=== PATIENT | male | born 1945 | race Caucasian/White ===

== ENCOUNTER 2017-04-01 07:36 | Emergency (ER) | payer MEDICARE, MEDICAID ==
[2017-04-01 07:54] VITALS: BP 70/50
--- NOTE | 2017-04-01 07:57 | UC ---
HPI Febrile Illness - HPI Summary HPI Summary: PT WITH DEVELOPMENTAL DELAY, SZ D/O, NON VERBAL LIVES AT [facility]. NOTICED TO HAVE FEVER TODAY 101.6. GIVEN TYLENOL 7:10AM (ABOUT 30 MIN BOTTOM FINISHER). IS COUGHING AND HAS GREEN NASAL DRAINAGE. NO RESPIRATORY DISTRESS. VITAL SIGNS NOTED HERE TO BE ABNORMAL - TACHYCARDIC, LOW O2, LOW BP, ELEVATED TEMP. PT REPORTED BY STAFF TO BE "QUIETER THAN USUAL." OF NOTE PT DID FALL 3 DAYS AGO SUSTAINED A SMALL LACERATION TO SCALP. HEALING WELL. NO SIGN OF INFECTION - History of Current Complaint Chief Complaint: UCRespiratory Time Seen by Provider: 04/01/17 07:42 Hx Obtained From: Family/Truck Hopper - STAFF AT [facility] Onset/Duration: Started Hours Ago, Still Present Timing: Constant Initial Severity: Moderate Current Severity: Moderate Pain Intensity: 0 Pain Scale Used: 0-10 Numeric Aggravating Factors: Nothing Alleviating Factors: Nothing Associated Signs and Symptoms: Cough - Additional Pertinent History Primary Care Physician: [id number] - Allergy/Home Medications Allergies/Adverse Reactions: Allergies Allergy/AdvReac Type Severity Reaction Status Date / Time Cephalexin [From Keflex] Allergy Unknown Unknown Verified 04/01/17 07:51 Reaction Details Valproic Acid [From Depakote] Allergy Unknown Unknown Verified 04/01/17 07:51 Reaction Details PMH/Surg Hx/FS Hx/Imm Hx Endocrine/Hematology History: Reports: Hx Thyroid Disease - HYPOTHYROID Denies: Hx Diabetes Cardiovascular History: Reports: Hx Hypertension Respiratory History: Denies: Hx Asthma, Hx Chronic Obstructive Pulmonary Disease (COPD) GI History: Reports: Other GI Disorders - EDENTULOUS, HEMORRHOIDS, CONSTIPATION , peritonitis Denies: Hx Ulcer Musculoskeletal History: Reports: Hx Arthritis, Hx Osteoporosis Sensory History: Reports: Hx Legally Blind Opthamlomology History: Reports: Hx Legally Blind Neurological History: Reports: Hx Developmental Delay - MR, Hx Seizures, Other Neuro Impairments/Disorders - AKITHESIA Psychiatric History: Reports: Hx Bipolar Disorder, Other Psychiatric Issues/ Disorders - ADJUSTMENT DISORDER WITH ANXIOUS MOOD Infectious Disease History: No Infectious Disease History: Denies: Hx Clostridium Difficile, Hx Hepatitis, Hx Human Immunodeficiency Virus (HIV), History Other Infectious Disease, Traveled Outside the US in Last 30 Days - Family History Known Family History: Positive: Unknown Family History: LEVEL 5 CAVEAT. Unobtainable due to profound MR. - Social History Alcohol Use: None Substance Use Type: Reports: None Smoking Status (MU): Never Smoked Tobacco Review of Systems Constitutional: Fever ENT: Nasal Discharge Respiratory: Cough Cardiovascular: Other - TACHYCARDIA Gastrointestinal: Negative All Other Systems Reviewed And Are Negative: Yes Physical Exam Triage Information Reviewed: Yes Appearance: No Pain Distress, Well-Nourished Vital Signs: Initial Vital Signs Temp 99.4 F 04/01/17 07:41 Pulse 121 04/01/17 07:41 Resp 16 04/01/17 07:41 BP 73/53 04/01/17 07:41 Pulse Ox 92 04/01/17 07:41 Vital Signs Reviewed: Yes Eyes: Positive: Conjunctiva Clear Neck: Positive: Supple Respiratory: Positive: No respiratory distress, No accessory muscle use, Crackles - LEFT MID/LOWER LUNG Cardiovascular: Positive: Tachycardia Abdomen Description: Positive: Nontender, Soft Musculoskeletal: Positive: No Edema Neurological: Positive: Alert Psychological: Positive: Other: - DEVELOPMENT DELAY Skin: Negative: rashes Course/Dx - Course Assessment/Plan: PT WITH LOW BP, TACHYCARDIA, FEVER, LOW OXYGEN SAT AND ABNORMAL LUNG SOUNDS. POSSIBLE PNEUMONIA/SEPSIS. TO ER FOR FURTHER EVAL. - Diagnoses Clinic Provider Diagnoses: SUSPECTED SEPSIS/PNEUMONIA - Provider Notifications Discussed Patient Care With: Zbigniew Murillo - TO [facility] [place] [facility] [place]BULANCE Time Discussed With Above Provider: 08:00 Instructed by Provider To: Will See In ED Discharge - Discharge Plan Condition: Fair Disposition: TRANS HIGHER LVL OF CARE FAC Referrals: Mark Belle MD [Primary Care Provider] -
[2017-04-01] MEDS ORDERED: NS 0.9% 1000 ML* 1,000 ML IV SCH (08:15)
== END 2017-04-01 08:14 | disposition short-term general hospital (02) ==
LOC: UCEAST 07:36
DX: R50.9 Fever, unspecified (principal); R05 Cough; R09.81 Nasal congestion; E03.9 Hypothyroidism, unspecified; I10 Essential (primary) hypertension; R62.50 Unspecified lack of expected normal physiological development in childhood; F31.9 Bipolar disorder, unspecified; R56.9 Unspecified convulsions; F43.21 Adjustment disorder with depressed mood; Z88.3 Allergy status to other anti-infective agents
CPT/HCPCS: 96360; 99213; G0463

== ENCOUNTER 2017-04-01 08:36 | Inpatient (IN) | payer MEDICARE, MEDICAID ==
[2017-04-01] MEDS ORDERED: NS 0.9% 1000 ML* 1,000 ML IV ONE ×6 (09:05→17:31)
[2017-04-01 09:22] LABS: Hematocrit 40 % (42-52); Hemoglobin 13.1 g/dl (14.0-18.0); Mean Corpuscular HGB Conc 33 g/dl (31-36); Mean Corpuscular Hemoglobin 33 pg (27-31); Mean Corpuscular Volume 99 fL (80-94); Mean Platelet Volume 9 um3 (7.4-10.4); Red Cell Distribution Width 14 % (10.5-15)
[2017-04-01 09:34] LABS: Albumin 3.5 g/dL (3.2-5.2); Calcium 9.7 mg/dL (8.6-10.3); EGFR African American 119.5 (>60); EGFR Non-African American 92.9 (>60); Globulin 3.3 g/dL (2-4); Total Bilirubin 0.4 mg/dL (0.2-1.0); Total Protein 6.8 g/dL (6.4-8.9)
[2017-04-01 09:40] LABS: Troponin I 0.05 ng/mL (<0.04)
--- NOTE | 2017-04-01 09:58 | RAD ---
HISTORY: Altered mental status COMPARISONS: None TECHNIQUE: Multiple contiguous axial CT scans were obtained of the head without intravenous contrast. FINDINGS: The study is limited by patient motion artifact. HEMORRHAGE/INFARCT: There is no hemorrhage or acute infarct. MASSES/SHIFT: There is no mass or shift. EXTRA-AXIAL SPACES: There are no extra-axial fluid collections. SULCI AND VENTRICLES: The sulci and ventricles are normal in size and position for the patient's stated age. CEREBRUM: There are no focal parenchymal abnormalities. BRAINSTEM: There are no focal parenchymal abnormalities. CEREBELLUM: There are no focal parenchymal abnormalities. VESSELS: The vessels are grossly normal. PARANASAL SINUSES: The paranasal sinuses are clear. 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 OTHER: None IMPRESSION: LIMITED STUDY. NO ACUTE INTRACRANIAL PATHOLOGY.
--- NOTE | 2017-04-01 09:59 | RAD ---
HISTORY: Fever, lethargy COMPARISONS: March 28, 2016 VIEWS:1: Single frontal portable view of the chest at 9:30 AM. The patient is obliqued to the left. FINDINGS: LINES AND TUBES: None. CARDIOMEDIASTINAL SILHOUETTE: The cardiomediastinal silhouette is normal for portable technique. PLEURA: The costophrenic angles are sharp. No pleural abnormalities are noted. LUNG PARENCHYMA: There is patchy alveolar opacification overlying the left midlung field, progressed from the previous examination ABDOMEN: Again noted is a large hiatal hernia BONES AND SOFT TISSUES: No bone or soft tissue abnormalities are noted. IMPRESSION: 1. LIMITED STUDY. 2. LEFT MIDLUNG CONSOLIDATION. 3. LARGE ALLAN HERNIA.
[2017-04-01] MEDS ORDERED: Levofloxacin 750 MG IVPREMIX(* 750 MG/150 ML BAG IVPB ONE (10:08)
[2017-04-01] MEDS: NS 0.9% 1000 ML* 1,000 ML IV ONE ×2 (10:13→12:41)
[2017-04-01] MEDS ORDERED: Acetaminophen TAB* 325 MG PO PRN (11:01)
[2017-04-01] MEDS ORDERED: Albuterol 2.5 MG/3 ML NEB.SOL* (0.083%) INH PRN (11:01)
[2017-04-01 11:20] LABS: Urine Bacteria Absent (Absent); Urine Bilirubin Negative (Negative); Urine Glucose Negative (Negative); Urine Nitrite Negative (Negative)
[2017-04-01] MEDS ORDERED: Al Hydrox/Mg Hydrox/Simet LIQ* 30 ML UDC PO PRN (11:37)
[2017-04-01] MEDS ORDERED: Enoxaparin(*) 40 MG/0.4 ML SYR SUBCUT SCH (12:00)
[2017-04-01] MEDS: NS 0.9% 1000 ML* 1,000 ML IV SCH ×3 (13:28→23:30)
--- NOTE | 2017-04-01 14:42 | HP ---
CC: Dr. Belle * ADMISSION HISTORY AND PHYSICAL: DATE OF ADMISSION: 04/01/17. PRIMARY CARE PROVIDER: Dr. Belle HEALTHCARE PROXY: Sister Richar Rushing, telephone [phone]. CODE STATUS: Full. SOURCE OF INFORMATION: The patient is a resident of [facility]. History obtained from interview with one of patient's caregiver, from [facility], review of past medical records. RELIABILITY: Good. CHIEF COMPLAINT: High fever and lethargy. HISTORY OF PRESENT ILLNESS: This is a 71-year-old man with past medical history of severe intellectual disability as well as bipolar disorder, whose baseline includes up walking around active. He is currently in a manic phase, which means he has been out of bed, more agitated and spitting until 3 days prior to presentation, had an unwitnessed fall with a cut to his head. He was placed on a head injury protocol which included increased vital signs monitoring. His vital signs were noted to be okay, although the actual values were not with with patient's caregiver where reported to be in the systolics of 90s to 100s. There is some report that he may have been using the bathroom more frequently, however this is not noted by the caregiver at the bedside. This morning the patient,"looked sick," and so his temperature was taken noted to be 101.6. He was given a bath and looked better; however, they decided to bring the patient to urgent care, where he was noted to be more lethargic and was transferred to [facility] for higher level of care. The patient's caregiver also reported a minimal cough. No shortness of breath. However previous caregiver did indicate cough, although for unclear duration of time. Patient was hospitalized in 2014 for left upper lobe pneumonia and sepsis, required IC stay. Of note during that time he continued to have fevers, status post treatment for his pneumonia on Zosyn. Those fevers are thought to represent drug fever which did eileen after discontinuation of Zosyn at that time. PAST MEDICAL HISTORY: 1. History of rectal bleeding. 2. Seizure disorder. 3. Malnutrition. 4. Hypothyroidism. 5. Anemia. 6. Bipolar disorder. 7. Thrombocytopenia. 8. Intellectual disability. 9. Blindness. ALLERGIES: To CEPHALEXIN, VALPROIC ACID. HOME MEDICATIONS: 1. Clonazepam 1 mg at bed time. 2. Phenobarbital 64.8 mg tabs 1 at bed time and one-half tab in the morning. 3. Allopurinol 5 mg 3 times a day. 4. Multivitamin 1 tablet daily. 5. Ensure plus one can 3 times a day as a supplement. 6. CeraVe moisturizing cream twice daily to dry skin, arms and legs, after bathing in the morning. 7. Vitamin A and B ointment small amounts to affected areas twice daily p.r.n. for minor skin irritation. 8. Mineral oil 3 drops in each ear 3 days has to flush after third day for wax buildup. 9. Maalox 2 teaspoons by mouth as needed with meals and a bed time for indigestion. 10. Mucinex ER 600 mg 2 times a day as need up to 10 days for congestion. 11. Dusting cream 13% apply to red or irritate areas 3 times a day as needed. 12. Benadryl 50 mg as needed if not sleep by 11 p.m. 13. Acetaminophen 650 mg every 4 hours as needed for headache, minor pain, or fever. 14. Milk of magnesia 2 tablespoons as needed on third day, if no bowel movement. 15. Dulcolax 10 mg suppository on day 4 if no bowel movement. 16. Omeprazole 20 mg daily. 17. Bacitracin 500 mg ointment applied to affected area twice daily for minor skin abrasions, open sores. 18. Motrin 400 mg every 4 hours as needed for muscle aches or discomfort. 19. Synthroid 100 mcg daily. 20. Valtrex 2 g every 12 hours as needed for 1 day for cold sore outbreak. 21. Nasonex 1 spray both nostrils daily. 22. MiraLAX 17 g as needed for constipation. 23. Lorazepam 1 mg as needed prior to medical appointments. FAMILY HISTORY: Unable to obtain, unknown. SOCIAL HISTORY: No tobacco. Previous resident of [place], now resident of [facility]. REVIEW OF SYSTEMS: Positive for cough, increased lethargy, potentially urinary frequency, otherwise unable to obtain per patient. PHYSICAL EXAMINATION GENERAL: Lying on a side, contracted, no apparent cardiopulmonary distress. Will not open his mouth to evaluate for evaluation. VITAL SIGNS: In the emergency room blood pressure 88/56, heart rate 90, respiratory rate was 25, T-max in the emergency room was 98.8. He is 98% on room air. NECK: He has no cervical or supraclavicular lymphadenopathy. LUNGS: Clear; however, does not cooperate with exam and take deep breaths. HEART: Regular rate and rhythm. No murmurs, rubs or gallops. ABDOMEN: Mildly distended, soft, nontender. Positive bowel sounds. EXTREMITIES: Warm and well perfused, less than 2 seconds capillary refill. NEUROLOGIC: He is alert and oriented x0, does not interact with exam. No apparent anxiety, agitation or depression. LABORATORY DATA: Labs reviewed white blood cell count is 18,000, with 88.5% neutrophils, hemoglobin 13.1, MCV of 99, platelets 140. BUN 23, creatinine 0.82 , lactic acid 1.6, ammonia is 38, troponin is 0.05. Urine is collected is pending. Chest x-ray, impression: Limited study, left mid lung consolidation, large hiatal hernia. EKG sinus tachycardia, ventricular rate 95. Normal axes and intervals. No ST or T- wave changes. ASSESSMENT AND PLAN: This is a 71-year-old man with past medical history of severe intellectual disability, bipolar disorder, blindness, presenting with fevers, found septic secondary to pneumonia. 1. Sepsis secondary to left sided pneumonia. Receiving Zosyn in the emergency room will continue q. 8 hours. He is status post 2 L bolus, with bolus of another liter to follow. Additionally boluses as needed; otherwise, 150 cc/hour for 2 additional liters. Check Streptococcus pneumoniae and legionella urine antigens. Check sputum culture if able to collect. Blood cultures obtained and urine obtained for urinalysis and culture. Admit to ICU given hypotension and tachycardia. Wilkinson in place, monitor urine output. 2. Elevated troponins by demand ischemia in the setting of sepsis, monitor troponins for 2 additional sets. EKG is nonischemic. 3. History of dysphagia continue unrestricted diet. Solids and pudding thick liquids. 4. History of seizures, continue phenobarbital. 5. History of malnutrition, continue Ensure 3 times a day if patient will tolerate p.o. 6. DVT prophylaxis with Lovenox. Please note, as indicated in HPI the patient did have low grade fevers after completion of therapy with Zosyn for pneumonia in 2014. [id number]/[facility] #: [id number] [facility]
--- NOTE | 2017-04-01 18:05 | ED ---
Opal Greenwood Alfonso, scribed for Zbigniew Murillo MD on 04/01/17 at 0918 . Complex/Multi-Sys Presentation - HPI Summary HPI Summary: LEVEL 5 CAVEAT DUE TO PATIENTS NONVERBAL STATUS. This patient is a 71 year old M BIBA from [facility] to [facility] accompanied by roof truss builder s/p fall three days ago. The fall was unwitnessed and he hit his head. Symptoms aggravated and alleviated by nothing. Security Intelligence Analyst reports febrile illness, he is going through a manic phase, and decreased activity. He was given Tylenol 650 mg at 0710. - History Of Current Complaint Chief Complaint: EDGeneral Time Seen by Provider: 04/01/17 09:05 Hx Obtained From: Family/Security Intelligence Analyst - Caregiver Onset/Duration: Sudden Onset, Lasting Days - 3, Resolved Timing: Constant Severity Currently: Moderate Severity Initially: Moderate Aggravating Factor(s): Nothing Alleviating Factor(s): Nothing Associated Signs And Symptoms: Positive: Recent Trauma - Unwitnessed fall 3 days ago with head trauma., Other - . Security Intelligence Analyst reports febrile illness, he is going through a manic phase, and decreased activity. - Allergies/Home Medications Allergies/Adverse Reactions: Allergies Allergy/AdvReac Type Severity Reaction Status Date / Time Cephalexin [From Keflex] Allergy Unknown Unknown Verified 04/01/17 07:51 Reaction Details Valproic Acid [From Depakote] Allergy Unknown Unknown Verified 04/01/17 07:51 Reaction Details Cephalosporins Allergy Unknown Verified 04/01/17 13:00 Reaction Details Prednisone Allergy Agitation Verified 04/01/17 13:00 Home Medications: Home Medications Emollient [Cerave] 1 cre TOPICAL BID 04/01/17 [History Confirmed 04/01/17] Haloperidol TAB* [Haldol TAB*] 5 mg PO TID MDD 15 mg 04/01/17 [History Confirmed 04/01/17] Magnesium Hydroxide LIQ* [Milk of Magnesia LIQ*] 30 ml PO Q3D PRN 04/01/17 [ History Confirmed 04/01/17] clonazePAM TAB(*) [KlonoPIN TAB(*)] 1 mg PO BEDTIME MDD 1 mg 04/01/17 [History Confirmed 04/01/17] PMH/Surg Hx/FS Hx/Imm Hx Endocrine/Hematology History: Reports: Hx Thyroid Disease - HYPOTHYROID Denies: Hx Diabetes Cardiovascular History: Reports: Hx Hypertension Respiratory History: Denies: Hx Asthma, Hx Chronic Obstructive Pulmonary Disease (COPD) GI History: Reports: Other GI Disorders - EDENTULOUS, HEMORRHOIDS, CONSTIPATION , peritonitis Denies: Hx Ulcer Musculoskeletal History: Reports: Hx Arthritis, Hx Osteoporosis Sensory History: Reports: Hx Legally Blind Opthamlomology History: Reports: Hx Legally Blind Neurological History: Reports: Hx Developmental Delay - MR, Hx Seizures, Other Neuro Impairments/Disorders - AKITHESIA Psychiatric History: Reports: Hx Bipolar Disorder, Other Psychiatric Issues/ Disorders - ADJUSTMENT DISORDER WITH ANXIOUS MOOD Infectious Disease History: Denies: Hx Clostridium Difficile, Hx Hepatitis, Hx Human Immunodeficiency Virus (HIV), History Other Infectious Disease, Traveled Outside the [place] in Last 30 Days - Family History Known Family History: Positive: Unknown Family History: LEVEL 5 CAVEAT. - Social History Lives: Long Term - [employer] home Alcohol Use: None Substance Use Type: Reports: None Smoking Status (MU): Never Smoked Tobacco Review of Systems - ROS Summary Review of Systems Summary: LEVEL 5 CAVEAT DUE TO PATIENTS NONVERBAL STATUS. Positive: Fever Musculoskeletal: Other - Positive unwitnessed fall and head trauma Neurological: Other - Positive he is going through a manic phase, and decreased activity. All Other Systems Reviewed And Are Negative: No Physical Exam - Summary Physical Exam Summary: LEVEL 5 CAVEAT DUE TO PATIENTS NONVERBAL STATUS. VITAL SIGNS: Reviewed. GENERAL: Patient is an elderly male who is lying in the stretcher. Patient is not in any acute respiratory distress. Patient appears ill. HEAD AND FACE: No ecchymosis, hematomas or skull depressions. No sinus tenderness. Small well healing abrasion at top of head secondary to fall three days ago. EYES: PERRLA, EOMI x 2, No injected conjunctiva, no nystagmus. EARS: Ear canals and tympanic membranes are within normal limits. MOUTH: Oropharynx within normal limits. NECK: Supple, trachea is midline, no adenopathy, no JVD, no carotid bruit, no c- spine tenderness, neck with full ROM. CHEST: Symmetric, no tenderness at palpation LUNGS: Crackles in bilateral bases of the lungs. CVS: Regular rate and rhythm, S1 and S2 present, no murmurs or gallops appreciated. ABDOMEN: Soft, non-tender. No signs of distention. No rebound no guarding, and no masses palpated. Bowel sounds are normal. EXTREMITIES: FROM in all major joints, no edema, no cyanosis or clubbing. NEURO: Patient is nonverbal. SKIN: Dry and warm. Triage Information Reviewed: Yes Vital Signs On Initial Exam: Initial Vitals Temp Pulse Resp BP Pulse Ox 98.8 F 96 16 88/56 96 04/01/17 08:56 04/01/17 08:56 04/01/17 08:56 04/01/17 08:56 04/01/17 08:56 Vital Signs Reviewed: Yes Completion Of Physical Exam Limited Due To: Level 5 Diagnostics - Vital Signs Vital Signs Temp Pulse Resp BP Pulse Ox 04/01/17 09:00 25 88/56 04/01/17 08:58 26 04/01/17 08:57 94/61 04/01/17 08:56 98.8 F 96 16 88/56 96 - Laboratory Lab Results: Lab Results 04/01/17 04/01/17 04/01/17 Range/Units 08:06 08:06 08:06 WBC 18.0 H (3.5-10.8) 10^3/ul RBC 4.00 (4.0-5.4) 10^6/ul Hgb 13.1 L (14.0-18.0) g/dl Hct 40 L (42-52) % MCV 99 H (80-94) fL MCH 33 H (27-31) pg MCHC 33 (31-36) g/dl RDW 14 (10.5-15) % Plt Count 140 L (150-450) 10^3/ul MPV 9 (7.4-10.4) um3 Neut % (Auto) 88.5 H (38-83) % Lymph % (Auto) 5.4 L (25-47) % [place] % (Auto) 5.6 (1-9) % Eos % (Auto) 0.2 (0-6) % Baso % (Auto) 0.3 (0-2) % Absolute Neuts (auto) 15.9 H (1.5-7.7) 10^3/ul Absolute Lymphs (auto) 1.0 (1.0-4.8) 10^3/ul Absolute Monos (auto) 1.0 H (0-0.8) 10^3/ul Absolute Eos (auto) 0 (0-0.6) 10^3/ul Absolute Basos (auto) 0.1 (0-0.2) 10^3/ul Absolute Nucleated RBC 0 10^3/ul Nucleated RBC % 0 Sodium 135 (133-145) mmol/L Potassium 4.0 (3.5-5.0) mmol/L Chloride 100 L (101-111) mmol/L Carbon Dioxide 28 (22-32) mmol/L Anion Gap 7 (2-11) mmol/L BUN 23 (6-24) mg/dL Creatinine 0.82 (0.67-1.17) mg/dL Est GFR ( Amer) 119.5 (>60) Est GFR (Non-Af Amer) 92.9 (>60) BUN/Creatinine Ratio 28.0 H (8-20) Glucose 132 H (70-100) mg/dL Lactic Acid (0.5-2.0) mmol/L Calcium 9.7 (8.6-10.3) mg/dL Total Bilirubin 0.40 (0.2-1.0) mg/dL AST 28 (13-39) U/L ALT 31 (7-52) U/L Alkaline Phosphatase 135 H (34-104) U/L Ammonia 38 (16-53) mol/L Total Creatine Kinase 45 (10-223) U/L Troponin I 0.05 H* (<0.04) ng/mL Total Protein 6.8 (6.4-8.9) g/dL Albumin 3.5 (3.2-5.2) g/dL Globulin 3.3 (2-4) g/dL Albumin/Globulin Ratio 1.1 (1-3) Urine Color Urine Appearance Urine pH (5-9) Ur Specific [place] (1.010-1.030) Urine Protein (Negative) Urine Ketones (Negative) Urine Blood (Negative) Urine Nitrate (Negative) Urine Bilirubin (Negative) Urine Urobilinogen (Negative) Ur Leukocyte Esterase (Negative) Urine WBC (Auto) (Absent) Urine RBC (Auto) (Absent) Calcium Oxalate Crystal (Absent) Urine Bacteria (Absent) Urine Glucose (Negative) Urine Ascorbic Acid (Negative) 04/01/17 04/01/17 Range/Units 09:30 11:00 WBC (3.5-10.8) 10^3/ul RBC (4.0-5.4) 10^6/ul Hgb (14.0-18.0) g/dl Hct (42-52) % MCV (80-94) fL MCH (27-31) pg MCHC (31-36) g/dl RDW (10.5-15) % Plt Count (150-450) 10^3/ul MPV (7.4-10.4) um3 Neut % (Auto) (38-83) % Lymph % (Auto) (25-47) % [place] % (Auto) (1-9) % Eos % (Auto) (0-6) % Baso % (Auto) (0-2) % Absolute Neuts (auto) (1.5-7.7) 10^3/ul Absolute Lymphs (auto) (1.0-4.8) 10^3/ul Absolute Monos (auto) (0-0.8) 10^3/ul Absolute Eos (auto) (0-0.6) 10^3/ul Absolute Basos (auto) (0-0.2) 10^3/ul Absolute Nucleated RBC 10^3/ul Nucleated RBC % Sodium (133-145) mmol/L Potassium (3.5-5.0) mmol/L Chloride (101-111) mmol/L Carbon Dioxide (22-32) mmol/L Anion Gap (2-11) mmol/L BUN (6-24) mg/dL Creatinine (0.67-1.17) mg/dL Est GFR ( Amer) (>60) Est GFR (Non-Af Amer) (>60) BUN/Creatinine Ratio (8-20) Glucose (70-100) mg/dL Lactic Acid 1.6 (0.5-2.0) mmol/L Calcium (8.6-10.3) mg/dL Total Bilirubin (0.2-1.0) mg/dL AST (13-39) U/L ALT (7-52) U/L Alkaline Phosphatase (34-104) U/L Ammonia (16-53) mol/L Total Creatine Kinase (10-223) U/L Troponin I (<0.04) ng/mL Total Protein (6.4-8.9) g/dL Albumin (3.2-5.2) g/dL Globulin (2-4) g/dL Albumin/Globulin Ratio (1-3) Urine Color Yellow Urine Appearance Cloudy Urine pH 7.0 (5-9) Ur Specific [place] 1.020 (1.010-1.030) Urine Protein Negative (Negative) Urine Ketones Negative (Negative) Urine Blood Negative (Negative) Urine Nitrate Negative (Negative) Urine Bilirubin Negative (Negative) Urine Urobilinogen Negative (Negative) Ur Leukocyte Esterase Trace H (Negative) Urine WBC (Auto) Trace(0-5/hpf) (Absent) Urine RBC (Auto) Trace(0-2/hpf) (Absent) Calcium Oxalate Crystal Present H (Absent) Urine Bacteria Absent (Absent) Urine Glucose Negative (Negative) Urine Ascorbic Acid * H (Negative) Result Diagrams: 04/01/17 08:06 04/01/17 08:06 Lab Statement: Any lab studies that have been ordered have been reviewed, and results considered in the medical decision making process. - Radiology CXR Radiology Interpretation Completed By: Radiologist - 1. LIMITED STUDY. 2. LEFT MIDLUNG CONSOLIDATION. 3. LARGE ALLAN HERNIA. - CT Brain CT Interpretation Completed By: Radiologist - LIMITED STUDY. NO ACUTE INTRACRANIAL PATHOLOGY. - EKG 0920 Cardiac Rate: NL - BPM 95 EKG Rhythm: Sinus Rhythm ST Segment: Normal Complex Multi-Symp Course/Dx Course Of Treatment: LEVEL 5 CAVEAT DUE TO PATIENTS NONVERBAL STATUS. This patient is a 71 year old M BIBA from [facility] to [facility] accompanied by roof truss builder s/p fall three days ago. The fall was unwitnessed and he hit his head. Symptoms aggravated and alleviated by nothing. Security Intelligence Analyst reports febrile illness, he is going through a manic phase, and decreased activity. He was given Tylenol 650 mg at 0710. Assessment/Plan: Test results show a WBC of 18 with slight chronic anemia. Troponin of 0.05. Urinalysis negative for UTI. CXR shows pneumonia. In the ED course the patient was given IV fluids for his hypotension and he was placed on Zosyn. As per Dr. Teague, he only wants Zosyn for community acquired pneumonia. The patient was admitted to Dr. Teague (hospitalist). The patient is alert. - Diagnoses Provider Diagnoses: Pneumonia, Head contusion - Physician Notifications Discussed Care Of Patient With: Tino Teague Time Discussed With Above Provider: 10:18 Instructed by Provider To: Other - Consulted Dr. Teague (hospitalist) who accepts the patient for admission. Discharge - Discharge Plan Condition: Guarded Disposition: ADMITTED TO [facility] documentation as recorded by the Opal flores Alfonso accurately reflects the service I personally performed and the decisions made by me, Zbigniew Murillo MD.
[2017-04-01] MEDS: Enoxaparin(*) 40 MG/0.4 ML SYR SUBCUT SCH (19:08)
[2017-04-01] MEDS: clonazePAM TAB(*) 1 MG PO SCH (21:26)
[2017-04-01] MEDS: PHENobarbital TAB(*) 30 MG PO SCH (21:26)
[2017-04-02 05:38] LABS: Calcium 7.4 mg/dL (8.6-10.3); EGFR African American 216.4 (>60); EGFR Non-African American 168.3 (>60); Potassium 3.4 mmol/L (3.5-5.0)
[2017-04-02 05:56] LABS: BUN/Creatinine Ratio 20.4 (8-20); Magnesium 1.3 mg/dL (1.9-2.7)
[2017-04-02] MEDS: Levothyroxine TAB* 100 MCG TAB PO SCH (06:05)
[2017-04-02] MEDS ORDERED: Potassium Chloride LIQUID* 20 MEQ PACKET PO ONE (06:14)
[2017-04-02] MEDS ORDERED: NS 0.9% 1000 ML* 1,000 ML IV SCH (07:45)
--- NOTE | 2017-04-02 07:45 | PN ---
Subjective Date of Service: 04/02/17 Interval History: Seen and examined with aid at bedside This morning "yelping" which is closer to baseline. Aid reports if he were at his baseline he would be ripping off all the telemetry wires Pt unable to relay concerns Objective Active Medications: Acetaminophen (Tylenol Tab*) 650 mg PO Q4H PRN PRN Reason: FEVER/PAIN Al Hydrox/Mg Hydrox/Simethicone (Maalox Plus*) 30 ml PO TID PC PRN PRN Reason: INDIGESTION Albuterol (Ventolin 2.5 Mg/3 Ml Neb.Anuja*) 2.5 mg INH [id number] AWAKE PRN PRN Reason: sob/wheezing Clonazepam (Klonopin Tab(*)) 1 mg PO BEDTIME [facility] Last Admin: 04/01/17 21:26 Dose: 1 mg Enoxaparin Sodium (Lovenox(*)) 40 mg SUBCUT 1830 [facility] Last Admin: 04/01/17 19:08 Dose: 40 mg Fluticasone Propionate (Flonase Nasal [place] 50mcg*) 1 spray BOTH NARES DAILY [facility] Piperacillin Sod/Tazobactam (Sod 3.375 gm/ Sodium Chloride) 100 mls @ 25 mls/ hr IVPB Q8H [facility] Last Admin: 04/02/17 02:06 Dose: 25 mls/hr Sodium Chloride (Ns 0.9% 1000 Ml*) 1,000 mls @ 150 mls/hr IV PER RATE [facility] Stop: 04/02/17 17:54 Last Admin: 04/01/17 23:30 Dose: 150 mls/hr Magnesium Sulfate 3 gm/ Sodium (Chloride) 106 mls @ 53 mls/hr IVPB ONCE ONE Stop: 04/02/17 08:29 Last Admin: 04/02/17 06:40 Dose: 53 mls/hr Sodium Chloride (Ns 0.9% 1000 Ml*) 1,000 mls @ 150 mls/hr IV PER RATE [facility] Stop: 04/02/17 14:24 Levothyroxine Sodium (Synthroid Tab*) 100 mcg PO 0600 [facility] Last Admin: 04/02/17 06:05 Dose: 100 mcg Magnesium Hydroxide (Milk Of Magnesia Liq*) 30 ml PO Q3D PRN PRN Reason: CONSTIPATION Omeprazole (Prilosec Cap*) 20 mg PO DAILY [facility] Phenobarbital (Phenobarbital Tab(*)) 60 mg PO BEDTIME [facility] Last Admin: 04/01/17 21:26 Dose: 60 mg Phenobarbital (Phenobarbital Tab(*)) 30 mg PO DAILY [facility] Polyethylene Glycol/Electrolytes (Miralax*) 17 gm PO DAILY [facility] Vital Signs 04/01/17 04/01/17 04/01/17 11:45 12:00 12:15 Temperature Pulse Rate 91 89 91 Respiratory 25 25 24 Rate Blood Pressure 95/54 98/60 104/60 (mmHg) O2 Sat by Pulse 95 95 94 Oximetry 04/01/17 04/01/17 04/01/17 12:30 12:45 13:00 Temperature 98.2 F Pulse Rate 88 89 87 Respiratory 24 25 19 Rate Blood Pressure 101/61 107/55 93/46 (mmHg) O2 Sat by Pulse 93 93 93 Oximetry 04/01/17 04/01/17 04/01/17 13:03 13:05 13:12 Temperature Pulse Rate 88 87 Respiratory 18 25 Rate Blood Pressure 88/48 (mmHg) O2 Sat by Pulse 93 94 Oximetry 04/01/17 04/01/17 04/01/17 13:20 13:30 13:31 Temperature Pulse Rate 85 83 80 Respiratory 23 26 25 Rate Blood Pressure 88/48 87/46 (mmHg) O2 Sat by Pulse 95 94 93 Oximetry 04/01/17 04/01/17 04/01/17 13:41 13:46 13:58 Temperature 99 F Pulse Rate 77 78 Respiratory 26 26 25 Rate Blood Pressure 87/46 72/45 (mmHg) O2 Sat by Pulse 94 95 Oximetry 04/01/17 04/01/17 04/01/17 14:00 14:01 14:02 Temperature Pulse Rate 74 79 79 Respiratory 26 18 26 Rate Blood Pressure 72/34 80/44 (mmHg) O2 Sat by Pulse 96 93 95 Oximetry 04/01/17 04/01/17 04/01/17 14:30 15:00 15:30 Temperature Pulse Rate 86 87 74 Respiratory 23 27 21 Rate Blood Pressure (mmHg) O2 Sat by Pulse 97 94 94 Oximetry 04/01/17 04/01/17 04/01/17 15:31 15:34 15:35 Temperature Pulse Rate 80 86 84 Respiratory 24 14 15 Rate Blood Pressure (mmHg) O2 Sat by Pulse 94 97 95 Oximetry 04/01/17 04/01/17 04/01/17 16:00 16:30 17:00 Temperature Pulse Rate 81 86 89 Respiratory 8 23 19 Rate Blood Pressure (mmHg) O2 Sat by Pulse 94 92 93 Oximetry 04/01/17 04/01/17 04/01/17 17:30 17:48 18:00 Temperature Pulse Rate 80 81 Respiratory 27 25 Rate Blood Pressure 91/57 86/48 (mmHg) O2 Sat by Pulse 91 99 Oximetry 04/01/17 04/01/17 04/01/17 18:30 19:00 19:02 Temperature 99 F Pulse Rate 81 89 92 Respiratory 29 27 30 Rate Blood Pressure (mmHg) O2 Sat by Pulse 96 97 98 Oximetry 04/01/17 04/01/17 04/01/17 19:03 19:04 19:06 Temperature Pulse Rate 88 83 82 Respiratory 26 25 29 Rate Blood Pressure (mmHg) O2 Sat by Pulse 99 99 100 Oximetry 04/01/17 04/01/17 04/01/17 19:30 20:00 20:25 Temperature 99 F Pulse Rate 81 93 80 Respiratory 23 30 26 Rate Blood Pressure (mmHg) O2 Sat by Pulse 99 98 98 Oximetry 04/01/17 04/01/17 04/01/17 20:28 20:29 20:30 Temperature Pulse Rate 88 78 78 Respiratory 31 28 27 Rate Blood Pressure 112/70 96/62 (mmHg) O2 Sat by Pulse 99 98 97 Oximetry 04/01/17 04/01/17 04/01/17 20:31 20:45 21:00 Temperature Pulse Rate 79 79 77 Respiratory 25 23 24 Rate Blood Pressure 90/63 89/59 (mmHg) O2 Sat by Pulse 97 96 98 Oximetry 04/01/17 04/01/17 04/01/17 21:01 21:15 21:29 Temperature Pulse Rate 79 73 89 Respiratory 24 25 26 Rate Blood Pressure 101/61 (mmHg) O2 Sat by Pulse 98 97 98 Oximetry 04/01/17 04/01/17 04/01/17 21:30 21:31 21:45 Temperature Pulse Rate 98 84 84 Respiratory 24 36 20 Rate Blood Pressure 126/66 89/62 (mmHg) O2 Sat by Pulse 96 96 98 Oximetry 04/01/17 04/01/17 04/01/17 22:00 22:01 22:15 Temperature Pulse Rate 77 76 77 Respiratory 26 24 25 Rate Blood Pressure 101/62 90/60 (mmHg) O2 Sat by Pulse 97 96 94 Oximetry 04/01/17 04/01/17 04/01/17 22:30 22:31 22:43 Temperature Pulse Rate 76 79 75 Respiratory 24 33 23 Rate Blood Pressure 96/58 (mmHg) O2 Sat by Pulse 95 94 94 Oximetry 04/01/17 04/01/17 04/01/17 22:45 23:00 23:16 Temperature Pulse Rate 75 77 83 Respiratory 29 29 27 Rate Blood Pressure 105/70 116/76 116/67 (mmHg) O2 Sat by Pulse 96 97 98 Oximetry 04/01/17 04/01/17 04/01/17 23:30 23:31 23:43 Temperature Pulse Rate 84 91 88 Respiratory 29 18 31 Rate Blood Pressure 115/73 (mmHg) O2 Sat by Pulse 96 95 95 Oximetry 04/01/17 04/01/17 04/01/17 23:44 23:45 23:55 Temperature 97.7 F Pulse Rate 82 85 Respiratory 28 31 Rate Blood Pressure 117/76 (mmHg) O2 Sat by Pulse 95 96 Oximetry 04/02/17 04/02/17 04/02/17 00:00 00:01 00:15 Temperature Pulse Rate 84 80 86 Respiratory 26 29 30 Rate Blood Pressure 117/78 122/78 (mmHg) O2 Sat by Pulse 97 96 95 Oximetry 04/02/17 04/02/17 04/02/17 00:30 00:31 00:45 Temperature Pulse Rate 79 77 82 Respiratory 29 27 27 Rate Blood Pressure 110/79 122/74 (mmHg) O2 Sat by Pulse 96 96 97 Oximetry 04/02/17 04/02/17 04/02/17 01:00 01:01 01:15 Temperature Pulse Rate 81 80 Respiratory 29 28 28 Rate Blood Pressure 120/75 112/73 (mmHg) O2 Sat by Pulse 97 96 Oximetry 04/02/17 04/02/17 04/02/17 01:30 01:31 01:45 Temperature Pulse Rate 87 80 84 Respiratory 28 28 30 Rate Blood Pressure 127/78 125/74 (mmHg) O2 Sat by Pulse 95 95 97 Oximetry 04/02/17 04/02/17 04/02/17 02:00 02:01 02:30 Temperature Pulse Rate 85 79 94 Respiratory 20 29 24 Rate Blood Pressure 111/83 (mmHg) O2 Sat by Pulse 87 97 98 Oximetry 04/02/17 04/02/17 04/02/17 03:00 03:01 03:30 Temperature Pulse Rate 80 92 79 Respiratory 30 28 28 Rate Blood Pressure 121/64 (mmHg) O2 Sat by Pulse 91 93 95 Oximetry 04/02/17 04/02/17 04/02/17 04:00 04:01 04:30 Temperature 98.3 F Pulse Rate 90 85 91 Respiratory 29 28 20 Rate Blood Pressure 136/88 (mmHg) O2 Sat by Pulse 96 96 94 Oximetry 04/02/17 04/02/17 04/02/17 05:00 05:01 05:30 Temperature Pulse Rate 86 91 79 Respiratory 34 22 32 Rate Blood Pressure 135/75 (mmHg) O2 Sat by Pulse 93 93 91 Oximetry 04/02/17 04/02/17 04/02/17 06:00 06:01 06:30 Temperature Pulse Rate 92 98 98 Respiratory 28 25 26 Rate Blood Pressure 135/77 (mmHg) O2 Sat by Pulse 92 87 Oximetry 04/02/17 04/02/17 04/02/17 06:44 07:00 07:01 Temperature Pulse Rate 93 91 Respiratory 25 27 24 Rate Blood Pressure 114/80 (mmHg) O2 Sat by Pulse 78 92 Oximetry Oxygen Devices in Use Now: None Appearance: sitting up in bed, NAD Ears/Nose/Mouth/Throat: Clear Oropharnyx, Mucous Membranes Moist Neck: NL Appearance and Movements; NL JVP Respiratory: Symmetrical Chest Expansion and Respiratory Effort, - - clear anteriorly, unable to participate and listen to posteriorly Cardiovascular: RRR Abdominal: NL Sounds; No Tenderness; No Distention, No Hepatosplenomegaly Lymphatic: No Cervical Adenopathy Extremities: No Edema, No Clubbing, Cyanosis Neurological: - - AOx0, screaming intermittantly, moves all extremities Result Diagrams: 04/01/17 08:06 04/02/17 05:03 Additional Lab and Data: Lab Results 04/01/17 04/01/17 04/01/17 Range/Units 08:06 08:06 08:06 WBC 18.0 H (3.5-10.8) 10^3/ul RBC 4.00 (4.0-5.4) 10^6/ul Hgb 13.1 L (14.0-18.0) g/dl Hct 40 L (42-52) % MCV 99 H (80-94) fL MCH 33 H (27-31) pg MCHC 33 (31-36) g/dl RDW 14 (10.5-15) % Plt Count 140 L (150-450) 10^3/ul MPV 9 (7.4-10.4) um3 Neut % (Auto) 88.5 H (38-83) % Lymph % (Auto) 5.4 L (25-47) % [place] % (Auto) 5.6 (1-9) % Eos % (Auto) 0.2 (0-6) % Baso % (Auto) 0.3 (0-2) % Absolute Neuts (auto) 15.9 H (1.5-7.7) 10^3/ul Absolute Lymphs (auto) 1.0 (1.0-4.8) 10^3/ul Absolute Monos (auto) 1.0 H (0-0.8) 10^3/ul Absolute Eos (auto) 0 (0-0.6) 10^3/ul Absolute Basos (auto) 0.1 (0-0.2) 10^3/ul Absolute Nucleated RBC 0 10^3/ul Nucleated RBC % 0 Sodium 135 (133-145) mmol/L Potassium 4.0 (3.5-5.0) mmol/L Chloride 100 L (101-111) mmol/L Carbon Dioxide 28 (22-32) mmol/L Anion Gap 7 (2-11) mmol/L BUN 23 (6-24) mg/dL Creatinine 0.82 (0.67-1.17) mg/dL Est GFR ( Amer) 119.5 (>60) Est GFR (Non-Af Amer) 92.9 (>60) BUN/Creatinine Ratio 28.0 H (8-20) Glucose 132 H (70-100) mg/dL Lactic Acid (0.5-2.0) mmol/L Calcium 9.7 (8.6-10.3) mg/dL Total Bilirubin 0.40 (0.2-1.0) mg/dL AST 28 (13-39) U/L ALT 31 (7-52) U/L Alkaline Phosphatase 135 H (34-104) U/L Ammonia 38 (16-53) mol/L Total Creatine Kinase 45 (10-223) U/L Troponin I 0.05 H* (<0.04) ng/mL Total Protein 6.8 (6.4-8.9) g/dL Albumin 3.5 (3.2-5.2) g/dL Globulin 3.3 (2-4) g/dL Albumin/Globulin Ratio 1.1 (1-3) Urine Color Urine Appearance Urine pH (5-9) Ur Specific [place] (1.010-1.030) Urine Protein (Negative) Urine Ketones (Negative) Urine Blood (Negative) Urine Nitrate (Negative) Urine Bilirubin (Negative) Urine Urobilinogen (Negative) Ur Leukocyte Esterase (Negative) Urine WBC (Auto) (Absent) Urine RBC (Auto) (Absent) Calcium Oxalate Crystal (Absent) Urine Bacteria (Absent) Urine Glucose (Negative) Urine Ascorbic Acid (Negative) 04/01/17 04/01/17 Range/Units 09:30 11:00 WBC (3.5-10.8) 10^3/ul RBC (4.0-5.4) 10^6/ul Hgb (14.0-18.0) g/dl Hct (42-52) % MCV (80-94) fL MCH (27-31) pg MCHC (31-36) g/dl RDW (10.5-15) % Plt Count (150-450) 10^3/ul MPV (7.4-10.4) um3 Neut % (Auto) (38-83) % Lymph % (Auto) (25-47) % [place] % (Auto) (1-9) % Eos % (Auto) (0-6) % Baso % (Auto) (0-2) % Absolute Neuts (auto) (1.5-7.7) 10^3/ul Absolute Lymphs (auto) (1.0-4.8) 10^3/ul Absolute Monos (auto) (0-0.8) 10^3/ul Absolute Eos (auto) (0-0.6) 10^3/ul Absolute Basos (auto) (0-0.2) 10^3/ul Absolute Nucleated RBC 10^3/ul Nucleated RBC % Sodium (133-145) mmol/L Potassium (3.5-5.0) mmol/L Chloride (101-111) mmol/L Carbon Dioxide (22-32) mmol/L Anion Gap (2-11) mmol/L BUN (6-24) mg/dL Creatinine (0.67-1.17) mg/dL Est GFR ( Amer) (>60) Est GFR (Non-Af Amer) (>60) BUN/Creatinine Ratio (8-20) Glucose (70-100) mg/dL Lactic Acid 1.6 (0.5-2.0) mmol/L Calcium (8.6-10.3) mg/dL Total Bilirubin (0.2-1.0) mg/dL AST (13-39) U/L ALT (7-52) U/L Alkaline Phosphatase (34-104) U/L Ammonia (16-53) mol/L Total Creatine Kinase (10-223) U/L Troponin I (<0.04) ng/mL Total Protein (6.4-8.9) g/dL Albumin (3.2-5.2) g/dL Globulin (2-4) g/dL Albumin/Globulin Ratio (1-3) Urine Color Yellow Urine Appearance Cloudy Urine pH 7.0 (5-9) Ur Specific [place] 1.020 (1.010-1.030) Urine Protein Negative (Negative) Urine Ketones Negative (Negative) Urine Blood Negative (Negative) Urine Nitrate Negative (Negative) Urine Bilirubin Negative (Negative) Urine Urobilinogen Negative (Negative) Ur Leukocyte Esterase Trace H (Negative) Urine WBC (Auto) Trace(0-5/hpf) (Absent) Urine RBC (Auto) Trace(0-2/hpf) (Absent) Calcium Oxalate Crystal Present H (Absent) Urine Bacteria Absent (Absent) Urine Glucose Negative (Negative) Urine Ascorbic Acid * H (Negative) Microbiology and Other Data: Microbiology 04/01/17 13:20 Nasal Screen MRSA (PCR)(ERIKA) - Final Nasal Mrsa Negative Assess/Plan/Problems-Billing Assessment: 71 yo M h/o blindness, severe intellectual delay, seizure d/o, bipolar d/o, p/w sepsis 2/2 Left midlung PNA - Patient Problems (1) Sepsis Comment: In setting of PNA APpropriately volume rescucitated (SBP from 80s now to 110s) Mental status improving and UOP appropriate Change NS to 150cc for addition liter c/w zosyn (2) Pneumonia Comment: Zosyn in setting of cephalosporin allergy (3) Seizure disorder Comment: phenobarb (4) Bipolar 1 disorder Comment: Was previously in manic phase Restart haldol TID (home med) now that pt is awake (5) DVT prophylaxis Comment: lovenox
[2017-04-02] MEDS: Haloperidol TAB* 5 MG PO SCH ×3 (09:08→20:35)
[2017-04-02] MEDS: PHENobarbital TAB(*) 30 MG PO SCH ×2 (09:08→20:34)
[2017-04-02] MEDS: Omeprazole CAP* 20 MG PO SCH (09:08)
[2017-04-02] MEDS: Fluticasone NASAL SPRAY 50MCG* 16 gm SPRAY BTL BOTH NARES SCH (09:09)
[2017-04-02] MEDS: Polyethylene Glycol 3350* 17 GM PACKET PO SCH (09:10)
[2017-04-02] MEDS ORDERED: Ondansetron INJ* 2 MG/ML VIAL IV PRN (15:31)
[2017-04-02] MEDS: Enoxaparin(*) 40 MG/0.4 ML SYR SUBCUT SCH (18:27)
[2017-04-02] MEDS: clonazePAM TAB(*) 1 MG PO SCH (20:34)
[2017-04-02] MEDS ORDERED: NS 0.9% 250 ML* 250 ML IV ONE (23:00)
[2017-04-03] MEDS: NS 0.9% 1000 ML* 1,000 ML IV SCH ×2 (00:29→12:16)
[2017-04-03] MEDS: Levothyroxine TAB* 100 MCG TAB PO SCH (05:31)
[2017-04-03 06:26] LABS: Hematocrit 33 % (42-52); Hemoglobin 11.1 g/dl (14.0-18.0); Mean Corpuscular HGB Conc 33 g/dl (31-36); Mean Corpuscular Hemoglobin 33 pg (27-31); Mean Corpuscular Volume 101 fL (80-94); Mean Platelet Volume 9 um3 (7.4-10.4); Red Blood Count 3.32 10^6/ul (4.0-5.4); Red Cell Distribution Width 14 % (10.5-15); White Blood Count 7.8 10^3/ul (3.5-10.8)
[2017-04-03 06:41] LABS: BUN/Creatinine Ratio 16.4 (8-20); Calcium 8.1 mg/dL (8.6-10.3); EGFR African American 150.8 (>60); EGFR Non-African American 117.3 (>60); Magnesium 1.8 mg/dL (1.9-2.7); Potassium 3.6 mmol/L (3.5-5.0)
[2017-04-03] MEDS ORDERED: Bisacodyl SUPP* 10 MG SUPP PR ONE (09:32)
--- NOTE | 2017-04-03 09:43 | PN ---
Subjective Date of Service: 04/03/17 Interval History: Fluids bolus overnight for decreasing BP BPs noted to run in SBPs 90s regularly [facility] Pt noted to choke on food yesterday while in ICU, no aspiration event More alert today, kicking leg, not quite baseline level of agitation Objective Active Medications: Acetaminophen (Tylenol Tab*) 650 mg PO Q4H PRN PRN Reason: FEVER/PAIN Al Hydrox/Mg Hydrox/Simethicone (Maalox Plus*) 30 ml PO TID PC PRN PRN Reason: INDIGESTION Albuterol (Ventolin 2.5 Mg/3 Ml Neb.Anuja*) 2.5 mg INH [id number] AWAKE PRN PRN Reason: sob/wheezing Amoxicillin/Clavulanate Potassium (Augmentin Tab*) 875 mg PO BID [facility] Bisacodyl (Dulcolax Supp*) 10 mg [place] ONCE ONE Stop: 04/03/17 09:33 Clonazepam (Klonopin Tab(*)) 1 mg PO BEDTIME [facility] Last Admin: 04/02/17 20:34 Dose: 1 mg Doxycycline Monohydrate (Doxycycline Monohydrate) 100 mg PO BID [facility] Enoxaparin Sodium (Lovenox(*)) 40 mg SUBCUT 1830 [facility] Last Admin: 04/02/17 18:27 Dose: 40 mg Fluticasone Propionate (Flonase Nasal [place] 50mcg*) 1 spray BOTH NARES DAILY [facility] Last Admin: 04/02/17 09:09 Dose: 1 spray Haloperidol (Haldol Tab*) 5 mg PO TID [facility] Last Admin: 04/02/17 20:35 Dose: 5 mg Sodium Chloride (Ns 0.9% 1000 Ml*) 1,000 mls @ 100 mls/hr IV .PER RATE [facility] Last Admin: 04/03/17 00:29 Dose: 100 mls/hr Levothyroxine Sodium (Synthroid Tab*) 100 mcg PO 0600 [facility] Last Admin: 04/03/17 05:31 Dose: 100 mcg Magnesium Hydroxide (Milk Of Magnesia Liq*) 30 ml PO Q3D PRN PRN Reason: CONSTIPATION Omeprazole (Prilosec Cap*) 20 mg PO DAILY [facility] Last Admin: 04/02/17 09:08 Dose: 20 mg Ondansetron HCl (Zofran Inj*) 4 mg IV Q4H PRN PRN Reason: NAUSEA Last Admin: 04/02/17 15:56 Dose: 4 mg Phenobarbital (Phenobarbital Tab(*)) 60 mg PO BEDTIME [facility] Last Admin: 04/02/17 20:34 Dose: 60 mg Phenobarbital (Phenobarbital Tab(*)) 30 mg PO DAILY [facility] Last Admin: 04/02/17 09:08 Dose: 30 mg Polyethylene Glycol/Electrolytes (Miralax*) 17 gm PO DAILY [facility] Last Admin: 04/02/17 09:10 Dose: 17 gm Vital Signs 04/02/17 04/02/17 04/02/17 11:15 11:21 15:47 Temperature 99.9 F 99.9 F 99.7 F Pulse Rate 106 106 116 Respiratory 20 16 Rate Blood Pressure 112/59 112/59 122/68 (mmHg) O2 Sat by Pulse 93 93 Oximetry 04/02/17 04/02/17 04/02/17 19:56 20:10 20:34 Temperature 99.7 F Pulse Rate 96 Respiratory 16 16 18 Rate Blood Pressure 103/55 (mmHg) O2 Sat by Pulse 97 Oximetry 04/02/17 04/02/17 04/02/17 22:34 23:39 23:59 Temperature 98.4 F Pulse Rate 78 Respiratory 20 16 Rate Blood Pressure 73/41 80/50 (mmHg) O2 Sat by Pulse 92 Oximetry 04/03/17 04/03/17 04/03/17 01:37 03:40 07:36 Temperature 98.3 F 100.6 F Pulse Rate 78 92 Respiratory 17 Rate Blood Pressure 94/58 86/43 (mmHg) O2 Sat by Pulse 93 86 Oximetry 04/03/17 04/03/17 07:37 07:48 Temperature Pulse Rate 86 Respiratory 18 Rate Blood Pressure (mmHg) O2 Sat by Pulse 93 Oximetry Oxygen Devices in Use Now: Nasal Cannula - 3L Appearance: Sitting up in bed, NAD Ears/Nose/Mouth/Throat: NL Teeth, Lips, Gums, Clear Oropharnyx, Mucous Membranes Moist Neck: NL Appearance and Movements; NL JVP, Trachea Midline Respiratory: Symmetrical Chest Expansion and Respiratory Effort, Clear to Auscultation Cardiovascular: RRR Abdominal: NL Sounds; No Tenderness; No Distention, No Hepatosplenomegaly Lymphatic: No Cervical Adenopathy Extremities: - - trace to 1+ le edema b/l Neurological: - - AOx0 Result Diagrams: 04/03/17 05:56 04/03/17 05:56 Additional Lab and Data: Lab Results 04/01/17 04/01/17 04/01/17 Range/Units 08:06 08:06 08:06 WBC 18.0 H (3.5-10.8) 10^3/ul RBC 4.00 (4.0-5.4) 10^6/ul Hgb 13.1 L (14.0-18.0) g/dl Hct 40 L (42-52) % MCV 99 H (80-94) fL MCH 33 H (27-31) pg MCHC 33 (31-36) g/dl RDW 14 (10.5-15) % Plt Count 140 L (150-450) 10^3/ul MPV 9 (7.4-10.4) um3 Neut % (Auto) 88.5 H (38-83) % Lymph % (Auto) 5.4 L (25-47) % [place] % (Auto) 5.6 (1-9) % Eos % (Auto) 0.2 (0-6) % Baso % (Auto) 0.3 (0-2) % Absolute Neuts (auto) 15.9 H (1.5-7.7) 10^3/ul Absolute Lymphs (auto) 1.0 (1.0-4.8) 10^3/ul Absolute Monos (auto) 1.0 H (0-0.8) 10^3/ul Absolute Eos (auto) 0 (0-0.6) 10^3/ul Absolute Basos (auto) 0.1 (0-0.2) 10^3/ul Absolute Nucleated RBC 0 10^3/ul Nucleated RBC % 0 Sodium 135 (133-145) mmol/L Potassium 4.0 (3.5-5.0) mmol/L Chloride 100 L (101-111) mmol/L Carbon Dioxide 28 (22-32) mmol/L Anion Gap 7 (2-11) mmol/L BUN 23 (6-24) mg/dL Creatinine 0.82 (0.67-1.17) mg/dL Est GFR ( Amer) 119.5 (>60) Est GFR (Non-Af Amer) 92.9 (>60) BUN/Creatinine Ratio 28.0 H (8-20) Glucose 132 H (70-100) mg/dL Lactic Acid (0.5-2.0) mmol/L Calcium 9.7 (8.6-10.3) mg/dL Total Bilirubin 0.40 (0.2-1.0) mg/dL AST 28 (13-39) U/L ALT 31 (7-52) U/L Alkaline Phosphatase 135 H (34-104) U/L Ammonia 38 (16-53) mol/L Total Creatine Kinase 45 (10-223) U/L Troponin I 0.05 H* (<0.04) ng/mL Total Protein 6.8 (6.4-8.9) g/dL Albumin 3.5 (3.2-5.2) g/dL Globulin 3.3 (2-4) g/dL Albumin/Globulin Ratio 1.1 (1-3) Urine Color Urine Appearance Urine pH (5-9) Ur Specific [place] (1.010-1.030) Urine Protein (Negative) Urine Ketones (Negative) Urine Blood (Negative) Urine Nitrate (Negative) Urine Bilirubin (Negative) Urine Urobilinogen (Negative) Ur Leukocyte Esterase (Negative) Urine WBC (Auto) (Absent) Urine RBC (Auto) (Absent) Calcium Oxalate Crystal (Absent) Urine Bacteria (Absent) Urine Glucose (Negative) Urine Ascorbic Acid (Negative) 04/01/17 04/01/17 Range/Units 09:30 11:00 WBC (3.5-10.8) 10^3/ul RBC (4.0-5.4) 10^6/ul Hgb (14.0-18.0) g/dl Hct (42-52) % MCV (80-94) fL MCH (27-31) pg MCHC (31-36) g/dl RDW (10.5-15) % Plt Count (150-450) 10^3/ul MPV (7.4-10.4) um3 Neut % (Auto) (38-83) % Lymph % (Auto) (25-47) % [place] % (Auto) (1-9) % Eos % (Auto) (0-6) % Baso % (Auto) (0-2) % Absolute Neuts (auto) (1.5-7.7) 10^3/ul Absolute Lymphs (auto) (1.0-4.8) 10^3/ul Absolute Monos (auto) (0-0.8) 10^3/ul Absolute Eos (auto) (0-0.6) 10^3/ul Absolute Basos (auto) (0-0.2) 10^3/ul Absolute Nucleated RBC 10^3/ul Nucleated RBC % Sodium (133-145) mmol/L Potassium (3.5-5.0) mmol/L Chloride (101-111) mmol/L Carbon Dioxide (22-32) mmol/L Anion Gap (2-11) mmol/L BUN (6-24) mg/dL Creatinine (0.67-1.17) mg/dL Est GFR ( Amer) (>60) Est GFR (Non-Af Amer) (>60) BUN/Creatinine Ratio (8-20) Glucose (70-100) mg/dL Lactic Acid 1.6 (0.5-2.0) mmol/L Calcium (8.6-10.3) mg/dL Total Bilirubin (0.2-1.0) mg/dL AST (13-39) U/L ALT (7-52) U/L Alkaline Phosphatase (34-104) U/L Ammonia (16-53) mol/L Total Creatine Kinase (10-223) U/L Troponin I (<0.04) ng/mL Total Protein (6.4-8.9) g/dL Albumin (3.2-5.2) g/dL Globulin (2-4) g/dL Albumin/Globulin Ratio (1-3) Urine Color Yellow Urine Appearance Cloudy Urine pH 7.0 (5-9) Ur Specific [place] 1.020 (1.010-1.030) Urine Protein Negative (Negative) Urine Ketones Negative (Negative) Urine Blood Negative (Negative) Urine Nitrate Negative (Negative) Urine Bilirubin Negative (Negative) Urine Urobilinogen Negative (Negative) Ur Leukocyte Esterase Trace H (Negative) Urine WBC (Auto) Trace(0-5/hpf) (Absent) Urine RBC (Auto) Trace(0-2/hpf) (Absent) Calcium Oxalate Crystal Present H (Absent) Urine Bacteria Absent (Absent) Urine Glucose Negative (Negative) Urine Ascorbic Acid * H (Negative) Microbiology and Other Data: Microbiology 04/01/17 13:20 Nasal Screen MRSA (PCR)(ERIKA) - Final Nasal Mrsa Negative Assess/Plan/Problems-Billing Assessment: 71 yo M h/o blindness, severe intellectual delay, seizure d/o, bipolar d/o, p/w sepsis 2/2 Left midlung PNA - Patient Problems (1) Sepsis Comment: In setting of PNA Mental status improving towards baseline WBC normalized on zosyn. Low grade fever noted last hospital stay while on zosyn. Change today to augementin and doxycycline. (Staff from jail recommend liquid abx on discharge, pt tolerating all oral meds here. Will attempt PO tabs now, can change if needed) (2) Pneumonia Comment: augementin and doxycycline (04/03/17) (3) Seizure disorder Comment: phenobarb (4) Bipolar 1 disorder Comment: Was previously in manic phase Restart haldol TID (home med) now that pt is awake 04/02 (5) Swallowing difficulty Comment: swallow eval pending on 04/03 (6) DVT prophylaxis Comment: lovenox
[2017-04-03] MEDS ORDERED: Amoxicillin/Clavulanate TAB* 875 MG PO SCH (10:00)
[2017-04-03] MEDS: Magnesium Hydroxide LIQ* 30 ML UDC PO PRN (10:19)
[2017-04-03] MEDS: Omeprazole CAP* 20 MG PO SCH (10:19)
[2017-04-03] MEDS: Polyethylene Glycol 3350* 17 GM PACKET PO SCH (10:19)
[2017-04-03] MEDS: Haloperidol TAB* 5 MG PO SCH ×3 (10:19→21:09)
[2017-04-03] MEDS: PHENobarbital TAB(*) 30 MG PO SCH ×2 (10:20→21:08)
[2017-04-03] MEDS: Amoxicillin/Clavulanate SUSP* BTL PO SCH ×2 (12:29→21:02)
[2017-04-03] MEDS: DOXYcycline CAP(*) 100 MG PO SCH ×2 (12:32→21:09)
[2017-04-03] MEDS: Fluticasone NASAL SPRAY 50MCG* 16 gm SPRAY BTL BOTH NARES SCH (12:33)
[2017-04-03] MEDS: Enoxaparin(*) 40 MG/0.4 ML SYR SUBCUT SCH (17:52)
[2017-04-03] MEDS: clonazePAM TAB(*) 1 MG PO SCH (21:07)
[2017-04-04] MEDS: Levothyroxine TAB* 100 MCG TAB PO SCH (05:49)
[2017-04-04] MEDS: Polyethylene Glycol 3350* 17 GM PACKET PO SCH (08:19)
[2017-04-04] MEDS: Omeprazole CAP* 20 MG PO SCH (08:19)
[2017-04-04] MEDS: DOXYcycline CAP(*) 100 MG PO SCH ×2 (08:19→20:10)
[2017-04-04] MEDS: Haloperidol TAB* 5 MG PO SCH ×3 (08:20→20:11)
[2017-04-04] MEDS: PHENobarbital TAB(*) 30 MG PO SCH ×2 (08:20→20:10)
[2017-04-04] MEDS: Fluticasone NASAL SPRAY 50MCG* 16 gm SPRAY BTL BOTH NARES SCH (08:27)
[2017-04-04 08:38] LABS: Hematocrit 34 % (42-52); Hemoglobin 11.1 g/dl (14.0-18.0); Mean Corpuscular HGB Conc 33 g/dl (31-36); Mean Corpuscular Hemoglobin 33 pg (27-31); Mean Corpuscular Volume 100 fL (80-94); Mean Platelet Volume 9 um3 (7.4-10.4); Red Blood Count 3.34 10^6/ul (4.0-5.4); Red Cell Distribution Width 14 % (10.5-15)
[2017-04-04 08:54] LABS: BUN/Creatinine Ratio 15.8 (8-20); Calcium 8.4 mg/dL (8.6-10.3); EGFR African American 181.7 (>60); EGFR Non-African American 141.3 (>60); Potassium 3.9 mmol/L (3.5-5.0)
[2017-04-04] MEDS: Amoxicillin/Clavulanate SUSP* BTL PO SCH ×2 (09:31→20:11)
[2017-04-04] MEDS ORDERED: Furosemide IV* 10 MG/ML 2 ML VIAL (20 MG) IV SLOW PU ONE ×2 (09:49→16:45)
--- NOTE | 2017-04-04 11:09 | RAD ---
Indication: Increasing respiratory rate. Single frontal view of the chest performed at 0740 hours was reviewed. Comparison is made with previous exam dated April 01, 2017. Cardiomegaly is noted. Interstitial edema consistent with vascular congestion and bilateral pleural effusions are noted. IMPRESSION: CARDIOMEGALY WITH INTERSTITIAL EDEMA CONSISTENT WITH VASCULAR CONGESTION AND BILATERAL PLEURAL EFFUSIONS.
--- NOTE | 2017-04-04 16:03 | PN ---
Subjective Date of Service: 04/04/17 Interval History: Vomited some of oral abx back this AM No aspiration events Noted to be tachypneic this AM Objective Active Medications: Acetaminophen (Tylenol Tab*) 650 mg PO Q4H PRN PRN Reason: FEVER/PAIN Al Hydrox/Mg Hydrox/Simethicone (Maalox Plus*) 30 ml PO TID PC PRN PRN Reason: INDIGESTION Albuterol (Ventolin 2.5 Mg/3 Ml Neb.Anuja*) 2.5 mg INH [id number] AWAKE PRN PRN Reason: sob/wheezing Amoxicillin/Clavulanate Potassium (Augmentin Susp*) 800 mg PO BID [facility] Last Admin: 04/04/17 09:31 Dose: 800 mg Clonazepam (Klonopin Tab(*)) 1 mg PO BEDTIME [facility] Last Admin: 04/03/17 21:07 Dose: 1 mg Doxycycline Hyclate (Vibramycin Cap(*)) 100 mg PO BID [facility] Last Admin: 04/04/17 08:19 Dose: 100 mg Enoxaparin Sodium (Lovenox(*)) 40 mg SUBCUT 1830 [facility] Last Admin: 04/03/17 17:52 Dose: 40 mg Fluticasone Propionate (Flonase Nasal [place] 50mcg*) 1 spray BOTH NARES DAILY [facility] Last Admin: 04/04/17 08:27 Dose: 1 spray Furosemide (Lasix Iv*) 10 mg IV SLOW PU ONCE ONE Stop: 04/05/17 15:41 Haloperidol (Haldol Tab*) 5 mg PO TID [facility] Last Admin: 04/04/17 14:11 Dose: 5 mg Levothyroxine Sodium (Synthroid Tab*) 100 mcg PO 0600 [facility] Last Admin: 04/04/17 05:49 Dose: 100 mcg Magnesium Hydroxide (Milk Of Magnesia Liq*) 30 ml PO Q3D PRN PRN Reason: CONSTIPATION Last Admin: 04/03/17 10:19 Dose: 30 ml Omeprazole (Prilosec Cap*) 20 mg PO DAILY [facility] Last Admin: 04/04/17 08:19 Dose: 20 mg Ondansetron HCl (Zofran Inj*) 4 mg IV Q4H PRN PRN Reason: NAUSEA Last Admin: 04/02/17 15:56 Dose: 4 mg Phenobarbital (Phenobarbital Tab(*)) 60 mg PO BEDTIME [facility] Last Admin: 04/03/17 21:08 Dose: 60 mg Phenobarbital (Phenobarbital Tab(*)) 30 mg PO DAILY [facility] Last Admin: 04/04/17 08:20 Dose: 30 mg Polyethylene Glycol/Electrolytes (Miralax*) 17 gm PO DAILY [facility] Last Admin: 04/04/17 08:19 Dose: 17 gm Vital Signs 04/03/17 04/03/17 04/03/17 19:18 20:00 21:07 Temperature 99.2 F Pulse Rate 94 Respiratory 22 27 26 Rate Blood Pressure 114/58 (mmHg) O2 Sat by Pulse 93 Oximetry 04/03/17 04/03/17 04/04/17 21:08 23:56 04:03 Temperature 99.5 F 98.6 F Pulse Rate 83 71 Respiratory 26 20 20 Rate Blood Pressure 98/59 130/62 (mmHg) O2 Sat by Pulse 100 93 Oximetry 04/04/17 04/04/17 04/04/17 07:29 08:00 08:20 Temperature 100.0 F Pulse Rate 92 Respiratory 42 38 42 Rate Blood Pressure 122/60 (mmHg) O2 Sat by Pulse 96 Oximetry 04/04/17 04/04/17 04/04/17 10:20 10:32 15:36 Temperature Pulse Rate 77 Respiratory 38 16 Rate Blood Pressure 118/68 92/58 (mmHg) O2 Sat by Pulse 95 Oximetry Oxygen Devices in Use Now: Nasal Cannula - 3L Appearance: lying on side, awake but does not interact, NAD, no increased WOB Eyes: No Scleral Icterus Ears/Nose/Mouth/Throat: Clear Oropharnyx, Mucous Membranes Moist Neck: NL Appearance and Movements; NL JVP, Trachea Midline Respiratory: Symmetrical Chest Expansion and Respiratory Effort, Clear to Auscultation, - - shallow but no rales Cardiovascular: RRR Abdominal: NL Sounds; No Tenderness; No Distention, No Hepatosplenomegaly Neurological: - - AOx0 Result Diagrams: 04/04/17 08:06 04/04/17 08:06 Additional Lab and Data: Lab Results 04/01/17 04/01/17 04/01/17 Range/Units 08:06 08:06 08:06 WBC 18.0 H (3.5-10.8) 10^3/ul RBC 4.00 (4.0-5.4) 10^6/ul Hgb 13.1 L (14.0-18.0) g/dl Hct 40 L (42-52) % MCV 99 H (80-94) fL MCH 33 H (27-31) pg MCHC 33 (31-36) g/dl RDW 14 (10.5-15) % Plt Count 140 L (150-450) 10^3/ul MPV 9 (7.4-10.4) um3 Neut % (Auto) 88.5 H (38-83) % Lymph % (Auto) 5.4 L (25-47) % [place] % (Auto) 5.6 (1-9) % Eos % (Auto) 0.2 (0-6) % Baso % (Auto) 0.3 (0-2) % Absolute Neuts (auto) 15.9 H (1.5-7.7) 10^3/ul Absolute Lymphs (auto) 1.0 (1.0-4.8) 10^3/ul Absolute Monos (auto) 1.0 H (0-0.8) 10^3/ul Absolute Eos (auto) 0 (0-0.6) 10^3/ul Absolute Basos (auto) 0.1 (0-0.2) 10^3/ul Absolute Nucleated RBC 0 10^3/ul Nucleated RBC % 0 Sodium 135 (133-145) mmol/L Potassium 4.0 (3.5-5.0) mmol/L Chloride 100 L (101-111) mmol/L Carbon Dioxide 28 (22-32) mmol/L Anion Gap 7 (2-11) mmol/L BUN 23 (6-24) mg/dL Creatinine 0.82 (0.67-1.17) mg/dL Est GFR ( Amer) 119.5 (>60) Est GFR (Non-Af Amer) 92.9 (>60) BUN/Creatinine Ratio 28.0 H (8-20) Glucose 132 H (70-100) mg/dL Lactic Acid (0.5-2.0) mmol/L Calcium 9.7 (8.6-10.3) mg/dL Total Bilirubin 0.40 (0.2-1.0) mg/dL AST 28 (13-39) U/L ALT 31 (7-52) U/L Alkaline Phosphatase 135 H (34-104) U/L Ammonia 38 (16-53) mol/L Total Creatine Kinase 45 (10-223) U/L Troponin I 0.05 H* (<0.04) ng/mL Total Protein 6.8 (6.4-8.9) g/dL Albumin 3.5 (3.2-5.2) g/dL Globulin 3.3 (2-4) g/dL Albumin/Globulin Ratio 1.1 (1-3) Urine Color Urine Appearance Urine pH (5-9) Ur Specific [place] (1.010-1.030) Urine Protein (Negative) Urine Ketones (Negative) Urine Blood (Negative) Urine Nitrate (Negative) Urine Bilirubin (Negative) Urine Urobilinogen (Negative) Ur Leukocyte Esterase (Negative) Urine WBC (Auto) (Absent) Urine RBC (Auto) (Absent) Calcium Oxalate Crystal (Absent) Urine Bacteria (Absent) Urine Glucose (Negative) Urine Ascorbic Acid (Negative) 04/01/17 04/01/17 Range/Units 09:30 11:00 WBC (3.5-10.8) 10^3/ul RBC (4.0-5.4) 10^6/ul Hgb (14.0-18.0) g/dl Hct (42-52) % MCV (80-94) fL MCH (27-31) pg MCHC (31-36) g/dl RDW (10.5-15) % Plt Count (150-450) 10^3/ul MPV (7.4-10.4) um3 Neut % (Auto) (38-83) % Lymph % (Auto) (25-47) % [place] % (Auto) (1-9) % Eos % (Auto) (0-6) % Baso % (Auto) (0-2) % Absolute Neuts (auto) (1.5-7.7) 10^3/ul Absolute Lymphs (auto) (1.0-4.8) 10^3/ul Absolute Monos (auto) (0-0.8) 10^3/ul Absolute Eos (auto) (0-0.6) 10^3/ul Absolute Basos (auto) (0-0.2) 10^3/ul Absolute Nucleated RBC 10^3/ul Nucleated RBC % Sodium (133-145) mmol/L Potassium (3.5-5.0) mmol/L Chloride (101-111) mmol/L Carbon Dioxide (22-32) mmol/L Anion Gap (2-11) mmol/L BUN (6-24) mg/dL Creatinine (0.67-1.17) mg/dL Est GFR ( Amer) (>60) Est GFR (Non-Af Amer) (>60) BUN/Creatinine Ratio (8-20) Glucose (70-100) mg/dL Lactic Acid 1.6 (0.5-2.0) mmol/L Calcium (8.6-10.3) mg/dL Total Bilirubin (0.2-1.0) mg/dL AST (13-39) U/L ALT (7-52) U/L Alkaline Phosphatase (34-104) U/L Ammonia (16-53) mol/L Total Creatine Kinase (10-223) U/L Troponin I (<0.04) ng/mL Total Protein (6.4-8.9) g/dL Albumin (3.2-5.2) g/dL Globulin (2-4) g/dL Albumin/Globulin Ratio (1-3) Urine Color Yellow Urine Appearance Cloudy Urine pH 7.0 (5-9) Ur Specific [place] 1.020 (1.010-1.030) Urine Protein Negative (Negative) Urine Ketones Negative (Negative) Urine Blood Negative (Negative) Urine Nitrate Negative (Negative) Urine Bilirubin Negative (Negative) Urine Urobilinogen Negative (Negative) Ur Leukocyte Esterase Trace H (Negative) Urine WBC (Auto) Trace(0-5/hpf) (Absent) Urine RBC (Auto) Trace(0-2/hpf) (Absent) Calcium Oxalate Crystal Present H (Absent) Urine Bacteria Absent (Absent) Urine Glucose Negative (Negative) Urine Ascorbic Acid * H (Negative) Microbiology and Other Data: Microbiology 04/01/17 13:20 Nasal Screen MRSA (PCR)(ERIKA) - Final Nasal Mrsa Negative Assess/Plan/Problems-Billing Assessment: 71 yo M h/o blindness, severe intellectual delay, seizure d/o, bipolar d/o, p/w sepsis 2/2 Left midlung PNA - Patient Problems (1) Tachypnea Comment: Suspect in setting of pulonary edema lasix 20 IV this AM with improvement in RR 40s to 30s. Dose additional 10mg IV now (1600) and follow. Diuretic limited by BPs. (2) Sepsis Comment: In setting of PNA Mental status improving towards baseline WBC normalized on zosyn. Change today to augementin and doxycycline. (Staff from [facility] recommend liquid abx on discharge) (3) Pneumonia Comment: augementin and doxycycline (04/03/17) (4) Seizure disorder Comment: phenobarb (5) Bipolar 1 disorder Comment: Was previously in manic phase Restart haldol TID (home med) now that pt is awake 04/02 (6) Swallowing difficulty Comment: swallow eval unchanged from prior. Pureed with pudding thick. Upright in chair to eat with 1:1 (7) DVT prophylaxis Comment: lovenox
[2017-04-04] MEDS: Enoxaparin(*) 40 MG/0.4 ML SYR SUBCUT SCH (17:43)
[2017-04-04] MEDS: clonazePAM TAB(*) 1 MG PO SCH (20:11)
[2017-04-05] MEDS: Levothyroxine TAB* 100 MCG TAB PO SCH (06:28)
[2017-04-05] MEDS: Amoxicillin/Clavulanate SUSP* BTL PO SCH ×2 (08:46→20:57)
[2017-04-05] MEDS: PHENobarbital TAB(*) 30 MG PO SCH ×2 (08:47→20:59)
[2017-04-05] MEDS: Omeprazole CAP* 20 MG PO SCH (08:47)
[2017-04-05] MEDS: DOXYcycline CAP(*) 100 MG PO SCH ×2 (08:47→20:58)
[2017-04-05] MEDS: Haloperidol TAB* 5 MG PO SCH ×3 (08:48→20:58)
[2017-04-05] MEDS: Polyethylene Glycol 3350* 17 GM PACKET PO SCH (08:54)
[2017-04-05] MEDS: Fluticasone NASAL SPRAY 50MCG* 16 gm SPRAY BTL BOTH NARES SCH (14:31)
[2017-04-05] MEDS ORDERED: Furosemide IV* 10 MG/ML 2 ML VIAL (20 MG) IV SLOW PU ONE (15:40)
--- NOTE | 2017-04-05 16:21 | PN ---
Subjective Date of Service: 04/05/17 Interval History: Pt was noted to be coughing while eating breakfast this AM. He did not eat lunch as he was sleeping. He has been sleeping much of the day. Objective Active Medications: Acetaminophen (Tylenol Tab*) 650 mg PO Q4H PRN PRN Reason: FEVER/PAIN Al Hydrox/Mg Hydrox/Simethicone (Maalox Plus*) 30 ml PO TID PC PRN PRN Reason: INDIGESTION Albuterol (Ventolin 2.5 Mg/3 Ml Neb.Anuja*) 2.5 mg INH [id number] AWAKE PRN PRN Reason: sob/wheezing Amoxicillin/Clavulanate Potassium (Augmentin Susp*) 800 mg PO BID [facility] Last Admin: 04/05/17 08:46 Dose: 800 mg Clonazepam (Klonopin Tab(*)) 1 mg PO BEDTIME [facility] Last Admin: 04/04/17 20:11 Dose: 1 mg Doxycycline Hyclate (Vibramycin Cap(*)) 100 mg PO BID [facility] Last Admin: 04/05/17 08:47 Dose: 100 mg Enoxaparin Sodium (Lovenox(*)) 40 mg SUBCUT 1830 [facility] Last Admin: 04/04/17 17:43 Dose: 40 mg Fluticasone Propionate (Flonase Nasal [place] 50mcg*) 1 spray BOTH NARES DAILY [facility] Last Admin: 04/05/17 14:31 Dose: 1 spray Haloperidol (Haldol Tab*) 5 mg PO TID [facility] Last Admin: 04/05/17 14:31 Dose: 5 mg Levothyroxine Sodium (Synthroid Tab*) 100 mcg PO 0600 [facility] Last Admin: 04/05/17 06:28 Dose: 100 mcg Magnesium Hydroxide (Milk Of Magnesia Liq*) 30 ml PO Q3D PRN PRN Reason: CONSTIPATION Last Admin: 04/03/17 10:19 Dose: 30 ml Omeprazole (Prilosec Cap*) 20 mg PO DAILY [facility] Last Admin: 04/05/17 08:47 Dose: 20 mg Ondansetron HCl (Zofran Inj*) 4 mg IV Q4H PRN PRN Reason: NAUSEA Last Admin: 04/02/17 15:56 Dose: 4 mg Phenobarbital (Phenobarbital Tab(*)) 60 mg PO BEDTIME [facility] Last Admin: 04/04/17 20:10 Dose: 60 mg Phenobarbital (Phenobarbital Tab(*)) 30 mg PO DAILY [facility] Last Admin: 04/05/17 08:47 Dose: 30 mg Polyethylene Glycol/Electrolytes (Miralax*) 17 gm PO DAILY [facility] Last Admin: 04/05/17 08:54 Dose: 17 gm Vital Signs 04/04/17 04/04/17 04/04/17 16:47 17:46 20:00 Temperature 99.7 F Pulse Rate 89 Respiratory 30 22 Rate Blood Pressure 100/67 124/75 (mmHg) O2 Sat by Pulse 94 Oximetry 04/04/17 04/04/17 04/04/17 20:10 20:11 22:10 Temperature Pulse Rate Respiratory 22 22 22 Rate Blood Pressure (mmHg) O2 Sat by Pulse Oximetry 04/04/17 04/04/17 04/05/17 22:11 23:38 03:59 Temperature 97.9 F 98.0 F Pulse Rate 76 84 Respiratory 22 16 16 Rate Blood Pressure 93/53 109/68 (mmHg) O2 Sat by Pulse 97 98 Oximetry 04/05/17 04/05/17 04/05/17 07:09 07:52 08:00 Temperature 98.1 F Pulse Rate 84 Respiratory 36 22 32 Rate Blood Pressure 123/69 (mmHg) O2 Sat by Pulse Oximetry 04/05/17 04/05/17 04/05/17 08:01 08:47 10:09 Temperature 98.2 F Pulse Rate 97 Respiratory 34 32 Rate Blood Pressure 97/48 (mmHg) O2 Sat by Pulse 95 99 Oximetry 04/05/17 04/05/17 04/05/17 10:47 11:51 12:00 Temperature 98.5 F Pulse Rate 89 Respiratory 24 25 Rate Blood Pressure 123/18 105/57 (mmHg) O2 Sat by Pulse 96 Oximetry Oxygen Devices in Use Now: Nasal Cannula - 2.5L Appearance: Elderly male sitting up in bed, sleeping, awakens to voice, NAD Eyes: No Scleral Icterus Ears/Nose/Mouth/Throat: Mucous Membranes Moist Respiratory: Symmetrical Chest Expansion and Respiratory Effort, - - ? RLL crackles Cardiovascular: NL Sounds; No Murmurs; No JVD, RRR, - - trace L LE edema Abdominal: NL Sounds; No Tenderness; No Distention Extremities: No Clubbing, Cyanosis Skin: No Rash or Ulcers, No Nodules or Sclerosis Result Diagrams: 04/04/17 08:06 04/04/17 08:06 Additional Lab and Data: Lab Results 04/01/17 04/01/17 04/01/17 Range/Units 08:06 08:06 08:06 WBC 18.0 H (3.5-10.8) 10^3/ul RBC 4.00 (4.0-5.4) 10^6/ul Hgb 13.1 L (14.0-18.0) g/dl Hct 40 L (42-52) % MCV 99 H (80-94) fL MCH 33 H (27-31) pg MCHC 33 (31-36) g/dl RDW 14 (10.5-15) % Plt Count 140 L (150-450) 10^3/ul MPV 9 (7.4-10.4) um3 Neut % (Auto) 88.5 H (38-83) % Lymph % (Auto) 5.4 L (25-47) % [place] % (Auto) 5.6 (1-9) % Eos % (Auto) 0.2 (0-6) % Baso % (Auto) 0.3 (0-2) % Absolute Neuts (auto) 15.9 H (1.5-7.7) 10^3/ul Absolute Lymphs (auto) 1.0 (1.0-4.8) 10^3/ul Absolute Monos (auto) 1.0 H (0-0.8) 10^3/ul Absolute Eos (auto) 0 (0-0.6) 10^3/ul Absolute Basos (auto) 0.1 (0-0.2) 10^3/ul Absolute Nucleated RBC 0 10^3/ul Nucleated RBC % 0 Sodium 135 (133-145) mmol/L Potassium 4.0 (3.5-5.0) mmol/L Chloride 100 L (101-111) mmol/L Carbon Dioxide 28 (22-32) mmol/L Anion Gap 7 (2-11) mmol/L BUN 23 (6-24) mg/dL Creatinine 0.82 (0.67-1.17) mg/dL Est GFR ( Amer) 119.5 (>60) Est GFR (Non-Af Amer) 92.9 (>60) BUN/Creatinine Ratio 28.0 H (8-20) Glucose 132 H (70-100) mg/dL Lactic Acid (0.5-2.0) mmol/L Calcium 9.7 (8.6-10.3) mg/dL Total Bilirubin 0.40 (0.2-1.0) mg/dL AST 28 (13-39) U/L ALT 31 (7-52) U/L Alkaline Phosphatase 135 H (34-104) U/L Ammonia 38 (16-53) mol/L Total Creatine Kinase 45 (10-223) U/L Troponin I 0.05 H* (<0.04) ng/mL Total Protein 6.8 (6.4-8.9) g/dL Albumin 3.5 (3.2-5.2) g/dL Globulin 3.3 (2-4) g/dL Albumin/Globulin Ratio 1.1 (1-3) Urine Color Urine Appearance Urine pH (5-9) Ur Specific [place] (1.010-1.030) Urine Protein (Negative) Urine Ketones (Negative) Urine Blood (Negative) Urine Nitrate (Negative) Urine Bilirubin (Negative) Urine Urobilinogen (Negative) Ur Leukocyte Esterase (Negative) Urine WBC (Auto) (Absent) Urine RBC (Auto) (Absent) Calcium Oxalate Crystal (Absent) Urine Bacteria (Absent) Urine Glucose (Negative) Urine Ascorbic Acid (Negative) 04/01/17 04/01/17 Range/Units 09:30 11:00 WBC (3.5-10.8) 10^3/ul RBC (4.0-5.4) 10^6/ul Hgb (14.0-18.0) g/dl Hct (42-52) % MCV (80-94) fL MCH (27-31) pg MCHC (31-36) g/dl RDW (10.5-15) % Plt Count (150-450) 10^3/ul MPV (7.4-10.4) um3 Neut % (Auto) (38-83) % Lymph % (Auto) (25-47) % [place] % (Auto) (1-9) % Eos % (Auto) (0-6) % Baso % (Auto) (0-2) % Absolute Neuts (auto) (1.5-7.7) 10^3/ul Absolute Lymphs (auto) (1.0-4.8) 10^3/ul Absolute Monos (auto) (0-0.8) 10^3/ul Absolute Eos (auto) (0-0.6) 10^3/ul Absolute Basos (auto) (0-0.2) 10^3/ul Absolute Nucleated RBC 10^3/ul Nucleated RBC % Sodium (133-145) mmol/L Potassium (3.5-5.0) mmol/L Chloride (101-111) mmol/L Carbon Dioxide (22-32) mmol/L Anion Gap (2-11) mmol/L BUN (6-24) mg/dL Creatinine (0.67-1.17) mg/dL Est GFR ( Amer) (>60) Est GFR (Non-Af Amer) (>60) BUN/Creatinine Ratio (8-20) Glucose (70-100) mg/dL Lactic Acid 1.6 (0.5-2.0) mmol/L Calcium (8.6-10.3) mg/dL Total Bilirubin (0.2-1.0) mg/dL AST (13-39) U/L ALT (7-52) U/L Alkaline Phosphatase (34-104) U/L Ammonia (16-53) mol/L Total Creatine Kinase (10-223) U/L Troponin I (<0.04) ng/mL Total Protein (6.4-8.9) g/dL Albumin (3.2-5.2) g/dL Globulin (2-4) g/dL Albumin/Globulin Ratio (1-3) Urine Color Yellow Urine Appearance Cloudy Urine pH 7.0 (5-9) Ur Specific [place] 1.020 (1.010-1.030) Urine Protein Negative (Negative) Urine Ketones Negative (Negative) Urine Blood Negative (Negative) Urine Nitrate Negative (Negative) Urine Bilirubin Negative (Negative) Urine Urobilinogen Negative (Negative) Ur Leukocyte Esterase Trace H (Negative) Urine WBC (Auto) Trace(0-5/hpf) (Absent) Urine RBC (Auto) Trace(0-2/hpf) (Absent) Calcium Oxalate Crystal Present H (Absent) Urine Bacteria Absent (Absent) Urine Glucose Negative (Negative) Urine Ascorbic Acid * H (Negative) Microbiology and Other Data: Microbiology 04/01/17 13:20 Nasal Screen MRSA (PCR)(ERIKA) - Final Nasal Mrsa Negative Assess/Plan/Problems-Billing Mr Snyder is a 71 yo M who has a h/o blindness, severe intellectual delay, seizure d/o and bipolar d/o who presented with sepsis secondary to left sided pneumonia. - Patient Problems (1) Pneumonia Current Visit: Yes Status: Acute Code(s): J18.9 - PNEUMONIA, UNSPECIFIED ORGANISM SNOMED Code(s): 925295900 Comment: Pt is still requiring supplemental O2. Continue augmenting and doxycycline. He is coughing slightly but does not appear to be bringing up any sputum. Today is D#5/7. (2) Tachypnea Current Visit: Yes Status: Acute Code(s): R06.82 - TACHYPNEA, NOT ELSEWHERE CLASSIFIED SNOMED Code(s): 698402442 Comment: [place] to be due to pulmonary edema from aggressive IVF hydration earlier on this admission. Hold on further diuretic therapy. He appears comfortable. Monitor RR and O2 saturation. (3) Swallowing difficulty Current Visit: Yes Status: Acute Code(s): R13.10 - DYSPHAGIA, UNSPECIFIED SNOMED Code(s): 48666030 Comment: Continue pureed with pudding thick liquids. (4) Seizure disorder Current Visit: Yes Status: Acute Code(s): G40.909 - EPILEPSY, UNSP, NOT INTRACTABLE, WITHOUT STATUS EPILEPTICUS SNOMED Code(s): 405388570 Comment: Continue phenobarbital. Check level tomorrow AM. (5) DVT prophylaxis Current Visit: Yes Status: Acute Code(s): VHI0861 - SNOMED Code(s): 699118594 Comment: lovenox (6) Full code status Current Visit: Yes Status: Acute Onset Date: 12/20/14 Code(s): Z78.9 - OTHER SPECIFIED HEALTH STATUS SNOMED Code(s): 440440743
[2017-04-05] MEDS: Enoxaparin(*) 40 MG/0.4 ML SYR SUBCUT SCH (17:38)
[2017-04-05] MEDS: clonazePAM TAB(*) 1 MG PO SCH (20:58)
[2017-04-06] MEDS: Magnesium Hydroxide LIQ* 30 ML UDC PO PRN (08:11)
[2017-04-06] MEDS: Fluticasone NASAL SPRAY 50MCG* 16 gm SPRAY BTL BOTH NARES SCH (08:11)
[2017-04-06] MEDS: Polyethylene Glycol 3350* 17 GM PACKET PO SCH (08:11)
[2017-04-06] MEDS: Omeprazole CAP* 20 MG PO SCH (08:12)
[2017-04-06] MEDS: Haloperidol TAB* 5 MG PO SCH ×3 (08:12→21:39)
[2017-04-06] MEDS: Levothyroxine TAB* 100 MCG TAB PO SCH (08:12)
[2017-04-06] MEDS: DOXYcycline CAP(*) 100 MG PO SCH ×2 (08:12→21:39)
[2017-04-06] MEDS: PHENobarbital TAB(*) 30 MG PO SCH ×2 (08:12→21:39)
--- NOTE | 2017-04-06 09:44 | PN ---
Subjective Date of Service: 04/06/17 Interval History: Pt is behaving normally this am per his aide. Objective Active Medications: Acetaminophen (Tylenol Tab*) 650 mg PO Q4H PRN PRN Reason: FEVER/PAIN Al Hydrox/Mg Hydrox/Simethicone (Maalox Plus*) 30 ml PO TID PC PRN PRN Reason: INDIGESTION Albuterol (Ventolin 2.5 Mg/3 Ml Neb.Anuja*) 2.5 mg INH [id number] AWAKE PRN PRN Reason: sob/wheezing Amoxicillin/Clavulanate Potassium (Augmentin Oral Syringe*) 800 mg PO BID [facility] Clonazepam (Klonopin Tab(*)) 1 mg PO BEDTIME [facility] Last Admin: 04/05/17 20:58 Dose: 1 mg Doxycycline Hyclate (Vibramycin Cap(*)) 100 mg PO BID [facility] Last Admin: 04/06/17 08:12 Dose: 100 mg Enoxaparin Sodium (Lovenox(*)) 40 mg SUBCUT 1830 [facility] Last Admin: 04/05/17 17:38 Dose: 40 mg Fluticasone Propionate (Flonase Nasal [place] 50mcg*) 1 spray BOTH NARES DAILY [facility] Last Admin: 04/06/17 08:11 Dose: 1 spray Haloperidol (Haldol Tab*) 5 mg PO TID [facility] Last Admin: 04/06/17 08:12 Dose: 5 mg Levothyroxine Sodium (Synthroid Tab*) 100 mcg PO 0600 [facility] Last Admin: 04/06/17 08:12 Dose: 100 mcg Magnesium Hydroxide (Milk Of Magnesia Liq*) 30 ml PO Q3D PRN PRN Reason: CONSTIPATION Last Admin: 04/06/17 08:11 Dose: 30 ml Omeprazole (Prilosec Cap*) 20 mg PO DAILY [facility] Last Admin: 04/06/17 08:12 Dose: 20 mg Ondansetron HCl (Zofran Inj*) 4 mg IV Q4H PRN PRN Reason: NAUSEA Last Admin: 04/02/17 15:56 Dose: 4 mg Phenobarbital (Phenobarbital Tab(*)) 60 mg PO BEDTIME [facility] Last Admin: 04/05/17 20:59 Dose: 60 mg Phenobarbital (Phenobarbital Tab(*)) 30 mg PO DAILY [facility] Last Admin: 04/06/17 08:12 Dose: 30 mg Polyethylene Glycol/Electrolytes (Miralax*) 17 gm PO DAILY [facility] Last Admin: 04/06/17 08:11 Dose: 17 gm Vital Signs 04/05/17 04/05/17 04/05/17 10:09 10:47 11:51 Temperature 98.2 F 98.5 F Pulse Rate 97 89 Respiratory 32 24 25 Rate Blood Pressure 97/48 123/18 (mmHg) O2 Sat by Pulse 99 96 Oximetry 04/05/17 04/05/17 04/05/17 12:00 15:40 19:56 Temperature 97.2 F 97.7 F Pulse Rate 85 90 Respiratory 32 28 Rate Blood Pressure 105/57 103/61 130/82 (mmHg) O2 Sat by Pulse 98 93 Oximetry 04/05/17 04/05/17 04/05/17 20:00 20:58 20:59 Temperature Pulse Rate Respiratory 26 28 28 Rate Blood Pressure (mmHg) O2 Sat by Pulse Oximetry 04/05/17 04/05/17 04/05/17 22:58 22:59 23:44 Temperature 98.4 F Pulse Rate 101 Respiratory 26 26 18 Rate Blood Pressure 110/61 (mmHg) O2 Sat by Pulse 88 Oximetry 04/06/17 04/06/17 01:07 08:12 Temperature Pulse Rate 98 Respiratory 26 26 Rate Blood Pressure (mmHg) O2 Sat by Pulse 93 Oximetry Oxygen Devices in Use Now: Nasal Cannula - 1L-97% Appearance: Elderly male sitting in a chair, NAD Eyes: No Scleral Icterus Ears/Nose/Mouth/Throat: Mucous Membranes Moist Respiratory: Symmetrical Chest Expansion and Respiratory Effort, Clear to Auscultation Cardiovascular: NL Sounds; No Murmurs; No JVD, RRR, No Edema Abdominal: NL Sounds; No Tenderness; No Distention Extremities: No Clubbing, Cyanosis Skin: No Rash or Ulcers, No Nodules or Sclerosis Neurological: - - awake, alert, does not communicate, follows commands (ie sit forward) Result Diagrams: 04/04/17 08:06 04/04/17 08:06 Additional Lab and Data: Lab Results 04/01/17 04/01/17 04/01/17 Range/Units 08:06 08:06 08:06 WBC 18.0 H (3.5-10.8) 10^3/ul RBC 4.00 (4.0-5.4) 10^6/ul Hgb 13.1 L (14.0-18.0) g/dl Hct 40 L (42-52) % MCV 99 H (80-94) fL MCH 33 H (27-31) pg MCHC 33 (31-36) g/dl RDW 14 (10.5-15) % Plt Count 140 L (150-450) 10^3/ul MPV 9 (7.4-10.4) um3 Neut % (Auto) 88.5 H (38-83) % Lymph % (Auto) 5.4 L (25-47) % Pope % (Auto) 5.6 (1-9) % Eos % (Auto) 0.2 (0-6) % Baso % (Auto) 0.3 (0-2) % Absolute Neuts (auto) 15.9 H (1.5-7.7) 10^3/ul Absolute Lymphs (auto) 1.0 (1.0-4.8) 10^3/ul Absolute Monos (auto) 1.0 H (0-0.8) 10^3/ul Absolute Eos (auto) 0 (0-0.6) 10^3/ul Absolute Basos (auto) 0.1 (0-0.2) 10^3/ul Absolute Nucleated RBC 0 10^3/ul Nucleated RBC % 0 Sodium 135 (133-145) mmol/L Potassium 4.0 (3.5-5.0) mmol/L Chloride 100 L (101-111) mmol/L Carbon Dioxide 28 (22-32) mmol/L Anion Gap 7 (2-11) mmol/L BUN 23 (6-24) mg/dL Creatinine 0.82 (0.67-1.17) mg/dL Est GFR ( Amer) 119.5 (>60) Est GFR (Non-Af Amer) 92.9 (>60) BUN/Creatinine Ratio 28.0 H (8-20) Glucose 132 H (70-100) mg/dL Lactic Acid (0.5-2.0) mmol/L Calcium 9.7 (8.6-10.3) mg/dL Total Bilirubin 0.40 (0.2-1.0) mg/dL AST 28 (13-39) U/L ALT 31 (7-52) U/L Alkaline Phosphatase 135 H (34-104) U/L Ammonia 38 (16-53) mol/L Total Creatine Kinase 45 (10-223) U/L Troponin I 0.05 H* (<0.04) ng/mL Total Protein 6.8 (6.4-8.9) g/dL Albumin 3.5 (3.2-5.2) g/dL Globulin 3.3 (2-4) g/dL Albumin/Globulin Ratio 1.1 (1-3) Urine Color Urine Appearance Urine pH (5-9) Ur Specific [place] (1.010-1.030) Urine Protein (Negative) Urine Ketones (Negative) Urine Blood (Negative) Urine Nitrate (Negative) Urine Bilirubin (Negative) Urine Urobilinogen (Negative) Ur Leukocyte Esterase (Negative) Urine WBC (Auto) (Absent) Urine RBC (Auto) (Absent) Calcium Oxalate Crystal (Absent) Urine Bacteria (Absent) Urine Glucose (Negative) Urine Ascorbic Acid (Negative) 04/01/17 04/01/17 Range/Units 09:30 11:00 WBC (3.5-10.8) 10^3/ul RBC (4.0-5.4) 10^6/ul Hgb (14.0-18.0) g/dl Hct (42-52) % MCV (80-94) fL MCH (27-31) pg MCHC (31-36) g/dl RDW (10.5-15) % Plt Count (150-450) 10^3/ul MPV (7.4-10.4) um3 Neut % (Auto) (38-83) % Lymph % (Auto) (25-47) % Pope % (Auto) (1-9) % Eos % (Auto) (0-6) % Baso % (Auto) (0-2) % Absolute Neuts (auto) (1.5-7.7) 10^3/ul Absolute Lymphs (auto) (1.0-4.8) 10^3/ul Absolute Monos (auto) (0-0.8) 10^3/ul Absolute Eos (auto) (0-0.6) 10^3/ul Absolute Basos (auto) (0-0.2) 10^3/ul Absolute Nucleated RBC 10^3/ul Nucleated RBC % Sodium (133-145) mmol/L Potassium (3.5-5.0) mmol/L Chloride (101-111) mmol/L Carbon Dioxide (22-32) mmol/L Anion Gap (2-11) mmol/L BUN (6-24) mg/dL Creatinine (0.67-1.17) mg/dL Est GFR ( Amer) (>60) Est GFR (Non-Af Amer) (>60) BUN/Creatinine Ratio (8-20) Glucose (70-100) mg/dL Lactic Acid 1.6 (0.5-2.0) mmol/L Calcium (8.6-10.3) mg/dL Total Bilirubin (0.2-1.0) mg/dL AST (13-39) U/L ALT (7-52) U/L Alkaline Phosphatase (34-104) U/L Ammonia (16-53) mol/L Total Creatine Kinase (10-223) U/L Troponin I (<0.04) ng/mL Total Protein (6.4-8.9) g/dL Albumin (3.2-5.2) g/dL Globulin (2-4) g/dL Albumin/Globulin Ratio (1-3) Urine Color Yellow Urine Appearance Cloudy Urine pH 7.0 (5-9) Ur Specific [place] 1.020 (1.010-1.030) Urine Protein Negative (Negative) Urine Ketones Negative (Negative) Urine Blood Negative (Negative) Urine Nitrate Negative (Negative) Urine Bilirubin Negative (Negative) Urine Urobilinogen Negative (Negative) Ur Leukocyte Esterase Trace H (Negative) Urine WBC (Auto) Trace(0-5/hpf) (Absent) Urine RBC (Auto) Trace(0-2/hpf) (Absent) Calcium Oxalate Crystal Present H (Absent) Urine Bacteria Absent (Absent) Urine Glucose Negative (Negative) Urine Ascorbic Acid * H (Negative) Microbiology and Other Data: Microbiology 04/01/17 13:20 Nasal Screen MRSA (PCR)(ERIKA) - Final Nasal Mrsa Negative Assess/Plan/Problems-Billing Mr Snyder is a 71 yo M who has a h/o blindness, severe intellectual delay, seizure d/o and bipolar d/o who presented with sepsis secondary to left sided pneumonia. - Patient Problems (1) Pneumonia Current Visit: Yes Status: Acute Code(s): J18.9 - PNEUMONIA, UNSPECIFIED ORGANISM SNOMED Code(s): 723501447 Comment: The patient's pneumonia is likely an aspiration pneumonia. He was septic on admission based on sepsis 3 criteria of low map and thrombocytopenia. Additionally he was lethargic with what sounds to be a reduced GCS score compared to his baseline. O2 was able to be weaned off yesterday but overnight he desaturated and it was replaced. Will try to wean off again today. Check nocturnal desaturation study to see if he needs O2 with sleep. Still coughing some but no sputum noted. Today is D#6/7 of therapy. Complete augmentin and doxycycline tomorrow. (2) Tachypnea Current Visit: Yes Status: Acute Code(s): R06.82 - TACHYPNEA, NOT ELSEWHERE CLASSIFIED SNOMED Code(s): 277503442 Comment: Pt takes small short shallow breaths. He does not appear to be in distress. Continue to monitor. (3) Swallowing difficulty Current Visit: Yes Status: Acute Code(s): R13.10 - DYSPHAGIA, UNSPECIFIED SNOMED Code(s): 92562081 Comment: Continue pureed with pudding thick liquids. (4) Seizure disorder Current Visit: Yes Status: Acute Code(s): G40.909 - EPILEPSY, UNSP, NOT INTRACTABLE, WITHOUT STATUS EPILEPTICUS SNOMED Code(s): 824637974 Comment: Continue phenobarbital. Level is slightly low. Will not make any adjustments at this time. (5) DVT prophylaxis Current Visit: Yes Status: Acute Code(s): UJC0426 - SNOMED Code(s): 742597019 Comment: lovenox (6) Full code status Current Visit: Yes Status: Acute Onset Date: 12/20/14 Code(s): Z78.9 - OTHER SPECIFIED HEALTH STATUS SNOMED Code(s): 978446587
[2017-04-06] MEDS: Amoxicillin/Clavulanate O.SYR* 400 MG/5 ML ORAL.SYRIN PO SCH ×2 (09:49→21:39)
[2017-04-06] MEDS: Enoxaparin(*) 40 MG/0.4 ML SYR SUBCUT SCH (17:58)
[2017-04-06] MEDS ORDERED: NS 0.9% 500 ML BAG* 500 ML IV ONE (19:45)
[2017-04-06] MEDS: clonazePAM TAB(*) 1 MG PO SCH (21:39)
[2017-04-07 05:07] LABS: Hematocrit 30 % (42-52); Hemoglobin 10.1 g/dl (14.0-18.0); Mean Corpuscular HGB Conc 34 g/dl (31-36); Mean Corpuscular Hemoglobin 33 pg (27-31); Mean Corpuscular Volume 98 fL (80-94); Mean Platelet Volume 8 um3 (7.4-10.4); Red Blood Count 3.09 10^6/ul (4.0-5.4); Red Cell Distribution Width 13 % (10.5-15); White Blood Count 5.7 10^3/ul (3.5-10.8)
[2017-04-07] MEDS: Levothyroxine TAB* 100 MCG TAB PO SCH (06:45)
[2017-04-07 07:46] LABS: BUN/Creatinine Ratio 20.7 (8-20); Calcium 8.7 mg/dL (8.6-10.3); EGFR African American 178.1 (>60); EGFR Non-African American 138.5 (>60); Potassium 4.2 mmol/L (3.5-5.0)
[2017-04-07] MEDS: DOXYcycline CAP(*) 100 MG PO SCH ×2 (08:52→21:02)
[2017-04-07] MEDS: PHENobarbital TAB(*) 30 MG PO SCH ×2 (08:53→21:04)
[2017-04-07] MEDS: Omeprazole CAP* 20 MG PO SCH (08:53)
[2017-04-07] MEDS: Haloperidol TAB* 5 MG PO SCH ×3 (08:53→21:04)
[2017-04-07] MEDS: Fluticasone NASAL SPRAY 50MCG* 16 gm SPRAY BTL BOTH NARES SCH (08:55)
[2017-04-07] MEDS: Polyethylene Glycol 3350* 17 GM PACKET PO SCH (08:55)
[2017-04-07] MEDS: Amoxicillin/Clavulanate O.SYR* 400 MG/5 ML ORAL.SYRIN PO SCH ×2 (09:46→21:23)
--- NOTE | 2017-04-07 11:18 | PN ---
Subjective Date of Service: 04/07/17 Interval History: Pt is sleeping currently. The aide in his room states that he ate breakfast without any difficulty. She states that he normally does not sleep like this and is usually up and walking around. She notes that he seemed weaker when getting up to the chair this AM than his previous baseline. Objective Active Medications: Acetaminophen (Tylenol Tab*) 650 mg PO Q4H PRN PRN Reason: FEVER/PAIN Al Hydrox/Mg Hydrox/Simethicone (Maalox Plus*) 30 ml PO TID PC PRN PRN Reason: INDIGESTION Albuterol (Ventolin 2.5 Mg/3 Ml Neb.Anuja*) 2.5 mg INH [id number] AWAKE PRN PRN Reason: sob/wheezing Amoxicillin/Clavulanate Potassium (Augmentin Oral Syringe*) 800 mg PO BID [facility] Last Admin: 04/07/17 09:46 Dose: 800 mg Clonazepam (Klonopin Tab(*)) 1 mg PO BEDTIME [facility] Last Admin: 04/06/17 21:39 Dose: 1 mg Doxycycline Hyclate (Vibramycin Cap(*)) 100 mg PO BID [facility] Last Admin: 04/07/17 08:52 Dose: 100 mg Enoxaparin Sodium (Lovenox(*)) 40 mg SUBCUT 1830 [facility] Last Admin: 04/06/17 17:58 Dose: 40 mg Fluticasone Propionate (Flonase Nasal [place] 50mcg*) 1 spray BOTH NARES DAILY [facility] Last Admin: 04/07/17 08:55 Dose: 1 spray Haloperidol (Haldol Tab*) 5 mg PO TID [facility] Last Admin: 04/07/17 08:53 Dose: 5 mg Levothyroxine Sodium (Synthroid Tab*) 100 mcg PO 0600 [facility] Last Admin: 04/07/17 06:45 Dose: 100 mcg Magnesium Hydroxide (Milk Of Magnesia Liq*) 30 ml PO Q3D PRN PRN Reason: CONSTIPATION Last Admin: 04/06/17 08:11 Dose: 30 ml Omeprazole (Prilosec Cap*) 20 mg PO DAILY [facility] Last Admin: 04/07/17 08:53 Dose: 20 mg Ondansetron HCl (Zofran Inj*) 4 mg IV Q4H PRN PRN Reason: NAUSEA Last Admin: 04/02/17 15:56 Dose: 4 mg Phenobarbital (Phenobarbital Tab(*)) 60 mg PO BEDTIME [facility] Last Admin: 04/06/17 21:39 Dose: 60 mg Phenobarbital (Phenobarbital Tab(*)) 30 mg PO DAILY [facility] Last Admin: 04/07/17 08:53 Dose: 30 mg Polyethylene Glycol/Electrolytes (Miralax*) 17 gm PO DAILY [facility] Last Admin: 04/07/17 08:55 Dose: 17 gm Vital Signs 04/06/17 04/06/17 04/06/17 11:38 15:30 15:33 Temperature 97.9 F 97.9 F Pulse Rate 82 88 Respiratory 30 24 Rate Blood Pressure 94/55 86/53 (mmHg) O2 Sat by Pulse 98 91 Oximetry 04/06/17 04/06/17 04/06/17 19:47 21:39 23:39 Temperature 99.8 F Pulse Rate 103 Respiratory 26 26 26 Rate Blood Pressure 81/50 (mmHg) O2 Sat by Pulse 88 Oximetry 04/06/17 04/07/17 04/07/17 23:45 00:41 03:29 Temperature 98.8 F Pulse Rate 89 75 Respiratory 15 24 17 Rate Blood Pressure 81/50 105/50 (mmHg) O2 Sat by Pulse 98 97 Oximetry 04/07/17 04/07/17 04/07/17 07:42 08:00 08:53 Temperature 98.5 F Pulse Rate 75 Respiratory 22 18 18 Rate Blood Pressure 100/54 (mmHg) O2 Sat by Pulse 97 Oximetry 04/07/17 10:44 Temperature Pulse Rate Respiratory 18 Rate Blood Pressure (mmHg) O2 Sat by Pulse Oximetry Oxygen Devices in Use Now: Nasal Cannula - 1L-97% Appearance: Elderly male lying in bed, NAD Eyes: No Scleral Icterus Ears/Nose/Mouth/Throat: Mucous Membranes Moist Respiratory: Symmetrical Chest Expansion and Respiratory Effort, Clear to Auscultation Cardiovascular: NL Sounds; No Murmurs; No JVD, RRR, No Edema Abdominal: NL Sounds; No Tenderness; No Distention Extremities: No Clubbing, Cyanosis Skin: No Rash or Ulcers, No Nodules or Sclerosis Neurological: - - sleeping, does not awaken to my voice or touch Result Diagrams: 04/07/17 04:55 04/07/17 04:55 Additional Lab and Data: Lab Results 04/01/17 04/01/17 04/01/17 Range/Units 08:06 08:06 08:06 WBC 18.0 H (3.5-10.8) 10^3/ul RBC 4.00 (4.0-5.4) 10^6/ul Hgb 13.1 L (14.0-18.0) g/dl Hct 40 L (42-52) % MCV 99 H (80-94) fL MCH 33 H (27-31) pg MCHC 33 (31-36) g/dl RDW 14 (10.5-15) % Plt Count 140 L (150-450) 10^3/ul MPV 9 (7.4-10.4) um3 Neut % (Auto) 88.5 H (38-83) % Lymph % (Auto) 5.4 L (25-47) % [place] % (Auto) 5.6 (1-9) % Eos % (Auto) 0.2 (0-6) % Baso % (Auto) 0.3 (0-2) % Absolute Neuts (auto) 15.9 H (1.5-7.7) 10^3/ul Absolute Lymphs (auto) 1.0 (1.0-4.8) 10^3/ul Absolute Monos (auto) 1.0 H (0-0.8) 10^3/ul Absolute Eos (auto) 0 (0-0.6) 10^3/ul Absolute Basos (auto) 0.1 (0-0.2) 10^3/ul Absolute Nucleated RBC 0 10^3/ul Nucleated RBC % 0 Sodium 135 (133-145) mmol/L Potassium 4.0 (3.5-5.0) mmol/L Chloride 100 L (101-111) mmol/L Carbon Dioxide 28 (22-32) mmol/L Anion Gap 7 (2-11) mmol/L BUN 23 (6-24) mg/dL Creatinine 0.82 (0.67-1.17) mg/dL Est GFR ( Amer) 119.5 (>60) Est GFR (Non-Af Amer) 92.9 (>60) BUN/Creatinine Ratio 28.0 H (8-20) Glucose 132 H (70-100) mg/dL Lactic Acid (0.5-2.0) mmol/L Calcium 9.7 (8.6-10.3) mg/dL Total Bilirubin 0.40 (0.2-1.0) mg/dL AST 28 (13-39) U/L ALT 31 (7-52) U/L Alkaline Phosphatase 135 H (34-104) U/L Ammonia 38 (16-53) mol/L Total Creatine Kinase 45 (10-223) U/L Troponin I 0.05 H* (<0.04) ng/mL Total Protein 6.8 (6.4-8.9) g/dL Albumin 3.5 (3.2-5.2) g/dL Globulin 3.3 (2-4) g/dL Albumin/Globulin Ratio 1.1 (1-3) Urine Color Urine Appearance Urine pH (5-9) Ur Specific [place] (1.010-1.030) Urine Protein (Negative) Urine Ketones (Negative) Urine Blood (Negative) Urine Nitrate (Negative) Urine Bilirubin (Negative) Urine Urobilinogen (Negative) Ur Leukocyte Esterase (Negative) Urine WBC (Auto) (Absent) Urine RBC (Auto) (Absent) Calcium Oxalate Crystal (Absent) Urine Bacteria (Absent) Urine Glucose (Negative) Urine Ascorbic Acid (Negative) 04/01/17 04/01/17 Range/Units 09:30 11:00 WBC (3.5-10.8) 10^3/ul RBC (4.0-5.4) 10^6/ul Hgb (14.0-18.0) g/dl Hct (42-52) % MCV (80-94) fL MCH (27-31) pg MCHC (31-36) g/dl RDW (10.5-15) % Plt Count (150-450) 10^3/ul MPV (7.4-10.4) um3 Neut % (Auto) (38-83) % Lymph % (Auto) (25-47) % [place]aines % (Auto) (1-9) % Eos % (Auto) (0-6) % Baso % (Auto) (0-2) % Absolute Neuts (auto) (1.5-7.7) 10^3/ul Absolute Lymphs (auto) (1.0-4.8) 10^3/ul Absolute Monos (auto) (0-0.8) 10^3/ul Absolute Eos (auto) (0-0.6) 10^3/ul Absolute Basos (auto) (0-0.2) 10^3/ul Absolute Nucleated RBC 10^3/ul Nucleated RBC % Sodium (133-145) mmol/L Potassium (3.5-5.0) mmol/L Chloride (101-111) mmol/L Carbon Dioxide (22-32) mmol/L Anion Gap (2-11) mmol/L BUN (6-24) mg/dL Creatinine (0.67-1.17) mg/dL Est GFR ( Amer) (>60) Est GFR (Non-Af Amer) (>60) BUN/Creatinine Ratio (8-20) Glucose (70-100) mg/dL Lactic Acid 1.6 (0.5-2.0) mmol/L Calcium (8.6-10.3) mg/dL Total Bilirubin (0.2-1.0) mg/dL AST (13-39) U/L ALT (7-52) U/L Alkaline Phosphatase (34-104) U/L Ammonia (16-53) mol/L Total Creatine Kinase (10-223) U/L Troponin I (<0.04) ng/mL Total Protein (6.4-8.9) g/dL Albumin (3.2-5.2) g/dL Globulin (2-4) g/dL Albumin/Globulin Ratio (1-3) Urine Color Yellow Urine Appearance Cloudy Urine pH 7.0 (5-9) Ur Specific [place] 1.020 (1.010-1.030) Urine Protein Negative (Negative) Urine Ketones Negative (Negative) Urine Blood Negative (Negative) Urine Nitrate Negative (Negative) Urine Bilirubin Negative (Negative) Urine Urobilinogen Negative (Negative) Ur Leukocyte Esterase Trace H (Negative) Urine WBC (Auto) Trace(0-5/hpf) (Absent) Urine RBC (Auto) Trace(0-2/hpf) (Absent) Calcium Oxalate Crystal Present H (Absent) Urine Bacteria Absent (Absent) Urine Glucose Negative (Negative) Urine Ascorbic Acid * H (Negative) Microbiology and Other Data: Microbiology 04/01/17 13:20 Nasal Screen MRSA (PCR)(ERIKA) - Final Nasal Mrsa Negative Assess/Plan/Problems-Billing Mr Snyder is a 71 yo M who has a h/o blindness, severe intellectual delay, seizure d/o and bipolar d/o who presented with sepsis secondary to left sided pneumonia. - Patient Problems (1) Pneumonia Current Visit: Yes Status: Acute Code(s): J18.9 - PNEUMONIA, UNSPECIFIED ORGANISM SNOMED Code(s): 902825595 Comment: The patient's pneumonia is likely an aspiration pneumonia. He was septic on admission based on sepsis 3 criteria of low map and thrombocytopenia. He is doing well from a respiratory standpoint. He is intermittently needing supplemental O2-mostly with sleep though the sleep study was of poor quality. Will get supplemental O2 set up for home use. Today is D#7/7 of Abx therapy. Will plan on d/c home tomorrow-his BP was soft again last night but this AM ok. (2) Tachypnea Current Visit: Yes Status: Acute Code(s): R06.82 - TACHYPNEA, NOT ELSEWHERE CLASSIFIED SNOMED Code(s): 893130828 Comment: Pt takes small short shallow breaths. He does not appear to be in distress. Continue to monitor. (3) Swallowing difficulty Current Visit: Yes Status: Acute Code(s): R13.10 - DYSPHAGIA, UNSPECIFIED SNOMED Code(s): 67797653 Comment: Continue pureed with pudding thick liquids. (4) Seizure disorder Current Visit: Yes Status: Acute Code(s): G40.909 - EPILEPSY, UNSP, NOT INTRACTABLE, WITHOUT STATUS EPILEPTICUS SNOMED Code(s): 774902742 Comment: Continue phenobarbital. Level is slightly low. Will not make any adjustments at this time. (5) DVT prophylaxis Current Visit: Yes Status: Acute Code(s): TUL0862 - SNOMED Code(s): 406548898 Comment: lovenox (6) Full code status Current Visit: Yes Status: Acute Onset Date: 12/20/14 Code(s): Z78.9 - OTHER SPECIFIED HEALTH STATUS SNOMED Code(s): 461838396
[2017-04-07] MEDS: Enoxaparin(*) 40 MG/0.4 ML SYR SUBCUT SCH (17:59)
[2017-04-07] MEDS: clonazePAM TAB(*) 1 MG PO SCH (21:04)
[2017-04-08] MEDS: Levothyroxine TAB* 100 MCG TAB PO SCH (06:59)
[2017-04-08] MEDS: Polyethylene Glycol 3350* 17 GM PACKET PO SCH (08:20)
[2017-04-08] MEDS: Amoxicillin/Clavulanate O.SYR* 400 MG/5 ML ORAL.SYRIN PO SCH (08:20)
[2017-04-08] MEDS: Haloperidol TAB* 5 MG PO SCH (08:21)
[2017-04-08] MEDS: Fluticasone NASAL SPRAY 50MCG* 16 gm SPRAY BTL BOTH NARES SCH (08:21)
[2017-04-08] MEDS: DOXYcycline CAP(*) 100 MG PO SCH (08:21)
[2017-04-08] MEDS: Omeprazole CAP* 20 MG PO SCH (08:21)
[2017-04-08] MEDS: PHENobarbital TAB(*) 30 MG PO SCH (08:22)
--- NOTE | 2017-04-08 12:08 | PN ---
Subjective Date of Service: 04/08/17 Interval History: Pt is sleeping and does not awaken to my exam. Objective Active Medications: Acetaminophen (Tylenol Tab*) 650 mg PO Q4H PRN PRN Reason: FEVER/PAIN Last Admin: 04/07/17 21:04 Dose: 650 mg Al Hydrox/Mg Hydrox/Simethicone (Maalox Plus*) 30 ml PO TID PC PRN PRN Reason: INDIGESTION Albuterol (Ventolin 2.5 Mg/3 Ml Neb.Anuja*) 2.5 mg INH [id number] AWAKE PRN PRN Reason: sob/wheezing Amoxicillin/Clavulanate Potassium (Augmentin Oral Syringe*) 800 mg PO BID [facility] Last Admin: 04/08/17 08:20 Dose: 800 mg Clonazepam (Klonopin Tab(*)) 1 mg PO BEDTIME [facility] Last Admin: 04/07/17 21:04 Dose: 1 mg Doxycycline Hyclate (Vibramycin Cap(*)) 100 mg PO BID [facility] Last Admin: 04/08/17 08:21 Dose: 100 mg Enoxaparin Sodium (Lovenox(*)) 40 mg SUBCUT 1830 [facility] Last Admin: 04/07/17 17:59 Dose: 40 mg Fluticasone Propionate (Flonase Nasal Percy 50mcg*) 1 spray BOTH NARES DAILY [facility] Last Admin: 04/08/17 08:21 Dose: 1 spray Haloperidol (Haldol Tab*) 5 mg PO TID [facility] Last Admin: 04/08/17 08:21 Dose: 5 mg Levothyroxine Sodium (Synthroid Tab*) 100 mcg PO 0600 [facility] Last Admin: 04/08/17 06:59 Dose: 100 mcg Magnesium Hydroxide (Milk Of Magnesia Liq*) 30 ml PO Q3D PRN PRN Reason: CONSTIPATION Last Admin: 04/06/17 08:11 Dose: 30 ml Omeprazole (Prilosec Cap*) 20 mg PO DAILY [facility] Last Admin: 04/08/17 08:21 Dose: 20 mg Ondansetron HCl (Zofran Inj*) 4 mg IV Q4H PRN PRN Reason: NAUSEA Last Admin: 04/02/17 15:56 Dose: 4 mg Phenobarbital (Phenobarbital Tab(*)) 60 mg PO BEDTIME [facility] Last Admin: 04/07/17 21:04 Dose: 60 mg Phenobarbital (Phenobarbital Tab(*)) 30 mg PO DAILY [facility] Last Admin: 04/08/17 08:22 Dose: 30 mg Polyethylene Glycol/Electrolytes (Miralax*) 17 gm PO DAILY [facility] Last Admin: 04/08/17 08:20 Dose: 17 gm Vital Signs 04/07/17 04/07/17 04/07/17 15:30 16:00 19:42 Temperature 98.8 F 100.8 F Pulse Rate 99 90 Respiratory 26 24 Rate Blood Pressure 85/45 99/57 (mmHg) O2 Sat by Pulse 95 100 Oximetry 04/07/17 04/07/17 04/07/17 19:44 21:04 23:04 Temperature Pulse Rate Respiratory 24 24 26 Rate Blood Pressure (mmHg) O2 Sat by Pulse Oximetry 04/07/17 04/08/17 04/08/17 23:44 03:40 08:22 Temperature 97.7 F 97.8 F Pulse Rate 72 81 Respiratory 16 20 18 Rate Blood Pressure 85/49 90/56 (mmHg) O2 Sat by Pulse 99 96 Oximetry 04/08/17 10:22 Temperature Pulse Rate Respiratory 18 Rate Blood Pressure (mmHg) O2 Sat by Pulse Oximetry Oxygen Devices in Use Now: None Appearance: Elderly male sleeping in bed, NAD Eyes: No Scleral Icterus Ears/Nose/Mouth/Throat: Mucous Membranes Moist Respiratory: Symmetrical Chest Expansion and Respiratory Effort, Clear to Auscultation Cardiovascular: NL Sounds; No Murmurs; No JVD, RRR, No Edema Abdominal: NL Sounds; No Tenderness; No Distention Extremities: No Clubbing, Cyanosis Skin: No Rash or Ulcers, No Nodules or Sclerosis Neurological: - - sleeping, does not awaken to my exam Result Diagrams: 04/07/17 04:55 04/07/17 04:55 Additional Lab and Data: Lab Results 04/01/17 04/01/17 04/01/17 Range/Units 08:06 08:06 08:06 WBC 18.0 H (3.5-10.8) 10^3/ul RBC 4.00 (4.0-5.4) 10^6/ul Hgb 13.1 L (14.0-18.0) g/dl Hct 40 L (42-52) % MCV 99 H (80-94) fL MCH 33 H (27-31) pg MCHC 33 (31-36) g/dl RDW 14 (10.5-15) % Plt Count 140 L (150-450) 10^3/ul MPV 9 (7.4-10.4) um3 Neut % (Auto) 88.5 H (38-83) % Lymph % (Auto) 5.4 L (25-47) % [place] % (Auto) 5.6 (1-9) % Eos % (Auto) 0.2 (0-6) % Baso % (Auto) 0.3 (0-2) % Absolute Neuts (auto) 15.9 H (1.5-7.7) 10^3/ul Absolute Lymphs (auto) 1.0 (1.0-4.8) 10^3/ul Absolute Monos (auto) 1.0 H (0-0.8) 10^3/ul Absolute Eos (auto) 0 (0-0.6) 10^3/ul Absolute Basos (auto) 0.1 (0-0.2) 10^3/ul Absolute Nucleated RBC 0 10^3/ul Nucleated RBC % 0 Sodium 135 (133-145) mmol/L Potassium 4.0 (3.5-5.0) mmol/L Chloride 100 L (101-111) mmol/L Carbon Dioxide 28 (22-32) mmol/L Anion Gap 7 (2-11) mmol/L BUN 23 (6-24) mg/dL Creatinine 0.82 (0.67-1.17) mg/dL Est GFR ( Amer) 119.5 (>60) Est GFR (Non-Af Amer) 92.9 (>60) BUN/Creatinine Ratio 28.0 H (8-20) Glucose 132 H (70-100) mg/dL Lactic Acid (0.5-2.0) mmol/L Calcium 9.7 (8.6-10.3) mg/dL Total Bilirubin 0.40 (0.2-1.0) mg/dL AST 28 (13-39) U/L ALT 31 (7-52) U/L Alkaline Phosphatase 135 H (34-104) U/L Ammonia 38 (16-53) mol/L Total Creatine Kinase 45 (10-223) U/L Troponin I 0.05 H* (<0.04) ng/mL Total Protein 6.8 (6.4-8.9) g/dL Albumin 3.5 (3.2-5.2) g/dL Globulin 3.3 (2-4) g/dL Albumin/Globulin Ratio 1.1 (1-3) Urine Color Urine Appearance Urine pH (5-9) Ur Specific [place] (1.010-1.030) Urine Protein (Negative) Urine Ketones (Negative) Urine Blood (Negative) Urine Nitrate (Negative) Urine Bilirubin (Negative) Urine Urobilinogen (Negative) Ur Leukocyte Esterase (Negative) Urine WBC (Auto) (Absent) Urine RBC (Auto) (Absent) Calcium Oxalate Crystal (Absent) Urine Bacteria (Absent) Urine Glucose (Negative) Urine Ascorbic Acid (Negative) 04/01/17 04/01/17 Range/Units 09:30 11:00 WBC (3.5-10.8) 10^3/ul RBC (4.0-5.4) 10^6/ul Hgb (14.0-18.0) g/dl Hct (42-52) % MCV (80-94) fL MCH (27-31) pg MCHC (31-36) g/dl RDW (10.5-15) % Plt Count (150-450) 10^3/ul MPV (7.4-10.4) um3 Neut % (Auto) (38-83) % Lymph % (Auto) (25-47) % [place] % (Auto) (1-9) % Eos % (Auto) (0-6) % Baso % (Auto) (0-2) % Absolute Neuts (auto) (1.5-7.7) 10^3/ul Absolute Lymphs (auto) (1.0-4.8) 10^3/ul Absolute Monos (auto) (0-0.8) 10^3/ul Absolute Eos (auto) (0-0.6) 10^3/ul Absolute Basos (auto) (0-0.2) 10^3/ul Absolute Nucleated RBC 10^3/ul Nucleated RBC % Sodium (133-145) mmol/L Potassium (3.5-5.0) mmol/L Chloride (101-111) mmol/L Carbon Dioxide (22-32) mmol/L Anion Gap (2-11) mmol/L BUN (6-24) mg/dL Creatinine (0.67-1.17) mg/dL Est GFR ( Amer) (>60) Est GFR (Non-Af Amer) (>60) BUN/Creatinine Ratio (8-20) Glucose (70-100) mg/dL Lactic Acid 1.6 (0.5-2.0) mmol/L Calcium (8.6-10.3) mg/dL Total Bilirubin (0.2-1.0) mg/dL AST (13-39) U/L ALT (7-52) U/L Alkaline Phosphatase (34-104) U/L Ammonia (16-53) mol/L Total Creatine Kinase (10-223) U/L Troponin I (<0.04) ng/mL Total Protein (6.4-8.9) g/dL Albumin (3.2-5.2) g/dL Globulin (2-4) g/dL Albumin/Globulin Ratio (1-3) Urine Color Yellow Urine Appearance Cloudy Urine pH 7.0 (5-9) Ur Specific [place] 1.020 (1.010-1.030) Urine Protein Negative (Negative) Urine Ketones Negative (Negative) Urine Blood Negative (Negative) Urine Nitrate Negative (Negative) Urine Bilirubin Negative (Negative) Urine Urobilinogen Negative (Negative) Ur Leukocyte Esterase Trace H (Negative) Urine WBC (Auto) Trace(0-5/hpf) (Absent) Urine RBC (Auto) Trace(0-2/hpf) (Absent) Calcium Oxalate Crystal Present H (Absent) Urine Bacteria Absent (Absent) Urine Glucose Negative (Negative) Urine Ascorbic Acid * H (Negative) Microbiology and Other Data: Microbiology 04/01/17 13:20 Nasal Screen MRSA (PCR)(ERIKA) - Final Nasal Mrsa Negative Assess/Plan/Problems-Billing Mr Snyder is a 71 yo M who has a h/o blindness, severe intellectual delay, seizure d/o and bipolar d/o who presented with sepsis secondary to left sided pneumonia. - Patient Problems (1) Pneumonia Current Visit: Yes Status: Acute Code(s): J18.9 - PNEUMONIA, UNSPECIFIED ORGANISM SNOMED Code(s): 024693939 Comment: The patient's pneumonia is likely an aspiration pneumonia. He was septic on admission based on sepsis 3 criteria of low map and thrombocytopenia. The patient has completed a full course of therapy. BP is soft but he seems asymptomatic. He seems stable for d/c home but he will need close monitoring. (2) Tachypnea Current Visit: Yes Status: Acute Code(s): R06.82 - TACHYPNEA, NOT ELSEWHERE CLASSIFIED SNOMED Code(s): 758008665 Comment: Resolved. (3) Swallowing difficulty Current Visit: Yes Status: Acute Code(s): R13.10 - DYSPHAGIA, UNSPECIFIED SNOMED Code(s): 53293660 Comment: Continue pureed with pudding thick liquids. Will likely need repeat eval as aide in room today noted that about 30sec after eating he would clear his throat. (4) Seizure disorder Current Visit: Yes Status: Acute Code(s): G40.909 - EPILEPSY, UNSP, NOT INTRACTABLE, WITHOUT STATUS EPILEPTICUS SNOMED Code(s): 089695817 Comment: Continue phenobarbital. Level is slightly low. Will not make any adjustments at this time. (5) DVT prophylaxis Current Visit: Yes Status: Acute Code(s): RNC0901 - SNOMED Code(s): 459353068 Comment: lovenox (6) Full code status Current Visit: Yes Status: Acute Onset Date: 12/20/14 Code(s): Z78.9 - OTHER SPECIFIED HEALTH STATUS SNOMED Code(s): 264402118 Status and Disposition: d/c home
[2017-04-08 14:02] VITALS: BP 99/64
--- NOTE | 2017-04-09 03:40 | DS ---
CC: Dr. Belle * DISCHARGE SUMMARY: DATE OF ADMISSION: 04/01/17 DATE OF DISCHARGE: 04/08/17 PRIMARY CARE PROVIDER: Dr. Belle. PRINCIPAL DIAGNOSIS: Possible aspiration pneumonia with sepsis on admission, resolved. SECONDARY DIAGNOSES: 1. Dysphagia, chronic. 2. Seizure disorder. DISCHARGE MEDICATIONS: 1. Valacyclovir 2 g p.o. q.12 hours p.r.n. cold sores. 2. MiraLAX 17 g p.o. daily. 3. Nasonex 1 spray to both nostrils daily. 4. Ativan 1 mg p.o. once p.r.n. medical appointment. 5. Omeprazole 20 mg p.o. daily. 6. Levothyroxine 100 mcg p.o. daily. 7. Ibuprofen 400 mg p.o. q.4 hours p.r.n. pain. 8. Dulcolax 10 mg p.r. q. 4 days prn constipation. 9. Bacitracin ointment apply topically twice daily p.r.n. for minor skin irritation. 10. Milk of magnesia 30 mL p.o. q.3 days p.r.n. constipation. 11. Benadryl 50 mg p.o. q.h.s. p.r.n. sleep. 12. Desitin apply topically t.i.d. p.r.n. skin irritation. 13. Tylenol 650 mg p.o. q.8 hours p.r.n. pain. 14. Mucinex ER 600 mg p.o. b.i.d. p.r.n. cough. 15. Maalox plus 30 mL p.o. t.i.d. p.r.n. indigestion. 16. A and D ointment apply topically twice daily to irritated skin. 17. Mineral oil 3 drops to both ears q.3 days p.r.n. wax buildup. 18. Cerave apply topically twice daily. 19. Ensure 1 can p.o. t.i.d. 20. Multivitamin 1 tab p.o. daily. 21. Haldol 5 mg p.o. t.i.d. 22. Phenobarbital 32.4 mg p.o. q.a.m., 64.8 mg p.o. q.p.m. 23. Clonazepam 1 mg p.o. q.h.s. HOSPITAL COURSE: Mr. Snyder is a 71-year-old male who has a history of chronic dysphagia requiring pureed diet and putting thick liquids who presents to the emergency room on 04/01/17 with complaints of high fever and lethargy. The patient reportedly has a history of bipolar disorder and has recently been manic. He, however, had been looking ill on the morning of admission. His temperature was taken and noted to be elevated at 101.6. The patient was noted to be more lethargic and, therefore, sent [facility] for evaluation. In the ER, the patient was found to have a left-sided pneumonia that was possibly secondary to aspiration. The patient was also noted to be septic on admission with a low MAP and thrombocytopenia. The patient's sepsis has resolved. He has needed intermittent oxygen. He did receive 7 days total of antibiotic therapy. The patient is still noted to be relatively sleepy compared to his baseline per the aides that had been present. He does, however, wake up. He eats, he interacts when he is stimulated. There are just somewhat concerned as he is again more sleepy than normal, especially as he had been manic prior to coming into the hospital. The patient did complete 7 days worth of therapy. He is being discharged home with a prescription for supplemental oxygen; however, the patient does frequently pull off the O2 tubing. He has saturations that will dip into the 80s while sleeping; however, if stimulated, the O2 saturation does improve into the low 90s. During the course of the admission, the patient was felt to have possible pulmonary edema related to aggressive IV hydration earlier on during the hospitalization. He did receive Lasix. He was tachypneic when felt to be in pulmonary edema; however, this did improve. The patient has a history of dysphagia. He was seen by speech therapy who recommended continuing his current diet of pureed foods and pudding thick liquids. The aides do note that he will sometimes cough while eating, and sometimes after he swallows a bite, about 30 seconds later he may try to clear his throat. It is possible he will need repeat swallow study to further evaluate if he can continue on this diet or if he might need to be considered for PEG tube. On the day of discharge, the patient was noted to be sleepy. During my evaluation, he did not awaken to my exam. The aide in the room did say, however , he had been up for breakfast and interactive earlier in the day. Also, of note, the patient had one temperature of 100.8 the night prior to the day of discharge; however, he has been afebrile since without any changes in his clinical status. The patient will need close monitoring at his custodial, and I have explained this to the aide in the room. FOLLOWUP CONCERNS: The patient is being discharged home today on 04/08/17. ACTIVITY LEVEL: As tolerated. DIET: Regular, pudding thick liquids and pureed foods. CONDITION ON DISCHARGE: Stable. TIME SPENT: 40 minutes were spent discharging this patient. [id number]/[facility] #: [id number] AGUSTIN
== END 2017-04-08 15:15 | disposition home or self-care (01) | DRG 871 ==
LOC: ED 08:36 → ICU 11:35 → MED 04-02 07:47
PROVIDERS: ADMIT Internal Medicine; ATTEND Hospitalist
DX: A41.9 Sepsis, unspecified organism (principal); J69.0 Pneumonitis due to inhalation of food and vomit; E46 Unspecified protein-calorie malnutrition; R13.10 Dysphagia, unspecified; D69.6 Thrombocytopenia, unspecified; Z68.1 Body mass index [BMI] 19.9 or less, adult; G40.909 Epilepsy, unspecified, not intractable, without status epilepticus; E03.9 Hypothyroidism, unspecified; F31.9 Bipolar disorder, unspecified; F79 Unspecified intellectual disabilities; H54.0 Blindness, both eyes; Z79.1 Long term (current) use of non-steroidal anti-inflammatories (NSAID); Z79.899 Other long term (current) drug therapy
CPT/HCPCS: 36415; 70450; 71010; 80048; 80053; 80184; 81003; 81015; 82140; 82550; 83605; 83735; 84484; 85025; 85027; 87040; 87086; 87641; 87899; 93005; 94762; 96360; 99213; A9270-GY; G0463; G8996-GN-CL; G8997-GN-CL; G8998-GN-CL; J1650; J1940; J2405; J2543; J3475

== ENCOUNTER 2017-04-15 08:57 | Inpatient (IN) | payer MEDICARE, MEDICAID ==
[2017-04-15] MEDS: NS 0.9% 1000 ML* 2,000 ML IV ONE ×2 (09:40→11:47)
--- NOTE | 2017-04-15 10:09 | RAD ---
INDICATION: Altered mental status. Recent pneumonia. COMPARISON: November 2016 TECHNIQUE: An AP portable view obtained at 1000 hours is submitted. FINDINGS: Bones/Soft Tissues: There are no acute bony findings. Cardiomediastinal: The heart is mildly enlarged. There is mild interstitial congestion with interval improvement Lungs: There is hyperinflation. There is persistent mild airspace disease in left lung base with improvement.. Pleura: Small left-sided effusion. Other: Large hiatal hernia IMPRESSION: VASCULAR CONGESTION WITH SIGNIFICANT INTERVAL IMPROVEMENT
[2017-04-15 10:23] LABS: Comments Flag Yes; Hematocrit 38 % (42-52); Hemoglobin 12.7 g/dl (14.0-18.0); Mean Corpuscular HGB Conc 34 g/dl (31-36); Mean Corpuscular Hemoglobin 33 pg (27-31); Mean Corpuscular Volume 98 fL (80-94); Mean Platelet Volume 8 um3 (7.4-10.4); Red Blood Count 3.85 10^6/ul (4.0-5.4); Red Cell Distribution Width 14 % (10.5-15); White Blood Count 9.8 10^3/ul (3.5-10.8)
[2017-04-15 10:27] LABS: ALT 32 U/L (7-52); Albumin 3.9 g/dL (3.2-5.2); Alkaline Phosphatase 151 U/L (34-104); BUN/Creatinine Ratio 18.3 (8-20); Blood Urea Nitrogen 13 mg/dL (6-24); C Reactive Protein 75.94 mg/L (< 5.00); CO2 Carbon Dioxide 28 mmol/L (22-32); Calcium 10.3 mg/dL (8.6-10.3); Chloride 101 mmol/L (101-111); Creatine Kinase 47 U/L (10-223); EGFR African American 141.1 (>60); EGFR Non-African American 109.7 (>60); Globulin 4.2 g/dL (2-4); Glucose 85 mg/dL (70-100); Lipase < 10 U/L (11.0-82.0); Magnesium 1.9 mg/dL (1.9-2.7); Sodium 137 mmol/L (133-145); Total Protein 8.1 g/dL (6.4-8.9)
[2017-04-15 10:54] LABS: TSH (Thyroid Stimulating Horm) 2.18 mcIU/mL (0.34-5.60)
[2017-04-15 11:34] LABS: Anion Gap 8 mmol/L (2-11); Potassium 4.1 mmol/L (3.5-5.0)
[2017-04-15 11:35] LABS: AST 37 U/L (13-39)
[2017-04-15] MEDS ORDERED: Ondansetron INJ* 2 MG/ML VIAL IV PRN (12:56)
[2017-04-15] MEDS ORDERED: Al Hydrox/Mg Hydrox/Simet LIQ* 30 ML UDC PO PRN (12:58)
[2017-04-15] MEDS ORDERED: Bisacodyl SUPP* 10 MG SUPP PR PRN (12:58)
--- NOTE | 2017-04-15 13:41 | ED ---
John Greenwood Benjamin, scribed for Juan Manuel Khan MD on 04/15/17 at 0948 . Complex/Multi-Sys Presentation - HPI Summary HPI Summary: 71yo male who was recently admitted for aspiration PNA and sepsis and was then dced on 04/08. Pt seemed to be bouncing back fine, but today business performance advisor noticed pt has been weak, not eating well and not acting his normal self. Pt takes 3L Oxygen at night. Pt is nonverbal and blind. Has cognitive impairment. - History Of Current Complaint Chief Complaint: EDWeakness Time Seen by Provider: 04/15/17 09:20 Hx Obtained From: Family/Freight Broker - business performance advisor Hx From Patient Unobtainable Due To: Other - cognitive impairment, nonverbal Onset/Duration: Sudden Onset, Lasting Hours - this morning, Still Present Timing: Constant Severity Currently: Mild Severity Initially: Mild Location: Negative Associated Signs And Symptoms: Positive: Decreased Responsiveness, Weakness, Decreased Oral Intake - Allergies/Home Medications Allergies/Adverse Reactions: Allergies Allergy/AdvReac Type Severity Reaction Status Date / Time Cephalexin [From Keflex] Allergy Unknown Unknown Verified 04/15/17 09:02 Reaction Details Valproic Acid [From Depakote] Allergy Unknown Unknown Verified 04/15/17 09:02 Reaction Details Cephalosporins Allergy Unknown Verified 04/15/17 09:02 Reaction Details Prednisone Allergy Agitation Verified 04/15/17 09:02 PMH/Surg Hx/FS Hx/Imm Hx Endocrine/Hematology History: Reports: Hx Thyroid Disease - HYPOTHYROID, Hx Anemia Denies: Hx Diabetes Cardiovascular History: Reports: Hx Hypertension Respiratory History: Denies: Hx Asthma, Hx Chronic Obstructive Pulmonary Disease (COPD) GI History: Reports: Hx Gastrointestinal Bleed - rectal bleeding, Hx Hiatal Hernia, Other GI Disorders - EDENTULOUS, HEMORRHOIDS, CONSTIPATION, peritonitis Denies: Hx Cirrhosis, Hx Crohn's Disease, Hx Diverticulosis, Hx Gall Bladder Disease, Hx Gastroesophageal Reflux Disease, Hx Irritable Bowel, Hx Jaundice, Hx Obstructive Bowel, Hx Ileostomy, Hx Pyloric Stenosis, Hx Ulcer Musculoskeletal History: Reports: Hx Arthritis, Hx Osteoporosis Sensory History: Reports: Hx Legally Blind Denies: Hx Contacts or Glasses, Hx Hearing Aid Opthamlomology History: Reports: Hx Legally Blind Denies: Hx Contacts or Glasses Neurological History: Reports: Hx Developmental Delay - MR, Hx Seizures, Other Neuro Impairments/Disorders - AKITHESIA Denies: Hx Headaches, Hx Migraine, Hx Nerve Disease, Hx Spinal Cord Injury, Hx Transient Ischemic Attacks (TIA) Psychiatric History: Reports: Hx Bipolar Disorder, Other Psychiatric Issues/ Disorders - ADJUSTMENT DISORDER WITH ANXIOUS MOOD Infectious Disease History: No Infectious Disease History: Reports: Hx Tuberculosis - TB positive reaction 1993 Denies: Hx Clostridium Difficile, Hx Hepatitis, Hx Human Immunodeficiency Virus (HIV), Hx of Known/Suspected MRSA, Hx Shingles, History Other Infectious Disease, Traveled Outside the [place] in Last 30 Days - Family History Known Family History: Positive: Unknown Family History: LEVEL 5 CAVEAT - pt is nonverbal - Social History Occupation: Disabled Lives: At [facility] Alcohol Use: None Substance Use Type: Reports: None Smoking Status (MU): Never Smoked Tobacco Review of Systems Constitutional: Negative Eyes: Negative ENT: Negative Cardiovascular: Negative Respiratory: Negative Positive: Other - decreased PO intake Genitourinary: Negative Musculoskeletal: Negative Skin: Negative Positive: Weakness Psychological: Normal All Other Systems Reviewed And Are Negative: Yes Physical Exam Triage Information Reviewed: Yes Vital Signs On Initial Exam: Initial Vitals Temp Pulse Resp BP Pulse Ox 97.5 F 95 20 133/105 100 04/15/17 09:02 04/15/17 09:02 04/15/17 09:02 04/15/17 09:02 04/15/17 09:02 Vital Signs Reviewed: Yes Completion Of Physical Exam Limited Due To: Other - pt is nonverbal, has cognitive impairment Appearance: Positive: Thin. Negative: Well-Appearing - curled in position Skin: Positive: Warm, Skin Color Reflects Adequate Perfusion, Dry Head/Face: Positive: Normal Head/Face Inspection Eyes: Positive: Normal ENT: Positive: Normal ENT inspection Neck: Positive: Supple, Nontender Respiratory/Lung Sounds: Positive: Clear to Auscultation, Breath Sounds Present Cardiovascular: Positive: RRR Abdomen Description: Positive: Nontender, Soft Bowel Sounds: Positive: Hypoactive Musculoskeletal: Negative: Edema Left, Edema Right Neurological: Positive: Sensory/Motor Intact, Other - pt is responsive, follows demands, reflex. Negative: Focal Deficit @ Psychiatric: Positive: Patient Uncooperative for Exam Diagnostics - Vital Signs Vital Signs Temp Pulse Resp BP Pulse Ox 04/15/17 09:20 39 90 04/15/17 09:19 117/69 04/15/17 09:16 97.5 F 88 22 117/69 96 04/15/17 09:02 97.5 F 95 20 133/105 100 - Laboratory Lab Results: Lab Results 04/15/17 04/15/17 04/15/17 Range/Units 09:50 09:50 09:50 WBC 9.8 (3.5-10.8) 10^3/ul RBC 3.85 L (4.0-5.4) 10^6/ul Hgb 12.7 L (14.0-18.0) g/dl Hct 38 L (42-52) % MCV 98 H (80-94) fL MCH 33 H (27-31) pg MCHC 34 (31-36) g/dl RDW 14 (10.5-15) % Plt Count 360 (150-450) 10^3/ul MPV 8 (7.4-10.4) um3 Neut % (Auto) 73.8 (38-83) % Lymph % (Auto) 11.0 L (25-47) % [place] % (Auto) 9.5 H (1-9) % Eos % (Auto) 5.1 (0-6) % Baso % (Auto) 0.6 (0-2) % Absolute Neuts (auto) 7.2 (1.5-7.7) 10^3/ul Absolute Lymphs (auto) 1.1 (1.0-4.8) 10^3/ul Absolute Monos (auto) 0.9 H (0-0.8) 10^3/ul Absolute Eos (auto) 0.5 (0-0.6) 10^3/ul Absolute Basos (auto) 0.1 (0-0.2) 10^3/ul Absolute Nucleated RBC 0 10^3/ul Nucleated RBC % 0 INR (Anticoag Therapy) 1.00 (0.89-1.11) APTT 29.0 (26.0-36.3) seconds Sodium 137 (133-145) mmol/L Potassium 4.1 (3.5-5.0) mmol/L Chloride 101 (101-111) mmol/L Carbon Dioxide 28 (22-32) mmol/L Anion Gap 8 (2-11) mmol/L BUN 13 (6-24) mg/dL Creatinine 0.71 (0.67-1.17) mg/dL Est GFR ( Amer) 141.1 (>60) Est GFR (Non-Af Amer) 109.7 (>60) BUN/Creatinine Ratio 18.3 (8-20) Glucose 85 (70-100) mg/dL Lactic Acid (0.5-2.0) mmol/L Calcium 10.3 (8.6-10.3) mg/dL Magnesium 1.9 (1.9-2.7) mg/dL Total Bilirubin 0.40 (0.2-1.0) mg/dL AST 37 (13-39) U/L ALT 32 (7-52) U/L Alkaline Phosphatase 151 H (34-104) U/L Total Creatine Kinase 47 (10-223) U/L CK-MB (CK-2) 1.6 (0.6-6.3) ng/mL Troponin I 0.00 (<0.04) ng/mL C-Reactive Protein 75.94 H (< 5.00) mg/L B-Natriuretic Peptide ( - 100) pg/mL Total Protein 8.1 (6.4-8.9) g/dL Albumin 3.9 (3.2-5.2) g/dL Globulin 4.2 H (2-4) g/dL Albumin/Globulin Ratio 0.9 L (1-3) Lipase < 10 L (11.0-82.0) U/L TSH 2.18 (0.34-5.60) mcIU/mL 04/15/17 04/15/17 Range/Units 09:50 09:50 WBC (3.5-10.8) 10^3/ul RBC (4.0-5.4) 10^6/ul Hgb (14.0-18.0) g/dl Hct (42-52) % MCV (80-94) fL MCH (27-31) pg MCHC (31-36) g/dl RDW (10.5-15) % Plt Count (150-450) 10^3/ul MPV (7.4-10.4) um3 Neut % (Auto) (38-83) % Lymph % (Auto) (25-47) % [place] % (Auto) (1-9) % Eos % (Auto) (0-6) % Baso % (Auto) (0-2) % Absolute Neuts (auto) (1.5-7.7) 10^3/ul Absolute Lymphs (auto) (1.0-4.8) 10^3/ul Absolute Monos (auto) (0-0.8) 10^3/ul Absolute Eos (auto) (0-0.6) 10^3/ul Absolute Basos (auto) (0-0.2) 10^3/ul Absolute Nucleated RBC 10^3/ul Nucleated RBC % INR (Anticoag Therapy) (0.89-1.11) APTT (26.0-36.3) seconds Sodium (133-145) mmol/L Potassium (3.5-5.0) mmol/L Chloride (101-111) mmol/L Carbon Dioxide (22-32) mmol/L Anion Gap (2-11) mmol/L BUN (6-24) mg/dL Creatinine (0.67-1.17) mg/dL Est GFR ( Amer) (>60) Est GFR (Non-Af Amer) (>60) BUN/Creatinine Ratio (8-20) Glucose (70-100) mg/dL Lactic Acid 2.5 H* (0.5-2.0) mmol/L Calcium (8.6-10.3) mg/dL Magnesium (1.9-2.7) mg/dL Total Bilirubin (0.2-1.0) mg/dL AST (13-39) U/L ALT (7-52) U/L Alkaline Phosphatase (34-104) U/L Total Creatine Kinase (10-223) U/L CK-MB (CK-2) (0.6-6.3) ng/mL Troponin I (<0.04) ng/mL C-Reactive Protein (< 5.00) mg/L B-Natriuretic Peptide 28 ( - 100) pg/mL Total Protein (6.4-8.9) g/dL Albumin (3.2-5.2) g/dL Globulin (2-4) g/dL Albumin/Globulin Ratio (1-3) Lipase (11.0-82.0) U/L TSH (0.34-5.60) mcIU/mL Result Diagrams: 04/15/17 09:50 04/15/17 09:50 Lab Statement: Any lab studies that have been ordered have been reviewed, and results considered in the medical decision making process. - EKG 0956 Cardiac Rate: NL - 83bpm EKG Rhythm: Sinus Rhythm Ectopy: None EKG Interpretation: LVH. Minimal st elevation on anterior lead compared prior EKG on 04/01/17. Complex Multi-Symp Course/Dx Course Of Treatment: Reviewed pts medication and allergy lists. Blood pressure noted. Discussed with Dr. Grady (hospitalist) at 11:17 for admission. - Diagnoses Provider Diagnoses: Altered mental state, Failure to thrive in adult Discharge - Discharge Plan Condition: Stable Disposition: ADMITTED TO [facility] The documentation as recorded by the John flores Benjamin accurately reflects the service I personally performed and the decisions made by me, Juan Manuel Khan MD.
[2017-04-15] MEDS: Haloperidol TAB* 5 MG PO SCH ×2 (15:25→21:02)
[2017-04-15] MEDS: Heparin VIAL(*) 5000 UNITS/ML VIAL (FIVE THOUSAND) SUBCUT SCH ×2 (15:27→21:02)
--- NOTE | 2017-04-15 15:34 | RAD ---
HISTORY: Altered mental status COMPARISONS: April 01, 2017 TECHNIQUE: Multiple contiguous axial CT scans were obtained of the head without intravenous contrast. FINDINGS: The study is technically limited. HEMORRHAGE/INFARCT: There is no hemorrhage or acute infarct. MASSES/SHIFT: There is no mass or shift. EXTRA-AXIAL SPACES: There are no extra-axial fluid collections. SULCI AND VENTRICLES: The sulci and ventricles are normal in size and position for the patient's stated age. CEREBRUM: There are no focal parenchymal abnormalities. BRAINSTEM: There are no focal parenchymal abnormalities. CEREBELLUM: There are no focal parenchymal abnormalities. VESSELS: The vessels are grossly normal. PARANASAL SINUSES: The paranasal sinuses are clear. 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 BONES AND SOFT TISSUE: No bone or soft tissue abnormalities are noted. OTHER: None IMPRESSION: NO ACUTE INTRACRANIAL PATHOLOGY.
[2017-04-15] MEDS: clonazePAM TAB(*) 1 MG PO SCH (21:01)
[2017-04-15] MEDS: PHENobarbital TAB(*) 30 MG PO SCH (21:01)
[2017-04-15 21:27] LABS: Urine Bacteria 1+ (Absent); Urine Bilirubin Negative (Negative); Urine Glucose Negative (Negative); Urine Nitrite Negative (Negative)
[2017-04-15] MEDS: NS 0.9% 1000 ML* 1,000 ML IV SCH (21:38)
--- NOTE | 2017-04-15 21:42 | HP ---
CC: Dr. Belle * HISTORY AND PHYSICAL: DATE OF ADMISSION: 04/15/17 PRIMARY CARE PROVIDER: Dr. Belle. ATTENDING PHYSICIAN WHILE IN THE HOSPITAL: Vicky Meeks MD * (report dictated by Fahad Davis NP). CHIEF COMPLAINT: 1. Weakness. 2. Altered mental status. HISTORY OF PRESENT ILLNESS: I would like to preface this report by saying Mr. Snyder is a 71-year-old male patient, who has a significant history of intellectual developmental delay. He is essentially nonverbal. According to the staff yesterday and throughout the day, he was noted to be not acting himself. Normally, he is very verbal. He is usually shouting. He is restless. Today it was noted that he was more drowsy, more weak. He was not eating as much. They were concerned that it may be because he is getting another infection, so they brought the patient into the hospital. The were concerned because he was not eating and was not acting himself and they brought him into the hospital. He was recently here for pneumonia thought to be secondary to aspiration. There has been no reports of choking, no coughing after eating. There has been no reports of vomiting, diarrhea, no temperatures. There has been a dry cough, but the patient's caregiver says that he always has a dry cough even before he was sick last week. There was concern though, because he just was not acting himself. He was having this altered mental status, so the patient was brought into the ER, he was evaluated. It was noted here that again he appeared to be drowsy and because of this, we were asked to evaluate in admission. PAST MEDICAL HISTORY: Significant for: 1. Rectal bleeding. 2. Seizures. 3. Malnutrition. 4. Hypothyroidism. 5. Anemia. 6. Bipolar disorder. 7. Thrombocytopenia. 8. Intellectual developmental delay. 9. Legally blind. PAST SURGICAL HISTORY: Unable to be obtained. MEDICATIONS: Home meds according to the list that was provided include: 1. Valtrex 2 g p.o. every 12 hours as needed. 2. MiraLAX 17 g p.o. daily. 3. Nasonex 1 spray both nares daily. 4. Ativan 1 mg p.o. daily as needed. 5. Prilosec 20 mg daily. 6. Synthroid 100 mcg daily. 7. Advil 400 mg every 4 hours as needed. 8. Bacitracin ointment 1 application topical b.i.d. as needed. 9. Mucinex 600 mg p.o. b.i.d. as needed. 10. Desitin 13% topically t.i.d. as needed. 11. Milk of magnesia 30 cc p.o. q.3 days as needed. 12. Dulcolax suppository 10 mg p.r. every 4 days as needed. 13. Tylenol 650 mg p.o. every 4 hours as needed. 14. Maalox 30 cc p.o. t.i.d. after meals as needed. 15. Vitamin A and D ointment 1 application topically b.i.d. as needed. 16. Mineral oil 3 drops both ears q.3 days as needed. 17. Emollient 1 cream topically b.i.d. 18. Klonopin 1 mg at bedtime as needed. 19. Ensure 1 can p.o. t.i.d. 20. Multivitamin 1 tablet p.o. daily. 21. Haldol 5 mg p.o. t.i.d. 22. Phenobarbital 32.4 mg daily, next 64.8 mg at bedtime. ALLERGIES TO MEDICATIONS: Include KEFLEX, DEPAKOTE, PREDNISONE, CEPHALOSPORIN. FAMILY HISTORY: Unable to be obtained. SOCIAL HISTORY: He is a nonsmoker, does not drink, he does not have a surrogate decision maker at this point. He is from [facility]. His sister is involved in some surrogate decision making processes, but ultimately he also needs to have a surrogate decision making committee I believe as well for decision making. REVIEW OF SYSTEMS: Unable to be obtained given the patient's intellectual developmental delay. PHYSICAL EXAMINATION GENERAL: At this time, Mr. Snyder is a 71-year-old male patient. He is sitting in the ER stretcher. He does not appear to be in any acute distress. He is awake to himself only. He was trying to sit up in bed when I evaluated him. VITAL SIGNS: Reveal blood pressure 117/69, his pulse is 88, respirations 20, O2 sat 96%, and temperature was 97.5. HEENT: Head: Atraumatic. Eyes: Sclerae anicteric. Throat: Oral mucosa appears to be dry. No oropharyngeal erythema. NECK: Supple. LUNGS: He did have some rhonchi noted in the left lower lobe and equal diaphragmatic expansion. HEART: Sounds S1, S2. Regular rate and rhythm. No murmurs, rubs, or gallops. ABDOMEN: Soft, flat, nontender. Bowel sounds present. EXTREMITIES: Pulses 2+ throughout. He is grossly moving all 4 extremities. NEUROLOGIC: Difficult to exam given lack of the patient's participation, but he had no facial drooping. His tongue appeared to be midline. He had no gross focal neurological deficits. He is moving all 4 extremities currently. SKIN: Intact. DIAGNOSTIC STUDIES/LAB DATA: Labs revealed a WBC 9.8, RBC of 3.85, hemoglobin 12.7, hematocrit of 38, platelet count of 360,000. INR was 1. The PTT was 29. Sodium 137, potassium was 4.1, chloride of 101, bicarb 28, BUN 13, creatinine 0.71, glucose 85, lactate 2.5, calcium 10.3, mag 1.9. Total bili 0.4, AST 37, ALT 32, alk phos 151, CK 47, CK-MB 1.6, troponin 0, CRP 75. Albumin was 3.9, lipase less than 10. TSH normal. He did have a chest x-ray obtained today. When I reviewed it, it looked significantly improved from the previous chest x-ray. The left lower infiltrate appears to be resolved. Radiology read it as vascular congestion with significant interval improvement. He did have an EKG obtained today. EKG shows a normal sinus rhythm, rate of 83. No ST elevations or T-wave inversions. I reviewed it to the previous EKG, appears to be similar. Old medical records were reviewed. ASSESSMENT AND PLAN: Mr. Snyder is a 71-year-old male patient, coming into the ER today with complaints of altered mental status. He will be admitted under observation status for: 1. Altered mental status. Etiology is unclear. He could just be deconditioning from his recent bout of pneumonia. Certainly another infection could be happening. He also is on phenobarbital and that level has not been checked, so my plan is to check the phenobarbital level, go ahead and check a rectal temperature, send off urine, urinalysis. His chest x-rays looks better. If he spikes a fever, I will start antibiotics broad spectrum and do blood cultures, but he does not have a fever currently, no white count and we will continue to follow him closely. We will send off strep antigen, legionella antigen and sputum cultures if he is able to cough and again if he spikes a fever, I will get blood cultures and we will continue to follow. 2. Seizure precaution. Continue meds as prescribed. We are going to check the levels. I have ordered seizure precautions. 3. History of hypothyroidism, his TSH is stable, we will follow. We will continue with Synthroid. 4. Anemia. H and H is stable. 5. Bipolar disorder. Continue supportive care. 6. Intellectual developmental delay. Continue with supportive care. 7. Thrombocytopenia. His platelets appeared to be stable today. We will monitor. 8. DVT prophylaxis. He is high risk. He will be placed on heparin subcu. 9. Code status. Full code. 10. Fluids, electrolytes, and nutrition. He can have a regular diet, but it is going to be pureed and thick with liquids and pureed texture diet. TIME SPENT: On the admission was approximately 60 minutes, greater than half the time was spent [id number] with the patient obtaining my history and physical; the other half time was spent going over the plan of care with the patient and implementing the plan of care. I did discuss the plan of care with my attending, Dr. Meeks, she is in agreement. FAHAD DAVIS, CELESTE [id number]/[facility] #: [id number] AGUSTIN
[2017-04-16] MEDS: Heparin VIAL(*) 5000 UNITS/ML VIAL (FIVE THOUSAND) SUBCUT SCH ×3 (05:25→21:28)
[2017-04-16] MEDS: Levothyroxine TAB* 100 MCG TAB PO SCH (05:25)
[2017-04-16 05:58] LABS: Hematocrit 29 % (42-52); Mean Corpuscular HGB Conc 34 g/dl (31-36); Mean Corpuscular Hemoglobin 33 pg (27-31); Mean Corpuscular Volume 98 fL (80-94); Mean Platelet Volume 8 um3 (7.4-10.4); Red Cell Distribution Width 13 % (10.5-15); White Blood Count 6.9 10^3/ul (3.5-10.8)
[2017-04-16 06:25] LABS: BUN/Creatinine Ratio 13.6 (8-20); Calcium 9.2 mg/dL (8.6-10.3); EGFR African American 174.7 (>60); EGFR Non-African American 135.8 (>60); Potassium 3.9 mmol/L (3.5-5.0)
[2017-04-16] MEDS: NS 0.9% 1000 ML* 1,000 ML IV SCH ×2 (08:00→20:01)
[2017-04-16] MEDS: Omeprazole CAP* 20 MG PO SCH (08:01)
[2017-04-16] MEDS: PHENobarbital TAB(*) 30 MG PO SCH ×2 (08:01→21:28)
[2017-04-16] MEDS: Haloperidol TAB* 5 MG PO SCH ×3 (08:01→21:29)
[2017-04-16] MEDS: Polyethylene Glycol 3350* 17 GM PACKET PO SCH (08:02)
[2017-04-16] MEDS: Multivitamins/Minerals TAB PO SCH (08:02)
--- NOTE | 2017-04-16 10:37 | PN ---
Subjective Date of Service: 04/16/17 Interval History: This is a 71 yo gentleman with significant developmental delay who is non- verbal with a sz d/o and reported bipolar d/o with blindness who is a resident of a [facility] facility who was referred to the ER for lethargy and poor appetite. Patient was recently treated for a severe aspiration pneumonia and discharged 04/08. His oral intake has been poor and nursing staff has noted that he coughs frequently with excessive sputum production. No improvement with Mucinex. He appeared dehydrated at the time of admission with a mildly elevated lactic acid , but no additional acute findings noted. This am, nursing staff that is familiar with him states that he seems slightly improved but still mildly tachypneic without supp O2 and still having some trouble with his secretions with freq cough. Objective Active Medications: Acetaminophen (Tylenol Tab*) 650 mg PO Q4H PRN PRN Reason: FEVER/PAIN Al Hydrox/Mg Hydrox/Simethicone (Maalox Plus*) 30 ml PO TID PC PRN PRN Reason: INDIGESTION Albuterol/Ipratropium (Duoneb (Albuterol 2.5 Mg/Ipratropium 0.5 Mg)) 1 neb INH [id number] AWAKE [facility] Albuterol/Ipratropium (Duoneb (Albuterol 2.5 Mg/Ipratropium 0.5 Mg)) 1 neb INH Q4H PRN PRN Reason: SOB/WHEEZING Bisacodyl (Dulcolax Supp*) 10 mg MI Q4D PRN PRN Reason: CONSTIPATION Clonazepam (Klonopin Tab(*)) 1 mg PO BEDTIME [facility] Last Admin: 04/15/17 21:01 Dose: 1 mg Haloperidol (Haldol Tab*) 5 mg PO TID [facility] Last Admin: 04/16/17 08:01 Dose: 5 mg Heparin Sodium (Porcine) (Heparin Vial(*)) 5,000 units SUBCUT Q8HR [facility] Last Admin: 04/16/17 05:25 Dose: 5,000 units Levothyroxine Sodium (Synthroid Tab*) 100 mcg PO 0600 [facility] Last Admin: 04/16/17 05:25 Dose: 100 mcg Multivitamins/Minerals (Theragran/Minerals Tab*) 1 tab PO DAILY [facility] Last Admin: 04/16/17 08:02 Dose: 1 tab Omeprazole (Prilosec Cap*) 20 mg PO DAILY [facility] Last Admin: 04/16/17 08:01 Dose: 20 mg Ondansetron HCl (Zofran Inj*) 4 mg IV Q6H PRN PRN Reason: NAUSEA Phenobarbital (Phenobarbital Tab(*)) 60 mg PO BEDTIME [facility] Last Admin: 04/15/17 21:01 Dose: 60 mg Phenobarbital (Phenobarbital Tab(*)) 30 mg PO DAILY [facility] Last Admin: 04/16/17 08:01 Dose: 30 mg Polyethylene Glycol/Electrolytes (Miralax*) 17 gm PO DAILY [facility] Last Admin: 04/16/17 08:02 Dose: 17 gm Vital Signs: Temp Pulse Resp BP Pulse Ox 98.7 F 97 18 119/66 100 04/16/17 07:44 04/16/17 07:44 04/16/17 10:01 04/16/17 07:44 04/16/17 07:44 Oxygen Devices in Use Now: None Appearance: Elderly non-verbal gentleman in [facility] sitting up in a chair accompanied by nursing staff from his residence Respiratory: Symmetrical Chest Expansion and Respiratory Effort, - - coarse breath sounds diffusely Cardiovascular: NL Sounds; No Murmurs; No JVD, RRR Abdominal: NL Sounds; No Tenderness; No Distention Extremities: No Edema Neurological: - - alert, unable to assess orientation, does not follow commands Result Diagrams: 04/16/17 05:04 04/16/17 05:04 Additional Lab and Data: . Microbiology and Other Data: Microbiology 04/15/17 21:00 Streptococcus pneumoniae Ag Screen - Final Urine Negative S. pneumo Antigen 04/15/17 21:00 Legionella Urinary Antigen - Final Urine Negative Legionella Diagnostic Imaging: CXR - somewhat congested appearance, dramatic improvement from prior Assess/Plan/Problems-Billing Assessment: This is a 71 yo male with severe developmental disability, unable to meaningfully communicate with a seizure d/o, reported bipolar disorder, hypothyroidism, thrombocytopenia and blindness who was discharged 04/08 after treatment for severe aspiration PNA who returns with increasing lethargy. - Patient Problems (1) Malaise Comment: No evidence for recurrent infection at this time He is afebrile without leukocytosis, CRP is moderately elevated but he did have a recent severe PNA His UA did show trace LE and 1+ bacteria, culture is pending, no empiric treatment at this time Suspect that his malaise is a result of his recent illness and persistent fatigue (2) Cough Comment: He has a persistent cough and difficulty controlling his secretions since recent PNA No evidence of new infiltrate and coarse breath sounds on exam Hesitant to try Lasix as he appeared hypovolemic on admission He is using Mucinex regularly, will try DuoNebs to see if this helps dry secretions Nursing familiar with him does not believe he will cooperate with a flutter valve (3) Profound mental retardation Comment: Non-verbal, resident at [facility] (4) Seizure disorder Comment: Continue phenobarbital Level is slightly low No change to dose (5) Swallowing disorder Comment: Known chronic dysphagia On pureed solids and pudding thick liquids Recent aspiration PNA Next step would be a PEG tube, but this should be avoided if at all possible in this frail elderly gentleman with severe developmental delay (6) History of hypothyroidism Comment: TSH 2.18 (7) Hx of bipolar disorder Comment: Mood appears euthymic Cont home medications (8) Hx of thrombocytopenia Comment: Plts WNL at this time (9) Full code status Status and Disposition: Observation. Re-eval following DuoNeb treatment for possible dc this afternoon or tomorrow
[2017-04-16] MEDS: Albuterol/Ipratropium NEB.SOL* Albuterol 2.5 MG/Ipratropium 0.5 MG 3 ML INH PRN (10:53)
[2017-04-16] MEDS: Albuterol/Ipratropium NEB.SOL* Albuterol 2.5 MG/Ipratropium 0.5 MG 3 ML INH SCH ×2 (13:43→20:23)
[2017-04-16] MEDS ORDERED: NS 0.9% 1000 ML* 1,000 ML IV ONE (15:58)
--- NOTE | 2017-04-16 17:56 | PN ---
Hospitalist Progress Note Patient became hypotensive this afternoon a few hours after maintenance fluids were discontinued. Responded to fluid bolus. No fever or hypoxia noted. Plan to repeat labs and CXR in am and determine appropriate course of action. He continues to cough significantly with eating. It is difficult to tell if it is due to aspiration or excessive secretions. Consider repeat video assisted swallow eval tomorrow if coughing persists.
[2017-04-16] MEDS: clonazePAM TAB(*) 1 MG PO SCH (21:28)
[2017-04-17] MEDS: Albuterol/Ipratropium NEB.SOL* Albuterol 2.5 MG/Ipratropium 0.5 MG 3 ML INH SCH ×4 (01:09→19:07)
[2017-04-17] MEDS: NS 0.9% 1000 ML* 500 ML IV SCH ×2 (04:39→05:13)
[2017-04-17] MEDS: NS 0.9% 1000 ML* 1,000 ML IV SCH ×3 (05:16→16:54)
[2017-04-17] MEDS: Heparin VIAL(*) 5000 UNITS/ML VIAL (FIVE THOUSAND) SUBCUT SCH ×3 (05:20→21:38)
[2017-04-17] MEDS: Levothyroxine TAB* 100 MCG TAB PO SCH (05:20)
[2017-04-17 05:39] LABS: Hematocrit 28 % (42-52); Hemoglobin 9.5 g/dl (14.0-18.0); Mean Corpuscular HGB Conc 34 g/dl (31-36); Mean Corpuscular Hemoglobin 33 pg (27-31); Mean Corpuscular Volume 97 fL (80-94); Mean Platelet Volume 8 um3 (7.4-10.4); Red Blood Count 2.88 10^6/ul (4.0-5.4); Red Cell Distribution Width 14 % (10.5-15)
[2017-04-17 05:56] LABS: BUN/Creatinine Ratio 7.1 (8-20); C Reactive Protein 58.73 mg/L (< 5.00); Calcium 8.8 mg/dL (8.6-10.3); EGFR African American 185.5 (>60); EGFR Non-African American 144.2 (>60); Potassium 3.6 mmol/L (3.5-5.0)
--- NOTE | 2017-04-17 08:49 | RAD ---
INDICATION: Cough COMPARISON: April 15, 2017 TECHNIQUE: PA and lateral dual-energy views were obtained. FINDINGS: Bones/Soft Tissues: There are no acute bony findings. Cardiomediastinal: The heart is normal in size. Central pulmonary vessels are mildly prominent consistent with mild interstitial congestion, unchanged. Lungs: Hyperinflation. Right middle lobe and/or lingular infiltrative change. Left lower lobe infiltrative change. Pleura: No significant effusion. Other: Large hiatal hernia IMPRESSION: Mild vascular congestion. Hyperinflation. Bilateral infiltrates. Suggest follow-up.
[2017-04-17] MEDS: Multivitamins/Minerals TAB PO SCH (09:16)
[2017-04-17] MEDS: Haloperidol TAB* 5 MG PO SCH ×3 (09:16→21:37)
[2017-04-17] MEDS: PHENobarbital TAB(*) 30 MG PO SCH ×2 (09:16→21:36)
[2017-04-17] MEDS: Omeprazole CAP* 20 MG PO SCH (09:17)
[2017-04-17] MEDS: Polyethylene Glycol 3350* 17 GM PACKET PO SCH (09:17)
--- NOTE | 2017-04-17 11:56 | PN ---
Subjective Date of Service: 04/17/17 Interval History: Patient seen and examined at bedside; aide in room Patient had poor PO intake at breakfast, but per the aide, is more interactive today and managing secretions better this AM. She did state that he had significant coughing and sputtering with breakfast this AM. No other acute concerns expressed. Objective Active Medications: Acetaminophen (Tylenol Tab*) 650 mg PO Q4H PRN PRN Reason: FEVER/PAIN Al Hydrox/Mg Hydrox/Simethicone (Maalox Plus*) 30 ml PO TID PC PRN PRN Reason: INDIGESTION Albuterol/Ipratropium (Duoneb (Albuterol 2.5 Mg/Ipratropium 0.5 Mg)) 1 neb INH [id number] AWAKE [facility] Last Admin: 04/17/17 07:15 Dose: 1 neb Albuterol/Ipratropium (Duoneb (Albuterol 2.5 Mg/Ipratropium 0.5 Mg)) 1 neb INH Q4H PRN PRN Reason: SOB/WHEEZING Last Admin: 04/16/17 10:53 Dose: 1 neb Bisacodyl (Dulcolax Supp*) 10 mg NM Q4D PRN PRN Reason: CONSTIPATION Clonazepam (Klonopin Tab(*)) 1 mg PO BEDTIME [facility] Last Admin: 04/16/17 21:28 Dose: 1 mg Haloperidol (Haldol Tab*) 5 mg PO TID [facility] Last Admin: 04/17/17 09:16 Dose: 5 mg Heparin Sodium (Porcine) (Heparin Vial(*)) 5,000 units SUBCUT Q8HR [facility] Last Admin: 04/17/17 05:20 Dose: 5,000 units Sodium Chloride (Ns 0.9% 1000 Ml*) 1,000 mls @ 75 mls/hr IV PER RATE [facility] Last Admin: 04/17/17 05:16 Dose: 75 mls/hr Piperacillin Sod/Tazobactam (Sod 3.375 gm/ Sodium Chloride) 100 mls @ 25 mls/ hr IVPB Q8H [facility] Levothyroxine Sodium (Synthroid Tab*) 100 mcg PO 0600 [facility] Last Admin: 04/17/17 05:20 Dose: 100 mcg Multivitamins/Minerals (Theragran/Minerals Tab*) 1 tab PO DAILY [facility] Last Admin: 04/17/17 09:16 Dose: 1 tab Omeprazole (Prilosec Cap*) 20 mg PO DAILY [facility] Last Admin: 04/17/17 09:17 Dose: 20 mg Ondansetron HCl (Zofran Inj*) 4 mg IV Q6H PRN PRN Reason: NAUSEA Phenobarbital (Phenobarbital Tab(*)) 60 mg PO BEDTIME [facility] Last Admin: 04/16/17 21:28 Dose: 60 mg Phenobarbital (Phenobarbital Tab(*)) 30 mg PO DAILY [facility] Last Admin: 04/17/17 09:16 Dose: 30 mg Polyethylene Glycol/Electrolytes (Miralax*) 17 gm PO DAILY [facility] Last Admin: 04/17/17 09:17 Dose: 17 gm Vital Signs 04/16/17 04/16/17 04/16/17 20:00 20:26 20:31 Temperature 100.3 F Pulse Rate 89 89 Respiratory 20 20 Rate Blood Pressure (mmHg) O2 Sat by Pulse 91 91 Oximetry 04/16/17 04/16/17 04/16/17 20:54 21:28 23:28 Temperature Pulse Rate 119 Respiratory 32 30 Rate Blood Pressure 133/74 (mmHg) O2 Sat by Pulse 99 Oximetry 04/17/17 04/17/17 04/17/17 00:18 00:22 03:30 Temperature 99.2 F 97.6 F Pulse Rate 95 71 Respiratory 19 20 32 Rate Blood Pressure 97/55 91/42 (mmHg) O2 Sat by Pulse 100 100 Oximetry 04/17/17 04/17/17 04/17/17 07:17 07:45 08:00 Temperature 97.3 F Pulse Rate 91 104 Respiratory 22 17 28 Rate Blood Pressure 137/74 (mmHg) O2 Sat by Pulse 98 Oximetry 04/17/17 09:16 Temperature Pulse Rate Respiratory 28 Rate Blood Pressure (mmHg) O2 Sat by Pulse Oximetry Oxygen Devices in Use Now: None Appearance: Frail, elderly male, lying in bed, NAD Neck: NL Appearance and Movements; NL JVP Respiratory: Symmetrical Chest Expansion and Respiratory Effort, Clear to Auscultation - coarse with rhonchi in middle and lower lobes Cardiovascular: NL Sounds; No Murmurs; No JVD, RRR Neurological: - - Alert, unable to assess orientation, patient is nonverbal Lines/Tubes/Other Access: Clean, Dry and Intact Peripheral IV Result Diagrams: 04/17/17 05:22 04/17/17 05:22 Additional Lab and Data: . Microbiology and Other Data: Microbiology 04/15/17 21:00 Streptococcus pneumoniae Ag Screen - Final Urine Negative S. pneumo Antigen 04/15/17 21:00 Legionella Urinary Antigen - Final Urine Negative Legionella Diagnostic Imaging: CXR - somewhat congested appearance, dramatic improvement from prior Assess/Plan/Problems-Billing Assessment: This is a 71 yo male with severe developmental disability, unable to meaningfully communicate with a seizure d/o, reported bipolar disorder, hypothyroidism, thrombocytopenia and blindness who was discharged 04/08 after treatment for severe aspiration PNA who returns with increasing lethargy. - Patient Problems (1) Pneumonia Code(s): J18.9 - PNEUMONIA, UNSPECIFIED ORGANISM Comment: New infiltrates seen bilaterally on CXR 04/17 Suspect aspiration pneumonia Patient has concern for developing sepsis by qSOFA criteria with low MAP/SBP<90 and tachypnea. Start Zosyn, plan for f/u speech eval. Continue guaifenesin, prn nebulizers (2) Malaise Code(s): R53.81 - OTHER MALAISE Comment: Now with concern for bilateral pneumonia No leukocytosis, CRP is moderately elevated; will recheck labs tomorrow Urine culture is pending (3) Profound mental retardation Code(s): F73 - PROFOUND INTELLECTUAL DISABILITIES Comment: Non-verbal, resident at [facility] (4) Seizure disorder Code(s): G40.909 - EPILEPSY, UNSP, NOT INTRACTABLE, WITHOUT STATUS EPILEPTICUS Comment: Continue phenobarbital Level is slightly low No change to dose (5) Swallowing disorder Code(s): R13.10 - DYSPHAGIA, UNSPECIFIED Comment: Known chronic dysphagia On pureed solids and pudding thick liquids Recent aspiration PNA, now with concern for new aspiration PNA Next step would be a PEG tube; will discuss with GI if patient is a candidate, given his frail condition. (6) History of hypothyroidism Code(s): Z86.39 - PERSONAL HISTORY OF ENDO, NUTRITIONAL AND METABOLIC DISEASE Comment: TSH 2.18 Continue levothyroxine. (7) Hx of bipolar disorder Code(s): Z86.59 - PERSONAL HISTORY OF OTHER MENTAL AND BEHAVIORAL DISORDERS Comment: Mood appears euthymic Cont home medications (8) Hx of thrombocytopenia Code(s): Z86.2 - PRSNL HISTORY OF DIS OF THE BLD/BLD-FORM ORG/IMMUN MECHNSM Comment: Plts WNL at this time (9) DVT prophylaxis Comment: SQ heparin Status and Disposition: Observation to inpatient. Anticipate extended LOS for treatment of aspiration pneumonia and further evaluation of swallowing, as well as GI consult.
--- NOTE | 2017-04-17 14:34 | CONS ---
CC: Dr. Belle CONSULTATION REPORT: DATE OF CONSULTATION: 04/17/17 REQUESTING PHYSICIAN: Mena INDICATION: Evaluation for PEG tube. NARRATIVE: Mr. Paz is a nonverbal 71-year-old gentleman who came in for failure to thrive. O christina the past few weeks, he had been admitted a couple of times to the hospital for suspected aspirat ion pneumonia. I was asked to evaluate the patient for possible PEG tube to prevent further episode s of aspiration pneumonia and to treat why he is not eating as much as he has before. Unfortunately , the patient is nonverbal. However, I did have an extensive conversation with the patient's home c aregiver, he does live at [facility]. He had been eating well up until a few weeks ago when he st arted being admitted for aspirations. Since that point, he has been coughing extensively and his ca regiver believes that is part of the reason why he cannot eat as much as he has before. He did have an attempted speech and swallow evaluation earlier on today; however, he was too lethargic to parti cipate. PAST MEDICAL HISTORY: Significant for seizures, malnutrition, hypothyroid, anemia, bipolar, thrombo cytopenia, developmental delay, blindness. SURGICAL HISTORY: Unable to obtain. MEDICATIONS: At admission include: 1. Valtrex. 2. MiraLAX. 3. Nasonex. 4. Ativan. 5. Prilosec. 6. Synthroid. 7. Advil. 8. Mucinex. 9. Desitin. 10. Tylenol. 11. Maalox. 12. Mineral. 13. Emollient. 14. Klonopin. 15. Ensure. 16. Haldol. 17. Phenobarbital. ALLERGIES: Allergies to medications include KEFLEX, DEPAKOTE, PREDNISONE, and CEPHALOSPORIN. FAMILY HISTORY: Unable to obtain. SOCIAL HISTORY: No smoking. No alcohol. REVIEW OF SYSTEMS: Unable to obtain. PHYSICAL EXAM: Temperature is 97.3, blood pressure is 137/74, pulse is 104. General: Elderly male lying flat in bed, no apparent distress. Not alert. Not oriented. HEENT: Dentition is poor. Muc ous membranes are dry. Abdomen: Positive bowel sounds, soft, and nontender. Heart: Regular rate a nd rhythm. Lungs: Clear to auscultation. Skin: Warm and dry. LABORATORY DATA: Of note, BUN is 4, creatinine is 0.56, hemoglobin was 9.5. Radiology done. A brain CT was normal. Chest x-ray showed bilateral infiltrates. ASSESSMENT AND PLAN: This is a 71-year-old male for PEG evaluation. From an aspiration standpoint, unfortunately a PEG tube will not prevent aspiration pneumonia, so I do not think he would be a can didate from this standpoint. Regarding why he is not eating as much as he did before, I do not have a clear answer for this. He did have an attempted speech and swallow evaluation, which I think is a great idea. Unfortunately, the patient was too lethargic to participate today. Hopefully, we can reattempt that in the next few days. We will continue to follow along. [id number]/[facility] #: [id number]
[2017-04-17] MEDS: clonazePAM TAB(*) 1 MG PO SCH (21:37)
[2017-04-18] MEDS: Albuterol/Ipratropium NEB.SOL* Albuterol 2.5 MG/Ipratropium 0.5 MG 3 ML INH SCH ×4 (00:51→19:29)
[2017-04-18] MEDS: NS 0.9% 1000 ML* 1,000 ML IV SCH (02:42)
[2017-04-18] MEDS: Acetaminophen TAB* 325 MG PO PRN (04:09)
[2017-04-18] MEDS: Levothyroxine TAB* 100 MCG TAB PO SCH (04:09)
[2017-04-18] MEDS: Heparin VIAL(*) 5000 UNITS/ML VIAL (FIVE THOUSAND) SUBCUT SCH ×3 (05:35→21:25)
--- NOTE | 2017-04-18 07:50 | PN ---
Subjective Date of Service: 04/18/17 Interval History: Patient seen and examined at bedside. Aide accompanying patient. Patient reportedly with less secretions overnight. Passed his speech eval; plan to continue current textures and modifications. Patient with low grade fever overnight. Family History: Unchanged from Admission Social History: Unchanged from Admission Past Medical History: Unchanged from Admission Objective Active Medications: Acetaminophen (Tylenol Tab*) 650 mg PO Q4H PRN PRN Reason: FEVER/PAIN Last Admin: 04/18/17 04:09 Dose: 650 mg Al Hydrox/Mg Hydrox/Simethicone (Maalox Plus*) 30 ml PO TID PC PRN PRN Reason: INDIGESTION Albuterol/Ipratropium (Duoneb (Albuterol 2.5 Mg/Ipratropium 0.5 Mg)) 1 neb INH [id number] AWAKE [facility] Last Admin: 04/18/17 07:14 Dose: 1 neb Albuterol/Ipratropium (Duoneb (Albuterol 2.5 Mg/Ipratropium 0.5 Mg)) 1 neb INH Q4H PRN PRN Reason: SOB/WHEEZING Last Admin: 04/16/17 10:53 Dose: 1 neb Bisacodyl (Dulcolax Supp*) 10 mg [place] Q4D PRN PRN Reason: CONSTIPATION Clonazepam (Klonopin Tab(*)) 1 mg PO BEDTIME [facility] Last Admin: 04/17/17 21:37 Dose: 1 mg Haloperidol (Haldol Tab*) 5 mg PO TID [facility] Last Admin: 04/17/17 21:37 Dose: 5 mg Heparin Sodium (Porcine) (Heparin Vial(*)) 5,000 units SUBCUT Q8HR [facility] Last Admin: 04/18/17 05:35 Dose: 5,000 units Piperacillin Sod/Tazobactam (Sod 3.375 gm/ Sodium Chloride) 100 mls @ 25 mls/ hr IVPB Q8H [facility] Last Admin: 04/18/17 04:09 Dose: 25 mls/hr Sodium Chloride (Ns 0.9% 1000 Ml*) 1,000 mls @ 100 mls/hr IV PER RATE [facility] Last Admin: 04/18/17 02:42 Dose: 100 mls/hr Levothyroxine Sodium (Synthroid Tab*) 100 mcg PO 0600 [facility] Last Admin: 04/18/17 04:09 Dose: 100 mcg Multivitamins/Minerals (Theragran/Minerals Tab*) 1 tab PO DAILY [facility] Last Admin: 04/17/17 09:16 Dose: 1 tab Omeprazole (Prilosec Cap*) 20 mg PO DAILY [facility] Last Admin: 04/17/17 09:17 Dose: 20 mg Ondansetron HCl (Zofran Inj*) 4 mg IV Q6H PRN PRN Reason: NAUSEA Phenobarbital (Phenobarbital Tab(*)) 60 mg PO BEDTIME [facility] Last Admin: 04/17/17 21:36 Dose: 60 mg Phenobarbital (Phenobarbital Tab(*)) 30 mg PO DAILY [facility] Last Admin: 04/17/17 09:16 Dose: 30 mg Polyethylene Glycol/Electrolytes (Miralax*) 17 gm PO DAILY [facility] Last Admin: 04/17/17 09:17 Dose: 17 gm Vital Signs 04/17/17 04/17/17 04/17/17 08:00 09:16 11:16 Temperature Pulse Rate Respiratory 28 28 18 Rate Blood Pressure (mmHg) O2 Sat by Pulse Oximetry 04/17/17 04/17/17 04/17/17 12:39 12:57 16:02 Temperature 98.2 F Pulse Rate 86 78 76 Respiratory 18 23 Rate Blood Pressure 101/46 101/49 (mmHg) O2 Sat by Pulse 92 99 Oximetry 04/17/17 04/17/17 04/17/17 20:09 21:36 21:37 Temperature 98.2 F Pulse Rate 77 Respiratory 21 22 20 Rate Blood Pressure 110/51 (mmHg) O2 Sat by Pulse 95 Oximetry 04/17/17 04/17/17 04/17/17 23:36 23:37 23:40 Temperature 98.4 F Pulse Rate 73 Respiratory 20 27 Rate Blood Pressure 136/66 (mmHg) O2 Sat by Pulse Oximetry 04/18/17 04/18/17 04/18/17 02:10 03:27 07:17 Temperature 100.0 F Pulse Rate 63 70 Respiratory 28 32 16 Rate Blood Pressure 115/61 (mmHg) O2 Sat by Pulse 100 99 Oximetry 04/18/17 07:40 Temperature 97.5 F Pulse Rate 77 Respiratory 38 Rate Blood Pressure 124/59 (mmHg) O2 Sat by Pulse 99 Oximetry Oxygen Devices in Use Now: None Appearance: Elderly male, nonverbal, lying in bed, does not appear to be in acute distress Neck: NL Appearance and Movements; NL JVP Respiratory: Symmetrical Chest Expansion and Respiratory Effort, - - diminished breath sounds, bibasilar rales Cardiovascular: RRR Neurological: - - Alert, nonverbal Lines/Tubes/Other Access: Clean, Dry and Intact Peripheral IV Nutrition: Taking PO's Result Diagrams: 04/17/17 05:22 04/17/17 05:22 Additional Lab and Data: . Microbiology and Other Data: Microbiology 04/15/17 21:00 Streptococcus pneumoniae Ag Screen - Final Urine Negative S. pneumo Antigen 04/15/17 21:00 Legionella Urinary Antigen - Final Urine Negative Legionella Diagnostic Imaging: CXR - somewhat congested appearance, dramatic improvement from prior F/u CXR 04/17 - mild vascular congestion, bilateral infiltrates Assess/Plan/Problems-Billing Assessment: This is a 71 yo male with severe developmental disability, unable to meaningfully communicate with a seizure d/o, reported bipolar disorder, hypothyroidism, thrombocytopenia and blindness who was discharged 04/08 after treatment for severe aspiration PNA who returns with increasing lethargy. - Patient Problems (1) Pneumonia Code(s): J18.9 - PNEUMONIA, UNSPECIFIED ORGANISM Comment: New infiltrates seen bilaterally on CXR 04/17 Suspect aspiration pneumonia Patient has concern for developing sepsis by qSOFA criteria with low MAP/SBP<90 and tachypnea. Continue Zosyn Patient recommended to continue current textures per swallow eval Continue guaifenesin, prn nebulizers (2) Profound mental retardation Code(s): F73 - PROFOUND INTELLECTUAL DISABILITIES Comment: Non-verbal, resident at [facility] (3) Seizure disorder Code(s): G40.909 - EPILEPSY, UNSP, NOT INTRACTABLE, WITHOUT STATUS EPILEPTICUS Comment: Continue phenobarbital Level is slightly low No change to dose (4) Swallowing disorder Code(s): R13.10 - DYSPHAGIA, UNSPECIFIED Comment: Known chronic dysphagia On pureed solids and pudding thick liquids Recent aspiration PNA, now with concern for new aspiration PNA Next step would be a PEG tube Appreciate GI input - patient would still be at risk for aspiration with PEG Would try to avoid PEG tube in frail elderly gentleman, given continued risk for aspiration and concern that patient would not tolerate having tube with severe developmental delay. (5) History of hypothyroidism Code(s): Z86.39 - PERSONAL HISTORY OF ENDO, NUTRITIONAL AND METABOLIC DISEASE Comment: TSH 2.18 Continue levothyroxine. (6) Hx of bipolar disorder Code(s): Z86.59 - PERSONAL HISTORY OF OTHER MENTAL AND BEHAVIORAL DISORDERS Comment: Mood appears euthymic Cont home medications (7) Hx of thrombocytopenia Code(s): Z86.2 - PRSNL HISTORY OF DIS OF THE BLD/BLD-FORM ORG/IMMUN MECHNSM Comment: Plts WNL at this time (8) DVT prophylaxis Comment: SQ heparin Status and Disposition: Inpatient. Anticipate extended LOS for treatment of aspiration pneumonia and further evaluation of swallowing, as well as GI consult.
[2017-04-18] MEDS ORDERED: NS 0.9% 1000 ML* 1,000 ML IV SCH (08:53)
[2017-04-18] MEDS: Haloperidol TAB* 5 MG PO SCH ×3 (09:06→21:22)
[2017-04-18] MEDS: Multivitamins/Minerals TAB PO SCH (09:07)
[2017-04-18] MEDS: PHENobarbital TAB(*) 30 MG PO SCH ×2 (09:07→21:21)
[2017-04-18] MEDS: Omeprazole CAP* 20 MG PO SCH (09:07)
[2017-04-18] MEDS: Polyethylene Glycol 3350* 17 GM PACKET PO SCH (09:09)
[2017-04-18] MEDS: clonazePAM TAB(*) 1 MG PO SCH (21:22)
[2017-04-19] MEDS: Albuterol/Ipratropium NEB.SOL* Albuterol 2.5 MG/Ipratropium 0.5 MG 3 ML INH SCH ×2 (00:56→07:19)
[2017-04-19] MEDS: Levothyroxine TAB* 100 MCG TAB PO SCH (05:42)
[2017-04-19] MEDS: Heparin VIAL(*) 5000 UNITS/ML VIAL (FIVE THOUSAND) SUBCUT SCH ×3 (05:42→21:28)
[2017-04-19] MEDS: PHENobarbital TAB(*) 30 MG PO SCH ×2 (08:08→21:27)
[2017-04-19] MEDS: Haloperidol TAB* 5 MG PO SCH ×3 (08:22→21:27)
[2017-04-19] MEDS: Multivitamins/Minerals TAB PO SCH (08:22)
[2017-04-19] MEDS: Polyethylene Glycol 3350* 17 GM PACKET PO SCH (08:23)
[2017-04-19] MEDS: Omeprazole CAP* 20 MG PO SCH (08:23)
--- NOTE | 2017-04-19 08:49 | PN ---
Subjective Date of Service: 04/19/17 Interval History: Patient seen and examined at bedside. Patient reportedly coughing more, better aeration through lungs reported by nursing. Tolerating PO intake. Aide at bedside feels like he is slowly improving. Family History: Unchanged from Admission Social History: Unchanged from Admission Past Medical History: Unchanged from Admission Objective Active Medications: Acetaminophen (Tylenol Tab*) 650 mg PO Q4H PRN PRN Reason: FEVER/PAIN Last Admin: 04/18/17 04:09 Dose: 650 mg Al Hydrox/Mg Hydrox/Simethicone (Maalox Plus*) 30 ml PO TID PC PRN PRN Reason: INDIGESTION Albuterol/Ipratropium (Duoneb (Albuterol 2.5 Mg/Ipratropium 0.5 Mg)) 1 neb INH [id number] AWAKE [facility] Last Admin: 04/19/17 07:19 Dose: 1 neb Albuterol/Ipratropium (Duoneb (Albuterol 2.5 Mg/Ipratropium 0.5 Mg)) 1 neb INH Q4H PRN PRN Reason: SOB/WHEEZING Last Admin: 04/16/17 10:53 Dose: 1 neb Bisacodyl (Dulcolax Supp*) 10 mg [place] Q4D PRN PRN Reason: CONSTIPATION Clonazepam (Klonopin Tab(*)) 1 mg PO BEDTIME [facility] Last Admin: 04/18/17 21:22 Dose: 1 mg Haloperidol (Haldol Tab*) 5 mg PO TID [facility] Last Admin: 04/19/17 08:22 Dose: 5 mg Heparin Sodium (Porcine) (Heparin Vial(*)) 5,000 units SUBCUT Q8HR [facility] Last Admin: 04/19/17 05:42 Dose: 5,000 units Piperacillin Sod/Tazobactam (Sod 3.375 gm/ Sodium Chloride) 100 mls @ 25 mls/ hr IVPB Q8H [facility] Last Admin: 04/19/17 04:19 Dose: 25 mls/hr Levothyroxine Sodium (Synthroid Tab*) 100 mcg PO 0600 [facility] Last Admin: 04/19/17 05:42 Dose: 100 mcg Multivitamins/Minerals (Theragran/Minerals Tab*) 1 tab PO DAILY [facility] Last Admin: 04/19/17 08:22 Dose: 1 tab Omeprazole (Prilosec Cap*) 20 mg PO DAILY [facility] Last Admin: 04/19/17 08:23 Dose: 20 mg Ondansetron HCl (Zofran Inj*) 4 mg IV Q6H PRN PRN Reason: NAUSEA Phenobarbital (Phenobarbital Tab(*)) 60 mg PO BEDTIME [facility] Last Admin: 04/18/17 21:21 Dose: 60 mg Phenobarbital (Phenobarbital Tab(*)) 30 mg PO DAILY [facility] Last Admin: 04/19/17 08:08 Dose: 30 mg Polyethylene Glycol/Electrolytes (Miralax*) 17 gm PO DAILY [facility] Last Admin: 04/19/17 08:23 Dose: Not Given Vital Signs 04/18/17 04/18/17 04/18/17 09:07 11:07 13:24 Temperature 99.6 F Pulse Rate 98 Respiratory 36 28 24 Rate Blood Pressure 124/67 (mmHg) O2 Sat by Pulse 94 Oximetry 04/18/17 04/18/17 04/18/17 15:46 19:32 19:42 Temperature 98.8 F 98.5 F Pulse Rate 93 99 86 Respiratory 32 20 26 Rate Blood Pressure 135/84 158/86 (mmHg) O2 Sat by Pulse 97 96 Oximetry 04/18/17 04/18/17 04/18/17 19:52 21:21 21:22 Temperature Pulse Rate Respiratory 26 24 24 Rate Blood Pressure (mmHg) O2 Sat by Pulse Oximetry 04/18/17 04/18/17 04/19/17 23:21 23:32 04:10 Temperature 98.5 F 97.8 F Pulse Rate 80 88 Respiratory 24 16 20 Rate Blood Pressure 128/64 143/89 (mmHg) O2 Sat by Pulse 96 97 Oximetry 04/19/17 04/19/17 04:35 08:08 Temperature 98.1 F Pulse Rate 84 Respiratory 30 48 Rate Blood Pressure 146/85 (mmHg) O2 Sat by Pulse 95 Oximetry Oxygen Devices in Use Now: None Appearance: Elderly male, sitting up in bed, in NAD Eyes: No Scleral Icterus Ears/Nose/Mouth/Throat: Mucous Membranes Moist Neck: NL Appearance and Movements; NL JVP Respiratory: Symmetrical Chest Expansion and Respiratory Effort, - - exp rhonchi Cardiovascular: NL Sounds; No Murmurs; No JVD, RRR Extremities: - - right hand swelling Neurological: - - Alert, nonverbal Lines/Tubes/Other Access: Clean, Dry and Intact Peripheral IV Nutrition: Taking PO's Result Diagrams: 04/19/17 10:49 04/19/17 08:49 Additional Lab and Data: . Microbiology and Other Data: Microbiology 04/15/17 21:00 Streptococcus pneumoniae Ag Screen - Final Urine Negative S. pneumo Antigen 04/15/17 21:00 Legionella Urinary Antigen - Final Urine Negative Legionella Diagnostic Imaging: CXR - somewhat congested appearance, dramatic improvement from prior F/u CXR 04/17 - mild vascular congestion, bilateral infiltrates Assess/Plan/Problems-Billing Assessment: This is a 71 yo male with severe developmental disability, unable to meaningfully communicate with a seizure d/o, reported bipolar disorder, hypothyroidism, thrombocytopenia and blindness who was discharged 04/08 after treatment for severe aspiration PNA who returns with increasing lethargy. - Patient Problems (1) Pneumonia Code(s): J18.9 - PNEUMONIA, UNSPECIFIED ORGANISM Comment: New infiltrates seen bilaterally on CXR 04/17 Suspect aspiration pneumonia Patient has concern for developing sepsis by qSOFA criteria with low MAP/SBP<90 and tachypnea. Continue Zosyn Patient recommended to continue current textures per swallow eval Continue guaifenesin, prn nebulizers (2) Profound mental retardation Code(s): F73 - PROFOUND INTELLECTUAL DISABILITIES Comment: Non-verbal, resident at [facility] (3) Seizure disorder Code(s): G40.909 - EPILEPSY, UNSP, NOT INTRACTABLE, WITHOUT STATUS EPILEPTICUS Comment: Continue phenobarbital Level is slightly low No change to dose (4) Swallowing disorder Code(s): R13.10 - DYSPHAGIA, UNSPECIFIED Comment: Known chronic dysphagia On pureed solids and pudding thick liquids Recent aspiration PNA, now with concern for new aspiration PNA Next step would be a PEG tube Appreciate GI input - patient would still be at risk for aspiration with PEG Would try to avoid PEG tube in frail elderly gentleman, given continued risk for aspiration and concern that patient would not tolerate having tube with severe developmental delay. (5) History of hypothyroidism Code(s): Z86.39 - PERSONAL HISTORY OF ENDO, NUTRITIONAL AND METABOLIC DISEASE Comment: TSH 2.18 Continue levothyroxine. (6) Hx of bipolar disorder Code(s): Z86.59 - PERSONAL HISTORY OF OTHER MENTAL AND BEHAVIORAL DISORDERS Comment: Mood appears euthymic Cont home medications (7) Hx of thrombocytopenia Code(s): Z86.2 - PRSNL HISTORY OF DIS OF THE BLD/BLD-FORM ORG/IMMUN MECHNSM Comment: Plts WNL at this time (8) DVT prophylaxis Comment: SQ heparin Status and Disposition: Inpatient. Anticipate extended LOS for treatment of recurrent aspiration pneumonia.
[2017-04-19 09:32] LABS: BUN/Creatinine Ratio 6.3 (8-20); C Reactive Protein 90.79 mg/L (< 5.00); Calcium 9.1 mg/dL (8.6-10.3); EGFR Non-African American 123.6 (>60); Potassium 3.3 mmol/L (3.5-5.0)
[2017-04-19] MEDS ORDERED: Albuterol/Ipratropium NEB.SOL* Albuterol 2.5 MG/Ipratropium 0.5 MG 3 ML INH PRN (10:36)
[2017-04-19 11:21] LABS: Hematocrit 30 % (42-52); Hemoglobin 10.4 g/dl (14.0-18.0); Mean Corpuscular HGB Conc 35 g/dl (31-36); Mean Corpuscular Hemoglobin 34 pg (27-31); Mean Corpuscular Volume 97 fL (80-94); Mean Platelet Volume 8 um3 (7.4-10.4); Red Blood Count 3.08 10^6/ul (4.0-5.4); Red Cell Distribution Width 13 % (10.5-15); White Blood Count 7.6 10^3/ul (3.5-10.8)
[2017-04-19] MEDS: clonazePAM TAB(*) 1 MG PO SCH (21:28)
[2017-04-20] MEDS: Levothyroxine TAB* 100 MCG TAB PO SCH (05:53)
[2017-04-20] MEDS: Heparin VIAL(*) 5000 UNITS/ML VIAL (FIVE THOUSAND) SUBCUT SCH ×3 (05:56→22:13)
[2017-04-20] MEDS: Polyethylene Glycol 3350* 17 GM PACKET PO SCH (08:08)
[2017-04-20] MEDS: Haloperidol TAB* 5 MG PO SCH ×3 (08:08→22:12)
[2017-04-20] MEDS: PHENobarbital TAB(*) 30 MG PO SCH ×2 (08:08→22:12)
[2017-04-20] MEDS: Multivitamins/Minerals TAB PO SCH (08:08)
[2017-04-20] MEDS: Omeprazole CAP* 20 MG PO SCH (08:08)
--- NOTE | 2017-04-20 09:09 | RAD ---
INDICATION: Failure to thrive COMPARISON: Most recent comparison chest x-rays dated April 17, 2017 TECHNIQUE: Single AP view of the chest was obtained. FINDINGS: Again seen is density obscuring the left lung base and left hemidiaphragm. There is likely cardiomegaly. Patchy infiltrate is seen overlying the left upper lobe. The right lung is adequately aerated. IMPRESSION: PERSISTENT DENSITY OBSCURING THE LEFT LUNG BASE AND DIAPHRAGM COULD REPRESENT PNEUMONIA OR OTHER CONSOLIDATION.
[2017-04-20 09:57] LABS: Hematocrit 34 % (42-52); Hemoglobin 11.4 g/dl (14.0-18.0); Mean Corpuscular HGB Conc 34 g/dl (31-36); Mean Corpuscular Hemoglobin 33 pg (27-31); Mean Corpuscular Volume 98 fL (80-94); Mean Platelet Volume 8 um3 (7.4-10.4); Red Blood Count 3.46 10^6/ul (4.0-5.4); Red Cell Distribution Width 14 % (10.5-15); White Blood Count 7.6 10^3/ul (3.5-10.8)
[2017-04-20 10:09] LABS: BUN/Creatinine Ratio 5.7 (8-20); Blood Urea Nitrogen 4 mg/dL (6-24); C Reactive Protein 114.58 mg/L (< 5.00); CO2 Carbon Dioxide 26 mmol/L (22-32); Calcium 9.6 mg/dL (8.6-10.3); Chloride 102 mmol/L (101-111); EGFR African American 143.4 (>60); EGFR Non-African American 111.5 (>60); Glucose 140 mg/dL (70-100); Sodium 134 mmol/L (133-145)
[2017-04-20] MEDS ORDERED: Potassium Chloride LIQUID* 20 MEQ PACKET PO ONE (10:26)
[2017-04-20 10:43] LABS: Anion Gap 6 mmol/L (2-11)
--- NOTE | 2017-04-20 15:48 | PN ---
Subjective Date of Service: 04/20/17 Interval History: This is a 71 yo gentleman with severe developmental delay who was admitted with c/o lethargy and poor oral intake found to have a new aspiration PNA. No evidence of aspiration with food on repeat swallow eval, but likely aspirating secretions. Oxygen requirements have improved and his cough has as well. He is on Zosyn currently, no recent fever. He is still quite lethargic, spending all day sleeping which is unusual for him. Objective Active Medications: Acetaminophen (Tylenol Tab*) 650 mg PO Q4H PRN PRN Reason: FEVER/PAIN Last Admin: 04/18/17 04:09 Dose: 650 mg Al Hydrox/Mg Hydrox/Simethicone (Maalox Plus*) 30 ml PO TID PC PRN PRN Reason: INDIGESTION Albuterol/Ipratropium (Duoneb (Albuterol 2.5 Mg/Ipratropium 0.5 Mg)) 1 neb INH Q4H PRN PRN Reason: SOB/WHEEZING Last Admin: 04/16/17 10:53 Dose: 1 neb Albuterol/Ipratropium (Duoneb (Albuterol 2.5 Mg/Ipratropium 0.5 Mg)) 1 neb INH Q2H PRN PRN Reason: SOB/WHEEZING Bisacodyl (Dulcolax Supp*) 10 mg [place] Q4D PRN PRN Reason: CONSTIPATION Clonazepam (Klonopin Tab(*)) [address] [facility] Last Admin: 04/19/17 21:28 Dose: 1 mg Haloperidol (Haldol Tab*) [address] [facility] Last Admin: 04/20/17 13:35 Dose: 5 mg Heparin Sodium (Porcine) (Heparin Vial(*)) 5,[address] [facility] Last Admin: 04/20/17 13:35 Dose: 5,000 units Piperacillin Sod/Tazobactam (Sod 3.375 gm/ Sodium Chloride) 100 mls @ 25 mls/ hr IVPB Q8H [facility] Last Admin: 04/20/17 13:36 Dose: 25 mls/hr Azithromycin 250 mg/ Sodium (Chloride) 250 mls @ 250 mls/hr IVPB Q24H [facility] Levothyroxine Sodium (Synthroid Tab*) [address] [facility] Last Admin: 04/20/17 05:53 Dose: 100 mcg Multivitamins/Minerals (Theragran/Minerals Tab*) [address] [facility] Last Admin: 04/20/17 08:08 Dose: 1 tab Omeprazole (Prilosec Cap*) [address] [facility] Last Admin: 04/20/17 08:08 Dose: 20 mg Ondansetron HCl (Zofran Inj*) 4 mg IV Q6H PRN PRN Reason: NAUSEA Phenobarbital (Phenobarbital Tab(*)) [address] [facility] Last Admin: 04/19/17 21:27 Dose: 60 mg Phenobarbital (Phenobarbital Tab(*)) [address] [facility] Last Admin: 04/20/17 08:08 Dose: 30 mg Polyethylene Glycol/Electrolytes (Miralax*) [address] [facility] Last Admin: 04/20/17 08:08 Dose: 17 gm Vital Signs: Temp Pulse Resp BP Pulse Ox 98.5 F 72 18 104/57 100 04/20/17 07:51 04/20/17 07:51 04/20/17 10:08 04/20/17 07:51 04/20/17 07:51 Oxygen Devices in Use Now: None Appearance: Elderly frail gentleman with severe developmental delay in NAD. He is sleeping during exam, but stirs slightly. Respiratory: Symmetrical Chest Expansion and Respiratory Effort, Clear to Auscultation Cardiovascular: NL Sounds; No Murmurs; No JVD, RRR Extremities: No Edema Skin: No Rash or Ulcers Neurological: - - sleeping, nonverbal at baseline Result Diagrams: 04/20/17 09:16 04/20/17 10:59 Additional Lab and Data: Laboratory Tests 04/15/17 04/17/17 04/19/17 09:50 05:22 08:49 C-Reactive Protein 75.94 H 58.73 H 90.79 H 04/20/17 09:16 C-Reactive Protein 114.58 H Microbiology and Other Data: Microbiology 04/15/17 21:00 Streptococcus pneumoniae Ag Screen - Final Urine Negative S. pneumo Antigen 04/15/17 21:00 Legionella Urinary Antigen - Final Urine Negative Legionella Diagnostic Imaging: CXR - somewhat congested appearance, dramatic improvement from prior F/u CXR 04/17 - mild vascular congestion, bilateral infiltrates Repeat CXR 04/20 - persistent LLL infiltrate Assess/Plan/Problems-Billing Assessment: This is a 71 yo male with severe developmental disability, unable to meaningfully communicate with a seizure d/o, reported bipolar disorder, hypothyroidism, thrombocytopenia and blindness who was discharged 04/08 after treatment for severe aspiration PNA who returns with increasing lethargy. - Patient Problems (1) Aspiration pneumonia Comment: Recurrent aspiration, likely of secretions Swallow eval demonstrated no gross aspiration with pudding thick liquids and pureed solids Appreciate GI input, who advises against Gtube insertion Oxygen requirements are improving as is his lung exam, but he remains persistently lethargic with increasing CRP Will order CT chest and add azithromycin at this time Cont Zosyn (2) Profound mental retardation Comment: Non-verbal, resident at [facility] (3) Seizure disorder Comment: Continue phenobarbital Level is slightly low No change to dose (4) Swallowing disorder Comment: Known chronic dysphagia On pureed solids and pudding thick liquids Recent aspiration PNA, now with concern for new aspiration PNA Next step would be a PEG tube Appreciate GI input - patient would still be at risk for aspiration with PEG Would try to avoid PEG tube in frail elderly gentleman, given continued risk for aspiration and concern that patient would not tolerate having tube with severe developmental delay. (5) History of hypothyroidism Comment: TSH 2.18 Continue levothyroxine. (6) Hx of bipolar disorder Comment: Mood appears euthymic Cont home medications (7) Hx of thrombocytopenia Comment: Plts WNL at this time (8) Full code status Status and Disposition: Inpatient. Anticipate extended LOS for treatment of recurrent aspiration pneumonia.
--- NOTE | 2017-04-20 17:32 | RAD ---
Indication: Persistent pneumonia. CT of the chest was performed in the axial plane. Comparison is made with previous exam dated December 25, 2014. Patient could not lay supine. Inferior thyroid lobes are unremarkable. No mediastinal or hilar adenopathy is noted. There is axial hiatal hernia present. The heart demonstrates no pericardial effusion. Emphysematous changes are noted. Areas of airspace disease is noted in the right middle lobe and right lower lobe. I cannot totally exclude aspiration. Area of lingular consolidation is noted. IMPRESSION: Hiatal hernia. Areas of airspace disease in the right lower lobe and right middle lobe as well as in the lingula.
[2017-04-20] MEDS: Azithromycin IV(*) 250 MG in NS 0.9% 250 ML* 250 ML IVPB SCH (17:50)
[2017-04-20] MEDS: clonazePAM TAB(*) 1 MG PO SCH (22:12)
[2017-04-21] MEDS: Levothyroxine TAB* 100 MCG TAB PO SCH (06:16)
[2017-04-21] MEDS: Heparin VIAL(*) 5000 UNITS/ML VIAL (FIVE THOUSAND) SUBCUT SCH ×3 (06:16→22:55)
[2017-04-21] MEDS: PHENobarbital TAB(*) 30 MG PO SCH ×2 (07:53→19:58)
[2017-04-21] MEDS: Haloperidol TAB* 5 MG PO SCH ×3 (07:53→19:59)
[2017-04-21] MEDS: Polyethylene Glycol 3350* 17 GM PACKET PO SCH (07:54)
[2017-04-21] MEDS: Multivitamins/Minerals TAB PO SCH (07:54)
[2017-04-21] MEDS: Omeprazole CAP* 20 MG PO SCH (07:54)
[2017-04-21 09:13] LABS: BUN/Creatinine Ratio 6.3 (8-20); C Reactive Protein 83.76 mg/L (< 5.00); Calcium 9.6 mg/dL (8.6-10.3); EGFR Non-African American 123.6 (>60); Potassium 3.5 mmol/L (3.5-5.0)
[2017-04-21 09:55] LABS: Hematocrit 33 % (42-52); Hemoglobin 11.3 g/dl (14.0-18.0); Mean Corpuscular HGB Conc 34 g/dl (31-36); Mean Corpuscular Hemoglobin 33 pg (27-31); Mean Corpuscular Volume 97 fL (80-94); Mean Platelet Volume 8 um3 (7.4-10.4); Red Blood Count 3.42 10^6/ul (4.0-5.4); Red Cell Distribution Width 13 % (10.5-15)
[2017-04-21] MEDS: Albuterol/Ipratropium NEB.SOL* Albuterol 2.5 MG/Ipratropium 0.5 MG 3 ML INH PRN (10:37)
--- NOTE | 2017-04-21 11:31 | PN ---
Subjective Date of Service: 04/21/17 Interval History: No reported change overnight. Secretion management continues to be a concern and his cough force is poor. No new fevers. He is slightly more alert this am. Objective Active Medications: Acetaminophen (Tylenol Tab*) 650 mg PO Q4H PRN PRN Reason: FEVER/PAIN Last Admin: 04/18/17 04:09 Dose: 650 mg Al Hydrox/Mg Hydrox/Simethicone (Maalox Plus*) 30 ml PO TID PC PRN PRN Reason: INDIGESTION Albuterol/Ipratropium (Duoneb (Albuterol 2.5 Mg/Ipratropium 0.5 Mg)) 1 neb INH Q4H PRN PRN Reason: SOB/WHEEZING Last Admin: 04/21/17 10:37 Dose: 1 neb Albuterol/Ipratropium (Duoneb (Albuterol 2.5 Mg/Ipratropium 0.5 Mg)) 1 neb INH Q2H PRN PRN Reason: SOB/WHEEZING Bisacodyl (Dulcolax Supp*) 10 mg AL Q4D PRN PRN Reason: CONSTIPATION Clonazepam (Klonopin Tab(*)) 1 mg PO BEDTIME [facility] Last Admin: 04/20/17 22:12 Dose: 1 mg Haloperidol (Haldol Tab*) 5 mg PO TID [facility] Last Admin: 04/21/17 07:53 Dose: 5 mg Heparin Sodium (Porcine) (Heparin Vial(*)) 5,000 units SUBCUT Q8HR [facility] Last Admin: 04/21/17 06:16 Dose: 5,000 units Piperacillin Sod/Tazobactam (Sod 3.375 gm/ Sodium Chloride) 100 mls @ 25 mls/ hr IVPB Q8H [facility] Last Admin: 04/21/17 04:13 Dose: 25 mls/hr Azithromycin 250 mg/ Sodium (Chloride) 250 mls @ 250 mls/hr IVPB Q24H [facility] Last Admin: 04/20/17 17:50 Dose: 250 mls/hr Levothyroxine Sodium (Synthroid Tab*) 100 mcg PO 0600 [facility] Last Admin: 04/21/17 06:16 Dose: 100 mcg Multivitamins/Minerals (Theragran/Minerals Tab*) 1 tab PO DAILY [facility] Last Admin: 04/21/17 07:54 Dose: 1 tab Omeprazole (Prilosec Cap*) 20 mg PO DAILY [facility] Last Admin: 04/21/17 07:54 Dose: 20 mg Ondansetron HCl (Zofran Inj*) 4 mg IV Q6H PRN PRN Reason: NAUSEA Phenobarbital (Phenobarbital Tab(*)) 60 mg PO BEDTIME [facility] Last Admin: 04/20/17 22:12 Dose: 60 mg Phenobarbital (Phenobarbital Tab(*)) 30 mg PO DAILY [facility] Last Admin: 04/21/17 07:53 Dose: 30 mg Polyethylene Glycol/Electrolytes (Miralax*) 17 gm PO DAILY [facility] Last Admin: 04/21/17 07:54 Dose: 17 gm Vital Signs: Temp Pulse Resp BP Pulse Ox 98.8 F 93 18 147/87 98 04/21/17 07:53 04/21/17 10:46 04/21/17 10:46 04/21/17 07:53 04/21/17 10:46 Oxygen Devices in Use Now: None Appearance: Severely delayed elderly gentleman who is non-verbal and does not follow commands. He is alert and up in a chair this am, with aide at bedside. Frequent productive cough, but poor strength and difficulty controlling his own secretions with excessive drooling Respiratory: Symmetrical Chest Expansion and Respiratory Effort, - - coarse breath sounds in upper airways, but no rhonchi or wheezing noted in lower lung moreno Cardiovascular: RRR Extremities: No Edema Skin: No Rash or Ulcers Neurological: - - alert, but non-verbal and does not follow commands Result Diagrams: 04/21/17 08:42 04/21/17 08:42 Additional Lab and Data: Laboratory Tests 04/15/17 04/17/17 04/19/17 09:50 05:22 08:49 C-Reactive Protein 75.94 H 58.73 H 90.79 H 04/20/17 09:16 C-Reactive Protein 114.58 H Microbiology and Other Data: Microbiology 04/15/17 21:00 Streptococcus pneumoniae Ag Screen - Final Urine Negative S. pneumo Antigen 04/15/17 21:00 Legionella Urinary Antigen - Final Urine Negative Legionella Diagnostic Imaging: CXR - somewhat congested appearance, dramatic improvement from prior F/u CXR 04/17 - mild vascular congestion, bilateral infiltrates Repeat CXR 04/20 - persistent LLL infiltrate CT chest - RML and RLL infiltrate Assess/Plan/Problems-Billing Assessment: This is a 71 yo male with severe developmental disability, unable to meaningfully communicate with a seizure d/o, reported bipolar disorder, hypothyroidism, thrombocytopenia and blindness who was discharged 04/08 after treatment for severe aspiration PNA who returns with increasing lethargy. - Patient Problems (1) Aspiration pneumonia Comment: Evolving PNA likely present at admission Recurrent aspiration, likely of secretions Swallow eval demonstrated no gross aspiration with pudding thick liquids and pureed solids Appreciate GI input, who advises against Gtube insertion Oxygen requirements are improving as is his lung exam, but he remains persistently lethargic CT shows RML and RLL infiltrate CRP improved today and remains afebrile Cont Zosyn/azithromycin Secretion management remains a problem, recommended suctioning as needed and will trial use of a scopolamine patch (2) Profound mental retardation Comment: Non-verbal, resident at [facility] (3) Seizure disorder Comment: Continue phenobarbital Level is slightly low No change to dose (4) Swallowing disorder Comment: Known chronic dysphagia On pureed solids and pudding thick liquids, no obvious aspiration on recent swallow eval Recent aspiration PNA, now with concern for new aspiration PNA Next step would be a PEG tube Appreciate GI input - patient would still be at risk for aspiration with PEG (5) History of hypothyroidism Comment: TSH 2.18 Continue levothyroxine. (6) Hx of bipolar disorder Comment: Mood appears euthymic Cont home medications (7) Hx of thrombocytopenia Comment: Plts WNL at this time (8) Full code status Status and Disposition: Inpatient. Anticipate extended LOS for treatment of recurrent aspiration pneumonia.
[2017-04-21] MEDS: Scopolamine 1.5 mg* PATCH TRANSDERM SCH (12:04)
[2017-04-21] MEDS: Azithromycin IV(*) 250 MG in NS 0.9% 250 ML* 250 ML IVPB SCH (16:54)
[2017-04-21] MEDS: clonazePAM TAB(*) 1 MG PO SCH (19:59)
[2017-04-22] MEDS: Heparin VIAL(*) 5000 UNITS/ML VIAL (FIVE THOUSAND) SUBCUT SCH ×3 (06:03→23:01)
[2017-04-22] MEDS: Levothyroxine TAB* 100 MCG TAB PO SCH (06:03)
[2017-04-22 09:50] LABS: Hematocrit 36 % (42-52); Hemoglobin 12.2 g/dl (14.0-18.0); Mean Corpuscular HGB Conc 34 g/dl (31-36); Mean Corpuscular Hemoglobin 33 pg (27-31); Mean Corpuscular Volume 97 fL (80-94); Mean Platelet Volume 8 um3 (7.4-10.4); Red Blood Count 3.68 10^6/ul (4.0-5.4); Red Cell Distribution Width 13 % (10.5-15); White Blood Count 8.7 10^3/ul (3.5-10.8)
[2017-04-22] MEDS: Polyethylene Glycol 3350* 17 GM PACKET PO SCH (09:51)
[2017-04-22] MEDS: PHENobarbital TAB(*) 30 MG PO SCH ×2 (09:52→23:00)
[2017-04-22] MEDS: Multivitamins/Minerals TAB PO SCH (09:52)
[2017-04-22] MEDS: Haloperidol TAB* 5 MG PO SCH ×3 (09:52→23:00)
[2017-04-22] MEDS: Omeprazole CAP* 20 MG PO SCH (09:52)
[2017-04-22] MEDS: Albuterol/Ipratropium NEB.SOL* Albuterol 2.5 MG/Ipratropium 0.5 MG 3 ML INH PRN (10:12)
[2017-04-22] MEDS: guaiFENesin LIQ* 100 MG/5 ML UDC PO SCH ×2 (12:50→18:30)
[2017-04-22] MEDS: Acetaminophen TAB* 325 MG PO PRN (12:50)
[2017-04-22] MEDS ORDERED: guaiFENesin ER TAB 600 MG PO SCH (13:00)
--- NOTE | 2017-04-22 14:30 | PN ---
Subjective Date of Service: 04/22/17 Interval History: No changes noted overnight. Cont to have freq cough, possible improvement in secretions with addition of scopolamine. Remains afebrile. Objective Active Medications: Acetaminophen (Tylenol Tab*) 650 mg PO Q4H PRN PRN Reason: FEVER/PAIN Last Admin: 04/22/17 12:50 Dose: 650 mg Al Hydrox/Mg Hydrox/Simethicone (Maalox Plus*) 30 ml PO TID PC PRN PRN Reason: INDIGESTION Albuterol/Ipratropium (Duoneb (Albuterol 2.5 Mg/Ipratropium 0.5 Mg)) 1 neb INH Q4H PRN PRN Reason: SOB/WHEEZING Last Admin: 04/22/17 10:12 Dose: 1 neb Albuterol/Ipratropium (Duoneb (Albuterol 2.5 Mg/Ipratropium 0.5 Mg)) 1 neb INH Q2H PRN PRN Reason: SOB/WHEEZING Bisacodyl (Dulcolax Supp*) 10 mg [place] Q4D PRN PRN Reason: CONSTIPATION Clonazepam (Klonopin Tab(*)) 1 mg PO BEDTIME [facility] Last Admin: 04/21/17 19:59 Dose: 1 mg Guaifenesin (Robitussin*) 5 ml PO Q6H [facility] Last Admin: 04/22/17 12:50 Dose: 5 ml Haloperidol (Haldol Tab*) 5 mg PO TID [facility] Last Admin: 04/22/17 12:43 Dose: 5 mg Heparin Sodium (Porcine) (Heparin Vial(*)) 5,000 units SUBCUT Q8HR [facility] Last Admin: 04/22/17 12:43 Dose: 5,000 units Piperacillin Sod/Tazobactam (Sod 3.375 gm/ Sodium Chloride) 100 mls @ 25 mls/ hr IVPB Q8H [facility] Last Admin: 04/22/17 12:43 Dose: 25 mls/hr Azithromycin 250 mg/ Sodium (Chloride) 250 mls @ 250 mls/hr IVPB Q24H [facility] Last Admin: 04/21/17 16:54 Dose: 250 mls/hr Levothyroxine Sodium (Synthroid Tab*) 100 mcg PO 0600 [facility] Last Admin: 04/22/17 06:03 Dose: 100 mcg Multivitamins/Minerals (Theragran/Minerals Tab*) 1 tab PO DAILY [facility] Last Admin: 04/22/17 09:52 Dose: 1 tab Omeprazole (Prilosec Cap*) 20 mg PO DAILY [facility] Last Admin: 04/22/17 09:52 Dose: 20 mg Ondansetron HCl (Zofran Inj*) 4 mg IV Q6H PRN PRN Reason: NAUSEA Pharmacy Profile Note (Scopolomine Patch Remove*) 1 note PATCH OFF Q72H [facility] Phenobarbital (Phenobarbital Tab(*)) 60 mg PO BEDTIME [facility] Last Admin: 04/21/17 19:58 Dose: 60 mg Phenobarbital (Phenobarbital Tab(*)) 30 mg PO DAILY [facility] Last Admin: 04/22/17 09:52 Dose: 30 mg Polyethylene Glycol/Electrolytes (Miralax*) 17 gm PO DAILY [facility] Last Admin: 04/22/17 09:51 Dose: 17 gm Scopolamine (Transderm-Scop 1.5 Mg Patch*) 1 patch TRANSDERM Q72H [facility] Last Admin: 04/21/17 12:04 Dose: 1 patch Vital Signs: Temp Pulse Resp BP Pulse Ox 97.7 F 88 20 104/53 96 04/21/17 23:52 04/22/17 10:15 04/22/17 10:15 04/21/17 23:52 04/22/17 10:15 Oxygen Devices in Use Now: None Appearance: Elderly gentleman with is non-verbal with severe developmental delay. Improved level of consciousness. Respiratory: Symmetrical Chest Expansion and Respiratory Effort, - - coarse breath sounds in upper lung moreno, lower lung moreno clear Cardiovascular: NL Sounds; No Murmurs; No JVD, RRR Abdominal: NL Sounds; No Tenderness; No Distention Extremities: No Edema Skin: No Rash or Ulcers Neurological: - - alert, nonverbal at baseline Result Diagrams: 04/22/17 09:43 04/21/17 08:42 Additional Lab and Data: Laboratory Tests 04/15/17 04/17/17 04/19/17 09:50 05:22 08:49 C-Reactive Protein 75.94 H 58.73 H 90.79 H 04/20/17 09:16 C-Reactive Protein 114.58 H Laboratory Tests 04/21/17 04/22/17 08:42 09:43 C-Reactive Protein 83.76 H 97.52 H Microbiology and Other Data: Microbiology 04/15/17 21:00 Streptococcus pneumoniae Ag Screen - Final Urine Negative S. pneumo Antigen 04/15/17 21:00 Legionella Urinary Antigen - Final Urine Negative Legionella Diagnostic Imaging: CXR - somewhat congested appearance, dramatic improvement from prior F/u CXR 04/17 - mild vascular congestion, bilateral infiltrates Repeat CXR 04/20 - persistent LLL infiltrate CT chest - RML and RLL infiltrate Assess/Plan/Problems-Billing Assessment: This is a 71 yo male with severe developmental disability, unable to meaningfully communicate with a seizure d/o, reported bipolar disorder, hypothyroidism, thrombocytopenia and blindness who was discharged 04/08 after treatment for severe aspiration PNA who returns with increasing lethargy. - Patient Problems (1) Aspiration pneumonia Comment: Evolving PNA likely present at admission Recurrent aspiration, likely of secretions Swallow eval demonstrated no gross aspiration with pudding thick liquids and pureed solids Appreciate GI input, who advises against Gtube insertion Oxygen requirements are improving as is his lung exam, the amount of time he spends awake seems to be improving as well CT shows RML and RLL infiltrate CRP slightly increased again today but without leukocytosis and remains afebrile Cont Zosyn/azithromycin Secretion management remains a problem, recommended suctioning as needed. Some improvement noted with use of scopolamine patch (2) Profound mental retardation Comment: Non-verbal, resident at [facility] (3) Seizure disorder Comment: Continue phenobarbital Level is slightly low No change to dose (4) Swallowing disorder Comment: Known chronic dysphagia On pureed solids and pudding thick liquids, no obvious aspiration on recent swallow eval Recent aspiration PNA, now with concern for new aspiration PNA Next step would be a PEG tube Appreciate GI input - patient would still be at risk for aspiration with PEG (5) History of hypothyroidism Comment: TSH 2.18 Continue levothyroxine. (6) Hx of bipolar disorder Comment: Mood appears euthymic Cont home medications (7) Hx of thrombocytopenia Comment: Plts WNL at this time (8) Full code status Status and Disposition: Inpatient. Anticipate extended LOS for treatment of recurrent aspiration pneumonia.
[2017-04-22] MEDS: Azithromycin IV(*) 250 MG in NS 0.9% 250 ML* 250 ML IVPB SCH (17:05)
[2017-04-22] MEDS: clonazePAM TAB(*) 1 MG PO SCH (23:00)
[2017-04-23] MEDS: guaiFENesin LIQ* 100 MG/5 ML UDC PO SCH ×5 (02:52→18:30)
[2017-04-23 06:10] LABS: Hematocrit 33 % (42-52); Hemoglobin 11.2 g/dl (14.0-18.0); Mean Corpuscular HGB Conc 34 g/dl (31-36); Mean Corpuscular Hemoglobin 34 pg (27-31); Mean Corpuscular Volume 98 fL (80-94); Mean Platelet Volume 8 um3 (7.4-10.4); Red Blood Count 3.32 10^6/ul (4.0-5.4); Red Cell Distribution Width 14 % (10.5-15); White Blood Count 7.2 10^3/ul (3.5-10.8)
[2017-04-23 06:42] LABS: BUN/Creatinine Ratio 11.4 (8-20); Calcium 9.8 mg/dL (8.6-10.3); EGFR African American 143.4 (>60); EGFR Non-African American 111.5 (>60); Potassium 3.8 mmol/L (3.5-5.0)
[2017-04-23] MEDS: Levothyroxine TAB* 100 MCG TAB PO SCH (06:58)
[2017-04-23] MEDS: Heparin VIAL(*) 5000 UNITS/ML VIAL (FIVE THOUSAND) SUBCUT SCH ×3 (06:58→21:33)
[2017-04-23] MEDS: Haloperidol TAB* 5 MG PO SCH ×3 (08:15→21:33)
[2017-04-23] MEDS: Polyethylene Glycol 3350* 17 GM PACKET PO SCH (08:15)
[2017-04-23] MEDS: Omeprazole CAP* 20 MG PO SCH (08:16)
[2017-04-23] MEDS: PHENobarbital TAB(*) 30 MG PO SCH ×2 (08:16→21:32)
[2017-04-23] MEDS: Multivitamins/Minerals TAB PO SCH (08:16)
[2017-04-23] MEDS: Albuterol/Ipratropium NEB.SOL* Albuterol 2.5 MG/Ipratropium 0.5 MG 3 ML INH PRN (08:56)
--- NOTE | 2017-04-23 09:24 | PN ---
Subjective Date of Service: 04/23/17 Interval History: Patient seen and examined at bedside. Pt is non-verbal. According to the [employer] [facility] worker at bedside Pt was coughing on oatmeal this AM. She reports that the patient is more active today then he has been. The nurse reports that the patient has been spitting food out today and seems to be agitated. Family History: Unchanged from Admission Social History: Unchanged from Admission Past Medical History: Unchanged from Admission Objective Active Medications: Acetaminophen (Tylenol Tab*) 650 mg PO Q4H PRN Reason: FEVER/PAIN Al Hydrox/Mg Hydrox/Simethicone (Maalox Plus*) 30 ml PO TID PC PRN Reason: INDIGESTION Albuterol/Ipratropium (Duoneb (Albuterol 2.5 Mg/Ipratropium 0.5 Mg)) 1 neb INH Q4H PRN Reason: SOB/WHEEZING Albuterol/Ipratropium (Duoneb (Albuterol 2.5 Mg/Ipratropium 0.5 Mg)) 1 neb INH Q2H PRN Reason: SOB/WHEEZING Bisacodyl (Dulcolax Supp*) 10 mg [place] Q4D PRN Reason: CONSTIPATION Clonazepam (Klonopin Tab(*)) 1 mg PO BEDTIME [facility] Guaifenesin (Robitussin*) 5 ml PO Q6H [facility] Haloperidol (Haldol Tab*) 5 mg PO TID [facility] Heparin Sodium (Porcine) (Heparin Vial(*)) 5,000 units SUBCUT Q8HR [facility] Piperacillin Sod/Tazobactam (Sod 3.375 gm/ Sodium Chloride) 100 mls @ 25 mls/ hr IVPB Q8H [facility] Azithromycin 250 mg/ Sodium (Chloride) 250 mls @ 250 mls/hr IVPB Q24H [facility] Levothyroxine Sodium (Synthroid Tab*) 100 mcg PO 0600 [facility] Multivitamins/Minerals (Theragran/Minerals Tab*) 1 tab PO DAILY [facility] Omeprazole (Prilosec Cap*) 20 mg PO DAILY [facility] Ondansetron HCl (Zofran Inj*) 4 mg IV Q6H PRN Reason: NAUSEA Pharmacy Profile Note (Scopolomine Patch Remove*) 1 note PATCH OFF Q72H [facility] Phenobarbital (Phenobarbital Tab(*)) 60 mg PO BEDTIME [facility] Phenobarbital (Phenobarbital Tab(*)) 30 mg PO DAILY [facility] Polyethylene Glycol/Electrolytes (Miralax*) 17 gm PO DAILY [facility] Scopolamine (Transderm-Scop 1.5 Mg Patch*) 1 patch TRANSDERM Q72H [facility] Vital Signs 04/22/17 04/22/17 04/22/17 09:52 10:15 11:32 Temperature 98.3 F Pulse Rate 88 94 Respiratory 19 20 19 Rate Blood Pressure 116/92 (mmHg) O2 Sat by Pulse 96 99 Oximetry 04/22/17 04/22/17 04/22/17 11:52 19:39 20:30 Temperature Pulse Rate 95 Respiratory 16 22 20 Rate Blood Pressure 148/108 (mmHg) O2 Sat by Pulse 100 Oximetry 04/22/17 04/22/17 04/23/17 23:00 23:19 01:00 Temperature 98.6 F Pulse Rate Respiratory 24 37 16 Rate Blood Pressure 142/84 (mmHg) O2 Sat by Pulse 98 Oximetry 04/23/17 04/23/17 04/23/17 01:34 03:35 07:32 Temperature 98.4 F 98.0 F Pulse Rate 91 96 90 Respiratory 16 16 18 Rate Blood Pressure 120/87 144/95 (mmHg) O2 Sat by Pulse 97 100 100 Oximetry 04/23/17 04/23/17 08:16 08:57 Temperature Pulse Rate 90 Respiratory 20 22 Rate Blood Pressure (mmHg) O2 Sat by Pulse 98 Oximetry Oxygen Devices in Use Now: None Appearance: NAD, sitting up in a chair Ears/Nose/Mouth/Throat: Mucous Membranes Moist Respiratory: Symmetrical Chest Expansion and Respiratory Effort, Clear to Auscultation Cardiovascular: NL Sounds; No Murmurs; No JVD, RRR Abdominal: NL Sounds; No Tenderness; No Distention Extremities: No Edema Neurological: - - Alert and non-verbal Lines/Tubes/Other Access: Clean, Dry and Intact Peripheral IV - site benign Nutrition: Taking PO's Result Diagrams: 04/23/17 05:59 04/23/17 05:58 Additional Lab and Data: Laboratory Tests 04/15/17 04/17/17 04/19/17 09:50 05:22 08:49 C-Reactive Protein 75.94 H 58.73 H 90.79 H 04/20/17 09:16 C-Reactive Protein 114.58 H Laboratory Tests 04/21/17 04/22/17 08:42 09:43 C-Reactive Protein 83.76 H 97.52 H Microbiology and Other Data: Microbiology 04/15/17 21:00 Streptococcus pneumoniae Ag Screen - Final Urine Negative S. pneumo Antigen 04/15/17 21:00 Legionella Urinary Antigen - Final Urine Negative Legionella Diagnostic Imaging: CXR - somewhat congested appearance, dramatic improvement from prior F/u CXR 04/17 - mild vascular congestion, bilateral infiltrates Repeat CXR 04/20 - persistent LLL infiltrate CT chest - RML and RLL infiltrate Assess/Plan/Problems-Billing Assessment: Mr. Snyder is a 71 yo male with severe developmental disability, unable to meaningfully communicate with a seizure d/o, reported bipolar disorder, hypothyroidism, thrombocytopenia and blindness who was discharged 04/08 after treatment for severe aspiration PNA who returns with increasing lethargy. - Patient Problems (1) Aspiration pneumonia Code(s): J69.0 - PNEUMONITIS DUE TO INHALATION OF FOOD AND VOMIT SNOMED Code(s ): 247309662 Comment: - Evolving PNA likely present at admission - Recurrent aspiration, likely of secretions - 04/17 - Swallow eval demonstrated no gross aspiration with pudding thick liquids and pureed solids - Appreciate GI input, who advises against Gtube insertion - Oxygen requirements are improving as is his lung exam, the amount of time he spends awake seems to be improving as well - CT shows RML and RLL infiltrate - CRP slightly increased again yesterday but without leukocytosis and remains afebrile - Continue Zosyn (day 7)/azithromycin (day 4/5) - Secretion management remains a problem, recommended suctioning as needed. Some improvement noted with use of scopolamine patch (2) Profoundly mentally retarded Comment: - Non-verbal - Resident at [facility] (3) Seizure disorder Code(s): G40.909 - EPILEPSY, UNSP, NOT INTRACTABLE, WITHOUT STATUS EPILEPTICUS SNOMED Code(s): 440551400 Comment: - Continue phenobarbital - Level is slightly low, no change to dose at this time (4) Swallowing disorder Code(s): R13.10 - DYSPHAGIA, UNSPECIFIED SNOMED Code(s): 20237212 Comment: - Known chronic dysphagia - On pureed solids and pudding thick liquids, no obvious aspiration on 04/17 swallow eval - Recent aspiration PNA, now with concern for new aspiration PNA - Next step would be a PEG tube - Appreciate GI input - patient would still be at risk for aspiration with PEG - Pt noted to be coughing after oatmeal today, will get another swallow eval (5) History of hypothyroidism Code(s): Z86.39 - PERSONAL HISTORY OF ENDO, NUTRITIONAL AND METABOLIC DISEASE SNOMED Code(s): 257927704 Comment: - 04/15 - TSH 2.18 - Continue levothyroxine. (6) Hx of bipolar disorder Code(s): Z86.59 - PERSONAL HISTORY OF OTHER MENTAL AND BEHAVIORAL DISORDERS SNOMED Code(s): 640205592 Comment: - Mood appears euthymic - Continue home medications (7) Hx of thrombocytopenia Code(s): Z86.2 - PRSNL HISTORY OF DIS OF THE BLD/BLD-FORM ORG/IMMUN MECHNSM SNOMED Code(s): 934911021 Comment: - Platelets WNL at this time (8) DVT prophylaxis Code(s): YZH7386 - SNOMED Code(s): 557923065 Comment: - SQ heparin (9) Full code status Code(s): Z78.9 - OTHER SPECIFIED HEALTH STATUS SNOMED Code(s): 879305760 Status and Disposition: Inpatient. Anticipate extended LOS for treatment of recurrent aspiration pneumonia.
--- NOTE | 2017-04-23 13:09 | RAD ---
INDICATION: Dysphagia, evaluate for possible aspiration. COMPARISON: Correlation is made with prior study from April 17, 2016. Technique: A swallowing function test was performed in conjunction with the speech pathologist. The patient was fluoroscopically lateral projection while swallowing pudding thick liquids with barium. Approximately 2.1 minutes of intermittent fluoroscopic guidance were used during the exam. Findings: The exam is limited due to motion artifact throughout the study. There is slow initiation of swallowing with prominent stasis of material in the vallecula and region of the piriform sinuses. No gross aspiration was seen. IMPRESSION: ORAL PHARYNGEAL DYSPHAGIA DESCRIBED. CPT II Codes: 6045F
[2017-04-23] MEDS ORDERED: Haloperidol INJ IV/IM* 5 MG/ML AMP IV SLOW PU ONE (13:47)
[2017-04-23] MEDS: Azithromycin IV(*) 250 MG in NS 0.9% 250 ML* 250 ML IVPB SCH (16:55)
[2017-04-23] MEDS: clonazePAM TAB(*) 1 MG PO SCH (21:32)
[2017-04-24] MEDS: guaiFENesin LIQ* 100 MG/5 ML UDC PO SCH ×4 (03:26→19:40)
[2017-04-24 06:28] LABS: Hematocrit 33 % (42-52); Hemoglobin 11.3 g/dl (14.0-18.0); Mean Corpuscular HGB Conc 35 g/dl (31-36); Mean Corpuscular Hemoglobin 33 pg (27-31); Mean Corpuscular Volume 96 fL (80-94); Mean Platelet Volume 8 um3 (7.4-10.4); Red Blood Count 3.39 10^6/ul (4.0-5.4); Red Cell Distribution Width 14 % (10.5-15); White Blood Count 6.5 10^3/ul (3.5-10.8)
[2017-04-24] MEDS: Levothyroxine TAB* 100 MCG TAB PO SCH (07:28)
[2017-04-24] MEDS: Heparin VIAL(*) 5000 UNITS/ML VIAL (FIVE THOUSAND) SUBCUT SCH ×3 (07:28→21:12)
[2017-04-24] MEDS: PHENobarbital TAB(*) 30 MG PO SCH ×2 (07:46→21:08)
[2017-04-24] MEDS: Omeprazole CAP* 20 MG PO SCH (07:46)
[2017-04-24] MEDS: Polyethylene Glycol 3350* 17 GM PACKET PO SCH (07:47)
[2017-04-24] MEDS: Haloperidol TAB* 5 MG PO SCH ×3 (07:47→21:07)
[2017-04-24] MEDS: Multivitamins/Minerals TAB PO SCH (07:47)
--- NOTE | 2017-04-24 10:21 | PN ---
Subjective Date of Service: 04/24/17 Interval History: Patient seen and examined at bedside. Pt is nonverbal at baseline. Pt is what appears to be anxious at times and other times he is "dancing" to music. Per Candice his nurse today, he was able to eat pudding and take his medications without difficulty. When the [facility] caregiver gave him breakfast he was coughing and "grunting" after. Pt often has a "rhythmic grunting" sound, nursing feels this is a behavior response. Pt underwent a video swallow study yesterday that shows he is pocketing food in his pharynx and is at risk for aspiration. Plan is for a [facility] nurse to come and eval the patient. He may have increased care needs, such as suctioning at home. Family History: Unchanged from Admission Social History: Unchanged from Admission Past Medical History: Unchanged from Admission Objective Active Medications: Acetaminophen (Tylenol Tab*) 650 mg PO Q4H PRN Reason: FEVER/PAIN Al Hydrox/Mg Hydrox/Simethicone (Maalox Plus*) 30 ml PO TID PC PRN Reason: INDIGESTION Albuterol/Ipratropium (Duoneb (Albuterol 2.5 Mg/Ipratropium 0.5 Mg)) 1 neb INH Q4H PRN Reason: SOB/WHEEZING Albuterol/Ipratropium (Duoneb (Albuterol 2.5 Mg/Ipratropium 0.5 Mg)) 1 neb INH Q2H PRN Reason: SOB/WHEEZING Bisacodyl (Dulcolax Supp*) 10 mg [place] Q4D PRN Reason: CONSTIPATION Clonazepam (Klonopin Tab(*)) 1 mg PO BEDTIME [facility] Guaifenesin (Robitussin*) 5 ml PO Q6H [facility] Haloperidol (Haldol Tab*) 5 mg PO TID [facility] Heparin Sodium (Porcine) (Heparin Vial(*)) 5,000 units SUBCUT Q8HR [facility] Azithromycin 250 mg/ Sodium (Chloride) 250 mls @ 250 mls/hr IVPB Q24H [facility] Stop : 04/24/17 16:30 Piperacillin Sod/Tazobactam (Sod 3.375 gm/ Sodium Chloride) 100 mls @ 25 mls/ hr IVPB Q8H [facility] Stop: 04/27/17 19:59 Levothyroxine Sodium (Synthroid Tab*) 100 mcg PO 0600 [facility] Multivitamins/Minerals (Theragran/Minerals Tab*) 1 tab PO DAILY [facility] Omeprazole (Prilosec Cap*) 20 mg PO DAILY [facility] Ondansetron HCl (Zofran Inj*) 4 mg IV Q6H PRN Reason: NAUSEA Pharmacy Profile Note (Scopolomine Patch Remove*) 1 note PATCH OFF Q72H [facility] Phenobarbital (Phenobarbital Tab(*)) 60 mg PO BEDTIME [facility] Phenobarbital (Phenobarbital Tab(*)) 30 mg PO DAILY [facility] Polyethylene Glycol/Electrolytes (Miralax*) 17 gm PO DAILY [facility] Scopolamine (Transderm-Scop 1.5 Mg Patch*) 1 patch TRANSDERM Q72H [facility] Vital Signs 04/23/17 04/23/17 04/23/17 10:16 11:18 16:31 Temperature 98.5 F 98.8 F Pulse Rate 97 Respiratory 19 16 Rate Blood Pressure 157/81 110/65 (mmHg) O2 Sat by Pulse 100 Oximetry 04/23/17 04/23/17 04/23/17 20:41 20:47 21:32 Temperature 98.4 F Pulse Rate 95 Respiratory 24 20 Rate Blood Pressure 158/81 (mmHg) O2 Sat by Pulse 98 Oximetry 04/23/17 04/23/17 04/23/17 21:35 23:29 23:32 Temperature 97.1 F Pulse Rate 84 Respiratory 20 20 18 Rate Blood Pressure 130/110 (mmHg) O2 Sat by Pulse 98 Oximetry 04/24/17 04/24/17 04/24/17 03:27 07:36 07:46 Temperature 99.0 F Pulse Rate 66 68 Respiratory 18 20 24 Rate Blood Pressure 117/61 106/61 (mmHg) O2 Sat by Pulse 100 98 Oximetry Oxygen Devices in Use Now: None Appearance: NAD, sitting up in a chair Ears/Nose/Mouth/Throat: Mucous Membranes Moist Respiratory: Symmetrical Chest Expansion and Respiratory Effort, Clear to Auscultation - , diminished Cardiovascular: NL Sounds; No Murmurs; No JVD, RRR Abdominal: NL Sounds; No Tenderness; No Distention Extremities: No Edema Skin: No Rash or Ulcers Neurological: NL Muscle Strength and Tone, - - Alert and Nonverbal Lines/Tubes/Other Access: Clean, Dry and Intact Peripheral IV - site benign Nutrition: Taking PO's Result Diagrams: 04/24/17 06:07 08/31/17 05:58 Additional Lab and Data: Laboratory Tests 04/15/17 04/17/17 04/19/17 09:50 05:22 08:49 C-Reactive Protein 75.94 H 58.73 H 90.79 H 04/20/17 09:16 C-Reactive Protein 114.58 H Laboratory Tests 04/21/17 04/22/17 08:42 09:43 C-Reactive Protein 83.76 H 97.52 H Laboratory Tests 04/24/17 06:07 C-Reactive Protein 122.24 H Microbiology and Other Data: Microbiology 04/15/17 21:00 Streptococcus pneumoniae Ag Screen - Final Urine Negative S. pneumo Antigen 04/15/17 21:00 Legionella Urinary Antigen - Final Urine Negative Legionella Diagnostic Imaging: CXR - somewhat congested appearance, dramatic improvement from prior F/u CXR 04/17 - mild vascular congestion, bilateral infiltrates Repeat CXR 04/20 - persistent LLL infiltrate CT chest - RML and RLL infiltrate Assess/Plan/Problems-Billing Assessment: Mr. Snyder is a 71 yo male with severe developmental disability, unable to meaningfully communicate with a seizure d/o, reported bipolar disorder, hypothyroidism, thrombocytopenia and blindness who was discharged 04/08 after treatment for severe aspiration PNA who returns with increasing lethargy. - Patient Problems (1) Aspiration pneumonia Code(s): J69.0 - PNEUMONITIS DUE TO INHALATION OF FOOD AND VOMIT SNOMED Code(s ): 863448620 Comment: - Evolving PNA likely present at admission - Recurrent aspiration, likely of secretions - 04/17 - Swallow eval demonstrated no gross aspiration with pudding thick liquids and pureed solids - Appreciate GI input, who advises against Gtube insertion - Oxygen requirements are improved and his lung exam, the amount of time he spends awake seems to be improving as well - CT shows RML and RLL infiltrate - 04/23 Video swallow eval shows oral pharyngeal dysphagia - CRP increased again today but without leukocytosis and remains afebrile - Continue Zosyn (day 8)/azithromycin (day 12/26) - Secretion management remains a problem, recommended suctioning as needed. Some improvement noted with use of scopolamine patch (2) Profoundly mentally retarded Comment: - Non-verbal - Resident at [facility] (3) Seizure disorder Code(s): G40.909 - EPILEPSY, UNSP, NOT INTRACTABLE, WITHOUT STATUS EPILEPTICUS SNOMED Code(s): 883831043 Comment: - Continue phenobarbital - Level is slightly low, no change to dose at this time (4) Swallowing disorder Code(s): R13.10 - DYSPHAGIA, UNSPECIFIED SNOMED Code(s): 94354680 Comment: - Known chronic dysphagia - On pureed solids and pudding thick liquids, no obvious aspiration on 04/17 and 04/23 swallow eval - Recent aspiration PNA, now with concern for new aspiration PNA - Next step would be a PEG tube - Appreciate GI input - patient would still be at risk for aspiration with PEG - Pt noted to be coughing after breakfast today (5) History of hypothyroidism Code(s): Z86.39 - PERSONAL HISTORY OF ENDO, NUTRITIONAL AND METABOLIC DISEASE SNOMED Code(s): 193736648 Comment: - 04/15 - TSH 2.18 - Continue levothyroxine. (6) Hx of bipolar disorder Code(s): Z86.59 - PERSONAL HISTORY OF OTHER MENTAL AND BEHAVIORAL DISORDERS SNOMED Code(s): 712803305 Comment: - Mood appears euthymic - Continue home medications (7) Hx of thrombocytopenia Code(s): Z86.2 - PRSNL HISTORY OF DIS OF THE BLD/BLD-FORM ORG/IMMUN MECHNSM SNOMED Code(s): 698974716 Comment: - Platelets WNL at this time (8) DVT prophylaxis Code(s): [id number] - SNOMED Code(s): 656825326 Comment: - SQ heparin (9) Full code status Code(s): Z78.9 - OTHER SPECIFIED HEALTH STATUS SNOMED Code(s): 155723102 Status and Disposition: Inpatient. Anticipate extended LOS for treatment of recurrent aspiration pneumonia.
[2017-04-24] MEDS: Scopolomine PATCH Remove* 1 NOTE MISC PATCH OFF SCH (15:10)
[2017-04-24] MEDS: Azithromycin IV(*) 250 MG in NS 0.9% 250 ML* 250 ML IVPB SCH (16:52)
[2017-04-24] MEDS: Scopolamine 1.5 mg* PATCH TRANSDERM SCH (16:52)
[2017-04-24] MEDS: clonazePAM TAB(*) 1 MG PO SCH (21:07)
[2017-04-25] MEDS: guaiFENesin LIQ* 100 MG/5 ML UDC PO SCH ×4 (01:09→17:50)
[2017-04-25] MEDS: Levothyroxine TAB* 100 MCG TAB PO SCH (04:56)
[2017-04-25] MEDS: Heparin VIAL(*) 5000 UNITS/ML VIAL (FIVE THOUSAND) SUBCUT SCH ×3 (04:56→21:44)
[2017-04-25] MEDS: Haloperidol TAB* 5 MG PO SCH ×3 (11:21→20:57)
[2017-04-25] MEDS: PHENobarbital TAB(*) 30 MG PO SCH ×2 (13:00→20:57)
[2017-04-25] MEDS: Multivitamins/Minerals TAB PO SCH (14:23)
[2017-04-25] MEDS: Polyethylene Glycol 3350* 17 GM PACKET PO SCH (14:24)
[2017-04-25] MEDS: Omeprazole CAP* 20 MG PO SCH (14:24)
--- NOTE | 2017-04-25 17:35 | PN ---
Subjective Date of Service: 04/25/17 Interval History: Patient seen and examined at bedside. Pt is non-verbal. Pt appears to be resting more today and less agitated. Family History: Unchanged from Admission Social History: Unchanged from Admission Past Medical History: Unchanged from Admission Objective Active Medications: Acetaminophen (Tylenol Tab*) 650 mg PO Q4H PRN Reason: FEVER/PAIN Al Hydrox/Mg Hydrox/Simethicone (Maalox Plus*) 30 ml PO TID PC PRN Reason: INDIGESTION Albuterol/Ipratropium (Duoneb (Albuterol 2.5 Mg/Ipratropium 0.5 Mg)) 1 neb INH Q4H PRN Reason: SOB/WHEEZING Albuterol/Ipratropium (Duoneb (Albuterol 2.5 Mg/Ipratropium 0.5 Mg)) 1 neb INH Q2H PRN Reason: SOB/WHEEZING Bisacodyl (Dulcolax Supp*) 10 mg [place] Q4D PRN Reason: CONSTIPATION Clonazepam (Klonopin Tab(*)) 1 mg PO BEDTIME [facility] Guaifenesin (Robitussin*) 5 ml PO Q6H [facility] Haloperidol (Haldol Tab*) 5 mg PO TID [facility] Heparin Sodium (Porcine) (Heparin Vial(*)) 5,000 units SUBCUT Q8HR [facility] Piperacillin Sod/Tazobactam (Sod 3.375 gm/ Sodium Chloride) 100 mls @ 25 mls/ hr IVPB Q8H [facility] Stop: 04/27/17 19:59 Levothyroxine Sodium (Synthroid Tab*) 100 mcg PO 0600 [facility] Multivitamins/Minerals (Theragran/Minerals Tab*) 1 tab PO DAILY [facility] Omeprazole (Prilosec Cap*) 20 mg PO DAILY [facility] Ondansetron HCl (Zofran Inj*) 4 mg IV Q6H PRN Reason: NAUSEA Pharmacy Profile Note (Scopolomine Patch Remove*) 1 note PATCH OFF Q72H [facility] Phenobarbital (Phenobarbital Tab(*)) 60 mg PO BEDTIME [facility] Phenobarbital (Phenobarbital Tab(*)) 30 mg PO DAILY [facility] Polyethylene Glycol/Electrolytes (Miralax*) 17 gm PO DAILY [facility] Scopolamine (Transderm-Scop 1.5 Mg Patch*) 1 patch TRANSDERM Q72H [facility] Vital Signs 04/24/17 04/24/1704/24/17 20:15 20:33 20:51 Temperature 98.2 F Pulse Rate 99 Respiratory 26 26 Rate Blood Pressure 153/80 (mmHg) O2 Sat by Pulse 98 Oximetry 04/24/17 04/24/17 04/24/17 23:07 23:08 23:39 Temperature 98.0 F Pulse Rate 78 Respiratory 18 18 15 Rate Blood Pressure 97/59 (mmHg) O2 Sat by Pulse 98 Oximetry 04/25/17 04/25/17 04/25/17 04:18 07:43 08:00 Temperature 98.1 F 98.1 F Pulse Rate 81 78 Respiratory 16 16 15 Rate Blood Pressure 120/48 110/58 (mmHg) O2 Sat by Pulse 95 100 Oximetry 04/25/17 04/25/17 04/25/17 08:35 11:07 13:00 Temperature 98.2 F Pulse Rate 71 64 Respiratory 16 16 16 Rate Blood Pressure 103/60 (mmHg) O2 Sat by Pulse 97 100 Oximetry 04/25/17 15:22 Temperature 97.3 F Pulse Rate 72 Respiratory 20 Rate Blood Pressure 98/56 (mmHg) O2 Sat by Pulse 100 Oximetry Oxygen Devices in Use Now: None Appearance: NAD, laying in bed Ears/Nose/Mouth/Throat: Mucous Membranes Moist Respiratory: Symmetrical Chest Expansion and Respiratory Effort, Clear to Auscultation Cardiovascular: NL Sounds; No Murmurs; No JVD, RRR Abdominal: NL Sounds; No Tenderness; No Distention Extremities: No Edema Skin: No Rash or Ulcers Neurological: - - Alert and nonverbal Lines/Tubes/Other Access: Clean, Dry and Intact Peripheral IV - site benign Nutrition: Taking PO's Result Diagrams: 04/24/17 06:07 04/23/17 05:58 Additional Lab and Data: Laboratory Tests 04/15/17 04/17/17 04/19/17 09:50 05:22 08:49 C-Reactive Protein 75.94 H 58.73 H 90.79 H 04/20/17 09:16 C-Reactive Protein 114.58 H Laboratory Tests 04/21/17 04/22/17 08:42 09:43 C-Reactive Protein 83.76 H 97.52 H Laboratory Tests 04/24/17 06:07 C-Reactive Protein 122.24 H Microbiology and Other Data: Microbiology 04/15/17 21:00 Streptococcus pneumoniae Ag Screen - Final Urine Negative S. pneumo Antigen 04/15/17 21:00 Legionella Urinary Antigen - Final Urine Negative Legionella Diagnostic Imaging: CXR - somewhat congested appearance, dramatic improvement from prior F/u CXR 04/17 - mild vascular congestion, bilateral infiltrates Repeat CXR 04/20 - persistent LLL infiltrate CT chest - RML and RLL infiltrate Assess/Plan/Problems-Billing Assessment: Mr. Snyder is a 71 yo male with severe developmental disability, unable to meaningfully communicate with a seizure d/o, reported bipolar disorder, hypothyroidism, thrombocytopenia and blindness who was discharged 04/08 after treatment for severe aspiration PNA who returns with increasing lethargy. - Patient Problems (1) Aspiration pneumonia Code(s): J69.0 - PNEUMONITIS DUE TO INHALATION OF FOOD AND VOMIT SNOMED Code(s ): 406398969 Comment: - Evolving PNA likely present at admission - Recurrent aspiration, likely of secretions - 04/17 - Swallow eval demonstrated no gross aspiration with pudding thick liquids and pureed solids - Appreciate GI input, who advises against Gtube insertion - Oxygen requirements are improved and his lung exam, the amount of time he spends awake seems to be improving as well - CT shows RML and RLL infiltrate - 04/23 Video swallow eval shows oral pharyngeal dysphagia - CRP increased again today but without leukocytosis and remains afebrile - Continue Zosyn (day 05/03) - Secretion management remains a problem, recommended suctioning as needed. Some improvement noted with use of scopolamine patch (2) Profoundly mentally retarded Comment: - Non-verbal - Resident at [facility] (3) Seizure disorder Code(s): G40.909 - EPILEPSY, UNSP, NOT INTRACTABLE, WITHOUT STATUS EPILEPTICUS SNOMED Code(s): 379508095 Comment: - Continue phenobarbital - Level is slightly low, no change to dose at this time (4) Swallowing disorder Code(s): R13.10 - DYSPHAGIA, UNSPECIFIED SNOMED Code(s): 69044059 Comment: - Known chronic dysphagia - On pureed solids and pudding thick liquids, no obvious aspiration on 04/17 and 04/23 swallow eval - Recent aspiration PNA, now with concern for new aspiration PNA - Next step would be a PEG tube - Appreciate GI input - patient would still be at risk for aspiration with PEG - Pt noted to be coughing intermittently (5) History of hypothyroidism Code(s): Z86.39 - PERSONAL HISTORY OF ENDO, NUTRITIONAL AND METABOLIC DISEASE SNOMED Code(s): 340628884 Comment: - 04/15 - TSH 2.18 - Continue levothyroxine. (6) Hx of bipolar disorder Code(s): Z86.59 - PERSONAL HISTORY OF OTHER MENTAL AND BEHAVIORAL DISORDERS SNOMED Code(s): 008279373 Comment: - Mood appears euthymic - Continue home medications (7) Hx of thrombocytopenia Code(s): Z86.2 - PRSNL HISTORY OF DIS OF THE BLD/BLD-FORM ORG/IMMUN MECHNSM SNOMED Code(s): 257253922 Comment: - Platelets WNL at this time (8) DVT prophylaxis Code(s): ZPL6865 - SNOMED Code(s): 928483184 Comment: - SQ heparin (9) Full code status Code(s): Z78.9 - OTHER SPECIFIED HEALTH STATUS SNOMED Code(s): 683316118 Status and Disposition: Inpatient. Anticipate extended LOS for treatment of recurrent aspiration pneumonia.
[2017-04-25] MEDS: clonazePAM TAB(*) 1 MG PO SCH (20:56)
[2017-04-26] MEDS: guaiFENesin LIQ* 100 MG/5 ML UDC PO SCH ×4 (00:20→19:23)
[2017-04-26] MEDS: Heparin VIAL(*) 5000 UNITS/ML VIAL (FIVE THOUSAND) SUBCUT SCH ×3 (05:33→21:11)
[2017-04-26] MEDS: Levothyroxine TAB* 100 MCG TAB PO SCH (05:34)
[2017-04-26] MEDS: Omeprazole CAP* 20 MG PO SCH (09:17)
[2017-04-26] MEDS: PHENobarbital TAB(*) 30 MG PO SCH ×2 (09:17→21:11)
[2017-04-26] MEDS: Multivitamins/Minerals TAB PO SCH (09:17)
[2017-04-26] MEDS: Haloperidol TAB* 5 MG PO SCH ×3 (09:18→21:11)
[2017-04-26] MEDS: Polyethylene Glycol 3350* 17 GM PACKET PO SCH (09:31)
--- NOTE | 2017-04-26 09:39 | PN ---
Subjective Date of Service: 04/26/17 Interval History: Patient seen and examined at bedside. Pt is nonverbal. He is more awake and active today, then he was yesterday. Pt able to take medications and eat breakfast with nurse assistance. Pt requiring less suctioning and secretions appear to be improved with scopolamine patch use. Pt may be able to return home without suctioning. Family History: Unchanged from Admission Social History: Unchanged from Admission Past Medical History: Unchanged from Admission Objective Active Medications: Acetaminophen (Tylenol Tab*) 650 mg PO Q4H PRN Reason: FEVER/PAIN Al Hydrox/Mg Hydrox/Simethicone (Maalox Plus*) 30 ml PO TID PC PRN Reason: INDIGESTION Albuterol/Ipratropium (Duoneb (Albuterol 2.5 Mg/Ipratropium 0.5 Mg)) 1 neb INH Q4H PRN Reason: SOB/WHEEZING Bisacodyl (Dulcolax Supp*) 10 mg [place] Q4D PRN Reason: CONSTIPATION Clonazepam (Klonopin Tab(*)) 1 mg PO BEDTIME [facility] Guaifenesin (Robitussin*) 5 ml PO Q6H [facility] Haloperidol (Haldol Tab*) 5 mg PO TID [facility] Heparin Sodium (Porcine) (Heparin Vial(*)) 5,000 units SUBCUT Q8HR [facility] Piperacillin Sod/Tazobactam (Sod 3.375 gm/ Sodium Chloride) 100 mls @ 25 mls/ hr IVPB Q8H [facility] Stop: 04/27/17 19:59 Levothyroxine Sodium (Synthroid Tab*) 100 mcg PO 0600 [facility] Multivitamins/Minerals (Theragran/Minerals Tab*) 1 tab PO DAILY [facility] Omeprazole (Prilosec Cap*) 20 mg PO DAILY [facility] Ondansetron HCl (Zofran Inj*) 4 mg IV Q6H PRN Reason: NAUSEA Pharmacy Profile Note (Scopolomine Patch Remove*) 1 note PATCH OFF Q72H [facility] Phenobarbital (Phenobarbital Tab(*)) 60 mg PO BEDTIME [facility] Phenobarbital (Phenobarbital Tab(*)) 30 mg PO DAILY [facility] Polyethylene Glycol/Electrolytes (Miralax*) 17 gm PO DAILY [facility] Scopolamine (Transderm-Scop 1.5 Mg Patch*) 1 patch TRANSDERM Q72H [facility] Vital Signs 04/25/17 04/25/1704/25/17 11:07 13:00 15:00 Temperature 98.2 F Pulse Rate 64 Respiratory 16 16 19 Rate Blood Pressure 103/60 (mmHg) O2 Sat by Pulse 100 Oximetry 04/25/17 04/25/17 04/25/17 15:22 19:25 19:27 Temperature 97.3 F 97.6 F Pulse Rate 72 66 Respiratory 20 21 Rate Blood Pressure 98/56 123/63 (mmHg) O2 Sat by Pulse 100 93 Oximetry 04/25/17 04/25/17 04/25/17 22:56 22:57 23:29 Temperature 97.1 F Pulse Rate 53 Respiratory 18 18 18 Rate Blood Pressure 92/49 (mmHg) O2 Sat by Pulse 99 Oximetry 04/25/17 04/26/17 04/26/17 23:51 03:10 07:33 Temperature Pulse Rate 60 48 66 Respiratory 18 17 Rate Blood Pressure 113/53 145/74 (mmHg) O2 Sat by Pulse 99 Oximetry 04/26/17 04/26/17 04/26/17 07:43 07:49 08:01 Temperature Pulse Rate 66 Respiratory 22 17 Rate Blood Pressure (mmHg) O2 Sat by Pulse 100 99 Oximetry Oxygen Devices in Use Now: None Appearance: NAD, sitting up in a chair at the [facility] Ears/Nose/Mouth/Throat: Mucous Membranes Moist Respiratory: Symmetrical Chest Expansion and Respiratory Effort, Clear to Auscultation Cardiovascular: NL Sounds; No Murmurs; No JVD, RRR Abdominal: NL Sounds; No Tenderness; No Distention Extremities: No Edema Skin: No Rash or Ulcers Neurological: - - Alert and nonverbal Lines/Tubes/Other Access: Clean, Dry and Intact Peripheral IV - site benign Nutrition: Taking PO's Result Diagrams: 04/24/17 06:07 04/23/17 05:58 Additional Lab and Data: Laboratory Tests 04/15/17 04/17/17 04/19/17 09:50 05:22 08:49 C-Reactive Protein 75.94 H 58.73 H 90.79 H 04/20/17 09:16 C-Reactive Protein 114.58 H Laboratory Tests 04/21/17 04/22/17 08:42 09:43 C-Reactive Protein 83.76 H 97.52 H Laboratory Tests 04/24/17 06:07 C-Reactive Protein 122.24 H Microbiology and Other Data: Microbiology 04/15/17 21:00 Streptococcus pneumoniae Ag Screen - Final Urine Negative S. pneumo Antigen 04/15/17 21:00 Legionella Urinary Antigen - Final Urine Negative Legionella Diagnostic Imaging: CXR - somewhat congested appearance, dramatic improvement from prior F/u CXR 04/17 - mild vascular congestion, bilateral infiltrates Repeat CXR 04/20 - persistent LLL infiltrate CT chest - RML and RLL infiltrate Assess/Plan/Problems-Billing Assessment: Mr. Snyder is a 71 yo male with severe developmental disability, unable to meaningfully communicate with a seizure d/o, reported bipolar disorder, hypothyroidism, thrombocytopenia and blindness who was discharged 04/08 after treatment for severe aspiration PNA who returns with increasing lethargy. - Patient Problems (1) Aspiration pneumonia Code(s): J69.0 - PNEUMONITIS DUE TO INHALATION OF FOOD AND VOMIT SNOMED Code(s ): 431431705 Comment: - Evolving PNA likely present at admission - Recurrent aspiration, likely of secretions - 04/17 - Swallow eval demonstrated no gross aspiration with pudding thick liquids and pureed solids - Appreciate GI input, who advises against Gtube insertion - CT shows RML and RLL infiltrate - 04/23 Video swallow eval shows oral pharyngeal dysphagia - CRP increased again today but without leukocytosis and remains afebrile - Continue Zosyn (will complete 10 days course after noon dose 04/27) - Secretion management improved, recommended suctioning as needed (he is requiring less suctioning). Improvement noted with use of scopolamine patch (2) Profoundly mentally retarded Comment: - Non-verbal - Resident at [facility] (3) Seizure disorder Code(s): G40.909 - EPILEPSY, UNSP, NOT INTRACTABLE, WITHOUT STATUS EPILEPTICUS SNOMED Code(s): 689717389 Comment: - Continue phenobarbital - Level is slightly low, no change to dose at this time (4) Swallowing disorder Code(s): R13.10 - DYSPHAGIA, UNSPECIFIED SNOMED Code(s): 14613109 Comment: - Known chronic dysphagia - On pureed solids and pudding thick liquids, no obvious aspiration on 04/17 and 04/23 swallow eval - Recent aspiration PNA, now with concern for new aspiration PNA - Next step would be a PEG tube - Appreciate GI input - patient would still be at risk for aspiration with PEG - Pt noted to be coughing intermittently (5) History of hypothyroidism Code(s): Z86.39 - PERSONAL HISTORY OF ENDO, NUTRITIONAL AND METABOLIC DISEASE SNOMED Code(s): 207974351 Comment: - 04/15 - TSH 2.18 - Continue levothyroxine. (6) Hx of bipolar disorder Code(s): Z86.59 - PERSONAL HISTORY OF OTHER MENTAL AND BEHAVIORAL DISORDERS SNOMED Code(s): 483209313 Comment: - Mood appears euthymic - Continue home medications (7) Hx of thrombocytopenia Code(s): Z86.2 - PRSNL HISTORY [facility] Code(s): 120615914 Comment: - Platelets WNL at this time (8) DVT prophylaxis Code(s): [id number] - SNOMED Code(s): 282227521 Comment: - SQ heparin (9) Full code status Code(s): Z78.9 - OTHER SPECIFIED HEALTH STATUS SNOMED Code(s): 552386351 Status and Disposition: Inpatient. Anticipate extended LOS for treatment of recurrent aspiration pneumonia.
[2017-04-26] MEDS: clonazePAM TAB(*) 1 MG PO SCH (21:11)
[2017-04-27] MEDS: guaiFENesin LIQ* 100 MG/5 ML UDC PO SCH ×4 (04:18→18:25)
[2017-04-27 06:43] LABS: Hematocrit 32 % (42-52); Hemoglobin 10.8 g/dl (14.0-18.0); Mean Corpuscular HGB Conc 33 g/dl (31-36); Mean Corpuscular Hemoglobin 33 pg (27-31); Mean Corpuscular Volume 98 fL (80-94); Mean Platelet Volume 9 um3 (7.4-10.4); Red Blood Count 3.31 10^6/ul (4.0-5.4); Red Cell Distribution Width 14 % (10.5-15); White Blood Count 4.9 10^3/ul (3.5-10.8)
[2017-04-27] MEDS: Levothyroxine TAB* 100 MCG TAB PO SCH (06:57)
[2017-04-27] MEDS: Heparin VIAL(*) 5000 UNITS/ML VIAL (FIVE THOUSAND) SUBCUT SCH ×3 (07:00→20:50)
[2017-04-27] MEDS: PHENobarbital TAB(*) 30 MG PO SCH ×2 (10:50→20:20)
[2017-04-27] MEDS: Polyethylene Glycol 3350* 17 GM PACKET PO SCH (10:50)
[2017-04-27] MEDS: Multivitamins/Minerals TAB PO SCH (10:50)
[2017-04-27] MEDS: Haloperidol TAB* 5 MG PO SCH ×3 (10:50→20:20)
[2017-04-27] MEDS: Omeprazole CAP* 20 MG PO SCH (10:51)
[2017-04-27] MEDS: Scopolamine 1.5 mg* PATCH TRANSDERM SCH (12:30)
--- NOTE | 2017-04-27 12:33 | PN ---
Subjective Date of Service: 04/27/17 Interval History: Patient seen and examined at bedside. Pt is nonverbal. Pt was very active yesterday and is resting more today. Family History: Unchanged from Admission Social History: Unchanged from Admission Past Medical History: Unchanged from Admission Objective Active Medications: Acetaminophen (Tylenol Tab*) 650 mg PO Q4H PRN Reason: FEVER/PAIN Al Hydrox/Mg Hydrox/Simethicone (Maalox Plus*) 30 ml PO TID PC PRN Reason: INDIGESTION Albuterol/Ipratropium (Duoneb (Albuterol 2.5 Mg/Ipratropium 0.5 Mg)) 1 neb INH Q4H PRN Reason: SOB/WHEEZING Bisacodyl (Dulcolax Supp*) 10 mg [place] Q4D PRN Reason: CONSTIPATION Clonazepam (Klonopin Tab(*)) 1 mg PO BEDTIME [facility] Guaifenesin (Robitussin*) 5 ml PO Q6H [facility] Haloperidol (Haldol Tab*) 5 mg PO TID [facility] Heparin Sodium (Porcine) (Heparin Vial(*)) 5,000 units SUBCUT Q8HR [facility] Piperacillin Sod/Tazobactam (Sod 3.375 gm/ Sodium Chloride) 100 mls @ 25 mls/ hr IVPB Q8H [facility] Stop: 04/27/17 19:59 Levothyroxine Sodium (Synthroid Tab*) 100 mcg PO 0600 [facility] Multivitamins/Minerals (Theragran/Minerals Tab*) 1 tab PO DAILY [facility] Omeprazole (Prilosec Cap*) 20 mg PO DAILY [facility] Ondansetron HCl (Zofran Inj*) 4 mg IV Q6H PRN Reason: NAUSEA Pharmacy Profile Note (Scopolomine Patch Remove*) 1 note PATCH OFF Q72H [facility] Phenobarbital (Phenobarbital Tab(*)) 60 mg PO BEDTIME [facility] Phenobarbital (Phenobarbital Tab(*)) 30 mg PO DAILY [facility] Polyethylene Glycol/Electrolytes (Miralax*) 17 gm PO DAILY [facility] Scopolamine (Transderm-Scop 1.5 Mg Patch*) 1 patch TRANSDERM Q72H [facility] Vital Signs 04/26/17 04/26/17 04/26/17 15:41 15:52 19:41 Temperature 97.8 F 97.0 F Pulse Rate 81 70 Respiratory 20 20 Rate Blood Pressure 146/119 149/71 153/82 (mmHg) O2 Sat by Pulse 100 Oximetry 04/26/17 04/27/17 04/27/17 23:27 00:29 03:28 Temperature Pulse Rate 72 72 59 Respiratory 18 20 18 Rate Blood Pressure 111/80 109/61 (mmHg) O2 Sat by Pulse 100 100 100 Oximetry 04/27/17 04/27/17 07:51 10:50 Temperature Pulse Rate 50 Respiratory 14 16 Rate Blood Pressure 116/66 (mmHg) O2 Sat by Pulse 99 Oximetry Oxygen Devices in Use Now: None Appearance: NAD, laying in bed Ears/Nose/Mouth/Throat: Mucous Membranes Moist Respiratory: Symmetrical Chest Expansion and Respiratory Effort, Clear to Auscultation Cardiovascular: NL Sounds; No Murmurs; No JVD, RRR Abdominal: NL Sounds; No Tenderness; No Distention Extremities: No Edema Skin: No Rash or Ulcers Neurological: - - Alert and Nonverbal Lines/Tubes/Other Access: Clean, Dry and Intact Peripheral IV - site benign Nutrition: Taking PO's Result Diagrams: 04/27/17 06:07 04/23/17 05:58 Additional Lab and Data: Laboratory Tests 04/15/17 04/17/17 04/19/17 09:50 05:22 08:49 C-Reactive Protein 75.94 H 58.73 H 90.79 H 04/20/17 09:16 C-Reactive Protein 114.58 H 04/21/17 04/22/17 08:42 09:43 C-Reactive Protein 83.76 H 97.52 H 04/24/17 04/27/17 06:07 06:07 C-Reactive Protein 122.24 H 31.74 H Microbiology and Other Data: Microbiology 04/15/17 21:00 Streptococcus pneumoniae Ag Screen - Final Urine Negative S. pneumo Antigen 04/15/17 21:00 Legionella Urinary Antigen - Final Urine Negative Legionella Diagnostic Imaging: CXR - somewhat congested appearance, dramatic improvement from prior F/u CXR 04/17 - mild vascular congestion, bilateral infiltrates Repeat CXR 04/20 - persistent LLL infiltrate CT chest - RML and RLL infiltrate Assess/Plan/Problems-Billing Assessment: Mr. Snyder is a 71 yo male with severe developmental disability, unable to meaningfully communicate with a seizure d/o, reported bipolar disorder, hypothyroidism, thrombocytopenia and blindness who was discharged 04/08 after treatment for severe aspiration PNA who returns with increasing lethargy. - Patient Problems (1) Aspiration pneumonia Code(s): J69.0 - PNEUMONITIS DUE TO INHALATION OF FOOD AND VOMIT SNOMED Code(s ): 042859921 Comment: - Evolving PNA likely present at admission - Recurrent aspiration, likely of secretions - 04/17 - Swallow eval demonstrated no gross aspiration with pudding thick liquids and pureed solids - Appreciate GI input, who advises against Gtube insertion - CT shows RML and RLL infiltrate - 04/23 Video swallow eval shows oral pharyngeal dysphagia - CRP increased again today but without leukocytosis and remains afebrile - Continue Zosyn (will complete 10 days course after noon dose today) - Secretion management improved, recommended suctioning as needed (he is requiring less suctioning). Improvement noted with use of scopolamine patch (2) Profoundly mentally retarded Comment: - Non-verbal - Resident at [facility] (3) Seizure disorder Code(s): G40.909 - EPILEPSY, UNSP, NOT INTRACTABLE, WITHOUT STATUS EPILEPTICUS SNOMED Code(s): 987306508 Comment: - Continue phenobarbital - Level is slightly low, no change to dose at this time (4) Swallowing disorder Code(s): R13.10 - DYSPHAGIA, UNSPECIFIED SNOMED Code(s): 56868416 Comment: - Known chronic dysphagia - On pureed solids and pudding thick liquids, no obvious aspiration on 04/17 and 04/23 swallow eval - Recent aspiration PNA, now with concern for new aspiration PNA - Next step would be a PEG tube - Appreciate GI input - patient would still be at risk for aspiration with PEG - Pt noted to be coughing intermittently (5) History of hypothyroidism Code(s): Z86.39 - PERSONAL HISTORY OF ENDO, NUTRITIONAL AND METABOLIC DISEASE SNOMED Code(s): 631715318 Comment: - 04/15 - TSH 2.18 - Continue levothyroxine. (6) Hx of bipolar disorder Code(s): Z86.59 - PERSONAL HISTORY OF OTHER MENTAL AND BEHAVIORAL DISORDERS SNOMED Code(s): 326595048 Comment: - Mood appears euthymic - Continue home medications (7) Hx of thrombocytopenia Code(s): Z86.2 - PRSNL HISTORY OF DIS OF THE BLD/BLD-FORM ORG/IMMUN MECHNSM SNOMED Code(s): 176828671 Comment: - Platelets WNL at this time (8) DVT prophylaxis Code(s): ESW6937 - SNOMED Code(s): 832632421 Comment: - SQ heparin (9) Full code status Code(s): Z78.9 - OTHER SPECIFIED HEALTH STATUS SNOMED Code(s): 947549494 Status and Disposition: Inpatient. Anticipate extended LOS for treatment of recurrent aspiration pneumonia. Possible discharge home in the AM.
[2017-04-27] MEDS: Scopolomine PATCH Remove* 1 NOTE MISC PATCH OFF SCH (12:35)
[2017-04-27] MEDS: Acetaminophen TAB* 325 MG PO PRN (18:24)
[2017-04-27] MEDS: clonazePAM TAB(*) 1 MG PO SCH (20:20)
[2017-04-28] MEDS: guaiFENesin LIQ* 100 MG/5 ML UDC PO SCH ×3 (01:58→14:07)
[2017-04-28] MEDS: Levothyroxine TAB* 100 MCG TAB PO SCH (06:26)
[2017-04-28] MEDS: Heparin VIAL(*) 5000 UNITS/ML VIAL (FIVE THOUSAND) SUBCUT SCH ×2 (06:26→14:07)
--- NOTE | 2017-04-28 07:22 | PN ---
Subjective Date of Service: 04/28/17 Interval History: Pt vocalizes when I address him though he does not make any specific words. Family History: Unchanged from Admission Social History: Unchanged from Admission Past Medical History: Unchanged from Admission Objective Active Medications: Acetaminophen (Tylenol Tab*) 650 mg PO Q4H PRN PRN Reason: FEVER/PAIN Last Admin: 04/27/17 18:24 Dose: 650 mg Al Hydrox/Mg Hydrox/Simethicone (Maalox Plus*) 30 ml PO TID PC PRN PRN Reason: INDIGESTION Albuterol/Ipratropium (Duoneb (Albuterol 2.5 Mg/Ipratropium 0.5 Mg)) 1 neb INH Q4H PRN PRN Reason: SOB/WHEEZING Last Admin: 04/23/17 08:56 Dose: 1 neb Bisacodyl (Dulcolax Supp*) 10 mg [place] Q4D PRN PRN Reason: CONSTIPATION Clonazepam (Klonopin Tab(*)) 1 mg PO BEDTIME [facility] Last Admin: 04/27/17 20:20 Dose: 1 mg Guaifenesin (Robitussin*) 5 ml PO Q6H [facility] Last Admin: 04/28/17 06:26 Dose: 5 ml Haloperidol (Haldol Tab*) 5 mg PO TID [facility] Last Admin: 04/27/17 20:20 Dose: 5 mg Heparin Sodium (Porcine) (Heparin Vial(*)) 5,000 units SUBCUT Q8HR [facility] Last Admin: 04/28/17 06:26 Dose: 5,000 units Levothyroxine Sodium (Synthroid Tab*) 100 mcg PO 0600 [facility] Last Admin: 04/28/17 06:26 Dose: 100 mcg Multivitamins/Minerals (Theragran/Minerals Tab*) 1 tab PO DAILY [facility] Last Admin: 04/27/17 10:50 Dose: 1 tab Omeprazole (Prilosec Cap*) 20 mg PO DAILY [facility] Last Admin: 04/27/17 10:51 Dose: 20 mg Ondansetron HCl (Zofran Inj*) 4 mg IV Q6H PRN PRN Reason: NAUSEA Pharmacy Profile Note (Scopolomine Patch Remove*) 1 note PATCH OFF Q72H [facility] Last Admin: 04/27/17 12:35 Dose: 1 note Phenobarbital (Phenobarbital Tab(*)) 60 mg PO BEDTIME [facility] Last Admin: 04/27/17 20:20 Dose: 60 mg Phenobarbital (Phenobarbital Tab(*)) 30 mg PO DAILY [facility] Last Admin: 04/27/17 10:50 Dose: 30 mg Polyethylene Glycol/Electrolytes (Miralax*) 17 gm PO DAILY [facility] Last Admin: 04/27/17 10:50 Dose: 17 gm Scopolamine (Transderm-Scop 1.5 Mg Patch*) 1 patch TRANSDERM Q72H [facility] Last Admin: 04/27/17 12:30 Dose: 1 patch Vital Signs 04/27/17 04/27/17 04/27/17 07:51 08:00 10:50 Temperature Pulse Rate 50 Respiratory 14 14 16 Rate Blood Pressure 116/66 (mmHg) O2 Sat by Pulse 99 Oximetry 04/27/17 04/27/17 04/27/17 11:36 12:50 15:36 Temperature 97.5 F Pulse Rate 76 72 Respiratory 14 18 40 Rate Blood Pressure 123/48 121/92 (mmHg) O2 Sat by Pulse 95 Oximetry 04/27/17 04/27/17 04/27/17 20:00 20:20 20:49 Temperature 97.7 F Pulse Rate 60 Respiratory 18 18 24 Rate Blood Pressure 143/85 (mmHg) O2 Sat by Pulse 100 Oximetry 04/27/17 04/27/17 04/28/17 22:20 23:28 04:22 Temperature 97.4 F 97.4 F Pulse Rate 59 49 Respiratory 16 20 Rate Blood Pressure 121/64 105/56 (mmHg) O2 Sat by Pulse 90 100 Oximetry Oxygen Devices in Use Now: None Appearance: Elderly male lying in bed, awake, NAD Eyes: No Scleral Icterus Ears/Nose/Mouth/Throat: Mucous Membranes Moist Respiratory: Symmetrical Chest Expansion and Respiratory Effort, Clear to Auscultation Cardiovascular: NL Sounds; No Murmurs; No JVD, RRR, No Edema Abdominal: NL Sounds; No Tenderness; No Distention Extremities: No Clubbing, Cyanosis Skin: No Rash or Ulcers, No Nodules or Sclerosis Neurological: - - awake, somewhat interactive Result Diagrams: 04/27/17 06:07 04/23/17 05:58 Additional Lab and Data: Laboratory Tests 04/15/17 04/17/17 04/19/17 09:50 05:22 08:49 C-Reactive Protein 75.94 H 58.73 H 90.79 H 04/20/17 09:16 C-Reactive Protein 114.58 H 04/21/17 04/22/17 08:42 09:43 C-Reactive Protein 83.76 H 97.52 H 04/24/17 04/27/17 06:07 06:07 C-Reactive Protein 122.24 H 31.74 H Microbiology and Other Data: Microbiology 04/15/17 21:00 Streptococcus pneumoniae Ag Screen - Final Urine Negative S. pneumo Antigen 04/15/17 21:00 Legionella Urinary Antigen - Final Urine Negative Legionella Diagnostic Imaging: CXR - somewhat congested appearance, dramatic improvement from prior F/u CXR 04/17 - mild vascular congestion, bilateral infiltrates Repeat CXR 04/20 - persistent LLL infiltrate CT chest - RML and RLL infiltrate Assess/Plan/Problems-Billing Mr. Snyder is a 71 yo male with severe developmental disability, unable to meaningfully communicate with a seizure d/o, bipolar disorder, hypothyroidism, thrombocytopenia and blindness who was discharged 04/08 after treatment for severe aspiration PNA who returns with increasing lethargy. - Patient Problems (1) Aspiration pneumonia Current Visit: Yes Status: Acute Code(s): J69.0 - PNEUMONITIS DUE TO INHALATION OF FOOD AND VOMIT SNOMED Code(s): 039286965 Comment: The patient has now completed 10 days of zosyn for a presumed aspiration pneumonia that was likely present on admission. He however has not been seen by speech therapy to aspirate food material. His videofluroscopic eval did however show pharyngeal dysphagia. He is not requiring any supplemental O2 at this point. His mental status is reportedly better now than on admission. He will continue on the scopolamine patch for excessive secretions though this should be considered for discontinuation in about a week with close monitoring for worsening secretions. He remains afebrile and without a leukocytosis. (2) Swallowing difficulty Current Visit: Yes Status: Acute Code(s): R13.10 - DYSPHAGIA, UNSPECIFIED SNOMED Code(s): 43086269 Comment: The patient has chronic dysphagia and confirmed with speech therapy this hospitalization. Continue to monitor for tolerance of pureed foods/ thickened liquids. (3) Bipolar 1 disorder Current Visit: Yes Status: Acute Code(s): F31.9 - BIPOLAR DISORDER, UNSPECIFIED SNOMED Code(s): 925071682 Comment: Continue haldol 5mg TID. (4) Seizure disorder Current Visit: Yes Status: Chronic Code(s): G40.909 - EPILEPSY, UNSP, NOT INTRACTABLE, WITHOUT STATUS EPILEPTICUS SNOMED Code(s): 462958128 Comment: Continue current dose of phenobarbital. (5) Profound mental retardation Current Visit: Yes Status: Chronic Code(s): F73 - PROFOUND INTELLECTUAL DISABILITIES SNOMED Code(s): 70168015 Comment: Pt vocalizes but does not communicate with words. He will return home to his [facility] facility. (6) DVT prophylaxis Current Visit: Yes Status: Acute Code(s): PKF2829 - SNOMED Code(s): 456860134 Comment: SQ heparin (7) Full code status Current Visit: Yes Status: Acute Onset Date: 12/20/14 Code(s): Z78.9 - OTHER SPECIFIED HEALTH STATUS SNOMED Code(s): 899366474 Status and Disposition: d/c home
[2017-04-28] MEDS: Polyethylene Glycol 3350* 17 GM PACKET PO SCH (10:01)
[2017-04-28] MEDS: Multivitamins/Minerals TAB PO SCH (10:01)
[2017-04-28] MEDS: Omeprazole CAP* 20 MG PO SCH (10:02)
[2017-04-28] MEDS: Haloperidol TAB* 5 MG PO SCH ×2 (10:02→14:07)
[2017-04-28] MEDS: PHENobarbital TAB(*) 30 MG PO SCH (10:02)
[2017-04-28 15:51] VITALS: BP 116/58
--- NOTE | 2017-04-29 03:10 | DS ---
CC: Dr. Belle * DISCHARGE SUMMARY: DATE OF ADMISSION: 04/15/17 DATE OF DISCHARGE TO [facility]: 04/28/17 PRIMARY CARE PROVIDER: Dr. Belle. PRINCIPAL DIAGNOSIS: Probable aspiration pneumonia - present on admission. SECONDARY DIAGNOSES: 1. Advanced intellectual developmental delay. 2. Chronic dysphagia. 3. Seizure disorder. 4. Hypothyroidism. 5. Bipolar disorder. 6. Thrombocytopenia. DISCHARGE MEDICATIONS: 1. Haldol 5 mg p.o. t.i.d. 2. Heparin 5000 units subcutaneous q.8 hours. 3. Klonopin 1 mg p.o. q.h.s. 4. MiraLAX 17 g p.o. daily. 5. Phenobarbital 60 mg p.o. q.h.s., 30 mg p.o. q.a.m. 6. Prilosec 20 mg p.o. daily. 7. Robitussin 5 mL p.o. q.6 hours. 8. Scopolamine patch 1 patch applied topically q.72 hours. 9. Synthroid 100 mcg p.o. daily. 10. Multivitamin 1 tab p.o. daily. 11. Dulcolax 10 mg p.r. q.4 days p.r.n. constipation. 12. DuoNeb 1 neb inhaled q.4 hours p.r.n. shortness of breath. 13. Maalox plus 30 mL p.o. t.i.d. after meals p.r.n. indigestion. 14. Tylenol 650 mg p.o. q.4 hours p.r.n. pain or fever. 15. Zofran 4 mg IV q.6 hours p.r.n. nausea. HOSPITAL COURSE: Mr. Snyder is a 79-year-old male who was recently hospitalized from 04/01/17 through 04/08/17 with a possible aspiration pneumonia and sepsis. The patient at that point was discharged back to his residential. He, however, was not acting like himself, therefore was brought back to the emergency room on 04/15/17. At that point, there was no clear indication that he had had an aspiration pneumonia; however, a couple of days into his hospitalization, it was felt that this was likely what was present on admission. The patient received a 10- day course of Zosyn. Additionally, he received 5 days of azithromycin. The patient's respiratory status has improved and that he is not longer requiring any supplemental oxygen. His lung exam has also improved. His mental status is better in that he is much more alert and closer to his baseline in terms of his behaviors. The patient was seen by Speech Therapy, where it was noted that he has excessive saliva production with pulling secretions in the buccal cavities and drooling excessively. It was felt that he would benefit from suction. It was felt that he was likely aspirating on his secretions. Because of the need for suction, the patient will be made swing bed status as of today as his current residential is unable to provide suctioning for him. The patient did have a scopolamine patch applied , which has improved his overall secretions. However, given all the side effects related to scopolamine, I do feel that this should be discontinued in the near future. FOLLOWUP CONCERNS: The patient is being discharged to swing bed status today on 04/28/17. ACTIVITY LEVEL: As tolerated. DIET: Regular, pureed foods with plain thick liquids. CONDITION ON DISCHARGE: To swing, stable. TIME SPENT: 35 minutes were spent discharging the patient to swing. [id number]/CPS #: [id number] MTDD
== END 2017-04-28 15:50 | disposition swing bed (61) | DRG 178 ==
LOC: ED 08:57 → MED 11:22 → OBSVTOIN 04-16 18:54 → MED 04-19 01:03
PROVIDERS: ADMIT Internal Medicine; ATTEND Hospitalist
DX: J69.0 Pneumonitis due to inhalation of food and vomit (principal); E46 Unspecified protein-calorie malnutrition; I95.9 Hypotension, unspecified; F73 Profound intellectual disabilities; D69.6 Thrombocytopenia, unspecified; R13.19 Other dysphagia; G40.909 Epilepsy, unspecified, not intractable, without status epilepticus; Z68.1 Body mass index [BMI] 19.9 or less, adult; F31.9 Bipolar disorder, unspecified; F81.9 Developmental disorder of scholastic skills, unspecified; E03.9 Hypothyroidism, unspecified; H54.8 Legal blindness, as defined in USA; Z79.1 Long term (current) use of non-steroidal anti-inflammatories (NSAID); Z79.899 Other long term (current) drug therapy; Z88.8 Allergy status to other drugs, medicaments and biological substances
CPT/HCPCS: 36415; 70450; 71010; 71020; 71250; 74230; 80048; 80053; 80184; 81003; 81015; 82140; 82533; 82550; 82553; 83605; 83690; 83735; 83880; 84443; 84484; 85025; 85610; 85730; 86140; 87040; 87070; 87086; 87205; 87899; 93005; 94640; 94760; A9270-GY; G0378; G8996-GN-CL; G8997-GN-CL; G8998-GN-CL; J0456; J1630; J1644; J2543

== ENCOUNTER 2017-04-28 15:57 | Inpatient (IN) | payer MEDICARE, MEDICAID ==
[2017-04-28] MEDS ORDERED: Bisacodyl SUPP* 10 MG SUPP PR PRN (17:04)
[2017-04-28] MEDS ORDERED: Al Hydrox/Mg Hydrox/Simet LIQ* 30 ML UDC PO PRN (17:05)
[2017-04-28] MEDS ORDERED: Albuterol/Ipratropium NEB.SOL* Albuterol 2.5 MG/Ipratropium 0.5 MG 3 ML INH PRN (17:05)
[2017-04-28] MEDS ORDERED: Ondansetron INJ* 2 MG/ML VIAL IV PRN (17:06)
[2017-04-28] MEDS: guaiFENesin LIQ* 100 MG/5 ML UDC PO SCH (20:36)
[2017-04-28] MEDS: PHENobarbital TAB(*) 30 MG PO SCH (20:36)
[2017-04-28] MEDS: clonazePAM TAB(*) 1 MG PO SCH (20:36)
[2017-04-28] MEDS: Haloperidol TAB* 5 MG PO SCH (20:36)
[2017-04-28] MEDS: Scopolamine 1.5 mg* PATCH TRANSDERM SCH (21:26)
[2017-04-28] MEDS: Heparin VIAL(*) 5000 UNITS/ML VIAL (FIVE THOUSAND) SUBCUT SCH (21:27)
[2017-04-29] MEDS: guaiFENesin LIQ* 100 MG/5 ML UDC PO SCH ×4 (02:27→20:14)
[2017-04-29] MEDS: Levothyroxine TAB* 100 MCG TAB PO SCH (05:47)
[2017-04-29] MEDS: Heparin VIAL(*) 5000 UNITS/ML VIAL (FIVE THOUSAND) SUBCUT SCH ×3 (05:47→21:53)
[2017-04-29] MEDS: Multivitamins/Minerals TAB PO SCH (09:03)
[2017-04-29] MEDS: Omeprazole CAP* 20 MG PO SCH (09:03)
[2017-04-29] MEDS: Polyethylene Glycol 3350* 17 GM PACKET PO SCH (09:03)
[2017-04-29] MEDS: Haloperidol TAB* 5 MG PO SCH ×3 (09:03→20:16)
[2017-04-29] MEDS: PHENobarbital TAB(*) 30 MG PO SCH ×2 (09:07→20:15)
[2017-04-29] MEDS: clonazePAM TAB(*) 1 MG PO SCH (20:15)
[2017-04-30] MEDS: guaiFENesin LIQ* 100 MG/5 ML UDC PO SCH ×4 (02:06→20:00)
[2017-04-30] MEDS: Heparin VIAL(*) 5000 UNITS/ML VIAL (FIVE THOUSAND) SUBCUT SCH ×3 (06:14→23:03)
[2017-04-30] MEDS: Levothyroxine TAB* 100 MCG TAB PO SCH (06:14)
--- NOTE | 2017-04-30 09:31 | RAD ---
Indication: Diminished breath sounds. Single frontal view of the chest performed at 0910 hours was reviewed. Comparison is made with previous exam dated April 20, 2017. Cardiomegaly is noted. Interstitial edema is improved since previous exam. This likely a hiatal hernia present. IMPRESSION: IMPROVED CHF WITH LIKELY HIATAL HERNIA AND MINIMAL LEFT BASILAR ATELECTASIS.
[2017-04-30] MEDS: Omeprazole CAP* 20 MG PO SCH (10:02)
[2017-04-30] MEDS: Multivitamins/Minerals TAB PO SCH (10:02)
[2017-04-30] MEDS: PHENobarbital TAB(*) 30 MG PO SCH ×2 (10:02→20:00)
--- NOTE | 2017-04-30 10:02 | PN ---
Progress Note - Progress Note Date of Service: 04/30/17 Note: Asked to see the patient due to concerns of apnea. The patient appears to be trying to "sing" to music by breathing/vocalizing rapidly then has a pause in his respirations. It appears he hyperventilates then pauses. An aide from his care home states he does this at home. Lungs are clear and CXR is improved. Nursing will continue to monitor.
[2017-04-30] MEDS: Haloperidol TAB* 5 MG PO SCH ×3 (10:03→20:01)
[2017-04-30] MEDS: Polyethylene Glycol 3350* 17 GM PACKET PO SCH (10:03)
[2017-04-30] MEDS: clonazePAM TAB(*) 1 MG PO SCH (19:59)
[2017-05-01] MEDS: guaiFENesin LIQ* 100 MG/5 ML UDC PO SCH ×4 (01:12→20:15)
[2017-05-01] MEDS: Levothyroxine TAB* 100 MCG TAB PO SCH (06:22)
[2017-05-01] MEDS: Heparin VIAL(*) 5000 UNITS/ML VIAL (FIVE THOUSAND) SUBCUT SCH ×3 (06:22→21:29)
[2017-05-01] MEDS: Polyethylene Glycol 3350* 17 GM PACKET PO SCH (09:55)
[2017-05-01] MEDS: Haloperidol TAB* 5 MG PO SCH ×3 (09:55→20:15)
[2017-05-01] MEDS: Multivitamins/Minerals TAB PO SCH (09:55)
[2017-05-01] MEDS: Omeprazole CAP* 20 MG PO SCH (09:56)
[2017-05-01] MEDS: PHENobarbital TAB(*) 30 MG PO SCH ×2 (09:56→20:15)
[2017-05-01] MEDS: Acetaminophen TAB* 325 MG PO PRN (14:24)
[2017-05-01] MEDS ORDERED: Scopolomine PATCH Remove* 1 NOTE MISC PATCH OFF SCH (18:00)
[2017-05-01] MEDS: Scopolamine 1.5 mg* PATCH TRANSDERM SCH (18:44)
[2017-05-01] MEDS: clonazePAM TAB(*) 1 MG PO SCH (20:15)
[2017-05-02] MEDS: guaiFENesin LIQ* 100 MG/5 ML UDC PO SCH ×4 (01:10→20:58)
[2017-05-02] MEDS: Levothyroxine TAB* 100 MCG TAB PO SCH (05:23)
[2017-05-02] MEDS: Heparin VIAL(*) 5000 UNITS/ML VIAL (FIVE THOUSAND) SUBCUT SCH ×3 (05:24→21:31)
[2017-05-02] MEDS: Polyethylene Glycol 3350* 17 GM PACKET PO SCH (07:32)
[2017-05-02] MEDS: Multivitamins/Minerals TAB PO SCH (07:32)
[2017-05-02] MEDS: Haloperidol TAB* 5 MG PO SCH ×3 (07:32→20:58)
[2017-05-02] MEDS: Omeprazole CAP* 20 MG PO SCH (07:33)
[2017-05-02] MEDS: PHENobarbital TAB(*) 30 MG PO SCH ×2 (07:33→20:57)
[2017-05-02] MEDS: clonazePAM TAB(*) 1 MG PO SCH (20:57)
[2017-05-02] MEDS: Acetaminophen TAB* 325 MG PO PRN (20:57)
[2017-05-03] MEDS: guaiFENesin LIQ* 100 MG/5 ML UDC PO SCH ×4 (00:03→20:25)
[2017-05-03] MEDS: Heparin VIAL(*) 5000 UNITS/ML VIAL (FIVE THOUSAND) SUBCUT SCH ×3 (06:00→20:26)
[2017-05-03] MEDS: Levothyroxine TAB* 100 MCG TAB PO SCH (06:00)
[2017-05-03] MEDS: Polyethylene Glycol 3350* 17 GM PACKET PO SCH (07:18)
[2017-05-03] MEDS: Omeprazole CAP* 20 MG PO SCH (08:16)
[2017-05-03] MEDS: Haloperidol TAB* 5 MG PO SCH ×3 (08:16→20:26)
[2017-05-03] MEDS: PHENobarbital TAB(*) 30 MG PO SCH ×2 (08:16→20:25)
[2017-05-03] MEDS: Multivitamins/Minerals TAB PO SCH (08:16)
[2017-05-03] MEDS ORDERED: LORazepam TAB(*) 0.5 MG PO ONE (16:18)
[2017-05-03] MEDS: clonazePAM TAB(*) 1 MG PO SCH (20:26)
[2017-05-04] MEDS: guaiFENesin LIQ* 100 MG/5 ML UDC PO SCH ×4 (02:28→20:45)
[2017-05-04] MEDS: Levothyroxine TAB* 100 MCG TAB PO SCH (06:09)
[2017-05-04] MEDS: Heparin VIAL(*) 5000 UNITS/ML VIAL (FIVE THOUSAND) SUBCUT SCH ×3 (06:10→20:43)
[2017-05-04] MEDS: Polyethylene Glycol 3350* 17 GM PACKET PO SCH (08:40)
[2017-05-04] MEDS: Omeprazole CAP* 20 MG PO SCH (08:45)
[2017-05-04] MEDS: Multivitamins/Minerals TAB PO SCH (08:45)
[2017-05-04] MEDS: Haloperidol TAB* 5 MG PO SCH ×3 (08:45→20:45)
[2017-05-04] MEDS: PHENobarbital TAB(*) 30 MG PO SCH ×2 (08:47→20:46)
--- NOTE | 2017-05-04 09:28 | PN ---
Progress Note - Progress Note Date of Service: 05/04/17 Note: Pt seen briefly today. Scopolamine patch was removed yesterday AM. He has not had any increase in secretions yet food is still getting "pocketed." It is recommended that the patient have gilleskauer suctioning available to help clear the pocketed food or secretions.
[2017-05-04] MEDS: clonazePAM TAB(*) 1 MG PO SCH (21:00)
[2017-05-05] MEDS: guaiFENesin LIQ* 100 MG/5 ML UDC PO SCH ×4 (02:59→20:00)
[2017-05-05] MEDS: Levothyroxine TAB* 100 MCG TAB PO SCH (06:06)
[2017-05-05] MEDS: Heparin VIAL(*) 5000 UNITS/ML VIAL (FIVE THOUSAND) SUBCUT SCH ×2 (06:06→14:18)
[2017-05-05] MEDS ORDERED: Haloperidol INJ IV/IM* 5 MG/ML AMP IV SLOW PU PRN ×2 (07:23→16:09)
[2017-05-05] MEDS: Haloperidol TAB* 5 MG PO SCH ×2 (08:11→14:18)
[2017-05-05] MEDS: Multivitamins/Minerals TAB PO SCH (08:11)
[2017-05-05] MEDS: PHENobarbital TAB(*) 30 MG PO SCH (08:11)
[2017-05-05] MEDS: Omeprazole CAP* 20 MG PO SCH (08:11)
[2017-05-05] MEDS: Polyethylene Glycol 3350* 17 GM PACKET PO SCH (08:11)
[2017-05-05] MEDS ORDERED: Haloperidol INJ IV/IM* 5 MG/ML AMP IM ONE (15:30)
[2017-05-05] MEDS ORDERED: Haloperidol INJ IV/IM* 5 MG/ML AMP IV SLOW PU ONE (15:30)
[2017-05-05] MEDS ORDERED: Fluconazole 100 MG TAB* TAB PO ONE (17:28)
[2017-05-06] MEDS: Haloperidol TAB* 5 MG PO SCH ×5 (02:30→21:00)
[2017-05-06] MEDS: clonazePAM TAB(*) 1 MG PO SCH ×3 (02:30→21:13)
[2017-05-06] MEDS: Heparin VIAL(*) 5000 UNITS/ML VIAL (FIVE THOUSAND) SUBCUT SCH ×4 (02:30→21:00)
[2017-05-06] MEDS: PHENobarbital TAB(*) 30 MG PO SCH ×3 (02:30→21:00)
[2017-05-06] MEDS: guaiFENesin LIQ* 100 MG/5 ML UDC PO SCH ×4 (02:30→21:00)
[2017-05-06] MEDS ORDERED: PHENobarbital TAB(*) 30 MG PO ONE (02:30)
[2017-05-06] MEDS: Levothyroxine TAB* 100 MCG TAB PO SCH (06:50)
[2017-05-06] MEDS: Omeprazole CAP* 20 MG PO SCH (13:20)
[2017-05-06] MEDS: Multivitamins/Minerals TAB PO SCH (13:20)
[2017-05-06] MEDS: Polyethylene Glycol 3350* 17 GM PACKET PO SCH (13:22)
--- NOTE | 2017-05-06 16:26 | PN ---
Subjective Date of Service: 05/06/17 Interval History: Patient not able to make his needs known. Objective Active Medications: Acetaminophen (Tylenol Tab*) 650 mg PO Q4H PRN PRN Reason: FEVER/PAIN Last Admin: 05/02/17 20:57 Dose: 650 mg Al Hydrox/Mg Hydrox/Simethicone (Maalox Plus*) 30 ml PO TID PC PRN PRN Reason: INDIGESTION Albuterol/Ipratropium (Duoneb (Albuterol 2.5 Mg/Ipratropium 0.5 Mg)) 1 neb INH Q4H PRN PRN Reason: SOB/WHEEZING Bisacodyl (Dulcolax Supp*) 10 mg [place] Q4D PRN PRN Reason: CONSTIPATION Clonazepam (Klonopin Tab(*)) 1 mg PO BEDTIME [facility] Last Admin: 05/06/17 03:27 Dose: Not Given Guaifenesin (Robitussin*) 5 ml PO Q6H [facility] Last Admin: 05/06/17 13:54 Dose: 5 ml Haloperidol (Haldol Tab*) 5 mg PO TID [facility] Last Admin: 05/06/17 13:54 Dose: 5 mg Haloperidol Lactate (Haldol Inj Iv/Im*) 2.5 mg IV SLOW PU Q6H PRN PRN Reason: AGITATION Last Admin: 05/05/17 18:16 Dose: 2.5 mg Heparin Sodium (Porcine) (Heparin Vial(*)) 5,000 units SUBCUT Q8HR [facility] Last Admin: 05/06/17 15:40 Dose: 5,000 units Levothyroxine Sodium (Synthroid Tab*) 100 mcg PO DAILY@0600 [facility] Last Admin: 05/06/17 06:50 Dose: 100 mcg Multivitamins/Minerals (Theragran/Minerals Tab*) 1 tab PO DAILY [facility] Last Admin: 05/06/17 13:20 Dose: 1 tab Omeprazole (Prilosec Cap*) 20 mg PO DAILY@0730 [facility] Last Admin: 05/06/17 13:20 Dose: 20 mg Ondansetron HCl (Zofran Inj*) 4 mg IV Q6H PRN PRN Reason: NAUSEA Phenobarbital (Phenobarbital Tab(*)) 30 mg PO DAILY [facility] Last Admin: 05/06/17 13:21 Dose: 30 mg Phenobarbital (Phenobarbital Tab(*)) 60 mg PO BEDTIME [facility] Polyethylene Glycol/Electrolytes (Miralax*) 17 gm PO DAILY [facility] Last Admin: 05/06/17 13:22 Dose: 17 gm Vital Signs 05/05/17 05/06/17 05/06/17 21:30 02:30 04:30 Respiratory 16 20 16 Rate 05/06/17 13:21 Respiratory 18 Rate Oxygen Devices in Use Now: None Appearance: Lethargic. Sitting in a chair, slumped over more towards L. Appears comfortable. Neck: NL Appearance and Movements; NL JVP, No Thyroid Enlargement, Masses Respiratory: Symmetrical Chest Expansion and Respiratory Effort, Clear to Auscultation, Clear to Percussion Cardiovascular: NL Sounds; No Murmurs; No JVD, RRR, No Edema, - Extremities: No Edema, No Clubbing, Cyanosis, - Skin: No Rash or Ulcers, No Nodules or Sclerosis, - Neurological: - - No tremor. Non-vocal. Does not follow commands. Assess/Plan/Problems-Billing Assessment: - Patient Problems (1) Aspiration pneumonia Current Visit: No Status: Acute Code(s): J69.0 - PNEUMONITIS DUE TO INHALATION OF FOOD AND VOMIT SNOMED Code(s): 002442556 Comment: The patient has now completed 10 days of zosyn for a presumed aspiration pneumonia that was likely present on admission. He however has not been seen by speech therapy to aspirate food material. His videofluroscopic eval did however show pharyngeal dysphagia. Off O2. At times needs haloperidol for agitation. Scopolamine patch last applied 05/01. As of 05/06, he has not required suctioning for over 72 hrs. Suctioning no longer needed. (2) Hx of seizure disorder Current Visit: No Status: Chronic Priority: High Code(s): Z86.69 - PERSONAL HISTORY OF DIS OF THE NERVOUS SYS AND SENSE ORGANS SNOMED Code(s): 297222026 Comment: Continue phenobarbital. (3) Profoundly mentally retarded Current Visit: No Status: Chronic Priority: High Comment: - Non-verbal - Resident at [facility] Continue PRN haloperidol for agitation. (4) History of hypothyroidism Current Visit: No Status: Chronic Priority: Medium Code(s): Z86.39 - PERSONAL HISTORY OF ENDO, NUTRITIONAL AND METABOLIC DISEASE SNOMED Code(s): 538083589 Comment: - 04/15 - TSH 2.18 - Continue levothyroxine.
[2017-05-07] MEDS: guaiFENesin LIQ* 100 MG/5 ML UDC PO SCH ×4 (04:27→21:55)
[2017-05-07] MEDS: Heparin VIAL(*) 5000 UNITS/ML VIAL (FIVE THOUSAND) SUBCUT SCH ×3 (06:15→21:57)
[2017-05-07] MEDS: Levothyroxine TAB* 100 MCG TAB PO SCH (06:16)
--- NOTE | 2017-05-07 09:52 | PN ---
Subjective Date of Service: 05/07/17 Interval History: Patine not able to make his needs known. Objective Active Medications: Acetaminophen (Tylenol Tab*) 650 mg PO Q4H PRN PRN Reason: FEVER/PAIN Last Admin: 05/02/17 20:57 Dose: 650 mg Al Hydrox/Mg Hydrox/Simethicone (Maalox Plus*) 30 ml PO TID PC PRN PRN Reason: INDIGESTION Albuterol/Ipratropium (Duoneb (Albuterol 2.5 Mg/Ipratropium 0.5 Mg)) 1 neb INH Q4H PRN PRN Reason: SOB/WHEEZING Bisacodyl (Dulcolax Supp*) 10 mg ND Q4D PRN PRN Reason: CONSTIPATION Clonazepam (Klonopin Tab(*)) [address] [facility] Last Admin: 05/06/17 21:13 Dose: Not Given Guaifenesin (Robitussin*) [address] [facility] Last Admin: 05/07/17 04:27 Dose: 5 ml Haloperidol (Haldol Liq*) [address] [facility] Haloperidol Lactate (Haldol Inj Iv/Im*) 2.5 mg IV SLOW PU Q6H PRN PRN Reason: AGITATION Last Admin: 05/05/17 18:16 Dose: 2.5 mg Heparin Sodium (Porcine) (Heparin Vial(*)) 5,[address] [facility] Last Admin: 05/07/17 06:15 Dose: 5,000 units Levothyroxine Sodium (Synthroid Tab*) 100 mcg PO DAILY@0600 [facility] Last Admin: 05/07/17 06:16 Dose: 100 mcg Multivitamins/Minerals (Theragran/Minerals Tab*) [address] [facility] Last Admin: 05/06/17 13:20 Dose: 1 tab Omeprazole (Prilosec Cap*) 20 mg PO DAILY@0730 [facility] Last Admin: 05/06/17 13:20 Dose: 20 mg Ondansetron HCl (Zofran Inj*) 4 mg IV Q6H PRN PRN Reason: NAUSEA Phenobarbital (Phenobarbital Tab(*)) [address] [facility] Last Admin: 05/06/17 13:21 Dose: 30 mg Phenobarbital (Phenobarbital Tab(*)) [address] [facility] Last Admin: 05/06/17 21:00 Dose: 60 mg Polyethylene Glycol/Electrolytes (Miralax*) 17 gm PO DAILY [facility] Last Admin: 05/06/17 13:22 Dose: 17 gm Vital Signs 05/06/17 05/06/17 05/06/17 13:21 15:20 15:21 Temperature 97.5 F Pulse Rate 98 Respiratory 18 16 18 Rate Blood Pressure (mmHg) O2 Sat by Pulse 98 Oximetry 05/06/17 05/06/17 05/06/17 20:07 21:00 21:13 Temperature 97.1 F Pulse Rate 114 Respiratory 20 20 20 Rate Blood Pressure 111/76 (mmHg) O2 Sat by Pulse 99 Oximetry 05/06/17 05/07/17 23:00 09:45 Temperature Pulse Rate 130 Respiratory 20 40 Rate Blood Pressure (mmHg) O2 Sat by Pulse 93 Oximetry Oxygen Devices in Use Now: None Appearance: Alert, partly up in bed but slumped over. Neck: NL Appearance and Movements; NL JVP, No Thyroid Enlargement, Masses Respiratory: Symmetrical Chest Expansion and Respiratory Effort, Clear to Auscultation, Clear to Percussion, - - very tachypneic Cardiovascular: NL Sounds; No Murmurs; No JVD, RRR, No Edema, - Extremities: No Edema, No Clubbing, Cyanosis, - Skin: No Rash or Ulcers, No Nodules or Sclerosis, - Neurological: - - Non-verbal. No tremor. Assess/Plan/Problems-Billing Assessment: - Patient Problems (1) Aspiration pneumonia Current Visit: No Status: Acute Code(s): J69.0 - PNEUMONITIS DUE TO INHALATION OF FOOD AND VOMIT SNOMED Code(s): 640756584 Comment: Likely aspirated at breakfast 05/07. NPO until SP swallow eval. CXR , ABGs ordered. (2) Hx of seizure disorder Current Visit: No Status: Chronic Priority: High Code(s): Z86.69 - PERSONAL HISTORY OF DIS OF THE NERVOUS SYS AND SENSE ORGANS SNOMED Code(s): 048272919 Comment: Continue phenobarbital. (3) Profoundly mentally retarded Current Visit: No Status: Chronic Priority: High Comment: - Non-verbal - Resident at [facility] Continue PRN haloperidol for agitation. (4) History of hypothyroidism Current Visit: No Status: Chronic Priority: Medium Code(s): Z86.39 - PERSONAL HISTORY OF ENDO, NUTRITIONAL AND METABOLIC DISEASE SNOMED Code(s): 939428178 Comment: 04/15 - TSH 2.18 Continue levothyroxine.
[2017-05-07] MEDS: Omeprazole CAP* 20 MG PO SCH (10:02)
[2017-05-07] MEDS: PHENobarbital TAB(*) 30 MG PO SCH ×2 (10:03→21:56)
[2017-05-07] MEDS: Polyethylene Glycol 3350* 17 GM PACKET PO SCH (10:03)
[2017-05-07] MEDS: Haloperidol LIQ* 10 MG/5 ML UDC PO SCH ×3 (10:03→21:55)
[2017-05-07] MEDS: Multivitamins/Minerals TAB PO SCH (10:03)
[2017-05-07] MEDS: Haloperidol TAB* 5 MG PO SCH ×2 (10:04)
--- NOTE | 2017-05-07 10:17 | RAD ---
INDICATION: Tachypnea. COMPARISON: Comparison is made with a prior study from April 30, 2017. TECHNIQUE: A portable view of the chest was obtained. FINDINGS: The heart appears to be within normal limits in size. There is a moderate to large hiatal hernia present. The lungs are underinflated. There are infiltrates at both lung bases which have progressed from the prior study. IMPRESSION: 1. BIBASILAR INFILTRATES DEMONSTRATING INTERVAL PROGRESSION. 2. HIATAL HERNIA.
[2017-05-07 10:47] LABS: PCO2 Arterial 43 mmHg (35-45)
[2017-05-07] MEDS: clonazePAM TAB(*) 1 MG PO SCH (21:56)
[2017-05-08] MEDS: guaiFENesin LIQ* 100 MG/5 ML UDC PO SCH ×4 (01:53→21:49)
[2017-05-08] MEDS: Levothyroxine TAB* 100 MCG TAB PO SCH (05:22)
[2017-05-08] MEDS: Heparin VIAL(*) 5000 UNITS/ML VIAL (FIVE THOUSAND) SUBCUT SCH ×3 (05:22→21:49)
[2017-05-08] MEDS: PHENobarbital TAB(*) 30 MG PO SCH ×2 (09:25→21:48)
[2017-05-08] MEDS: Omeprazole CAP* 20 MG PO SCH (09:25)
[2017-05-08] MEDS: Haloperidol LIQ* 10 MG/5 ML UDC PO SCH ×3 (09:31→21:49)
[2017-05-08] MEDS: Multivitamins/Minerals TAB PO SCH (10:15)
[2017-05-08] MEDS: Polyethylene Glycol 3350* 17 GM PACKET PO SCH (10:20)
--- NOTE | 2017-05-08 10:58 | CONSULT ---
Palliative / Hospice Consult Ordering Provider: Sukhjinder Padron - Subjective Code Status: Full Code Advance Directives Location: No Advance Directives MOLST Part A Completed: No MOLST Part E Completed:: No HCP Completed: No - History or Present Illness History or Present Illness: This is a 71 year old former [place] patient with profound developmental delay and bipolar illness who has been living for some years in a [facility] residential setting. He carries additinal diagnoses of seizure disorder, malnutrition, hypothyroidism, anemia, thrombocytopenia, and blindness. He was admitted 04/01/17 to 04/08/17 with aspiration pneumonia, and then returned 04/15/17 with recurrent aspiration. He is noted to have excessive drooling and on videofluoroscopy 04/23/17 has oropharyngeal dysphagia. He does not clear oral secretions and has pooling in the valleculae, etc. He is not a candidate for PEG tube, as this will not prevent aspiration pneumonia. He has been eating less. He weighs 93 pounds and has been taking about 200 cc po QD at most. In March of 2016 he weighed 103 pounds. Despite scopolamine patch for secretions, it was advised that this patient have suctioning to try to keep airways clear, and so he would need placement in a residential setting with a higher level of nursing care than that which he has had in the past. Apparently [facility] has no medical DON bed available and it was recommended that the patient be placed in a SNF, but his sister, who is not a HCP but apparently has some surrogate decision-making authority, has refused this option. The patient has no MOLST form and no advance directives of any kind that I am able to find. There has been no [facility] meeting on his behalf. Palliative consultation was requested because he is a placement problem at this time. He has been unable to cooperate with a [facility]IST-administered swallow evaluation. Lab Values: Abnormal Lab Results 05/07/17 10:35 ABG pH 7.46 H ABG pCO2 43 ABG pO2 62 L ABG HCO3 29.4 ABG O2 Saturation 94.8 L ABG Base Excess 6.0 H Laboratory Last Values ABG pH 7.46 (7.35-7.45) H 05/07/17 10:35 ABG pCO2 43 mmHg (35-45) 05/07/17 10:35 ABG pO2 62 mmHg (80-100) L 05/07/17 10:35 ABG HCO3 29.4 mmol/L (19-31) 05/07/17 10:35 ABG O2 Saturation 94.8 % (95-98) L 05/07/17 10:35 ABG Base Excess 6.0 (-2.0-2.0) H 05/07/17 10:35 - Objective Active Medications: Acetaminophen (Tylenol Tab*) 650 mg PO Q4H PRN PRN Reason: FEVER/PAIN Last Admin: 05/02/17 20:57 Dose: 650 mg Al Hydrox/Mg Hydrox/Simethicone (Maalox Plus*) 30 ml PO TID PC PRN PRN Reason: INDIGESTION Albuterol/Ipratropium (Duoneb (Albuterol 2.5 Mg/Ipratropium 0.5 Mg)) 1 neb INH Q4H PRN PRN Reason: SOB/WHEEZING Bisacodyl (Dulcolax Supp*) 10 mg VA Q4D PRN PRN Reason: CONSTIPATION Clonazepam (Klonopin Tab(*)) 1 mg PO BEDTIME [facility] Last Admin: 05/07/17 21:56 Dose: 1 mg Guaifenesin (Robitussin*) 5 ml PO Q6H [facility] Last Admin: 05/08/17 09:25 Dose: 5 ml Haloperidol (Haldol Liq*) 5 mg PO TID [facility] Last Admin: 05/08/17 09:31 Dose: 5 mg Haloperidol Lactate (Haldol Inj Iv/Im*) 2.5 mg IV SLOW PU Q6H PRN PRN Reason: AGITATION Last Admin: 05/05/17 18:16 Dose: 2.5 mg Heparin Sodium (Porcine) (Heparin Vial(*)) 5,000 units SUBCUT Q8HR [facility] Last Admin: 05/08/17 05:22 Dose: 5,000 units Levothyroxine Sodium (Synthroid Tab*) 100 mcg PO DAILY@0600 [facility] Last Admin: 05/08/17 05:22 Dose: 100 mcg Multivitamins/Minerals (Theragran/Minerals Tab*) 1 tab PO DAILY [facility] Last Admin: 05/08/17 10:15 Dose: 1 tab Omeprazole (Prilosec Cap*) 20 mg PO DAILY@0730 [facility] Last Admin: 05/08/17 09:25 Dose: 20 mg Ondansetron HCl (Zofran Inj*) 4 mg IV Q6H PRN PRN Reason: NAUSEA Phenobarbital (Phenobarbital Tab(*)) 30 mg PO DAILY [facility] Last Admin: 05/08/17 09:25 Dose: 30 mg Phenobarbital (Phenobarbital Tab(*)) 60 mg PO BEDTIME [facility] Last Admin: 05/07/17 21:56 Dose: 60 mg Polyethylene Glycol/Electrolytes (Miralax*) 17 gm PO DAILY [facility] Last Admin: 05/08/17 10:20 Dose: 17 gm Vital Signs: Vital Signs: Temp Pulse Resp BP Pulse Ox 98.9 F 122 16 113/94 90 05/08/17 07:54 05/08/17 07:54 05/08/17 09:25 05/08/17 07:54 05/08/17 07:54 Patient Weight: Weight 93 lb Intake and Output: Intake & Output 05/06/17 05/07/17 05/08/17 05/09/17 06:59 06:59 06:59 06:59 Intake Total 210 120 0 Output Total 120 0 Balance 90 120 0 Intake: Oral 210 120 0 Output: Urine 120 0 Other: Estimated Void Small Large Medium # Bowel Movements 0 0 0 # Voids 0 1 1 ADLs: Meal Record Start: 04/28/17 16: 11 Freq: DAILY@0900,1400,1800 Status: Active Created 04/28/17 16:11 System (Rec: 04/28/17 16:11 System MED-L05) Document 04/28/17 18:00 [id number] (Rec: 04/28/17 22:00 [id number] MED-C11) Document 04/29/17 09:00 [id number] (Rec: 04/29/17 10:28 RGB8450 MED-C09) Document 04/29/17 13:58 JTI6083 (Rec: 04/29/17 13:58 CKR8850 MED-C11) Document 04/29/17 18:00 SJX7184 (Rec: 04/29/17 18:21 GLX2866 MED-C13) Document 04/30/17 09:00 IPH7496 (Rec: 04/30/17 10:24 YLN1439 MED-C09) Document 04/30/17 18:00 NKO3323 (Rec: 04/30/17 22:19 CVV2203 MED-C11) Document 05/01/17 09:00 UML5846 (Rec: 05/01/17 10:51 RNW1634 MED-C09) Document 05/01/17 13:58 OVS6647 (Rec: 05/01/17 13:59 [id number] MED-C11) Document 05/01/17 18:00 IXG7252 (Rec: 05/01/17 18:26 HBM6492 MED-C11) Document 05/02/17 09:00 KWG5920 (Rec: 05/02/17 09:58 FOH6859 MED-C09) Document 05/02/17 14:00 PYI6110 (Rec: 05/02/17 14:11 JZH4096 MED-C09) Document 05/02/17 18:00 SIV2125 (Rec: 05/02/17 21:25 JBG5132 MED-C09) Document 05/03/17 09:00 OXS9044 (Rec: 05/03/17 10:36 AOE8809 MED-C09) Document 05/03/17 13:39 HLO2529 (Rec: 05/03/17 13:40 ZNV0875 MED-C09) Document 05/03/17 18:00 TMZ4085 (Rec: 05/03/17 18:10 UHD6954 MED-C11) Document 05/04/17 09:00 SYW7408 (Rec: 05/04/17 09:13 VYG4092 MED-C09) Document 05/04/17 14:00 UVC3836 (Rec: 05/04/17 14:26 RYW1438 MED-C09) Document 05/04/17 18:00 CIC4571 (Rec: 05/04/17 19:49 UNW7899 MED-C09) Document 05/05/17 08:47 JDN5892 (Rec: 05/05/17 08:47 GWT2186 MED-C09) Document 05/05/17 13:19 GHU2070 (Rec: 05/05/17 13:20 UPW7418 MED-C09) Document 05/05/17 18:00 EME5510 (Rec: 05/05/17 18:54 [id number] MED-C11) Document 05/06/17 18:00 OIK9964 (Rec: 05/06/17 20:06 BDN9768 MED-C13) Document 05/07/17 09:00 WND6017 (Rec: 05/07/17 13:44 VRX0597 MED-C11) Document 05/07/17 14:00 BZR8893 (Rec: 05/07/17 14:04 OHY5238 MED-C11) Intake and Output Start: 04/28/17 16: 11 Freq: DAILY@0600,1400,2200 Status: Active Created 04/28/17 16:11 System (Rec: 04/28/17 16:11 System MED-L05) Document 04/28/17 22:00 IWE7778 (Rec: 04/28/17 22:02 ORH5280 MED-C11) Document 04/29/17 05:40 YXG8658 (Rec: 04/29/17 05:41 ALE5372 MEDL-C02) Document 04/29/17 13:58 ZZT8838 (Rec: 04/29/17 13:58 XAC6525 MED-C11) Document 04/29/17 22:00 GIH2644 (Rec: 04/29/17 22:34 WKB3776 MED-C09) Document 04/30/17 06:00 FNP4501 (Rec: 04/30/17 06:24 DPY6456 MEDL-C01) Document 04/30/17 14:00 CIY7379 (Rec: 04/30/17 14:17 ZDF8039 MED-C11) Document 04/30/17 22:00 FJW6594 (Rec: 04/30/17 22:22 [id number] MED-C11) Document 05/01/17 05:57 IDO7666 (Rec: 05/01/17 05:58 DAM6805 MEDL-C01) Document 05/01/17 13:58 VEK1688 (Rec: 05/01/17 13:59 KIV1831 MED-C11) Document 05/01/17 21:56 KWO9812 (Rec: 05/01/17 21:57 NJZ8668 MED-C11) Document 05/02/17 04:32 ENA6352 (Rec: 05/02/17 04:34 GZT1330 MEDL-C01) Document 05/02/17 14:00 GES6708 (Rec: 05/02/17 14:11 YBI8577 MED-C09) Document 05/02/17 21:24 JTM0928 (Rec: 05/02/17 21:25 IMB3852 MED-C09) Document 05/03/17 06:00 HPT6945 (Rec: 05/03/17 06:33 FXI9268 MEDL-C02) Document 05/03/17 13:39 NLE5959 (Rec: 05/03/17 13:39 AVK4703 MED-C09) Document 05/03/17 22:00 KYS2412 (Rec: 05/03/17 22:32 OIE6094 MED-C11) Document 05/04/17 14:00 KFA0019 (Rec: 05/04/17 14:26 ISP6728 MED-C09) Document 05/04/17 21:47 XVF3608 (Rec: 05/04/17 21:56 NEF8603 MED-C09) Document 05/05/17 05:37 DRU3229 (Rec: 05/05/17 05:37 WDB2873 MED-C12) Document 05/05/17 13:20 VCM3613 (Rec: 05/05/17 13:20 MII4351 MED-C09) Document 05/05/17 22:00 DWG2135 (Rec: 05/05/17 22:17 AJT2191 MED-C11) Document 05/06/17 05:52 WVA4263 (Rec: 05/06/17 05:54 OFU5594 MEDL-C01) Document 05/06/17 14:00 LXK8257 (Rec: 05/06/17 14:38 KSJ4052 MED-C09) Document 05/06/17 22:00 WYP3450 (Rec: 05/06/17 22:06 EXT5542 MED-C11) Document 05/07/17 06:00 QSY3933 (Rec: 05/07/17 06:53 XJM2209 MED-C42) Document 05/07/17 14:00 OBV2422 (Rec: 05/07/17 14:04 YKP1093 MED-C11) Document 05/07/17 21:52 [id number] (Rec: 05/07/17 21:53 QLU8530 MED-C09) Document 05/08/17 06:00 JXB1480 (Rec: 05/08/17 06:47 GDL1903 MED-C42) General Impression: Elderly blind man sitting in Vicky chair, with protruding tongue, drooling and spitting. Not responsive except with occasional grunting while being examined. Head: Symmetrical Ears/Nose/Mouth/Throat: NL Teeth, Lips, Gums, - - dentition poor Neck: NL Appearance and Movements; NL JVP, No Thyroid Enlargement, Masses Cardiovascular: NL Sounds; No Murmurs; No JVD, RRR, No Edema, - - but tachycardic at 110. Respiratory: Symmetrical Chest Expansion and Respiratory Effort Abdominal: NL Sounds; No Tenderness; No Distention Extremities: No Edema, No Clubbing, Cyanosis, - Neurological: - - Non-verbal. No tremor. - Assessment Assessment: This man has developed difficulty with swallowing and is unable to appropriately clear his secretions. There is no remedy for this problem, and he is likely to have recurrent episodes of aspiration pneumonia even if he is placed in a facility with frequent suctioning. He needs to have advanced directives in place to protect him from excessive futile interventions. In order to have his sister named as 0-b surrogate, we need to initiate a MOLST checklist. I have called the patient's sister, Taniya Wright who lives in [place], [place], , but there was no answer. Also, I have started the MOLST checklist to be completed by Dr. Padron, and the patient will also need a consult to establish his lack of capacity to make his own health care decisions. Although having the sister named as a surrogate will make a [facility] meeting unnecessary, this patient will still need to have CAB involvement to allow advance directives to be established. Because the patient has dysphagia with aspiration, recurrent hospitalizations will lead to progressive pulmonary compromise and scarring, and he would eventually on a ventilator, probably within the next 6 months whether he has interventions or not. His quality of life would be vastly improved if he could remain in the home has known for many years, and with comfort measures to maximize his enjoyment of the time he has left. If he could be given DNR/DNI status, he would be eligible for hospice care at home. Thank you for asking me to see this patient. - Plan Consult Plan (MU): Other - Time On Unit Date of Evaluation: 05/08/17 Hospice Consult Time in: 10:20 Hospice Consult Time Out: 11:45 Hospice Consult Time Total: 85 > 50% of Time Spend In Counseling or Coordinating Care: Yes
[2017-05-08] MEDS ORDERED: Scopolamine 1.5 mg* PATCH TRANSDERM SCH (14:00)
[2017-05-08] MEDS: clonazePAM TAB(*) 1 MG PO SCH (21:49)
[2017-05-09] MEDS: guaiFENesin LIQ* 100 MG/5 ML UDC PO SCH ×4 (03:00→20:15)
[2017-05-09] MEDS: Heparin VIAL(*) 5000 UNITS/ML VIAL (FIVE THOUSAND) SUBCUT SCH ×3 (05:39→23:23)
[2017-05-09] MEDS: Levothyroxine TAB* 100 MCG TAB PO SCH (05:39)
[2017-05-09] MEDS: Omeprazole CAP* 20 MG PO SCH (10:51)
[2017-05-09] MEDS: Haloperidol LIQ* 10 MG/5 ML UDC PO SCH ×2 (10:52→14:20)
[2017-05-09] MEDS: PHENobarbital TAB(*) 30 MG PO SCH (10:53)
[2017-05-09] MEDS: Multivitamins/Minerals TAB PO SCH (11:02)
[2017-05-09] MEDS: Polyethylene Glycol 3350* 17 GM PACKET PO SCH (11:02)
[2017-05-09 12:14] LABS: PCO2 Arterial 40 mmHg (35-45)
--- NOTE | 2017-05-09 12:44 | PN ---
Subjective Date of Service: 05/09/17 Interval History: Patient poorly responsive. Objective Active Medications: Acetaminophen (Tylenol Tab*) 650 mg PO Q4H PRN PRN Reason: FEVER/PAIN Last Admin: 05/02/17 20:57 Dose: 650 mg Al Hydrox/Mg Hydrox/Simethicone (Maalox Plus*) 30 ml PO TID PC PRN PRN Reason: INDIGESTION Albuterol/Ipratropium (Duoneb (Albuterol 2.5 Mg/Ipratropium 0.5 Mg)) 1 neb INH Q4H PRN PRN Reason: SOB/WHEEZING Bisacodyl (Dulcolax Supp*) 10 mg NE Q4D PRN PRN Reason: CONSTIPATION Clonazepam (Klonopin Tab(*)) 1 mg PO BEDTIME [facility] Last Admin: 05/08/17 21:49 Dose: 1 mg Guaifenesin (Robitussin*) 5 ml PO Q6H [facility] Last Admin: 05/09/17 10:52 Dose: 5 ml Haloperidol (Haldol Liq*) 5 mg PO TID [facility] Last Admin: 05/09/17 10:52 Dose: 5 mg Haloperidol Lactate (Haldol Inj Iv/Im*) 2.5 mg IV SLOW PU Q6H PRN PRN Reason: AGITATION Last Admin: 05/05/17 18:16 Dose: 2.5 mg Heparin Sodium (Porcine) (Heparin Vial(*)) 5,000 units SUBCUT Q8HR [facility] Last Admin: 05/09/17 05:39 Dose: 5,000 units Levothyroxine Sodium (Synthroid Tab*) 100 mcg PO DAILY@0600 [facility] Last Admin: 05/09/17 05:39 Dose: 100 mcg Multivitamins/Minerals (Theragran/Minerals Tab*) 1 tab PO DAILY [facility] Last Admin: 05/09/17 11:02 Dose: 1 tab Omeprazole (Prilosec Cap*) 20 mg PO DAILY@0730 [facility] Last Admin: 05/09/17 10:51 Dose: 20 mg Ondansetron HCl (Zofran Inj*) 4 mg IV Q6H PRN PRN Reason: NAUSEA Pharmacy Profile Note (Scopolomine Patch Remove*) 1 note PATCH OFF Q72H [facility] Phenobarbital (Phenobarbital Tab(*)) 30 mg PO DAILY [facility] Last Admin: 05/09/17 10:53 Dose: 30 mg Phenobarbital (Phenobarbital Tab(*)) 60 mg PO BEDTIME [facility] Last Admin: 05/08/17 21:48 Dose: 60 mg Polyethylene Glycol/Electrolytes (Miralax*) 17 gm PO DAILY [facility] Last Admin: 05/09/17 11:02 Dose: 17 gm Scopolamine (Transderm-Scop 1.5 Mg Patch*) 1 patch TRANSDERM Q72H [facility] Last Admin: 05/08/17 15:28 Dose: 1 patch Vital Signs 05/08/17 05/08/17 05/08/17 21:48 21:49 22:46 Respiratory 32 32 32 Rate O2 Sat by Pulse Oximetry 05/08/17 05/08/17 05/09/17 23:01 23:49 10:53 Respiratory 24 32 Rate O2 Sat by Pulse 95 Oximetry 05/09/17 12:08 Respiratory Rate O2 Sat by Pulse 98 Oximetry Oxygen Devices in Use Now: Simple Face Mask Appearance: Not responding to voice or light touch. Shaun-Morales breathing, otherwise looks uncomfortable. Neck: NL Appearance and Movements; NL JVP, No Thyroid Enlargement, Masses Respiratory: Symmetrical Chest Expansion and Respiratory Effort, Clear to Auscultation, Clear to Percussion Cardiovascular: NL Sounds; No Murmurs; No JVD, RRR, No Edema, - Extremities: No Edema, No Clubbing, Cyanosis, - Skin: No Rash or Ulcers, No Nodules or Sclerosis, - Neurological: - - Unresponsive to voice or light touch. No tremor. Assess/Plan/Problems-Billing Assessment: - Patient Problems (1) Hx of seizure disorder Current Visit: No Status: Chronic Priority: High Code(s): Z86.69 - PERSONAL HISTORY OF DIS OF THE NERVOUS SYS AND SENSE ORGANS SNOMED Code(s): 145319454 Comment: Phenobarbital level ordered 05/09. ? seizure and post-ictal state AM 05/09. (2) Profoundly mentally retarded Current Visit: No Status: Chronic Priority: High Comment: - Non-verbal - Resident at [facility] Reduce scheduled haloperidol dose. (3) History of hypothyroidism Current Visit: No Status: Chronic Priority: Medium Code(s): Z86.39 - PERSONAL HISTORY OF ENDO, NUTRITIONAL AND METABOLIC DISEASE SNOMED Code(s): 762255629 Comment: 8/23 - TSH 2.18 Continue levothyroxine. (4) Altered mental state Current Visit: Yes Status: Acute Code(s): R41.82 - ALTERED MENTAL STATUS, UNSPECIFIED SNOMED Code(s): 697346532 Comment: ? post-ictal. Sudden onset of change in mental status. Phenobarb level, CBC, BMP pending. May be dehydrated. Straight cath for urine C&S.
[2017-05-09] MEDS ORDERED: Acetaminophen SUPP* 650 MG SUPP PR PRN (13:44)
[2017-05-09] MEDS ORDERED: NS 0.9% 1000 ML* 1,000 ML IV SCH (13:45)
[2017-05-09] MEDS ORDERED: cefTRIAXone VIAL(*) 1,000 MG in NS 0.9% 50 ML* 50 ML IVPB SCH (14:30)
[2017-05-09 16:12] LABS: Hematocrit 43 % (42-52); Hemoglobin 14.2 g/dl (14.0-18.0); Mean Corpuscular HGB Conc 33 g/dl (31-36); Mean Corpuscular Hemoglobin 33 pg (27-31); Mean Corpuscular Volume 99 fL (80-94); Mean Platelet Volume 11 um3 (7.4-10.4); Red Blood Count 4.34 10^6/ul (4.0-5.4); Red Cell Distribution Width 15 % (10.5-15); White Blood Count 21.3 10^3/ul (3.5-10.8)
[2017-05-09 16:13] LABS: Add Diff/Slide Review? Slide Review Added; Comments Flag Yes
[2017-05-09] MEDS: Ampicillin ADVAN(*) 1 GM in NS 0.9% 50 ML* 50 ML IVPB SCH ×2 (16:27→22:05)
[2017-05-09 16:40] LABS: BUN/Creatinine Ratio 36.7 (8-20); Blood Urea Nitrogen 47 mg/dL (6-24); CO2 Carbon Dioxide 28 mmol/L (22-32); Calcium 11.4 mg/dL (8.6-10.3); EGFR African American 71.5 (>60); EGFR Non-African American 55.6 (>60); Glucose 147 mg/dL (70-100)
[2017-05-09 16:54] LABS: Chloride 120 mmol/L (101-111)
[2017-05-09 16:55] LABS: Sodium 158 mmol/L (133-145)
[2017-05-09 16:56] LABS: Anion Gap 10 mmol/L (2-11)
[2017-05-09 16:58] LABS: Immature Granulocytes 6 % (0-9); Neutrophil % 82 % (38-83); RBC Morphology Normal (Normal)
[2017-05-09] MEDS: D5W 1/4 NS 1000 ML BAG* 1,000 ML IV SCH (17:09)
[2017-05-09] MEDS ORDERED: Morphine INJ* 2 MG/ML 1 ML SYRINGE (TWO MG - NEW SYRINGE VERSION) IV PRN ×2 (19:38→20:06)
[2017-05-09 20:19] LABS: FIO2 36
[2017-05-09 20:23] LABS: PCO2 Arterial 32 mmHg (35-45)
--- NOTE | 2017-05-09 21:10 | RAD ---
Indication: Tachypnea. Single frontal view of the chest performed at 2200 hours was reviewed. Comparison is made with previous exam dated May 07, 2017. Airspace disease is noted in the lung bases. Findings are similar to that seen previously. Patchy areas of pneumonia are also noted in the right upper lobe as well. This appears to be progressive when compared to previous exam of May 07, 2017. IMPRESSION: PROGRESSIVE PNEUMONIA IN THE BASES AND RIGHT UPPER LOBE.
[2017-05-10] MEDS: D5W 1/4 NS 1000 ML BAG* 1,000 ML IV SCH ×5 (00:02→22:34)
[2017-05-10] MEDS: clonazePAM TAB(*) 1 MG PO SCH ×2 (00:26→21:57)
[2017-05-10] MEDS: Haloperidol LIQ* 10 MG/5 ML UDC PO SCH ×4 (00:27→21:59)
[2017-05-10] MEDS: PHENobarbital TAB(*) 30 MG PO SCH ×3 (00:27→21:58)
--- NOTE | 2017-05-10 00:49 | PN ---
Progress Note - Progress Note Date of Service: 05/10/17 Note: Paged for frequent periods of apnea, followed by tachypnea up to 48. Patient appeared uncomfortable. CXR unremarkable. Transfer to ICU for closer monitoring. Given morphine 1 mg and seems to have calmed him down.
[2017-05-10] MEDS: Morphine INJ* 4 MG/ML 1 ML CARPUJECT IV PRN ×2 (01:23→03:06)
[2017-05-10] MEDS: guaiFENesin LIQ* 100 MG/5 ML UDC PO SCH ×2 (02:41→08:29)
[2017-05-10] MEDS: Ampicillin ADVAN(*) 1 GM in NS 0.9% 50 ML* 50 ML IVPB SCH ×4 (03:53→21:59)
[2017-05-10] MEDS: Heparin VIAL(*) 5000 UNITS/ML VIAL (FIVE THOUSAND) SUBCUT SCH ×3 (05:41→22:17)
[2017-05-10] MEDS: Levothyroxine TAB* 100 MCG TAB PO SCH (05:44)
[2017-05-10] MEDS: Omeprazole CAP* 20 MG PO SCH (05:45)
--- NOTE | 2017-05-10 07:58 | PN ---
Subjective Date of Service: 05/10/17 Interval History: Patient not able to make his needs known. Objective Active Medications: Acetaminophen (Tylenol Tab*) 650 mg PO Q4H PRN PRN Reason: FEVER/PAIN Last Admin: 05/02/17 20:57 Dose: 650 mg Acetaminophen (Tylenol Supp*) 650 mg MN Q4H PRN PRN Reason: FEVER Al Hydrox/Mg Hydrox/Simethicone (Maalox Plus*) 30 ml PO TID PC PRN PRN Reason: INDIGESTION Albuterol/Ipratropium (Duoneb (Albuterol 2.5 Mg/Ipratropium 0.5 Mg)) 1 neb INH Q4H PRN PRN Reason: SOB/WHEEZING Bisacodyl (Dulcolax Supp*) 10 mg MN Q4D PRN PRN Reason: CONSTIPATION Clonazepam (Klonopin Tab(*)) 1 mg PO BEDTIME REPLACED BY [facility] Last Admin: 05/10/17 00:26 Dose: Not Given Guaifenesin (Robitussin*) 5 ml PO Q6H REPLACED BY [facility] Last Admin: 05/10/17 02:41 Dose: Not Given Haloperidol (Haldol Liq*) 2.5 mg PO TID REPLACED BY [facility] Last Admin: 05/10/17 00:27 Dose: Not Given Haloperidol Lactate (Haldol Inj Iv/Im*) 2.5 mg IV SLOW PU Q6H PRN PRN Reason: AGITATION Last Admin: 05/05/17 18:16 Dose: 2.5 mg Heparin Sodium (Porcine) (Heparin Vial(*)) 5,000 units SUBCUT Q8HR REPLACED BY [facility] Last Admin: 05/10/17 05:41 Dose: 5,000 units Ampicillin Sodium 1 gm/ Sodium (Chloride) 50 mls @ 200 mls/hr IVPB Q6H REPLACED BY [facility] Last Admin: 05/10/17 03:53 Dose: 200 mls/hr Dextrose/Sodium Chloride (D5w 1/4 Ns 1000 Ml Bag*) 1,000 mls @ 100 mls/hr IV PER RATE REPLACED BY [facility] Last Admin: 05/10/17 07:52 Dose: 100 mls/hr Levothyroxine Sodium (Synthroid Tab*) 100 mcg PO DAILY@0600 REPLACED BY [facility] Last Admin: 05/10/17 05:44 Dose: Not Given Morphine Sulfate (Morphine Inj (Syringe)*) 1 mg IV Q1H PRN PRN Reason: SHORTNESS OF BREATH Last Admin: 05/10/17 03:06 Dose: 1 mg Multivitamins/Minerals (Theragran/Minerals Tab*) 1 tab PO DAILY REPLACED BY [facility] Last Admin: 05/09/17 11:02 Dose: 1 tab Omeprazole (Prilosec Cap*) 20 mg PO DAILY@0730 REPLACED BY [facility] Last Admin: 05/10/17 05:45 Dose: Not Given Ondansetron HCl (Zofran Inj*) 4 mg IV Q6H PRN PRN Reason: NAUSEA Pharmacy Profile Note (Scopolomine Patch Remove*) 1 note PATCH OFF Q72H REPLACED BY [facility] Phenobarbital (Phenobarbital Tab(*)) 30 mg PO DAILY REPLACED BY [facility] Last Admin: 05/09/17 10:53 Dose: 30 mg Phenobarbital (Phenobarbital Tab(*)) 60 mg PO BEDTIME REPLACED BY [facility] Last Admin: 05/10/17 00:27 Dose: Not Given Polyethylene Glycol/Electrolytes (Miralax*) 17 gm PO DAILY REPLACED BY [facility] Last Admin: 05/09/17 11:02 Dose: 17 gm Scopolamine (Transderm-Scop 1.5 Mg Patch*) 1 patch TRANSDERM Q72H REPLACED BY [facility] Last Admin: 05/08/17 15:28 Dose: 1 patch Vital Signs 05/09/17 05/09/17 05/09/17 08:00 10:53 12:08 Temperature Pulse Rate Respiratory 24 32 Rate Blood Pressure (mmHg) O2 Sat by Pulse 98 Oximetry 05/09/17 05/09/17 05/09/17 12:53 19:22 19:25 Temperature Pulse Rate 124 Respiratory 30 46 46 Rate Blood Pressure 106/68 (mmHg) O2 Sat by Pulse 96 97 Oximetry 05/09/17 05/09/17 05/09/17 19:26 19:47 19:56 Temperature 98.8 F Pulse Rate Respiratory 46 47 Rate Blood Pressure (mmHg) O2 Sat by Pulse Oximetry 05/09/17 05/09/17 05/09/17 20:56 21:05 21:07 Temperature Pulse Rate 116 117 Respiratory 21 Rate Blood Pressure 84/59 (mmHg) O2 Sat by Pulse 99 98 Oximetry 05/09/17 05/09/17 05/09/17 21:15 21:31 21:37 Temperature 98.8 F Pulse Rate 114 116 124 Respiratory 40 24 Rate Blood Pressure 90/62 99/68 95/65 (mmHg) O2 Sat by Pulse 98 98 99 Oximetry 05/09/17 05/09/17 05/09/17 21:38 21:45 22:00 Temperature 98.8 F Pulse Rate 124 114 112 Respiratory 29 19 21 Rate Blood Pressure 100/71 100/71 95/70 (mmHg) O2 Sat by Pulse 99 98 99 Oximetry 05/09/17 05/09/17 05/10/17 23:00 23:38 00:00 Temperature 98.6 F Pulse Rate 110 112 Respiratory 20 12 19 Rate Blood Pressure 103/71 118/96 (mmHg) O2 Sat by Pulse 96 100 Oximetry 05/10/17 05/10/17 05/10/17 01:00 01:23 02:00 Temperature Pulse Rate 111 108 Respiratory 17 28 29 Rate Blood Pressure 102/63 93/64 (mmHg) O2 Sat by Pulse 100 93 Oximetry 05/10/17 05/10/17 05/10/17 03:00 03:01 03:06 Temperature Pulse Rate 112 109 Respiratory 34 28 28 Rate Blood Pressure 108/89 (mmHg) O2 Sat by Pulse 94 89 Oximetry 05/10/17 05/10/17 05/10/17 03:51 04:00 05:00 Temperature 98.0 F Pulse Rate 102 107 Respiratory 27 31 Rate Blood Pressure 117/73 115/79 (mmHg) O2 Sat by Pulse 99 96 Oximetry 05/10/17 06:00 Temperature Pulse Rate 102 Respiratory 3 Rate Blood Pressure 113/68 (mmHg) O2 Sat by Pulse 97 Oximetry Oxygen Devices in Use Now: Nasal Cannula Appearance: Lying on L side. Withdraws or resists exam. Non-verbal. Respiratory: Symmetrical Chest Expansion and Respiratory Effort, Clear to Auscultation, Clear to Percussion, - - Shaun-Morales breathing Cardiovascular: NL Sounds; No Murmurs; No JVD, RRR, No Edema, - Extremities: No Edema, No Clubbing, Cyanosis, - Skin: No Rash or Ulcers, No Nodules or Sclerosis, - Neurological: NL Sensation - No tremor. Withdraws from contact. Result Diagrams: 05/09/17 15:45 05/09/17 18:48 Assess/Plan/Problems-Billing Assessment: - Patient Problems (1) Hx of seizure disorder Current Visit: No Status: Chronic Priority: High Code(s): Z86.69 - PERSONAL HISTORY OF DIS OF THE NERVOUS SYS AND SENSE ORGANS SNOMED Code(s): 787070390 Comment: Phenobarbital level 26.1 on 05/09, repeat later. (2) Profoundly mentally retarded Current Visit: No Status: Chronic Priority: High Comment: - Non-verbal - Resident at [facility] Continue reduced scheduled haloperidol dose. (3) History of hypothyroidism Current Visit: No Status: Chronic Priority: Medium Code(s): Z86.39 - PERSONAL HISTORY OF ENDO, NUTRITIONAL AND METABOLIC DISEASE SNOMED Code(s): 997217883 Comment: 04/15 - TSH 2.18 Continue levothyroxine. (4) Altered mental state Current Visit: Yes Status: Acute Code(s): R41.82 - ALTERED MENTAL STATUS, UNSPECIFIED SNOMED Code(s): 421554874 Comment: ? post-ictal. Sudden onset of change in mental status. Phenobarb level, CBC, BMP pending. Straight cath for urine C&S. Started IV ampicillin . (5) Dehydration Current Visit: Yes Status: Acute Code(s): E86.0 - DEHYDRATION SNOMED Code( s): 29077540 Comment: Elevated Na+ and BUN. IV 1/4 NS with glucose. BMP 05/11. Very poor fluid and caloric intake since admission, no reason to think it will improve.
[2017-05-10] MEDS ORDERED: guaiFENesin LIQ* 100 MG/5 ML UDC PO PRN (08:15)
[2017-05-10] MEDS ORDERED: NS 0.9% 50 ML* 50 ML ONE (09:15)
[2017-05-10] MEDS: Multivitamins/Minerals TAB PO SCH (11:24)
[2017-05-10] MEDS: Polyethylene Glycol 3350* 17 GM PACKET PO SCH (11:24)
[2017-05-11] MEDS: Ampicillin ADVAN(*) 1 GM in NS 0.9% 50 ML* 50 ML IVPB SCH ×2 (04:12→14:33)
[2017-05-11] MEDS: Levothyroxine TAB* 100 MCG TAB PO SCH (06:19)
[2017-05-11] MEDS: Heparin VIAL(*) 5000 UNITS/ML VIAL (FIVE THOUSAND) SUBCUT SCH (06:21)
[2017-05-11] MEDS ORDERED: D5W 1/4 NS 1000 ML BAG* 1,000 ML IV SCH (07:36)
[2017-05-11 11:08] LABS: BUN/Creatinine Ratio 22.4 (8-20); Calcium 9.4 mg/dL (8.6-10.3); EGFR African American 150.8 (>60); EGFR Non-African American 117.3 (>60); Potassium 3.1 mmol/L (3.5-5.0)
[2017-05-11] MEDS: Haloperidol LIQ* 10 MG/5 ML UDC PO SCH (11:26)
[2017-05-11] MEDS: Omeprazole CAP* 20 MG PO SCH (11:27)
[2017-05-11] MEDS: Multivitamins/Minerals TAB PO SCH (11:28)
[2017-05-11] MEDS: PHENobarbital TAB(*) 30 MG PO SCH (11:28)
[2017-05-11] MEDS: Polyethylene Glycol 3350* 17 GM PACKET PO SCH (11:34)
[2017-05-11] MEDS ORDERED: Haloperidol INJ IV/IM* 5 MG/ML AMP IM PRN (12:10)
[2017-05-11] MEDS ORDERED: LORazepam TAB(*) 1 MG PO PRN ×2 (13:28)
--- NOTE | 2017-05-11 13:38 | PN ---
Subjective Date of Service: 05/11/17 Interval History: Patient unable to make Objective Active Medications: Acetaminophen (Tylenol Tab*) 650 mg PO Q4H PRN PRN Reason: FEVER/PAIN Last Admin: 05/02/17 20:57 Dose: 650 mg Acetaminophen (Tylenol Supp*) 650 mg [place] Q4H PRN PRN Reason: FEVER Al Hydrox/Mg Hydrox/Simethicone (Maalox Plus*) 30 ml PO TID PC PRN PRN Reason: INDIGESTION Albuterol/Ipratropium (Duoneb (Albuterol 2.5 Mg/Ipratropium 0.5 Mg)) 1 neb INH Q4H PRN PRN Reason: SOB/WHEEZING Bisacodyl (Dulcolax Supp*) 10 mg [place] Q4D PRN PRN Reason: CONSTIPATION Clonazepam (Klonopin Tab(*)) 1 mg PO BEDTIME [facility] Last Admin: 05/10/17 21:57 Dose: 1 mg Guaifenesin (Robitussin*) 5 ml PO Q6H PRN PRN Reason: COUGH Haloperidol (Haldol Liq*) 2.5 mg PO TID [facility] Last Admin: 05/11/17 11:26 Dose: 2.5 mg Haloperidol Lactate (Haldol Inj Iv/Im*) 2.5 mg IV SLOW PU Q6H PRN PRN Reason: AGITATION Last Admin: 05/05/17 18:16 Dose: 2.5 mg Haloperidol Lactate (Haldol Inj Iv/Im*) 5 mg IM Q6H PRN PRN Reason: AGITATION Last Admin: 05/11/17 12:24 Dose: 5 mg Heparin Sodium (Porcine) (Heparin Vial(*)) 5,000 units SUBCUT Q8HR [facility] Last Admin: 05/11/17 06:21 Dose: 5,000 units Heparin Sodium (Porcine) (Heparin Flush Picc/Ml/Cvc(*)) 0 ml FLUSH 0600,1800 [facility] PRN Reason: Protocol Ampicillin Sodium 1 gm/ Sodium (Chloride) 50 mls @ 200 mls/hr IVPB Q6H [facility] Last Admin: 05/11/17 04:12 Dose: 200 mls/hr Dextrose/Sodium Chloride (D5w 1/4 Ns 1000 Ml Bag*) 1,000 mls @ 75 mls/hr IV PER RATE [facility] Levothyroxine Sodium (Synthroid Tab*) 100 mcg PO DAILY@0600 [facility] Last Admin: 05/11/17 06:19 Dose: 100 mcg Lorazepam (Ativan Tab(*)) 1 mg PO Q2H PRN PRN Reason: AGITATION Lorazepam (Ativan Tab(*)) 2 mg PO Q2H PRN PRN Reason: AGITATION - SEVERE Morphine Sulfate (Morphine Inj (Syringe)*) 1 mg IV Q1H PRN PRN Reason: SHORTNESS OF BREATH Last Admin: 05/10/17 03:06 Dose: 1 mg Multivitamins/Minerals (Theragran/Minerals Tab*) 1 tab PO DAILY [facility] Last Admin: 05/11/17 11:28 Dose: 1 tab Omeprazole (Prilosec Cap*) 20 mg PO DAILY@0730 [facility] Last Admin: 05/11/17 11:27 Dose: 20 mg Ondansetron HCl (Zofran Inj*) 4 mg IV Q6H PRN PRN Reason: NAUSEA Last Admin: 05/10/17 13:16 Dose: 4 mg Pharmacy Profile Note (Scopolomine Patch Remove*) 1 note PATCH OFF Q72H [facility] Phenobarbital (Phenobarbital Tab(*)) 30 mg PO DAILY [facility] Last Admin: 05/11/17 11:28 Dose: 30 mg Phenobarbital (Phenobarbital Tab(*)) 60 mg PO BEDTIME [facility] Last Admin: 05/10/17 21:58 Dose: 60 mg Polyethylene Glycol/Electrolytes (Miralax*) 17 gm PO DAILY [facility] Last Admin: 05/11/17 11:34 Dose: 17 gm Scopolamine (Transderm-Scop 1.5 Mg Patch*) 1 patch TRANSDERM Q72H [facility] Last Admin: 05/08/17 15:28 Dose: 1 patch Vital Signs 05/10/17 05/10/17 05/10/17 14:57 20:00 21:57 Temperature Pulse Rate Respiratory 22 24 24 Rate Blood Pressure (mmHg) O2 Sat by Pulse Oximetry 05/10/17 05/10/17 05/10/17 21:58 23:29 23:57 Temperature 97.5 F Pulse Rate 99 Respiratory 24 16 20 Rate Blood Pressure 112/57 (mmHg) O2 Sat by Pulse Oximetry 05/10/17 05/11/17 05/11/17 23:58 03:03 11:28 Temperature 98.2 F Pulse Rate 99 Respiratory 20 16 16 Rate Blood Pressure 110/77 (mmHg) O2 Sat by Pulse 82 Oximetry Oxygen Devices in Use Now: None Appearance: In a chair, moaning, thrashing, and rocking. Neurological: - - Non-verbal. Moves UE's. Moaning and thrashing Result Diagrams: 05/09/17 15:45 05/11/17 10:40 Microbiology and Other Data: Microbiology 05/09/17 12:13 Urine Culture - Final Urine No Growth (<1,000 CFU/mL) Assess/Plan/Problems-Billing Assessment: - Patient Problems (1) Hx of seizure disorder Current Visit: No Status: Chronic Priority: High Code(s): Z86.69 - PERSONAL HISTORY OF DIS OF THE NERVOUS SYS AND SENSE ORGANS SNOMED Code(s): 487462372 Comment: Phenobarbital level 26.1 on 05/09, repeat later. (2) Profoundly mentally retarded Current Visit: No Status: Chronic Priority: High Comment: - Non-verbal - Resident at [facility] Continue reduced scheduled haloperidol dose. One-time IM haloperidol 5 mg dose on 05/11 little effect, will try po lorazepam. (3) History of hypothyroidism Current Visit: No Status: Chronic Priority: Medium Code(s): Z86.39 - PERSONAL HISTORY OF ENDO, NUTRITIONAL AND METABOLIC DISEASE SNOMED Code(s): 462008035 Comment: 04/15 - TSH 2.18 Continue levothyroxine. (4) Altered mental state Current Visit: Yes Status: Acute Code(s): R41.82 - ALTERED MENTAL STATUS, UNSPECIFIED SNOMED Code(s): 658631882 Comment: ? post-ictal. Sudden onset of change in mental status. Phenobarb level, CBC, BMP pending. Straight cath for urine C&S. Started IV ampicillin . (5) Dehydration Current Visit: Yes Status: Acute Code(s): E86.0 - DEHYDRATION SNOMED Code( s): 56734327 Comment: Elevated Na+ and BUN. IV 1/4 NS with glucose. BMP 05/11. Very poor fluid and caloric intake since admission, no reason to think it will improve. IV failed 05/11, Radiology PICC requested, will need anesthesia assistance ? can be done 05/11.
[2017-05-11] MEDS ORDERED: Scopolomine PATCH Remove* 1 NOTE MISC PATCH OFF SCH (14:00)
[2017-05-11] MEDS ORDERED: D5W 1/2 NS KCl 20 Meq 1000 ML* 1,000 ML IV SCH (14:00)
[2017-05-11] MEDS ORDERED: Buffered Lidocaine 0.9% SYRIN* 5 ML/SYR SYRINGE INTRADERM ONE (14:55)
[2017-05-12 00:53] VITALS: BP 99/69
[2017-05-12] MEDS ORDERED: Famotidine IV* 10 MG/ML 2 ML (20 mg) IV ONE (06:00)
== END 2017-05-11 15:59 | disposition short-term general hospital (02) | DRG 178 ==
LOC: MED 15:58 → ICU 05-09 21:33 → MED 05-10 10:47
PROVIDERS: ADMIT Hospitalist; ATTEND Internal Medicine
DX: J69.0 Pneumonitis due to inhalation of food and vomit (principal); F73 Profound intellectual disabilities; E46 Unspecified protein-calorie malnutrition; R06.81 Apnea, not elsewhere classified; R13.12 Dysphagia, oropharyngeal phase; E86.0 Dehydration; Z68.1 Body mass index [BMI] 19.9 or less, adult; E03.9 Hypothyroidism, unspecified; D64.9 Anemia, unspecified; F31.9 Bipolar disorder, unspecified; H54.8 Legal blindness, as defined in USA; G40.909 Epilepsy, unspecified, not intractable, without status epilepticus; R41.82 Altered mental status, unspecified; R06.82 Tachypnea, not elsewhere classified; Z88.6 Allergy status to analgesic agent; Z88.1 Allergy status to other antibiotic agents; Z88.8 Allergy status to other drugs, medicaments and biological substances
CPT/HCPCS: 36415; 36600; 71010; 80048; 80184; 82803; 85025; 87086; 93005; 94760; A9270-GY; J0696; J1630; J1644; J2270; J2405

== ENCOUNTER 2017-05-11 15:27 | Inpatient (IN) | payer MEDICARE, MEDICAID ==
--- NOTE | 2017-05-11 16:40 | CONSULT ---
Consult Consult: Capacity Consult S: Psychiatry is asked to evaluate the medical decision making capacity of this 71 y.o. single, white visually impaired male with a history of profound intellectual disability. The primary team is attempting to refer him to palliative end-of-life care for multiple medical comorbidities but he lacks a documented decision maker. As per staff he has been quite agitated today and has required prn haloperidol to reduce combative behaviors. On exam the patient is an aging white male hunched over in an easy chair. He is sedated and non-verbal. Patient does not utilize language at baseline per staff. He is unable to respond to questions at this time. O: aging white male, seated, sedated and minimally arousable; agitated prior to medication A/P: Capacity: this patient has a history of profound intellectual delay and requires total care for ADLs. He clearly lacks medical decision making capacity on the basis of cognitive/intellectual impairment, which is chronic.
[2017-05-11] MEDS ORDERED: Magnesium Hydroxide LIQ* 30 ML UDC PO PRN (16:44)
--- NOTE | 2017-05-11 16:55 | PN ---
Progress Note - Progress Note Date of Service: 05/11/17 Note: Patient's status has deteriorated over the course of the weekend, with rising sodium and obtundation. I spoke to Dr. Padron about completing the MOLST checklist. He spoke with the patient's sister, Taniya Todd, , but she was unwilling to make any decisions as a surrogate without consulting her other siblings, which she will do tonight. I will call her tomorrow to follow up and answer questions. This patient would not benefit from a different residential setting, and if [facility] is not able to return him to his original residence, I would advocate for him to come to [facility] residence , especially since his sister refuses SNF placement.
[2017-05-11] MEDS ORDERED: D5W 1/2 NS KCl 20 Meq 1000 ML* 1,000 ML IV SCH (17:00)
[2017-05-11] MEDS: Scopolamine 1.5 mg* PATCH TRANSDERM SCH (17:17)
[2017-05-11] MEDS: Ampicillin ADVAN(*) 1 GM in NS 0.9% 50 ML* 50 ML IVPB SCH (17:19)
[2017-05-11] MEDS: clonazePAM TAB(*) 1 MG PO SCH (20:05)
[2017-05-11] MEDS: PHENobarbital TAB(*) 30 MG PO SCH (20:05)
[2017-05-11] MEDS: Haloperidol TAB* 5 MG PO SCH (20:06)
[2017-05-11] MEDS ORDERED: Haloperidol INJ IV/IM* 5 MG/ML AMP IM ONE (22:32)
[2017-05-11] MEDS ORDERED: Haloperidol INJ IV/IM* 5 MG/ML AMP ONE (22:37)
[2017-05-12] MEDS: EMOLLIENT TOPICAL SCH ×3 (02:47→22:56)
[2017-05-12] MEDS: Ampicillin ADVAN(*) 1 GM in NS 0.9% 50 ML* 50 ML IVPB SCH ×3 (02:48→18:07)
[2017-05-12] MEDS: Levothyroxine TAB* 100 MCG TAB PO SCH (05:56)
[2017-05-12] MEDS: Haloperidol TAB* 5 MG PO SCH ×3 (08:21→22:24)
[2017-05-12] MEDS: PHENobarbital TAB(*) 30 MG PO SCH ×2 (08:21→22:24)
[2017-05-12] MEDS: Fluticasone NASAL SPRAY 50MCG* 16 gm SPRAY BTL BOTH NARES SCH (08:22)
[2017-05-12] MEDS ORDERED: LORazepam TAB(*) 1 MG PO ONE (09:00)
[2017-05-12] MEDS: LORazepam INJ* 2 MG/ML 1 ML VIAL IV PUSH PRN (17:04)
[2017-05-12] MEDS: clonazePAM TAB(*) 1 MG PO SCH (22:25)
--- NOTE | 2017-05-12 22:56 | PN ---
Subjective Date of Service: 05/12/17 Interval History: Pt agitated, got po ativan in anticipation of PICC placement. However social work job titles contacted sister and they made clear their desire to pursue comfort measures only (to include no suctioning if discomfort caused) and not consented for anesthesia in OR for procedure. PICC canceled. MOLST form changes submitted. pIV later placed. Objective Active Medications: Bacitracin (Bacitracin Ointment*) 1 applic TOPICAL BID PRN PRN Reason: WOUND CARE Clonazepam (Klonopin Tab(*)) 1 mg PO BEDTIME [facility] Last Admin: 05/12/17 22:25 Dose: 1 mg Fluticasone Propionate (Flonase Nasal [place] 50mcg*) 1 spray BOTH NARES DAILY [facility] Last Admin: 05/12/17 08:22 Dose: 1 spray Haloperidol (Haldol Tab*) 5 mg PO TID [facility] Last Admin: 05/12/17 22:24 Dose: 5 mg Ampicillin Sodium 1 gm/ Sodium (Chloride) 50 mls @ 200 mls/hr IVPB Q8H [facility] Last Admin: 05/12/17 18:07 Dose: 200 mls/hr Potassium Chloride/Dextrose (D5w 1/2 Ns Kcl 20 Meq 1000 Ml*) 1,000 mls @ 100 mls/hr IV PER RATE [facility] Last Admin: 05/12/17 15:58 Dose: 100 mls/hr Levothyroxine Sodium (Synthroid Tab*) 100 mcg PO 0600 [facility] Last Admin: 05/12/17 05:56 Dose: 100 mcg Lorazepam (Ativan Inj*) 0.5 mg IV PUSH Q6H PRN PRN Reason: AGITATION Last Admin: 05/12/17 17:04 Dose: 0.5 mg Magnesium Hydroxide (Milk Of Magnesia Liq*) 30 ml PO Q3D PRN PRN Reason: CONSTIPATION Non-Formulary Medication (Emollient [Cerave]) 1 cre TOPICAL BID [facility] Last Admin: 05/12/17 08:23 Dose: Not Given Pharmacy Profile Note (Scopolomine Patch Remove*) 1 note PATCH OFF Q72H [facility] Phenobarbital (Phenobarbital Tab(*)) 30 mg PO DAILY [facility] Last Admin: 05/12/17 08:21 Dose: 30 mg Phenobarbital (Phenobarbital Tab(*)) 60 mg PO BEDTIME [facility] Last Admin: 05/12/17 22:24 Dose: 60 mg Scopolamine (Transderm-Scop 1.5 Mg Patch*) 1 patch TRANSDERM Q72H [facility] Last Admin: 05/11/17 17:17 Dose: 1 patch Vital Signs 05/12/17 05/12/17 05/12/17 05:42 08:00 08:21 Temperature 98.2 F Pulse Rate 79 Respiratory 20 20 16 Rate Blood Pressure 92/52 (mmHg) O2 Sat by Pulse 100 Oximetry 05/12/17 05/12/17 05/12/17 08:22 10:21 17:04 Temperature Pulse Rate Respiratory 16 18 32 Rate Blood Pressure (mmHg) O2 Sat by Pulse Oximetry 05/12/17 05/12/17 05/12/17 18:04 22:24 22:25 Temperature Pulse Rate Respiratory 24 22 20 Rate Blood Pressure (mmHg) O2 Sat by Pulse Oximetry Appearance: chronically ill appearing. Eyes shut. Moaning and agitated with any touch but otherwise no comprehensible words. Eyes: - - eyes tightly shut with resistance/agitation to opening Ears/Nose/Mouth/Throat: NL Teeth, Lips, Gums Neck: NL Appearance and Movements; NL JVP Respiratory: Symmetrical Chest Expansion and Respiratory Effort, Clear to Auscultation Cardiovascular: NL Sounds; No Murmurs; No JVD Abdominal: NL Sounds; No Tenderness; No Distention, No Hepatosplenomegaly Extremities: No Edema, No Clubbing, Cyanosis Skin: No Rash or Ulcers Neurological: - - severe mental developmental delay Assess/Plan/Problems-Billing Assessment: 71 year old male H severe developmental delay in usp with likely aspiration pneumonia(04/01 admission). Was awaiting placement (swing status) but transferred back to acute 05/11 for dehydration, hypernatremia to 158 (improved to 145). Sister desiring comfort care measures only. - Patient Problems (1) Swallowing difficulty Current Visit: No Status: Acute Code(s): R13.10 - DYSPHAGIA, UNSPECIFIED SNOMED Code(s): 02201861 Comment: The patient has chronic dysphagia and confirmed with speech therapy this hospitalization. Continue to monitor for tolerance of pureed foods/ thickened liquids. (2) Profoundly mentally retarded Current Visit: No Status: Chronic Priority: High Comment: - Non-verbal - Resident at [facility] s/p haldol 5 mg dose on 05/11 little effect, now on lorazepam 0.5mg q6 IV prn for agitation (3) Swallowing disorder Current Visit: No Status: Chronic Code(s): R13.10 - DYSPHAGIA, UNSPECIFIED SNOMED Code(s): 68460238 Comment: - Known chronic dysphagia - pureed solids and pudding thick liquids - will not pursue PICC for potential TPN given sister desire for comfort care only (4) Need for comfort care Current Visit: Yes Status: Acute Code(s): TST6616 - SNOMED Code(s): 044643016 Comment: Sister desiring comfort care only status but needs to go through administrative review via [employer]. Patient w/o capacity (5) Hypernatremia Current Visit: Yes Status: Acute Code(s): E87.0 - HYPEROSMOLALITY AND HYPERNATREMIA SNOMED Code(s): 19956466 Comment: Na 158 on 05/09 -> 145 05/11. pIV has again been established. Was restarted on D5 1/ NS 100cc/hr this afternoon but stop for now and BMP in AM. (6) Altered mental state Current Visit: No Status: Acute Code(s): R41.82 - ALTERED MENTAL STATUS, UNSPECIFIED SNOMED Code(s): 174296490 Comment: 2/2 acute hypernatremia. Stop ampicillin (UA and UCx not consistent with UTI) Status and Disposition: medicine inpatient, likely to hospice in coming days. Attending: Scot Arias
[2017-05-13] MEDS: LORazepam INJ* 2 MG/ML 1 ML VIAL IV PUSH PRN ×3 (02:20→18:52)
[2017-05-13] MEDS: Levothyroxine TAB* 100 MCG TAB PO SCH (06:03)
[2017-05-13] MEDS: Fluticasone NASAL SPRAY 50MCG* 16 gm SPRAY BTL BOTH NARES SCH (08:43)
[2017-05-13] MEDS: Haloperidol TAB* 5 MG PO SCH (08:46)
[2017-05-13] MEDS: PHENobarbital TAB(*) 30 MG PO SCH ×2 (08:47→22:01)
[2017-05-13] MEDS: EMOLLIENT TOPICAL SCH ×2 (10:06→22:00)
[2017-05-13 10:51] LABS: EGFR African American 381.2 (>60); EGFR Non-African American 296.4 (>60)
[2017-05-13 11:22] LABS: Calcium 6.3 mg/dL (8.6-10.3); Potassium 2.7 mmol/L (3.5-5.0)
[2017-05-13] MEDS ORDERED: Magnesium Sulfate 1 GM IV* 1 GM/100 ML BAG IV ONE (11:27)
[2017-05-13] MEDS ORDERED: Potassium Chloride LIQUID* 20 MEQ PACKET PO SCH (12:00)
[2017-05-13] MEDS: KCL 10 MEQ/50 ML IVPREMIX* 10 MEQ/50 ML BAG IV SCH ×5 (16:17→23:23)
[2017-05-13] MEDS ORDERED: KCL 10 MEQ/50 ML IVPREMIX* 20 MEQ/100 ML BAG ONE (18:47)
[2017-05-13] MEDS: Haloperidol INJ IV/IM* 5 MG/ML AMP IM PRN (20:39)
--- NOTE | 2017-05-13 21:40 | PN ---
Subjective Date of Service: 05/13/17 Interval History: Intermittently losing and regaining pIV. Agitated. Na stable 145 but hypokalemic to 2.7. pIV to foot. Aspirating meds with applesauce so made npo Objective Active Medications: Bacitracin (Bacitracin Ointment*) 1 applic TOPICAL BID PRN PRN Reason: WOUND CARE Fluticasone Propionate (Flonase Nasal [place] 50mcg*) 1 spray BOTH NARES DAILY [facility] Last Admin: 05/13/17 08:43 Dose: 1 spray Haloperidol Lactate (Haldol Inj Iv/Im*) 1 mg IM Q6H PRN PRN Reason: AGITATION Last Admin: 05/13/17 20:39 Dose: 1 mg Potassium Chloride (Potassium Chloride 10 Meq/50 Ml Ivpremix*) 10 meq in 50 mls @ 50 mls/hr IV Q1H [facility] Stop: 05/14/17 00:59 Lorazepam (Ativan Inj*) 0.5 mg IV PUSH Q6H PRN PRN Reason: AGITATION Last Admin: 05/13/17 18:52 Dose: 0.5 mg Non-Formulary Medication (Emollient [Cerave]) 1 cre TOPICAL BID [facility] Last Admin: 05/13/17 10:06 Dose: Not Given Pharmacy Profile Note (Scopolomine Patch Remove*) 1 note PATCH OFF Q72H [facility] Phenobarbital (Phenobarbital Tab(*)) 30 mg PO DAILY [facility] Last Admin: 05/13/17 08:47 Dose: 30 mg Phenobarbital (Phenobarbital Tab(*)) 60 mg PO BEDTIME [facility] Last Admin: 05/12/17 22:24 Dose: 60 mg Scopolamine (Transderm-Scop 1.5 Mg Patch*) 1 patch TRANSDERM Q72H [facility] Last Admin: 05/11/17 17:17 Dose: 1 patch Vital Signs 05/12/17 05/12/17 05/13/17 22:24 22:25 00:24 Pulse Rate Respiratory 22 20 24 Rate Blood Pressure (mmHg) O2 Sat by Pulse Oximetry 05/13/17 05/13/17 05/13/17 00:25 02:20 03:20 Pulse Rate Respiratory 24 26 18 Rate Blood Pressure (mmHg) O2 Sat by Pulse Oximetry 05/13/17 05/13/17 05/13/17 08:00 08:47 10:28 Pulse Rate 91 Respiratory 20 20 Rate Blood Pressure 119/61 (mmHg) O2 Sat by Pulse 100 Oximetry 05/13/17 05/13/17 05/13/17 10:47 12:31 13:31 Pulse Rate Respiratory 20 32 20 Rate Blood Pressure (mmHg) O2 Sat by Pulse Oximetry 05/13/17 05/13/17 05/13/17 15:12 18:52 19:52 Pulse Rate 79 Respiratory 22 20 22 Rate Blood Pressure 109/62 (mmHg) O2 Sat by Pulse 97 Oximetry 05/13/17 20:00 Pulse Rate Respiratory 20 Rate Blood Pressure (mmHg) O2 Sat by Pulse Oximetry Appearance: chronically ill appearing, cachectic Eyes: No Scleral Icterus, PERRLA Ears/Nose/Mouth/Throat: NL Teeth, Lips, Gums Respiratory: Symmetrical Chest Expansion and Respiratory Effort, Clear to Auscultation Cardiovascular: NL Sounds; No Murmurs; No JVD, RRR Abdominal: NL Sounds; No Tenderness; No Distention, No Hepatosplenomegaly Skin: No Rash or Ulcers Neurological: - - severe developmental delay, asleep Result Diagrams: 05/13/17 10:10 Assess/Plan/Problems-Billing Assessment: 71 year old male PMH severe developmental delay in longterm with likely aspiration pneumonia(04/01 admission). Was awaiting placement (swing status) but transferred back to acute 05/11 for dehydration, hypernatremia to 158 (improved to 145). Sister desiring comfort care measures only. Not safe for po intake. - Patient Problems (1) Swallowing difficulty Current Visit: No Status: Acute Code(s): R13.10 - DYSPHAGIA, UNSPECIFIED SNOMED Code(s): 16553530 Comment: made npo as still evidence of aspiration. (2) Profoundly mentally retarded Current Visit: No Status: Chronic Priority: High Comment: - Non-verbal - Resident at [facility] - haldol 1 mg prn q6 IV for agitation - lorazepam 0.5mg q6 IV prn for agitation (3) Swallowing disorder Current Visit: No Status: Chronic Code(s): R13.10 - DYSPHAGIA, UNSPECIFIED SNOMED Code(s): 88968124 Comment: - Known chronic dysphagia - made full npo today - will not pursue PICC for potential TPN given sister desire for comfort care only (4) Need for comfort care Current Visit: Yes Status: Acute Code(s): JMY4323 - SNOMED Code(s): 911007168 Comment: Sister desiring comfort care only status but needs to go through administrative review via [employer]. Patient w/o capacity (5) Hypernatremia Current Visit: Yes Status: Acute Code(s): E87.0 - HYPEROSMOLALITY AND HYPERNATREMIA SNOMED Code(s): 47408727 Comment: resolved, 145 (6) Altered mental state Current Visit: No Status: Acute Code(s): R41.82 - ALTERED MENTAL STATUS, UNSPECIFIED SNOMED Code(s): 675850849 Comment: 2/2 acute hypernatremia. Stop ampicillin (UA and UCx not consistent with UTI) (7) Protein calorie malnutrition Current Visit: Yes Status: Acute Code(s): E46 - UNSPECIFIED PROTEIN-CALORIE MALNUTRITION SNOMED Code(s): 776679652 Comment: BMI 18.3, very poor po intake 2/2 aspiration events/AMS. no edema. decreased muscle mass. per goals of care no PICC placed for parental nutrition Status and Disposition: medicine inpatient, likely to hospice in coming days. Attending: Scot Arias
[2017-05-14] MEDS: KCL 10 MEQ/50 ML IVPREMIX* 10 MEQ/50 ML BAG IV SCH (00:38)
[2017-05-14] MEDS: LORazepam INJ* 2 MG/ML 1 ML VIAL IV PUSH PRN ×2 (03:51→11:45)
[2017-05-14] MEDS: Haloperidol INJ IV/IM* 5 MG/ML AMP IM PRN (06:32)
[2017-05-14] MEDS: EMOLLIENT TOPICAL SCH ×2 (08:07→23:31)
[2017-05-14 09:07] LABS: Anion Gap 12 mmol/L (2-11); BUN/Creatinine Ratio 12.5 (8-20); Blood Urea Nitrogen 7 mg/dL (6-24); CO2 Carbon Dioxide 20 mmol/L (22-32); Chloride 107 mmol/L (101-111); EGFR African American 185.5 (>60); EGFR Non-African American 144.2 (>60); Glucose 70 mg/dL (70-100); Sodium 139 mmol/L (133-145)
[2017-05-14] MEDS: PHENobarbital SODIUM(*) 65 MG/ML VIAL IV SCH ×2 (09:43→23:33)
[2017-05-14] MEDS: Fluticasone NASAL SPRAY 50MCG* 16 gm SPRAY BTL BOTH NARES SCH (09:44)
[2017-05-14] MEDS: Morphine INJ* 4 MG/ML 1 ML CARPUJECT IV PRN (12:07)
[2017-05-14] MEDS: Scopolamine 1.5 mg* PATCH TRANSDERM SCH (16:49)
[2017-05-14] MEDS: Scopolomine PATCH Remove* 1 NOTE MISC PATCH OFF SCH (16:54)
--- NOTE | 2017-05-14 17:21 | PN ---
Subjective Date of Service: 05/14/17 Interval History: MOOLST form received back, pt made full comfort care. foot pIV began to get puffy. midline placed to administer as needed antiseizure medications and comfort care medications. Objective Active Medications: Bacitracin (Bacitracin Ointment*) 1 applic TOPICAL BID PRN PRN Reason: WOUND CARE Fluticasone Propionate (Flonase Nasal [place] 50mcg*) 1 spray BOTH NARES DAILY [facility] Last Admin: 05/14/17 09:44 Dose: 1 spray Haloperidol Lactate (Haldol Inj Iv/Im*) 1 mg IM Q6H PRN PRN Reason: AGITATION Last Admin: 05/14/17 06:32 Dose: 1 mg Heparin Sodium (Porcine) (Heparin Flush Picc/Ml/Cvc(*)) 1 - 3 ml FLUSH 0600, 1800 [facility] PRN Reason: Protocol Last Admin: 05/14/17 16:51 Dose: 1 ml Lorazepam (Ativan Inj*) 0.5 mg IV PUSH Q6H PRN PRN Reason: AGITATION Last Admin: 05/14/17 11:45 Dose: 0.5 mg Morphine Sulfate (Morphine Inj (Syringe)*) 3 mg IV Q4H PRN PRN Reason: PAIN Last Admin: 05/14/17 12:07 Dose: 3 mg Non-Formulary Medication (Emollient [Cerave]) 1 cre TOPICAL BID [facility] Last Admin: 05/14/17 08:07 Dose: Not Given Pharmacy Profile Note (Scopolomine Patch Remove*) 1 note PATCH OFF Q72H [facility] Last Admin: 05/14/17 16:54 Dose: 1 patch Phenobarbital (Phenobarbital Iv(*)) 32.5 mg IV DAILY [facility] Last Admin: 05/14/17 09:43 Dose: 32.5 mg Phenobarbital (Phenobarbital Iv(*)) 65 mg IV BEDTIME [facility] Scopolamine (Transderm-Scop 1.5 Mg Patch*) 1 patch TRANSDERM Q72H [facility] Last Admin: 05/14/17 16:49 Dose: 1 patch Vital Signs 05/13/17 05/13/17 05/13/17 18:52 19:52 19:59 Temperature Pulse Rate 103 Respiratory 20 22 Rate Blood Pressure 150/50 (mmHg) O2 Sat by Pulse Oximetry 05/13/17 05/13/17 05/13/17 20:00 20:52 21:50 Temperature 97.4 F Pulse Rate 96 Respiratory 20 22 Rate Blood Pressure 132/54 (mmHg) O2 Sat by Pulse Oximetry 05/13/17 05/13/17 05/13/17 22:06 22:35 23:15 Temperature 97.0 F Pulse Rate 99 94 108 Respiratory 16 Rate Blood Pressure 146/78 145/74 124/89 (mmHg) O2 Sat by Pulse 100 96 Oximetry 05/14/17 05/14/17 05/14/17 01:32 01:40 03:51 Temperature 97.3 F Pulse Rate 114 87 Respiratory 17 20 Rate Blood Pressure 119/69 (mmHg) O2 Sat by Pulse Oximetry 05/14/17 05/14/17 05/14/17 04:04 04:51 06:03 Temperature 98.3 F Pulse Rate 77 89 Respiratory 20 20 24 Rate Blood Pressure 112/71 (mmHg) O2 Sat by Pulse 93 96 Oximetry 05/14/17 05/14/17 05/14/17 07:58 08:00 08:04 Temperature 98.8 F Pulse Rate 82 80 Respiratory 24 24 24 Rate Blood Pressure 98/55 98/55 (mmHg) O2 Sat by Pulse 99 100 Oximetry 05/14/17 05/14/17 05/14/17 09:43 10:43 11:45 Temperature Pulse Rate Respiratory 28 26 28 Rate Blood Pressure (mmHg) O2 Sat by Pulse Oximetry 05/14/17 05/14/17 05/14/17 12:07 12:45 13:07 Temperature Pulse Rate Respiratory 30 19 20 Rate Blood Pressure (mmHg) O2 Sat by Pulse Oximetry 05/14/17 05/14/17 13:49 15:57 Temperature Pulse Rate 79 Respiratory 28 Rate Blood Pressure 83/50 (mmHg) O2 Sat by Pulse 96 Oximetry Appearance: severely cachectic, moaning and agitated if interact with Ears/Nose/Mouth/Throat: - - not observed 2/2 agitation Neck: NL Appearance and Movements; NL JVP, Trachea Midline Respiratory: Symmetrical Chest Expansion and Respiratory Effort, Clear to Auscultation Cardiovascular: NL Sounds; No Murmurs; No JVD, RRR Abdominal: NL Sounds; No Tenderness; No Distention Extremities: No Edema Skin: No Rash or Ulcers Neurological: - - profound mental developmental delay, occasional moaning. Eyes shut, CRISTOBAL Result Diagrams: 05/14/17 08:06 Assess/Plan/Problems-Billing Assessment: 71 year old male PMH severe developmental delay in [facility] with likely aspiration pneumonia(04/01 admission). Was awaiting placement (swing status) but transferred back to acute 05/11 for dehydration, hypernatremia to 158 (improved to 145). Sister desiring comfort care measures only. Not safe for po intake. Now complete comfort care (w/ midline for IV meds) - Patient Problems (1) Swallowing difficulty Current Visit: No Status: Acute Code(s): R13.10 - DYSPHAGIA, UNSPECIFIED SNOMED Code(s): 06200373 Comment: npo as recent evidence of aspiration. (2) Profoundly mentally retarded Current Visit: No Status: Chronic Priority: High Comment: - Non-verbal - Resident at [facility] - haldol 1 mg prn q6 IV for agitation - lorazepam 0.5mg q6 IV prn for agitation - morphine prn (3) Swallowing disorder Current Visit: No Status: Chronic Code(s): R13.10 - DYSPHAGIA, UNSPECIFIED SNOMED Code(s): 14650973 Comment: - Known chronic dysphagia - full npo (4) Need for comfort care Current Visit: Yes Status: Acute Code(s): HGB4243 - SNOMED Code(s): 353691600 Comment: now complete comfort care (5) Hypernatremia Current Visit: Yes Status: Acute Code(s): E87.0 - HYPEROSMOLALITY AND HYPERNATREMIA SNOMED Code(s): 51271461 Comment: resolved (6) Altered mental state Current Visit: No Status: Acute Code(s): R41.82 - ALTERED MENTAL STATUS, UNSPECIFIED SNOMED Code(s): 025350572 Comment: 2/2 acute hypernatremia. Stop ampicillin (UA and UCx not consistent with UTI) (7) Protein calorie malnutrition Current Visit: Yes Status: Acute Code(s): E46 - UNSPECIFIED PROTEIN-CALORIE MALNUTRITION SNOMED Code(s): 414081477 Comment: BMI 18.3, very poor po intake 2/2 aspiration events/AMS. no edema. decreased muscle mass. per goals of care no PICC placed for parental nutrition (8) Hx of seizure disorder Current Visit: No Status: Chronic Priority: High Code(s): Z86.69 - PERSONAL HISTORY OF DIS OF THE NERVOUS SYS AND SENSE ORGANS SNOMED Code(s): 040308704 Comment: continue IV Phenobarbital Status and Disposition: medicine inpatient, comfort care likely to remain inpatient Attending: Scot Arias
[2017-05-15] MEDS: Morphine INJ* 4 MG/ML 1 ML CARPUJECT IV PRN ×3 (02:13→15:39)
[2017-05-15 07:45] VITALS: BP 106/85
[2017-05-15] MEDS: Fluticasone NASAL SPRAY 50MCG* 16 gm SPRAY BTL BOTH NARES SCH (08:03)
[2017-05-15] MEDS: EMOLLIENT TOPICAL SCH ×2 (08:04→21:51)
[2017-05-15] MEDS: PHENobarbital SODIUM(*) 65 MG/ML VIAL IV SCH ×2 (08:04→21:49)
[2017-05-15] MEDS ORDERED: LORazepam INJ* 2 MG/ML 1 ML VIAL IV PUSH ONE (08:05)
--- NOTE | 2017-05-15 12:06 | PN ---
Subjective Date of Service: 05/15/17 Interval History: seems more comfortable. Dancing to music Objective Active Medications: Bacitracin (Bacitracin Ointment*) 1 applic TOPICAL BID PRN PRN Reason: WOUND CARE Fluticasone Propionate (Flonase Nasal [place] 50mcg*) 1 spray BOTH NARES DAILY [facility] Last Admin: 05/15/17 08:03 Dose: 1 spray Haloperidol Lactate (Haldol Inj Iv/Im*) 1 mg IM Q6H PRN PRN Reason: AGITATION Last Admin: 05/14/17 06:32 Dose: 1 mg Heparin Sodium (Porcine) (Heparin Flush Picc/Ml/Cvc(*)) 1 - 3 ml FLUSH 0600, 1800 [facility] PRN Reason: Protocol Last Admin: 05/15/17 07:23 Dose: 1 ml Lorazepam (Ativan Inj*) 0.5 mg IV PUSH Q6H PRN PRN Reason: AGITATION Last Admin: 05/14/17 11:45 Dose: 0.5 mg Morphine Sulfate (Morphine Inj (Syringe)*) 3 mg IV Q4H PRN PRN Reason: PAIN Last Admin: 05/15/17 02:13 Dose: 3 mg Non-Formulary Medication (Emollient [Cerave]) 1 cre TOPICAL BID [facility] Last Admin: 05/15/17 08:04 Dose: Not Given Pharmacy Profile Note (Scopolomine Patch Remove*) 1 note PATCH OFF Q72H [facility] Last Admin: 05/14/17 16:54 Dose: 1 patch Phenobarbital (Phenobarbital Iv(*)) 32.5 mg IV DAILY [facility] Last Admin: 05/15/17 08:04 Dose: 32.5 mg Phenobarbital (Phenobarbital Iv(*)) 65 mg IV BEDTIME [facility] Last Admin: 05/14/17 23:33 Dose: 65 mg Scopolamine (Transderm-Scop 1.5 Mg Patch*) 1 patch TRANSDERM Q72H [facility] Last Admin: 05/14/17 16:49 Dose: 1 patch Vital Signs 05/14/17 05/14/17 05/14/17 12:07 12:45 13:07 Pulse Rate Respiratory 30 19 20 Rate Blood Pressure (mmHg) O2 Sat by Pulse Oximetry 05/14/17 05/14/17 05/14/17 13:49 15:57 19:30 Pulse Rate 79 Respiratory 28 16 Rate Blood Pressure 83/50 (mmHg) O2 Sat by Pulse 96 Oximetry 05/14/17 05/15/17 05/15/17 23:33 00:33 02:13 Pulse Rate Respiratory 18 18 20 Rate Blood Pressure (mmHg) O2 Sat by Pulse Oximetry 05/15/17 05/15/17 05/15/17 03:13 07:35 07:36 Pulse Rate 76 Respiratory 16 18 18 Rate Blood Pressure 106/85 (mmHg) O2 Sat by Pulse 100 Oximetry 05/15/17 05/15/17 05/15/17 08:04 09:04 10:00 Pulse Rate Respiratory 16 16 18 Rate Blood Pressure (mmHg) O2 Sat by Pulse Oximetry 05/15/17 11:56 Pulse Rate Respiratory 19 Rate Blood Pressure (mmHg) O2 Sat by Pulse Oximetry Appearance: severe cachexia Eyes: No Scleral Icterus, PERRLA Ears/Nose/Mouth/Throat: - - eyes closed shut, Neck: NL Appearance and Movements; NL JVP, Trachea Midline Respiratory: Symmetrical Chest Expansion and Respiratory Effort, Clear to Auscultation Cardiovascular: NL Sounds; No Murmurs; No JVD, RRR Abdominal: NL Sounds; No Tenderness; No Distention, No Hepatosplenomegaly Extremities: No Edema Skin: No Rash or Ulcers Neurological: Alert and Oriented x 3 Result Diagrams: 05/14/17 08:06 Assess/Plan/Problems-Billing Assessment: 71 year old male PMH severe developmental delay , seizure disorder, from long term with likely aspiration pneumonia(04/01 admission). Was awaiting placement ( swing status) but transferred back to acute 05/11 for dehydration, hypernatremia to 158 (resolved). Sister desiring comfort care measures only. Not safe for po intake. Now complete comfort care (w/ midline for IV meds) - Patient Problems (1) Swallowing difficulty Current Visit: No Status: Acute Code(s): R13.10 - DYSPHAGIA, UNSPECIFIED SNOMED Code(s): 17554700 Comment: npo as recent evidence of aspiration. (2) Profoundly mentally retarded Current Visit: No Status: Chronic Priority: High Comment: - Non-verbal - Resident at [facility] DD - haldol 1 mg prn q6 IV for agitation - lorazepam 0.5mg q6 IV prn for agitation - morphine prn (3) Swallowing disorder Current Visit: No Status: Chronic Code(s): R13.10 - DYSPHAGIA, UNSPECIFIED SNOMED Code(s): 87040159 Comment: - Known chronic dysphagia - full npo (4) Need for comfort care Current Visit: Yes Status: Acute Code(s): PIM8012 - SNOMED Code(s): 454227984 Comment: now complete comfort care (5) Hypernatremia Current Visit: Yes Status: Acute Code(s): E87.0 - HYPEROSMOLALITY AND HYPERNATREMIA SNOMED Code(s): 10694446 Comment: resolved (6) Altered mental state Current Visit: No Status: Acute Code(s): R41.82 - ALTERED MENTAL STATUS, UNSPECIFIED SNOMED Code(s): 593441796 Comment: 2/2 acute hypernatremia and baseline cognitive deficits. S/p ampicillin (UA and UCx not consistent with UTI) (7) Protein calorie malnutrition Current Visit: Yes Status: Acute Code(s): E46 - UNSPECIFIED PROTEIN-CALORIE MALNUTRITION SNOMED Code(s): 285002750 Comment: BMI 18.3 -> 17.5, very poor po intake 2/2 aspiration events/AMS. no edema. decreased muscle mass. Recorded weights somewhat inconsistent 40.8 kg on 04/01 but 50.6 kg on 04/02 now 39.3. per goals of care no PICC placed for parental nutrition. Energy intake much less than 50% of needs for more than 5 days. Severe. (8) Hx of seizure disorder Current Visit: No Status: Chronic Priority: High Code(s): Z86.69 - PERSONAL HISTORY OF DIS OF THE NERVOUS SYS AND SENSE ORGANS SNOMED Code(s): 149501696 Comment: continue IV Phenobarbital Status and Disposition: medicine inpatient, comfort care likely to remain inpatient as [facility] won't accept if has IV needs Attending: Scot Arias
[2017-05-15] MEDS: Haloperidol INJ IV/IM* 5 MG/ML AMP IM PRN ×2 (12:42→23:56)
[2017-05-15] MEDS: LORazepam INJ* 2 MG/ML 1 ML VIAL IV PUSH PRN ×2 (13:45→23:55)
[2017-05-15] MEDS: Bacitracin OINTMENT* 1 TUBE TOPICAL PRN ×3 (21:49→21:51)
[2017-05-16] MEDS: LORazepam INJ* 2 MG/ML 1 ML VIAL IV PUSH PRN (04:38)
[2017-05-16] MEDS: Morphine INJ* 4 MG/ML 1 ML CARPUJECT IV PRN ×2 (04:38→07:16)
[2017-05-16] MEDS: Haloperidol INJ IV/IM* 5 MG/ML AMP IM PRN (05:57)
[2017-05-16] MEDS ORDERED: Morphine INJ* 10 MG/ML 1 ML CARPUJECT IV ONE (08:06)
[2017-05-16] MEDS ORDERED: Haloperidol INJ IV/IM* 5 MG/ML AMP IM ONE (08:07)
[2017-05-16] MEDS: Fluticasone NASAL SPRAY 50MCG* 16 gm SPRAY BTL BOTH NARES SCH (08:29)
[2017-05-16] MEDS: PHENobarbital SODIUM(*) 65 MG/ML VIAL IV SCH ×2 (09:24→22:12)
[2017-05-16] MEDS: Bacitracin OINTMENT* 1 TUBE TOPICAL PRN (09:24)
[2017-05-16] MEDS: EMOLLIENT TOPICAL SCH (09:26)
[2017-05-16] MEDS ORDERED: Morphine ORAL.SOLN 10 mg* 2 MG/ML UDC 5 ml PO PRN (14:06)
--- NOTE | 2017-05-16 16:40 | PN ---
Subjective Date of Service: 05/16/17 Interval History: per RN very agitated overnight. Given some pudding and grape juice seemed to tolerate okay per RN. noted to be coughing today on exam. additional prns given Objective Active Medications: Bacitracin (Bacitracin Ointment*) 1 applic TOPICAL BID PRN PRN Reason: WOUND CARE Last Admin: 05/15/17 21:51 Dose: 1 applic Fluticasone Propionate (Flonase Nasal [place] 50mcg*) 1 spray BOTH NARES DAILY [facility] Last Admin: 05/16/17 08:29 Dose: 1 spray Haloperidol Lactate (Haldol Inj Iv/Im*) 2 mg IM Q6H PRN PRN Reason: AGITATION Last Admin: 05/16/17 05:57 Dose: 2 mg Heparin Sodium (Porcine) (Heparin Flush Picc/Ml/Cvc(*)) 1 - 3 ml FLUSH 0600, 1800 [facility] PRN Reason: Protocol Last Admin: 05/16/17 05:57 Dose: 1 ml Lorazepam (Ativan Inj*) 1 mg IV PUSH Q4H PRN PRN Reason: ANXIETY Lorazepam (Ativan Tab(*)) 1 mg PO Q4H PRN PRN Reason: ANXIETY Morphine Sulfate (Morphine Inj (Syringe)*) 3 mg IV Q2H PRN PRN Reason: PAIN Last Admin: 05/16/17 07:16 Dose: 3 mg Morphine Sulfate (Morphine Oral Concentrate*) 5 mg SL Q2H PRN PRN Reason: PAIN Non-Formulary Medication (Emollient [Cerave]) 1 cre TOPICAL BID [facility] Last Admin: 05/16/17 09:26 Dose: Not Given Pharmacy Profile Note (Scopolomine Patch Remove*) 1 note PATCH OFF Q72H [facility] Last Admin: 05/14/17 16:54 Dose: 1 patch Phenobarbital (Phenobarbital Iv(*)) 32.5 mg IV DAILY [facility] Last Admin: 05/16/17 09:24 Dose: 32.5 mg Phenobarbital (Phenobarbital Iv(*)) 65 mg IV BEDTIME [facility] Last Admin: 05/15/17 21:49 Dose: 65 mg Scopolamine (Transderm-Scop 1.5 Mg Patch*) 1 patch TRANSDERM Q72H [facility] Last Admin: 05/14/17 16:49 Dose: 1 patch Vital Signs 05/15/17 05/15/1717 16:39 20:00 21:49 Respiratory 18 18 18 Rate 05/15/17 05/15/17 05/16/17 22:49 23:55 00:55 Respiratory 18 18 18 Rate 05/16/17 05/16/17 05/16/17 04:38 05:38 07:16 Respiratory 18 18 26 Rate 05/16/17 05/16/17 05/16/17 08:00 08:16 09:24 Respiratory 24 24 16 Rate 05/16/17 05/16/17 05/16/17 10:24 10:35 11:35 Respiratory 18 18 18 Rate Appearance: severe cachexia Ears/Nose/Mouth/Throat: NL Teeth, Lips, Gums, - - eyes shut tight Neck: NL Appearance and Movements; NL JVP, Trachea Midline Respiratory: Symmetrical Chest Expansion and Respiratory Effort, Clear to Auscultation Cardiovascular: NL Sounds; No Murmurs; No JVD, RRR Abdominal: NL Sounds; No Tenderness; No Distention Extremities: No Edema, No Clubbing, Cyanosis Skin: No Rash or Ulcers Neurological: - - profound developmental delay Result Diagrams: 05/14/17 08:06 Assess/Plan/Problems-Billing Assessment: 71 year old male PMH severe developmental delay , seizure disorder, from skilled nursing with likely aspiration pneumonia(04/01 admission). Was awaiting placement ( swing status) but transferred back to acute 05/11 for dehydration, hypernatremia to 158 (resolved). Sister desiring comfort care measures only. Not safe for po intake. Now complete comfort care (w/ midline for IV meds) - Patient Problems (1) Swallowing difficulty Current Visit: No Status: Acute Code(s): R13.10 - DYSPHAGIA, UNSPECIFIED SNOMED Code(s): 82980208 Comment: npo as recent evidence of aspiration. (2) Profoundly mentally retarded Current Visit: No Status: Chronic Priority: High Comment: - Non-verbal - Resident at [facility] - haldol 1 mg prn q6 IV for agitation - lorazepam 0.5mg q6 IV prn for agitation - morphine prn (3) Swallowing disorder Current Visit: No Status: Chronic Code(s): R13.10 - DYSPHAGIA, UNSPECIFIED SNOMED Code(s): 89105697 Comment: - Known chronic dysphagia - full npo (4) Need for comfort care Current Visit: Yes Status: Acute Code(s): QME4352 - SNOMED Code(s): 541677075 Comment: - haldol 2 mg prn q4 IM for agitation - lorazepam 1mg q4 IV prn for agitation (1mg po q4 crushed in applesauce if loses IV access) - morphine 3mg IV q2 prn and 5mg morphine concentrate SL q2 prn (5) Hypernatremia Current Visit: Yes Status: Acute Code(s): E87.0 - HYPEROSMOLALITY AND HYPERNATREMIA SNOMED Code(s): 78786069 Comment: resolved but labs now stopped (6) Altered mental state Current Visit: No Status: Acute Code(s): R41.82 - ALTERED MENTAL STATUS, UNSPECIFIED SNOMED Code(s): 352560219 Comment: likely 2/2 acute hypernatremia and baseline cognitive deficits. S/p ampicillin (UA and UCx not consistent with UTI) (7) Protein calorie malnutrition Current Visit: Yes Status: Acute Code(s): E46 - UNSPECIFIED PROTEIN-CALORIE MALNUTRITION SNOMED Code(s): 663509329 Comment: BMI 18.3 -> 17.5, very poor po intake 2/2 aspiration events/AMS. no edema. decreased muscle mass. Recorded weights somewhat inconsistent 40.8 kg on 04/01 but 50.6 kg on 04/02 now 39.3. per goals of care no PICC placed for parental nutrition. Energy intake much less than 50% of needs for more than 5 days. Severe. (8) Hx of seizure disorder Current Visit: No Status: Chronic Priority: High Code(s): Z86.69 - PERSONAL HISTORY OF DIS OF THE NERVOUS SYS AND SENSE ORGANS SNOMED Code(s): 516363555 Comment: continue IV Phenobarbital, consider trial of po meds crushed in applesauce Status and Disposition: medicine inpatient, comfort care likely to remain inpatient as [facility] won't accept if has IV needs Attending: Scot Arias
[2017-05-16] MEDS: Morphine ORAL CONCENTRATE* 5 MG/0.25 ML ORAL.SYRIN SL PRN ×2 (16:57→22:12)
[2017-05-16] MEDS: LORazepam TAB(*) 1 MG PO PRN (18:20)
[2017-05-17] MEDS: LORazepam TAB(*) 1 MG PO PRN ×2 (00:18→05:31)
[2017-05-17] MEDS: EMOLLIENT TOPICAL SCH ×3 (00:58→19:09)
[2017-05-17] MEDS: Morphine ORAL CONCENTRATE* 5 MG/0.25 ML ORAL.SYRIN SL PRN ×4 (02:16→17:17)
[2017-05-17] MEDS: Haloperidol INJ IV/IM* 5 MG/ML AMP IM PRN (02:16)
[2017-05-17] MEDS: Morphine INJ* 4 MG/ML 1 ML CARPUJECT IV PRN ×3 (04:58→18:27)
--- NOTE | 2017-05-17 07:30 | PN ---
Subjective Date of Service: 05/17/17 Interval History: Patient seen this morning. Agitated overnight and continues to be agitated at this time, yelling out. Family History: Unchanged from Admission Social History: Unchanged from Admission Past Medical History: Unchanged from Admission Objective Active Medications: Bacitracin (Bacitracin Ointment*) 1 applic TOPICAL BID PRN Fluticasone Propionate (Flonase Nasal [place] 50mcg*) 1 spray BOTH NARES DAILY [facility] Haloperidol Lactate (Haldol Inj Iv/Im*) 2 mg IM Q6H PRN Heparin Sodium (Porcine) (Heparin Flush Picc/Ml/Cvc(*)) 1 - 3 ml FLUSH 0600, 1800 [facility] Lorazepam (Ativan Inj*) 1 mg IV PUSH Q4H PRN Lorazepam (Ativan Tab(*)) 1 mg PO Q4H PRN Morphine Sulfate (Morphine Inj (Syringe)*) 3 mg IV Q2H PRN Morphine Sulfate (Morphine Oral Concentrate*) 5 mg SL Q2H PRN Non-Formulary Medication (Emollient [Cerave]) 1 cre TOPICAL BID [facility] Pharmacy Profile Note (Scopolomine Patch Remove*) 1 note PATCH OFF Q72H [facility] Phenobarbital (Phenobarbital Iv(*)) 32.5 mg IV DAILY [facility] Phenobarbital (Phenobarbital Iv(*)) 65 mg IV BEDTIME [facility] Scopolamine (Transderm-Scop 1.5 Mg Patch*) 1 patch TRANSDERM Q72H [facility] Vital Signs 05/16/17 05/16/17 05/16/17 08:00 08:16 09:24 Respiratory 24 24 16 Rate 05/16/17 05/16/17 05/16/17 10:24 10:35 11:35 Respiratory 18 18 18 Rate 05/16/17 05/16/17 05/16/17 16:57 18:20 18:57 Respiratory 22 26 18 Rate 05/16/17 05/16/17 05/16/17 20:00 20:20 22:12 Respiratory 18 22 20 Rate 05/16/17 05/17/17 05/17/17 23:12 00:12 00:18 Respiratory 22 22 20 Rate 05/17/17 05/17/17 05/17/17 02:16 02:18 04:16 Respiratory 20 16 16 Rate 05/17/17 05/17/17 05/17/17 04:58 05:31 05:48 Respiratory 24 26 20 Rate Oxygen Devices in Use Now: None Appearance: Elderly, M, sitting in bed, agitated, yelling out Eyes: No Scleral Icterus Ears/Nose/Mouth/Throat: Mucous Membranes Moist Respiratory: Symmetrical Chest Expansion and Respiratory Effort, Clear to Auscultation Neurological: - - Alert, agitated Result Diagrams: 05/14/17 08:06 Assess/Plan/Problems-Billing Assessment: 71 year old male [facility] severe developmental delay , seizure disorder, from shelter with likely aspiration pneumonia(04/01 admission). Was awaiting placement ( swing status) but transferred back to acute 05/11 for dehydration, hypernatremia to 158 (resolved). Sister desiring comfort care measures only. Not safe for po intake. Now complete comfort care (w/ midline for IV meds) - Patient Problems (1) Swallowing difficulty Current Visit: No Comment: Sips of nectar thickened (2) Profoundly mentally retarded Current Visit: No Comment: - Non-verbal - Resident at [facility] - haldol 1 mg prn q6 IV for agitation - lorazepam 0.5mg q6 IV prn for agitation - morphine prn (3) Hypernatremia Current Visit: Yes Status: Acute Code(s): E87.0 - HYPEROSMOLALITY AND HYPERNATREMIA SNOMED Code(s): 76872304 Comment: resolved but labs now stopped (4) Need for comfort care Current Visit: Yes Comment: - haldol 2 mg prn q4 IM for agitation - lorazepam 1mg q4 IV prn for agitation (1mg po q4 crushed in applesauce if loses IV access) - morphine 3mg IV q2 prn and 5mg morphine concentrate SL q2 prn (5) Protein calorie malnutrition Current Visit: Yes Comment: BMI 18.3 -> 17.5, very poor po intake 2/2 aspiration events/AMS. no edema. decreased muscle mass. Recorded weights somewhat inconsistent 40.8 kg on 04/01 but 50.6 kg on 04/02 now 39.3. per goals of care no PICC placed for parental nutrition. Energy intake much less than 50% of needs for more than 5 days. Severe. (6) Altered mental state Current Visit: No Comment: likely 2/2 acute hypernatremia and baseline cognitive deficits. S/p ampicillin (UA and UCx not consistent with UTI) (7) Hx of seizure disorder Current Visit: No Comment: continue IV Phenobarbital, consider trial of po meds crushed in applesauce Status and Disposition: medicine inpatient, comfort care likely to remain inpatient as [facility] won't accept if has IV needs
[2017-05-17] MEDS: Fluticasone NASAL SPRAY 50MCG* 16 gm SPRAY BTL BOTH NARES SCH (09:43)
[2017-05-17] MEDS: PHENobarbital SODIUM(*) 65 MG/ML VIAL IV SCH ×2 (09:43→19:16)
[2017-05-17] MEDS: LORazepam INJ* 2 MG/ML 1 ML VIAL IV PUSH PRN ×2 (10:22→19:15)
[2017-05-17] MEDS ORDERED: Haloperidol INJ IV/IM* 5 MG/ML AMP IM PRN (11:45)
[2017-05-17] MEDS: Scopolomine PATCH Remove* 1 NOTE MISC PATCH OFF SCH (17:18)
[2017-05-17] MEDS: Scopolamine 1.5 mg* PATCH TRANSDERM SCH (17:18)
[2017-05-18] MEDS: LORazepam INJ* 2 MG/ML 1 ML VIAL IV PUSH PRN ×4 (00:10→20:44)
[2017-05-18] MEDS ORDERED: Acetaminophen TAB* 325 MG PO PRN (01:50)
[2017-05-18] MEDS ORDERED: Acetaminophen SUPP* 650 MG SUPP PR PRN (02:20)
--- NOTE | 2017-05-18 08:52 | PN ---
Subjective Date of Service: 05/18/17 Interval History: Pt is non-verbal. Family History: Unchanged from Admission Social History: Unchanged from Admission Past Medical History: Unchanged from Admission Objective Active Medications: Acetaminophen (Tylenol Supp*) 650 mg [place] Q6H PRN PRN Reason: PAIN/FEVER Last Admin: 05/18/17 02:31 Dose: 650 mg Bacitracin (Bacitracin Ointment*) 1 applic TOPICAL BID PRN PRN Reason: WOUND CARE Last Admin: 05/15/17 21:51 Dose: 1 applic Fluticasone Propionate (Flonase Nasal [place] 50mcg*) 1 spray BOTH NARES DAILY [facility] Last Admin: 05/17/17 09:43 Dose: 1 spray Haloperidol Lactate (Haldol Inj Iv/Im*) 5 mg IM Q4H PRN PRN Reason: AGITATION Heparin Sodium (Porcine) (Heparin Flush Picc/Ml/Cvc(*)) 1 - 3 ml FLUSH 0600, 1800 [facility] PRN Reason: Protocol Last Admin: 05/18/17 05:33 Dose: 1 ml Lorazepam (Ativan Inj*) 1 mg IV PUSH Q4H PRN PRN Reason: ANXIETY Last Admin: 05/18/17 00:10 Dose: 1 mg Lorazepam (Ativan Tab(*)) 1 mg PO Q4H PRN PRN Reason: ANXIETY Last Admin: 05/17/17 05:31 Dose: 1 mg Morphine Sulfate (Morphine Inj (Syringe)*) 3 mg IV Q2H PRN PRN Reason: PAIN Last Admin: 05/17/17 18:27 Dose: 3 mg Morphine Sulfate (Morphine Oral Concentrate*) 5 mg SL Q2H PRN PRN Reason: PAIN Last Admin: 05/17/17 17:17 Dose: 5 mg Non-Formulary Medication (Emollient [Cerave]) 1 cre TOPICAL BID [facility] Last Admin: 05/17/17 19:09 Dose: Not Given Pharmacy Profile Note (Scopolomine Patch Remove*) 1 note PATCH OFF Q72H [facility] Last Admin: 05/17/17 17:18 Dose: 1 patch Phenobarbital (Phenobarbital Iv(*)) 32.5 mg IV DAILY [facility] Last Admin: 05/17/17 09:43 Dose: 32.5 mg Phenobarbital (Phenobarbital Iv(*)) 65 mg IV BEDTIME [facility] Last Admin: 05/17/17 19:16 Dose: 65 mg Scopolamine (Transderm-Scop 1.5 Mg Patch*) 1 patch TRANSDERM Q72H [facility] Last Admin: 05/17/17 17:18 Dose: 1 patch Vital Signs 05/17/17 05/17/17 05/17/17 09:43 10:22 10:43 Temperature Respiratory 24 24 28 Rate 05/17/17 05/17/17 05/17/17 10:59 11:22 11:50 Temperature Respiratory 28 28 28 Rate 05/17/17 05/17/17 05/17/17 12:50 12:59 13:18 Temperature Respiratory 28 28 28 Rate 05/17/17 05/17/17 05/17/17 15:18 17:17 18:27 Temperature Respiratory 24 24 28 Rate 05/17/17 05/17/17 05/17/17 19:15 19:16 19:17 Temperature Respiratory 18 18 18 Rate 05/17/17 05/17/17 05/18/17 19:28 20:15 00:10 Temperature Respiratory 18 16 16 Rate 05/18/17 05/18/17 01:10 01:49 Temperature 102.7 F Respiratory 20 Rate Oxygen Devices in Use Now: None Appearance: Elderly thin male lying in bed sleeping, awakens to voice, NAD Ears/Nose/Mouth/Throat: - - dry tongue Respiratory: Symmetrical Chest Expansion and Respiratory Effort, Clear to Auscultation Cardiovascular: NL Sounds; No Murmurs; No JVD, RRR, No Edema Abdominal: - - hypoactive bowel sounds Skin: No Nodules or Sclerosis Neurological: - - awakens to voice and grunts Result Diagrams: 05/14/17 08:06 Assess/Plan/Problems-Billing 71 year old male PMHx severe developmental delay , seizure disorder, from [facility] with likely aspiration pneumonia(04/01 admission). Was awaiting placement ( swing status) but transferred back to acute 05/11 for dehydration, hypernatremia to 158 (resolved). Sister desiring comfort care measures only. Not safe for po intake. Now complete comfort care (w/ midline for IV meds) - Patient Problems (1) Hypernatremia Current Visit: Yes Status: Acute Code(s): E87.0 - HYPEROSMOLALITY AND HYPERNATREMIA SNOMED Code(s): 41059832 Comment: Hypernatremia was corrected however labs are no longer being checked as the patient is on comfort care. Additionally the patient is not taking in a significant amount of fluids by mouth and likely is becoming hypernatremic again. (2) Need for comfort care Current Visit: Yes Status: Acute Code(s): SZP3481 - SNOMED Code(s): 829815935 Comment: THe patient's sister has requested comfort care and DNR/DNI. Will continue haldol 2 mg prn q4 IM for agitation, lorazepam 1mg q4 IV prn for agitation (1mg po q4 crushed in applesauce if loses IV access) and morphine 3mg IV q2 prn and 5mg morphine concentrate SL q2 prn pain or air hunger. ? placement at the hospice residence (3) DVT prophylaxis Current Visit: Yes Status: Acute Code(s): [id number] - SNOMED Code(s): 762055767 Comment: none as pt is comfort care (4) DNR (do not resuscitate) Current Visit: Yes Status: Acute Status and Disposition: comfort care likely to remain inpatient as [facility] won't accept if he has IV needs
[2017-05-18] MEDS: PHENobarbital SODIUM(*) 65 MG/ML VIAL IV SCH ×2 (10:04→23:23)
[2017-05-18] MEDS: Fluticasone NASAL SPRAY 50MCG* 16 gm SPRAY BTL BOTH NARES SCH ×2 (10:11→10:12)
[2017-05-18] MEDS: EMOLLIENT TOPICAL SCH ×2 (10:11→22:22)
[2017-05-18] MEDS: Morphine ORAL CONCENTRATE* 5 MG/0.25 ML ORAL.SYRIN SL PRN (10:43)
[2017-05-18] MEDS: LORazepam TAB(*) 1 MG PO PRN (19:10)
[2017-05-19] MEDS: LORazepam INJ* 2 MG/ML 1 ML VIAL IV PUSH PRN ×3 (01:41→19:39)
[2017-05-19] MEDS: Haloperidol INJ IV/IM* 5 MG/ML AMP IV SLOW PU PRN ×2 (03:58→08:35)
[2017-05-19] MEDS: PHENobarbital SODIUM(*) 65 MG/ML VIAL IV SCH (08:35)
[2017-05-19] MEDS ORDERED: LORazepam INJ* 2 MG/ML 1 ML VIAL IV PUSH ONE (09:12)
[2017-05-19] MEDS: EMOLLIENT TOPICAL SCH ×2 (09:53→19:56)
[2017-05-19] MEDS: Fluticasone NASAL SPRAY 50MCG* 16 gm SPRAY BTL BOTH NARES SCH (09:53)
[2017-05-19] MEDS: LORazepam TAB(*) 1 MG PO PRN ×5 (12:16→21:25)
--- NOTE | 2017-05-19 12:54 | PN ---
Subjective Date of Service: 05/19/17 Interval History: Patient is non-verbal. Family History: Unchanged from Admission Social History: Unchanged from Admission Past Medical History: Unchanged from Admission Objective Active Medications: Acetaminophen (Tylenol Supp*) 650 mg [place] Q6H PRN Bacitracin (Bacitracin Ointment*) 1 applic TOPICAL BID PRN Fluticasone Propionate (Flonase Nasal [place] 50mcg*) 1 spray BOTH NARES DAILY [facility] Haloperidol Lactate (Haldol Inj Iv/Im*) 5 mg IV SLOW PU Q4H PRN Heparin Sodium (Porcine) (Heparin Flush Picc/Ml/Cvc(*)) 1 - 3 ml FLUSH 0600, 1800 [place] Lorazepam (Ativan Inj*) 1 mg IV PUSH Q2H PRN Morphine Sulfate (Morphine Inj (Syringe)*) 3 mg IV Q2H PRN Morphine Sulfate (Morphine Oral Concentrate*) 5 mg SL Q2H PRN Non-Formulary Medication (Emollient [Cerave]) 1 cre TOPICAL BID [facility] Pharmacy Profile Note (Scopolomine Patch Remove*) 1 note PATCH OFF Q72H [facility] Scopolamine (Transderm-Scop 1.5 Mg Patch*) 1 patch TRANSDERM Q72H [facility] Vital Signs 05/18/17 05/18/17 05/18/17 13:00 14:20 15:30 Respiratory 18 20 18 Rate 05/18/17 05/18/17 05/18/17 17:30 19:10 20:00 Respiratory 18 20 26 Rate 05/18/17 05/18/17 05/18/17 20:44 21:10 21:44 Respiratory 26 24 25 Rate 05/18/17 05/19/17 05/19/17 23:23 01:41 07:40 Respiratory 24 26 16 Rate 05/19/17 05/19/17 05/19/17 08:00 08:40 09:35 Respiratory 18 18 18 Rate 05/19/17 05/19/17 05/19/17 09:41 10:41 12:16 Respiratory 22 18 18 Rate Oxygen Devices in Use Now: None Appearance: elderly male laying in bed, awakens to voice Eyes: No Scleral Icterus, PERRLA Ears/Nose/Mouth/Throat: - - dry mucous membranes Respiratory: Symmetrical Chest Expansion and Respiratory Effort, Clear to Auscultation Cardiovascular: NL Sounds; No Murmurs; No JVD Abdominal: - - hypoactive bowel sounds Extremities: No Edema Skin: No Nodules or Sclerosis Neurological: - - awakens to voice and grunts Nutrition: Taking PO's Result Diagrams: 05/14/17 08:06 Assess/Plan/Problems-Billing 71 year old male PMHx severe developmental delay , seizure disorder, from [facility] with likely aspiration pneumonia (04/01 admission). Was awaiting placement ( swing status) but transferred back to acute 05/11 for dehydration, hypernatremia to 158 (resolved). Sister desiring comfort care measures only. Now complete comfort care - Patient Problems (1) Hypernatremia Comment: Hypernatremia was corrected however labs are no longer being checked as the patient is on comfort care. Patient has started to increased PO intake. (2) Need for comfort care Comment: THe patient's sister has requested comfort care and DNR/DNI. Will continue haldol 2 mg prn q4 IM for agitation, lorazepam 1mg q4 PO prn for agitation (IV if cant take PO) and 5mg morphine concentrate SL q2 prn pain ( with IV if cannot take PO). Will switch back to standing Haldol 5mg with IM if can't take PO. If he can take PO reliably, can go back to [facility]. (3) DVT prophylaxis Comment: none as pt is comfort care (4) DNR (do not resuscitate) Status and Disposition: If patient can tolerate PO meds, can return to [facility] for comfort care.
[2017-05-19] MEDS: Morphine ORAL CONCENTRATE* 5 MG/0.25 ML ORAL.SYRIN SL PRN ×4 (14:42→21:26)
[2017-05-19] MEDS: Haloperidol LIQ* 10 MG/5 ML UDC PO SCH (15:34)
[2017-05-19] MEDS: PHENobarbital TAB(*) 30 MG PO SCH (21:25)
[2017-05-20] MEDS: Morphine ORAL CONCENTRATE* 5 MG/0.25 ML ORAL.SYRIN SL PRN ×6 (00:34→23:30)
[2017-05-20] MEDS: LORazepam INJ* 2 MG/ML 1 ML VIAL IV PUSH PRN ×2 (00:34→04:14)
[2017-05-20] MEDS: LORazepam TAB(*) 1 MG PO PRN ×6 (07:25→23:30)
[2017-05-20] MEDS: Haloperidol LIQ* 10 MG/5 ML UDC PO SCH ×3 (07:26→15:48)
[2017-05-20] MEDS: PHENobarbital TAB(*) 30 MG PO SCH ×2 (07:26→20:58)
[2017-05-20] MEDS ORDERED: LORazepam TAB(*) 1 MG PO PRN (08:49)
[2017-05-20] MEDS ORDERED: Morphine ORAL CONCENTRATE* 5 MG/0.25 ML ORAL.SYRIN SL PRN (08:50)
[2017-05-20] MEDS: EMOLLIENT TOPICAL SCH ×2 (09:39→23:03)
[2017-05-20] MEDS: Fluticasone NASAL SPRAY 50MCG* 16 gm SPRAY BTL BOTH NARES SCH (09:40)
--- NOTE | 2017-05-20 09:58 | PN ---
Subjective Date of Service: 05/20/17 Interval History: Patient is non-verbal. Only required one Haldol IM overnight. Taking PO Ativan and eating and drinking with assistance. Currently resting quietly. Family History: Unchanged from Admission Social History: Unchanged from Admission Past Medical History: Unchanged from Admission Objective Active Medications: Acetaminophen (Tylenol Supp*) 650 mg [place] Q6H PRN Bacitracin (Bacitracin Ointment*) 1 applic TOPICAL BID PRN Fluticasone Propionate (Flonase Nasal [place] 50mcg*) 1 spray BOTH NARES DAILY [facility] Haloperidol (Haldol Liq*) 5 mg PO Q8H [facility] Heparin Sodium (Porcine) (Heparin Flush Picc/Ml/Cvc(*)) 1 - 3 ml FLUSH 0600, 1800 [place] Lorazepam (Ativan Tab(*)) 2 mg PO Q2H PRN Morphine Sulfate (Morphine Oral Concentrate*) 5 mg SL Q2H PRN Non-Formulary Medication (Emollient [Cerave]) 1 cre TOPICAL BID [facility] Pharmacy Profile Note (Scopolomine Patch Remove*) 1 note PATCH OFF Q72H [facility] Phenobarbital (Phenobarbital Tab(*)) 60 mg PO BEDTIME [facility] Phenobarbital (Phenobarbital Tab(*)) 30 mg PO DAILY [facility] Scopolamine (Transderm-Scop 1.5 Mg Patch*) 1 patch TRANSDERM Q72H [facility] Vital Signs 05/19/17 05/19/17 05/19/17 10:41 12:16 14:03 Respiratory 18 18 24 Rate Oxygen Devices in Use Now: None Appearance: laying quietly in NAD Eyes: No Scleral Icterus Ears/Nose/Mouth/Throat: NL Teeth, Lips, Gums Neck: NL Appearance and Movements; NL JVP Respiratory: Symmetrical Chest Expansion and Respiratory Effort Cardiovascular: NL Sounds; No Murmurs; No JVD Abdominal: NL Sounds; No Tenderness; No Distention Extremities: No Edema Skin: No Rash or Ulcers Neurological: - - awakens to voice and grunts Result Diagrams: 05/14/17 08:06 Assess/Plan/Problems-Billing 71 year old male PMHx severe developmental delay , seizure disorder, from skilled nursing with likely aspiration pneumonia (04/01 admission). Was awaiting placement ( swing status) but transferred back to acute 05/11 for dehydration, hypernatremia to 158 (resolved). Sister desiring comfort care measures only. Now complete comfort care - Patient Problems (1) Hypernatremia Comment: Hypernatremia was corrected however labs are no longer being checked as the patient is on comfort care. Patient has started to increase PO intake. (2) Need for comfort care Comment: The patient's sister has requested comfort care and DNR/DNI. Changed all medications to PO. Continue Haldol 5mg q8h, Ativan 2mg q2h PRN, Morphine 5mg q2h PRN. Likely to return to [facility] tomorrow as he is taking meds PO reliably. (3) DVT prophylaxis Comment: none as pt is comfort care (4) DNR (do not resuscitate) Status and Disposition: If patient continues to tolerate PO meds, can return to [facility] for comfort care.
[2017-05-20] MEDS: Scopolomine PATCH Remove* 1 NOTE MISC PATCH OFF SCH (17:23)
[2017-05-20] MEDS: Scopolamine 1.5 mg* PATCH TRANSDERM SCH (17:25)
[2017-05-21] MEDS: Haloperidol LIQ* 10 MG/5 ML UDC PO SCH ×2 (00:17→07:45)
[2017-05-21] MEDS: LORazepam TAB(*) 1 MG PO PRN ×3 (01:30→09:02)
[2017-05-21] MEDS: Morphine ORAL CONCENTRATE* 5 MG/0.25 ML ORAL.SYRIN SL PRN ×4 (01:30→11:50)
[2017-05-21] MEDS: EMOLLIENT TOPICAL SCH (08:57)
[2017-05-21] MEDS: PHENobarbital TAB(*) 30 MG PO SCH (09:04)
[2017-05-21] MEDS: Fluticasone NASAL SPRAY 50MCG* 16 gm SPRAY BTL BOTH NARES SCH (09:14)
--- NOTE | 2017-05-21 10:07 | PN ---
Subjective Date of Service: 05/21/17 Interval History: Patient non-verbal. Resting calmly intermittently with grunting. Family History: Unchanged from Admission Social History: Unchanged from Admission Past Medical History: Unchanged from Admission Objective Active Medications: Acetaminophen (Tylenol Supp*) 650 mg [place] Q6H PRN Bacitracin (Bacitracin Ointment*) 1 applic TOPICAL BID PRN Fluticasone Propionate (Flonase Nasal [place] 50mcg*) 1 spray BOTH NARES DAILY [facility] Haloperidol (Haldol Liq*) 5 mg PO Q8H [facility] Heparin Sodium (Porcine) (Heparin Flush Picc/Ml/Cvc(*)) 1 - 3 ml FLUSH 0600, 1800 [place] Lorazepam (Ativan Tab(*)) 2 mg PO Q2H PRN Morphine Sulfate (Morphine Oral Concentrate*) 5 mg SL Q2H PRN Non-Formulary Medication (Emollient [Cerave]) 1 cre TOPICAL BID [facility] Pharmacy Profile Note (Scopolomine Patch Remove*) 1 note PATCH OFF Q72H [facility] Phenobarbital (Phenobarbital Tab(*)) 60 mg PO BEDTIME [facility] Phenobarbital (Phenobarbital Tab(*)) 30 mg PO DAILY [facility] Scopolamine (Transderm-Scop 1.5 Mg Patch*) 1 patch TRANSDERM Q72H [facility] Vital Signs 05/20/17 05/20/17 05/20/17 13:30 15:30 15:48 Pulse Rate Respiratory 16 16 14 Rate 05/20/17 05/20/17 05/20/17 17:48 17:55 17:56 Pulse Rate Respiratory 17 17 17 Rate 05/20/17 05/20/17 05/20/17 19:55 19:56 20:00 Pulse Rate Respiratory 18 18 18 Rate 05/20/17 05/20/17 05/20/17 20:57 20:58 22:57 Pulse Rate Respiratory 20 20 18 Rate 05/20/17 05/20/17 05/21/17 22:58 23:30 01:30 Pulse Rate Respiratory 18 18 16 Rate 05/21/17 05/21/17 05/21/17 03:30 05:37 05:38 Pulse Rate Respiratory 16 20 20 Rate 05/21/17 05/21/17 05/21/17 07:40 07:52 08:00 Pulse Rate 108 Respiratory 28 30 Rate 05/21/17 05/21/17 09:02 09:04 Pulse Rate Respiratory 36 36 Rate Oxygen Devices in Use Now: None Appearance: laying in bed with occasional grunting Eyes: No Scleral Icterus, PERRLA Ears/Nose/Mouth/Throat: NL Teeth, Lips, Gums Neck: NL Appearance and Movements; NL JVP Respiratory: Symmetrical Chest Expansion and Respiratory Effort, Clear to Auscultation Cardiovascular: NL Sounds; No Murmurs; No JVD Abdominal: NL Sounds; No Tenderness; No Distention Extremities: No Edema Skin: No Rash or Ulcers Neurological: - - non-verbal Result Diagrams: 05/14/17 08:06 Assess/Plan/Problems-Billing 71 year old male PMHx severe developmental delay , seizure disorder, from skilled nursing with likely aspiration pneumonia (04/01 admission). Was awaiting placement ( swing status) but transferred back to acute 05/11 for dehydration, hypernatremia to 158 (resolved). Sister desiring comfort care measures only. Now complete comfort care - Patient Problems (1) Hypernatremia (2) Need for comfort care (3) DVT prophylaxis (4) DNR (do not resuscitate) Status and Disposition: Stable to transfer back to [facility]. Patient will be signed on to hospice this afternoon.
--- NOTE | 2017-05-21 16:36 | DS ---
DISCHARGE SUMMARY: DATE OF ADMISSION: 04/14/17 DATE OF DISCHARGE TO [facility]04/28/17 DATE OF DISCHARGE FROM SWING STATUS: 05/11/17 DATE OF DISCHARGE FROM HOSPITAL: 05/21/17 PRIMARY CARE PROVIDER: Dr. Belle. ATTENDING PHYSICIAN: Flory Livingston MD* (report dictated by Corrie Hawkins NP ) PRIMARY DIAGNOSES: 1. Hypernatremia. 2. Aspiration pneumonia with severe malnutrition due to calorie deficiency. SECONDARY DIAGNOSES: 1. Advanced intellectual developmental delay. 2. Chronic dysphagia. 3. Seizure disorder. 4. Hypothyroidism. 5. Bipolar disorder. 6. Thrombocytopenia. STUDIES DURING THIS HOSPITALIZATION: None. CONSULTATIONS WHILE IN THE HOSPITAL: Brendan Daily MD, psychiatry; Dr[facility] J[facility] Chew, [facility] MEDICATIONS AT THE TIME OF DISCHARGE: New Medications: 1. Haldol liquid 5 mg oral every 8 hours. 2. Ativan 2 mg oral every 2 hours as needed. 3. Morphine oral concentrate 5 mg sublingual every 2 hours as needed. Following medications are the medications that the patient came in on: 1. Nasonex 1 spray both nares daily. 2. Tylenol 650 mg oral as needed. 3. Dulcolax 10 mg rectal every 4 days as needed. 4. Vitamin A and D topical twice daily as needed. 5. Bacitracin one application topical twice daily. 6. Mineral oil 3 drops to both the ears 3 times daily as needed. 7. Zinc oxide 30% topical 3 times daily. 8. Ibuprofen 400 mg oral every 4 hours as needed. 9. Maalox 30 mL oral 3 times daily after meals as needed. 10. Valtrex 2 g oral every 12 hours as needed. 11. MiraLax 17 g oral daily. 12. Phenobarbital 64.8 oral at bedtime, 32.4 mg oral daily. 13. Synthroid 100 mcg oral daily. 14. Prevacid 20 mg oral daily. 15. Milk of mag 30 mL oral 3 days. 16. Emollient cream topical twice daily. 17. Scopolamine 1 patch transdermal every 72 hours. Discontinued Medications: 1. Ensure. 2. Mucinex. 3. Multivitamin. HISTORY OF PRESENT ILLNESS AND HOSPITAL COURSE: Mr. Snyder is a 71-year- old man who was initially admitted on 04/19/17 with complaint of weakness, altered mental status for aspiration pneumonia. He lives in a snf _ eating poorly. He was stabilized and sent to swing bed status. On 05/09/17, he was poorly responsive and change in mental status, so he was changed to acute status. On that admission, the patient was found to be severely hypernatremic with a sodium of 158. He was admitted to acute status. The patient was seen by Psychiatry for capacity, which he clearly lacked the decision making capacity. After conversations with the patient's sister, she wished to pursue comfort care only. The patient was switched to comfort care and focus was switched to providing the patient with medications to keep him calm. He was maintained on his phenobarbital. Initially, the patient required IM Haldol as well as IV morphine and IV Ativan. Over time, the patient's mental status did improve. He was able to take nectar thickened liquids, chips, as well as pureed food, pudding thick consistency. With this, he was able to be transitioned to oral Haldol, oral Ativan, and oral morphine and at this point is stable to be transferred back to [facility] where he will be signed on to hospice there. DISCHARGE PLAN: The patient is discharged on a pureed diet, pudding thick consistency. Medications should be crushed or in liquid form. The patient's activity is as tolerated. The plan will be for him to be signed on to hospice this afternoon. This is a summarized report of a complex medical history and hospital stay; for more details, please see the entire medical record. TIME SPENT: Time for this discharge was 50 minutes, and 25 minutes were spent discussing plan for medications and followup instructions. CONDITION ON DISCHARGE: Stable. CORRIE HAWKINS NP [id number]/CPS #: [id number] AGUSTIN
== END 2017-05-21 12:50 | disposition hospice, home (50) | DRG 640 ==
LOC: MED 15:27
PROVIDERS: ADMIT Internal Medicine; ATTEND Internal Medicine
DX: E87.0 Hyperosmolality and hypernatremia (principal); E43 Unspecified severe protein-calorie malnutrition; E86.0 Dehydration; J69.0 Pneumonitis due to inhalation of food and vomit; F73 Profound intellectual disabilities; D69.6 Thrombocytopenia, unspecified; G40.909 Epilepsy, unspecified, not intractable, without status epilepticus; R13.10 Dysphagia, unspecified; Z68.1 Body mass index [BMI] 19.9 or less, adult; E03.9 Hypothyroidism, unspecified; F31.9 Bipolar disorder, unspecified; H54.8 Legal blindness, as defined in USA; R45.1 Restlessness and agitation; E87.6 Hypokalemia; Z66 Do not resuscitate; Z51.5 Encounter for palliative care
CPT/HCPCS: 36415; 80048; A9270-GY; J1630; J1642; J2060; J2270; J2560; J3475; J3480